=== PATIENT | female | born 1995 | race Caucasian/White ===

== ENCOUNTER 2023-04-01 15:03 | Emergency (ER) | payer OTHER, SELFPAY ==
[2023-04-01 15:08] VITALS: BP 122/78; PULSE 101; RESP 18; TEMP 36.7; O2SAT 100
--- NOTE | 2023-04-01 15:17 | XR_ITS ---
The [address] [address] Patient Name: DREW MACIEL MRN: [id number] date: 1995 Sex: F Assigned Patient Location: ER Current Patient Location: ER Accession/Order Number: [id number] Exam Date: 04/01/2023 15:25 Report Date: 04/01/2023 15:55 At the request of: PRIYA LEYVA Procedure: XR hand RT min 3V EXAM: XR hand RT min 3V HISTORY: Fall COMPARISON: None TECHNIQUE: 4 views of the right hand were obtained. FINDINGS: No definite acute fracture or dislocation. Small spur is suggested along the dorsal aspect of the tuft of the distal phalanx of the ring finger. No significant soft tissue swelling. XR/XR hand RT min 3V IMPRESSION: Right hand study fails to demonstrate definite acute fracture or dislocation. Follow-up as needed. Electronically authenticated by: KEITH ROBISON Date: 04/01/2023 15:55
--- NOTE | 2023-04-01 15:17 | XR_ITS ---
The [address] [address] Patient Name: DREW MACIEL MRN: [id number] date: 1995 Sex: F Assigned Patient Location: ER Current Patient Location: ER Accession/Order Number: [id number] Exam Date: 04/01/2023 15:25 Report Date: 04/01/2023 15:43 At the request of: PRIYA LEYVA Procedure: XR wrist RT min 3V EXAM: XR wrist RT min 3V HISTORY: Fall COMPARISON: None. TECHNIQUE: Three views of the right wrist. FINDINGS: No acute fracture or dislocation. No soft tissue abnormality. XR/XR wrist RT min 3V IMPRESSION: 1. No acute osseous abnormality. Electronically authenticated by: RAMONA CRUZ Date: 04/01/2023 15:43
--- NOTE | 2023-04-01 15:18 | ED.UPPEXIN1 ---
HPI - Extremity Injury (Upper) General Chief Complaint: Extremity Injury, Upper Stated Complaint: r hand/wrist dt fall Time Seen by Provider: 04/01/23 15:09 Source: patient Mode of arrival: walk-in History of Present Illness HPI narrative: Patient is a 27-year-old female who presents to the emergency department For the evaluation of an injury to the right hand and wrist that occurred just prior to arrival. Patient states she took ibuprofen prior to arrival in the ER. She is right-hand dominant. She denies head injury, loss of consciousness, neck or back pain. She states the right hand feels shaky to her, no other peripheral paresthesias. She reports most of the pain in the palm of the right hand and volar right wrist. Related Data Previous Rx's Medication Instructions Recorded hydrocodone 5 mg-acetaminophen 325 1 tab PO Q6H PRN pain 2 days #8 04/01/23 mg tablet tabs Allergies Allergy/AdvReac Type Severity Reaction Status Date / Time No Known Drug Allergies Allergy Verified 04/01/23 15:12 Review of Systems ROS Constitutional Denies: fever or chills Eyes Denies: change in vision Ears, nose, mouth, and throat Denies: throat pain or nasal congestion Cardiovascular Denies: chest pain Respiratory Denies: shortness of breath or cough Gastrointestinal Denies: nausea or vomiting Genitourinary Denies: painful urination Musculoskeletal Reports: extremity pain, extremity swelling and joint pain; Denies: back pain or neck pain Integumentary/Breast Denies: rash Neurological Denies: headache Endocrine Denies: excessive urination Hematologic/Lymphatic Denies: easy bruising or easy bleeding Exam Narrative Exam Narrative: Gen.: Awake, alert, in no distress Head: Normocephalic, atraumatic ENT: Moist mucous membranes Respiratory: No respiratory distress Extremities: Limited flexion and extension at the right wrist with diffuse tenderness and mild edema noted over the palmar aspect of the right hand just distal to the wrist joint as well as diffuse swelling and mild tenderness of the volar wrist. 2+ right radial pulse. Normal sensation to the fingertips. Psych: Normal mood and affect Neuro: No focal neuro deficit Skin: Warm, dry, intact Constitutional Vital Signs, click to edit/add: Last Vital Signs Temp 98.0 F 04/01/23 15:08 Pulse 101 H 04/01/23 15:08 Resp 18 04/01/23 15:08 BP 122/78 04/01/23 15:08 Pulse Ox 100 04/01/23 15:08 O2 Del Method Room Air 04/01/23 15:08 Course Vital Signs Vital signs: Vital Signs Temperature 98.0 F 04/01/23 15:08 Pulse Rate 101 H 04/01/23 15:08 Respiratory Rate 18 04/01/23 15:08 Blood Pressure 122/78 04/01/23 15:08 Pulse Oximetry 100 04/01/23 15:08 Oxygen Delivery Method Room Air 04/01/23 15:08 Temperature 98.0 F 04/01/23 15:08 Pulse Rate 101 H 04/01/23 15:08 Respiratory Rate 18 04/01/23 15:08 Blood Pressure 122/78 04/01/23 15:08 Pulse Oximetry 100 04/01/23 15:08 Oxygen Delivery Method Room Air 04/01/23 15:08 MDM - Extremity Injury (Upper) MDM Narrative Medical decision making narrative: X-rays of the right hand and right wrist with no evidence of fracture or dislocation per the radiologist read. Patient declined narcotic pain medication in the ER, she took ibuprofen prior to arrival. She states she does not need a work note at this time. She was placed in a metal forearm splint with Francisco wrap and remains neurovascularly intact. Rest, ice, elevate. Follow-up with PCP and return to the emergency department if symptoms change or worsen. Short course of analgesics was written for home as needed. Medical Records Attestation: I reviewed the patient's medical records. Imaging Data XR hand: Attestation: I have reviewed the pertinent imaging results. Radiologist's impression: ITS Impressions Hand X-Ray 04/01/23 15:17 IMPRESSION: Right hand study fails to demonstrate definite acute fracture or dislocation. Follow-up as needed. Electronically authenticated by: KEITH ROBISON Date: 04/01/2023 15:55 Wrist X-Ray 04/01/23 15:17 IMPRESSION: 1. No acute osseous abnormality. Electronically authenticated by: RAMONA CRUZ Date: 04/01/2023 15:43 Discharge Plan Discharge Chief Complaint: Extremity Injury, Upper Clinical Impression: Contusion of right wrist Patient Disposition: Home, Self-Care Time of Disposition Decision: 16:08 Condition: Good Prescriptions / Home Meds: New hydrocodone-acetaminophen 5-325 mg tablet 1 tab PO Q6H PRN (Reason: pain) 2 Days Qty: 8 0RF Rx Instructions: DX: S60.211 Instructions: Contusion in Adults (ED) Stand Alone Forms: Portal Instructions Referrals: Physician,Non-Staff, MD [Primary Care Provider] - 1 week Discharge Date/Time: 04/01/23 16:22
--- OUTSIDE RECORDS SUMMARY | 2023-04-01 15:30 | XMS_ITS | CCD ---
Author Name Unknown Address [address] [facility] [address] [place] [address] Organization [facility] Care Team Providers Care Records Custodian Name Role Phone PHYSICIAN, DEFAULT Unavailable Unavailable PHYSICIAN, DEFAULT Unavailable Unavailable AILEEN SABILLON Unavailable Unavailable AILEEN SABILLON Unavailable Unavailable DESEAN, MAGGIE Unavailable Unavailable DESEAN, MAGGIE Unavailable Unavailable KARASIK, DR DYER Attending Unavailable KARASIK, DR DYER Consulting Unavailable KARASIK, DR DYER Admitting Unavailable DESEAN, DR LAND Consulting Unavailable DESEAN, DR LAND Primary Care Unavailable KARASIK, DR DYER Attending Unavailable KARASIK, DR DYER Admitting Unavailable ZIEBER, DR AIMEE Riddle Consulting Unavailable HEMMER, DR REENA Daugherty Attending Unavailable HEMMER, DR REENA Daugherty Consulting Unavailable HEMLETICIA, DR REENA Daugherty Admitting Unavailable DESEAN, DR LAND Primary Care Unavailable BRITTANI, DR MYLES Riddle Attending Unavailable BRITTANI, DR MYLES Riddle Consulting Unavailable BRITTANI, DR MYLES Riddle Admitting Unavailable DESEAN, DR LAND Primary Care Unavailable MD Maggie Anton Primary Care Provider DO Holger Aquino Attending Provider MD Maggie Anton Primary Care Provider DO Mario Conley Attending Provider [phone] DO Shirlene Owen Attending Provider [phone] DO Mario Conley Admit Provider MD Maggie Anton Primary Care Provider DO Holger Aquino Attending Provider Berta Rosales Unavailable MARY BETH Rosales Attending Provider [phone] Mario Conley Attending Unavailable Maggie Anton Primary Care Unavailable Mario Conley Admitting Unavailable Mario Conley Attending Unavailable Maggie Anton Primary Care Unavailable Mario Conley Admitting Unavailable Maggie Anton Primary Care Unavailable Shirlene Owen Admitting Unavailable Shirlene Owen Attending Unavailable Berta Rosales Admitting Unavailable Berta Rosales Attending Unavailable Medications Current Medications Medication Drug Class(es) Dates Sig (Normalized) Sig (Original) benzocaine 200 mg/ml / menthol 5 mg/ml topical spray (3 sources) Standardized Chemical Allergen Start: 04-01-2022 Benzocaine-Mentho l (Dermoplast (With Menthol)) 20-0.5 % Aerosol Active 1 SPRAY TOPICAL PRN April 01, 2022 12:00am ferrous sulfate 325 mg oral tablet (5 sources) Start: 03-30-2022 take 325 mg by mouth once daily Ferrous Sulfate Active 325 MG PO Daily March 30, 2022 12:00am ibuprofen 600 mg oral tablet (3 sources) Nonsteroidal Anti-inflammatory Drug Start: 03-30-2022 Ibuprofen Active 600 MG PO Every 6 hours March 30, 2022 12:00am do not exceed 4 doses in a 24 hour period Modified Lanolin (Lanolin (Hpa)) 100 % Cream (3 sources) Start: 04-01-2022 Modified Lanolin (Lanolin (Hpa)) 100 % Cream Active 1 APPLIC TOPICAL PRN April 01, 2022 1:00am Start: 04-01-2022 Modified Lanol in (Lanolin (Hpa)) 100 % Cream Active 1 APPLIC TOPICAL PRN April 01, 2022 12:00am sulfamethoxazole 800 mg / trimethoprim 160 mg oral tablet (2 sources) Dihydrofolate Reductase Inhibitor Antibacterial, Sulfonamide Antimicrobial Start: 02-12-2023 take 1 tablet by mouth every twelve hours Bactrim DS 800-160 MG 1 tablet Orally Twice a day for 5 days Jan, Active witch [place] 500 mg/ml medicated pad (3 sources) Start: 04-01-2022 Glycerin-Witch Diego (A.E.R. Witch Diego) 12.5-50 % Pads, Medicated Active 1 PAD TOPICAL PRN April 01, 2022 12:00am Completed/Discontinued Medications Medication Drug Class(es) Dates Sig (Normalized) Sig (Original) 1 ml medroxyPROGESTERone acetate 150 mg/ml prefilled syringe (2 sources) Progestin medroxyPROGESTER one Acetate 150 MG/ML ADMINISTER 150mg INTRAMUSCULARLY every 10 TO 12 WEEKS DIRECTED Intramuscular for 70 Days Not-Taking/PRN Problems Active Problems Problem Classification Problem Date Documented Date Episodic/Chronic Genitourinary symptoms and ill-defined conditions (3 sources) Dysuria; Translations: [Dysuria] Onset: 02-12-2023 Episodic Other lower respiratory disease (1 source) Shortness of breath; Translations: [SHORTNESS OF BREATH] Onset: 11-26-2020 Episodic Residual codes; unclassified (3 sources) Gestation period, 39 weeks; Translations: [39 weeks gestation of ] 03-31-2022 Episodic Residual codes; unclassified (1 source) 39 weeks gestation of ; Translations: [ state, incidental] 04-01-2022 Episodic Unclassified (2 sources) Unknown / UNK(Unknown) Onset: 09-21-2016 Unclassified (3 sources) CONTACT W/AND (SUSP) EXPOS COVID-19; Translations: [CONTACT W/AND (SUSP) EXPOS COVID-19] Onset: 11-26-2020 Unclassified (1 source) COUGH, UNSPECIFIED; Translations: [COUGH, UNSPECIFIED] Onset: 11-26-2020 Unclassified (1 source) 39 weeks gestation of ; Translations: [39 weeks gestation of ] Onset: 03-29-2022 Unclassified (1 source) Encounter for screening for Streptococcus B; Translations: [Encounter for screening for Streptococcus B] Onset: 03-10-2022 Unclassified (1 source) labor without delivery, third trimester; Translations: [ labor without delivery, third trimester] Onset: 03-08-2022 Urinary tract infections (2 sources) Acute cystitis without hematuria Episodic Past or Other Problems Problem Classification Problem Date Documented Date Episodic/Chronic Abdominal pain (4 sources) Pelvic and perineal pain; Translations: [PELVIC AND PERINEAL PAIN] Onset: 01-01-2020 Episodic Immunizations and screening for infectious disease (1 source) Encounter for screening for human papillomavirus (HPV); Translations: [ENC SCREENING HUMAN PAPILLOMAVIRUS] Onset: 01-27-2020 Episodic Other screening for suspected conditions (not mental disorders or infectious disease) (4 sources) Encounter for screening for malignant neoplasm of cervix; Translations: [ENC SCREENING MALIG NEOPLASM CERV] Onset: 01-22-2020 Episodic Skin and subcutaneous tissue infections (1 source) Local infection of the skin and subcutaneous tissue, unspecified; Translations: [LOCAL INFECT SKIN SUBQ TISSUE UNS] Onset: 02-11-2020 Episodic Superficial injury; contusion (4 sources) Superficial foreign body of lower back and pelvis, initial encounter; Translations: [SUP FB LOWER BACK PELVIS INITIAL] Onset: 02-08-2020 Episodic Syncope (4 sources) Syncope and collapse; Translations: [SYNCOPE AND COLLAPSE] Onset: 09-21-2016 Episodic Unclassified (1 source) CONTACT W/AND (SUSP) EXPOS COVID-19; Translations: [CONTACT W/AND (SUSP) EXPOS COVID-19] Onset: 11-21-2020 Unclassified (2 sources) Bilateral low back pain without sciatica, unspecified chronicity M54.50 Results Test Name Value Interpretation Reference Range Facility Urinalysis - AUTOMATED Appearance (U) cloudy [employer] Other Bilirubin Ql (U) Negative [employer] Other Color (U) pale yellow [employer] Other Glucose Ql (U) Negative [employer] Other Hemoglobin Ql (U) Negative [employer] Other Ketones Ql (U) Negative [employer] Other Leukocyte esterase Test strip Ql (U) small [employer] Other Nitrite Ql (U) Negative [employer] Other pH (U) 5.5 [pH] [employer] Other Protein Ql (U) Negative [employer] Other Specific gravity (U) [Rel density] >=1.030 [employer] Other Urobilinogen (U) [Mass/Vol] 0.2 mg/dL [employer] Other Urinalysis - AUTOMATED No rth [employer] Other Urine Cultureon 02-12-2023 Bacteria identified Cx Nom (U) Reason for Exam Dysuria Urine 25,000 colonies/ml mixed bacterial skin contaminants 2 Days PERFORMED BY: [address] [place] [address] PATHOLOGIST CHAIR LIFT OPERATOR JOSEFINA GAMBLE M.D. Normal [place] Comment on above: Performed By: #### C MP, CBC #### [facility] [address] [place] [address] [place] Bacteria identified Cx Nom (U) [facility] [employer] Other ABO/Rh Retypeon 04-01-2022 ABO/RH Recheck Result Positive Normal [facility] Comment on above: Result Comment: PERF ORMED BY: [address] [place] [address] PATHOLOGIST CHAIR LIFT OPERATOR JOSEFINA GAMBLE M.D. Basophils Auto (Bld) [#/Vol] Ordered By: Mario Conley on 03-31-2022 Basophils (Bld) [#/Vol] 0.1 10*3/uL 0.0-0.2 [place] Basophils/100 WBC Auto (Bld) Ordered By: Mario Conley on 03-31-2022 Basophils/100 WBC (Bld) 0.4 % . [facility] Complete Blood Count Auto Di ffon 03-31-2022 Basophils (Bld) [#/Vol] 0.1 10*3/uL Normal 0.0-0.2 [place] Comment on above: Order Comment: Comme nt Draw at 630 am Result Comment: PERF ORMED BY: [address] [place] [address] PATHOLOGIST CHAIR LIFT OPERATOR JOSEFINA GAMBLE M.D. Performed By: #### C MP, CBC #### [facility] [address] [place] [address] [place] Basophils/100 WBC (Bld) 0.4 % Normal . [facility] Comment on above: Order Comment: Comme nt Draw at 630 am Performed By: #### C MP, CBC #### [facility] [address] [place] [address] [place] Eosinophils (Bld) [#/Vol] 0.1 10*3/uL Normal 0.0-0.45 [place] Comment on above: Order Comment: Comme nt Draw at 630 am Performed By: #### C MP, CBC #### [place] [address] [place] Eosinophils/100 WBC (Bld) 0.4 % Normal . [place] Comment on above: Order Comment: Comme nt Draw at 630 am Performed By: #### C MP, CBC #### [address] Erythrocyte distribution width (RBC) [Ratio] 14.6 % Normal 11.9-15.3 [place] Comment on above: Order Comment: Comme nt Draw at 630 am Performed By: #### C MP, CBC #### [address] Hematocrit (Bld) [Volume fraction] 27.5 % Low 34.0-46.4 [place] Comment on above: Order Comment: Comme nt Draw at 630 am Performed By: #### C MP, CBC #### [place] [address] [place] Hemoglobin (Bld) [Mass/Vol] 9.1 g/dL Low 11.8-15.4 [place] Comment on above: Order Comment: Comme nt Draw at 630 am Performed By: #### C MP, CBC #### [place] [address] [place] Lymphocytes (Bld) [#/Vol] 1.9 10*3/uL Normal 1.00-4.8 [place] Comment on above: Order Comment: Comme nt Draw at 630 am Performed By: #### C MP, CBC #### [place] [address] [place] Lymphocytes/100 WBC (Bld) 13.5 % Normal . [place] Comment on above: Order Comment: Comme nt Draw at 630 am Performed By: #### C MP, CBC #### [facility] [address] MCH (RBC) [Entitic mass] 29.6 pg Normal 24.7-34.3 [place] Comment on above: Order Comment: Comme nt Draw at 630 am Performed By: #### C MP, CBC #### [address] MCV (RBC) [Entitic vol] 90.0 fL Normal 80-100 [facility] Comment on above: Order Comment: Comme nt Draw at 630 am Performed By: #### C MP, CBC #### [address] Mean Corpuscular HGB Conc 32.9 g/dL Normal 32.0-35.0 [place] Comment on above: Order Comment: Comme nt Draw at 630 am Performed By: #### C MP, CBC #### [place] [address] [place] Monocytes (Bld) [#/Vol] 1.3 10*3/uL High 0.0-0.8 [place] Comment on above: Order Comment: Comme nt Draw at 630 am Performed By: #### C MP, CBC #### [place] [address] [place] Monocytes/100 WBC (Bld) 9.0 % Normal . [facility] Comment on above: Order Comment: Comme nt Draw at 630 am Performed By: #### C MP, CBC #### [place] [address] [place] Neutrophils (Bld) [#/Vol] 10.9 10*3/uL High 1.8-7.7 [place] Comment on above: Order Comment: Comme nt Draw at 630 am Performed By: #### C MP, CBC #### [place] [address] [place] Neutrophils/100 WBC (Bld) 76.7 % Normal . [place] Comment on above: Order Comment: Comme nt Draw at 630 am Performed By: #### C MP, CBC #### [facility] [address] [place] [address] NRBC% 0.0 /100{WBC} Normal 0-0.5 [place] Comment on above: Order Comment: Comme nt Draw at 630 am Performed By: #### C MP, CBC #### [address] Platelet mean volume (Bld) [Entitic vol] 9.1 fL Normal 6.3-10.7 [place] Comment on above: Order Comment: Comme nt Draw at 630 am Performed By: #### C MP, CBC #### [address] Platelets (Bld) [#/Vol] 274 10*3/uL Normal 150-450 [place] Comment on above: Order Comment: Comme nt Draw at 630 am Performed By: #### C MP, CBC #### [address] RBC (Bld) [#/Vol] 3.06 10*6/uL Low 3.60-5.00 [facility] Comment on above: Order Comment: Comme nt Draw at 630 am Performed By: #### C MP, CBC #### [address] WBC (Bld) [#/Vol] 14.2 10*3/uL High 3.8-11.6 [facility] Comment on above: Order Comment: Comme nt Draw at 630 am Performed By: #### C MP, CBC #### [place] [address] [place] Eosinophils Auto (Bld) [#/Vo l]Ordered By: Mario Conley on 03-31-2022 Eosinophils (Bld) [#/Vol] 0.1 10*3/uL 0.0-0.45 [place] Eosinophils/100 WBC Auto (Bl d)Ordered By: Mario Conley on 03-31-2022 Eosinophils/100 WBC (Bld) 0.4 % . [place] Erythrocyte distribution wid th Auto (RBC) [Ratio]Ordered By: Mario Conley on 03-31-2022 Erythrocyte distribution width (RBC) [Ratio] 14.6 % 11.9-15.3 [place] Hematocrit Auto (Bld) [Volum e fraction]Ordered By: Mario Conley on 03-31-2022 Hematocrit (Bld) [Volume fraction] 27.5 % 34.0-46.4 [place] Hemoglobin [Mass/volume] in BloodOrdered By: Mario Conley on 03-31-2022 Hemoglobin (Bld) [Mass/Vol] 9.1 g/dL 11.8-15.4 [place] Leukocytes [#/volume] correc edgard for nucleated erythrocytes in Blood by Automated counOrdered By: Mario Conley on 03-31-2022 WBC corrected for nucl RBC Auto (Bld) [#/Vol] 14.2 10*3/uL 3.8-11.6 [place] Lymphocytes Auto (Bld) [#/Vo l]Ordered By: Mario Conley on 03-31-2022 Lymphocytes (Bld) [#/Vol] 1.9 10*3/uL 1.00-4.8 [place] Lymphocytes/100 WBC Auto (Bl d)Ordered By: Mario Conley on 03-31-2022 Lymphocytes/100 WBC (Bld) 13.5 % . [place] MCH Auto (RBC) [Entitic mass ]Ordered By: Mario Conley on 03-31-2022 MCH (RBC) [Entitic mass] 29.6 pg 24.7-34.3 [place] MCHC Auto (RBC) [Mass/Vol]Or dered By: Mario Conley on 03-31-2022 MCHC (RBC) [Mass/Vol] 32.9 g/dL 32.0-35.0 [facility] MCV Auto (RBC) [Entitic vol] Ordered By: Mario Conley on 03-31-2022 MCV (RBC) [Entitic vol] 90.0 fL 80-100 [facility] Monocytes Auto (Bld) [#/Vol] Ordered By: Mario Conley on 03-31-2022 Monocytes (Bld) [#/Vol] 1.3 10*3/uL 0.0-0.8 [place] Monocytes/100 WBC Auto (Bld) Ordered By: Mario Conley on 03-31-2022 Monocytes/100 WBC (Bld) 9.0 % . [facility] Neutrophils Auto (Bld) [#/Vo l]Ordered By: Mario Conley on 03-31-2022 Neutrophils (Bld) [#/Vol] 10.9 10*3/uL 1.8-7.7 [place] Neutrophils/100 WBC Auto (Bl d)Ordered By: Mario Conley on 03-31-2022 Neutrophils/100 WBC (Bld) 76.7 % . [place] Nucleated erythrocytes [Pres ence] in Blood by Automated countOrdered By: Mario Conley on 03-31-2022 Nucleated RBC Auto Ql (Bld) 0.0 /100{WBC} 0-0.5 [place] Platelet mean volume Auto (B ld) [Entitic vol]Ordered By: Mario Conley on 03-31-2022 Platelet mean volume (Bld) [Entitic vol] 9.1 fL 6.3-10.7 [place] Platelets Auto (Bld) [#/Vol] Ordered By: Mario Conley on 03-31-2022 Platelets (Bld) [#/Vol] 274 10*3/uL 150-450 [place] RBC Auto (Bld) [#/Vol]Ordere d By: Mario Conley on 03-31-2022 RBC (Bld) [#/Vol] 3.06 10*6/uL 3.60-5.00 [facility] WBC Auto (Bld) [#/Vol]Ordere d By: Mario Conley on 03-31-2022 WBC (Bld) [#/Vol] 14.2 10*3/uL 3.8-11.6 [facility] ABO/RH Typeon 03-30-2022 ABO and Rh group Nom (Bld) Blood group A Rh(D) positive Normal [place] Comment on above: Result Comment: PERF ORMED BY: [facility] [address] [place] [address] PATHOLOGIST CHAIR LIFT OPERATOR JOSEFINA GAMBLE M.D. Complete Blood Count Auto Di ffon 03-29-2022 Basophils (Bld) [#/Vol] 0.1 10*3/uL Normal 0.0-0.2 [place] Comment on above: Result Comment: PERF ORMED BY: [place] [address] PATHOLOGIST CHAIR LIFT OPERATOR JOSEFINA GAMBLE M.D. Performed By: #### R AL W RFX #### [facility] , #### CBC #### [facility] [address] [place] [address] Basophils/100 WBC (Bld) 0.5 % Normal . [facility] Comment on above: Performed By: #### R AL W RFX #### [facility] , #### CBC #### [facility] [address] [place] [address] [place] Eosinophils (Bld) [#/Vol] 0.1 10*3/uL Normal 0.0-0.45 [place] Comment on above: Performed By: #### R AL W RFX #### [facility] , #### CBC #### [facility] [address] [place] [address] Eosinophils/100 WBC (Bld) 1.0 % Normal . [place] Comment on above: Performed By: #### R AL W RFX #### [facility] , #### CBC #### [facility] [address] [place] [address] Erythrocyte distribution width (RBC) [Ratio] 14.6 % Normal 11.9-15.3 [place] Comment on above: Performed By: #### R AL W RFX #### [facility] , #### CBC #### [facility] [address] [place] [address] Hematocrit (Bld) [Volume fraction] 30.2 % Low 34.0-46.4 [place] Comment on above: Performed By: #### R AL W RFX #### [facility] , #### CBC #### [facility] [address] [place] [address] Hemoglobin (Bld) [Mass/Vol] 10.0 g/dL Low 11.8-15.4 [place] Comment on above: Performed By: #### R AL W RFX #### [facility] , #### CBC #### [facility] [address] [place] [address] Lymphocytes (Bld) [#/Vol] 2.2 10*3/uL Normal 1.00-4.8 [place] Comment on above: Performed By: #### R AL W RFX #### [facility] , #### CBC #### [address] Lymphocytes/100 WBC (Bld) 19.5 % Normal . [place] Comment on above: Performed By: #### R AL W RFX #### [facility] , #### CBC #### [facility] [address] [place] [address] MCH (RBC) [Entitic mass] 29.7 pg Normal 24.7-34.3 [place] Comment on above: Performed By: #### R AL W RFX #### [facility] , #### CBC #### [facility] [address] [place] [address] MCV (RBC) [Entitic vol] 89.7 fL Normal 80-100 F [facility] Comment on above: Performed By: #### R AL W RFX #### [facility] , #### CBC #### [facility] [address] [place] [address] Mean Corpuscular HGB Conc 33.1 g/dL Normal 32.0-35.0 [place] Comment on above: Performed By: #### R AL W RFX #### [facility] , #### CBC #### [facility] [address] [place] [address] [place] Monocytes (Bld) [#/Vol] 0.9 10*3/uL High 0.0-0.8 [place] Comment on above: Performed By: #### R AL W RFX #### [facility] , #### CBC #### [facility] [address] [place] [address] Monocytes/100 WBC (Bld) 8.0 % Normal . [facility] Comment on above: Performed By: #### R AL W RFX #### [facility] , #### CBC #### [facility] [address] [place] [address] [place] Neutrophils (Bld) [#/Vol] 8.1 10*3/uL High 1.8-7.7 [place] Comment on above: Performed By: #### R AL W RFX #### [facility] , #### CBC #### [facility] [address] [place] [address] [place] Neutrophils/100 WBC (Bld) 71.0 % Normal . [place] Comment on above: Performed By: #### R AL W RFX #### [facility] , #### CBC #### [facility] [address] [place] [address] NRBC% 0.1 /100{WBC} Normal 0-0.5 [place] Comment on above: Performed By: #### R AL W RFX #### [facility] , #### CBC #### [facility] [address] [place] [address] Platelet mean volume (Bld) [Entitic vol] 9.1 fL Normal 6.3-10.7 [place] Comment on above: Performed By: #### R AL W RFX #### [facility] , #### CBC #### [address] Platelets (Bld) [#/Vol] 310 10*3/uL Normal 150-450 [place] Comment on above: Performed By: #### R AL W RFX #### [facility] , #### CBC #### [facility] [address] [place] [address] RBC (Bld) [#/Vol] 3.36 10*6/uL Low 3.60-5.00 [facility] Comment on above: Performed By: #### R AL W RFX #### [facility] , #### CBC #### [address] WBC (Bld) [#/Vol] 11.4 10*3/uL Normal 3.8-11.6 [facility] Comment on above: Performed By: #### R AL W RFX #### [facility] , #### CBC #### [address] RPR w/rfx to Quant TP Abson 03-29-2022 RPR, Rfx Quant RPR Non-Reactive Normal Non Reactive [facility] Comment on above: Result Comment: Perf ormed at: CB - [facility] [address] [id number] Electronic Gluing Machine Operator: Anselmo Caldwell PhD, Phone: [phone] PERFORMED BY: [place] [address] PATHOLOGIST CHAIR LIFT OPERATOR JOSEFINA GAMBLE M.D. Performed By: #### R AL W RFX #### [facility] , #### CBC #### [address] Reagin Ab [Presence] in Seru m by RPROrdered By: Mario Conley on 03-29-2022 Reagin Ab RPR Ql (S) Non-Reactive Non Reactive [place] Comment on above: Performed at: [address] [id number] Director: Anselmo Caldwell PhD, Phone: [phone] Group B Streptococcus cultur eOrdered By: Mario Conley on 03-10-2022 S. agalactiae Org specific cx Ql (Unsp spec) No Group B Beta Streptococcus Isolated 3 Days [place] Strep B Cultureon 03-10-2022 Strep B Culture No Group B Beta Streptococcus Isolated 3 Days PERFORMED BY: [facility] [address] [place] [address] PATHOLOGIST CHAIR LIFT OPERATOR JOSEFINA GAMBLE M.D. Normal [place] Comment on above: Performed By: #### C USTB #### [facility] [address] Albumin [Mass/volume] in Ser um or PlasmaOrdered By: Shirlene Owen on 03-08-2022 Albumin [Mass/Vol] 2.6 g/dL 3.2-5.5 [facility] Amphetamine Screen Ql (U)Ord ered By: Shirlene Owen on 03-08-2022 Amphetamines Ql (U) Negative Negative [facility] Automated epithelial cells c ount in urine sediment (number/area)Ordered By: Shirlene Owen on 03-08-2022 Epithelial cells Auto (Urine sed) [#/Area] 1-2 [HPF] 0-2 [place] Automated erythrocytes count in urine sediment (number/area)Ordered By: Shirlene Owen on 03-08-2022 RBC Auto (Urine sed) [#/Area] 0-1 [HPF] 0-4 [place] Automated leukocytes count i n urine sediment (number/area)Ordered By: Shirlene Owen on 03-08-2022 WBC Auto (Urine sed) [#/Area] 50-100 [HPF] 0-4 [place] Automated urine hyaline cast s count (number/volume)Ordered By: Shirlene Owen on 03-08-2022 Hyaline casts Auto (U) [#/Vol] None seen [LPF] 0-1 [place] Barbiturates [Presence] in U rineOrdered By: Shirlene Owen on 03-08-2022 Barbiturates Ql (U) Negative Negative [facility] Basophils Auto (Bld) [#/Vol] Ordered By: Shirlene Owen on 03-08-2022 Basophils (Bld) [#/Vol] 0.0 10*3/uL 0.0-0.2 [place] Basophils/100 WBC Auto (Bld) Ordered By: Shirlene Owen on 03-08-2022 Basophils/100 WBC (Bld) 0.2 % . [facility] Benzodiazepines [Presence] i n UrineOrdered By: Shirlene Owen on 03-08-2022 Benzodiazepines Ql (U) Negative Negative [facility] Bilirubin Test strip Ql (U)O rdered By: Shirlene Owen on 03-08-2022 Bilirubin Ql (U) Negative Negative [facility] Color Auto (U)Ordered By: Kingsley Owen on 03-08-2022 Color (U) Yellow Yellow [place] Complete Blood Count Auto Di ffon 03-08-2022 Basophils (Bld) [#/Vol] 0.0 10*3/uL Normal 0.0-0.2 [place] Comment on above: Result Comment: PERF ORMED BY: [place] [address] PATHOLOGIST CHAIR LIFT OPERATOR JOSEFINA GAMBLE M.D. Performed By: #### C MP, CBC #### [facility] [address] [place] [address] [place] Basophils/100 WBC (Bld) 0.2 % Normal . [facility] Comment on above: Performed By: #### C MP, CBC #### [facility] [address] [place] [address] [place] Eosinophils (Bld) [#/Vol] 0.0 10*3/uL Normal 0.0-0.45 [place] Comment on above: Performed By: #### C MP, CBC #### [address] Eosinophils/100 WBC (Bld) 0.3 % Normal . [place] Comment on above: Performed By: #### C MP, CBC #### [address] Erythrocyte distribution width (RBC) [Ratio] 13.9 % Normal 11.9-15.3 [place] Comment on above: Performed By: #### C MP, CBC #### [address] Hematocrit (Bld) [Volume fraction] 28.4 % Low 34.0-46.4 [place] Comment on above: Performed By: #### C MP, CBC #### [address] Hemoglobin (Bld) [Mass/Vol] 9.5 g/dL Low 11.8-15.4 [place] Comment on above: Performed By: #### C MP, CBC #### [address] Lymphocytes (Bld) [#/Vol] 1.3 10*3/uL Normal 1.00-4.8 [place] Comment on above: Performed By: #### C MP, CBC #### [address] Lymphocytes/100 WBC (Bld) 13.0 % Normal . [place] Comment on above: Performed By: #### C MP, CBC #### [place] [address] [place] MCH (RBC) [Entitic mass] 30.7 pg Normal 24.7-34.3 [place] Comment on above: Performed By: #### C MP, CBC #### [address] MCV (RBC) [Entitic vol] 91.6 fL Normal 80-100 F [facility] Comment on above: Performed By: #### C MP, CBC #### [place] [address] [place] Mean Corpuscular HGB Conc 33.6 g/dL Normal 32.0-35.0 [place] Comment on above: Performed By: #### C MP, CBC #### [facility] [address] Monocytes (Bld) [#/Vol] 0.6 10*3/uL Normal 0.0-0.8 [place] Comment on above: Performed By: #### C MP, CBC #### [facility] [address] Monocytes/100 WBC (Bld) 6.0 % Normal . [facility] Comment on above: Performed By: #### C MP, CBC #### [address] Neutrophils (Bld) [#/Vol] 7.8 10*3/uL High 1.8-7.7 [place] Comment on above: Performed By: #### C MP, CBC #### [address] Neutrophils/100 WBC (Bld) 80.5 % Normal . [place] Comment on above: Performed By: #### C MP, CBC #### [address] NRBC% 0.1 /100{WBC} Normal 0-0.5 [place] Comment on above: Performed By: #### C MP, CBC #### [facility] [address] Platelet mean volume (Bld) [Entitic vol] 8.3 fL Normal 6.3-10.7 [place] Comment on above: Performed By: #### C MP, CBC #### [facility] [address] [place] [address] [place] Platelets (Bld) [#/Vol] 290 10*3/uL Normal 150-450 [place] Comment on above: Performed By: #### C MP, CBC #### [facility] [address] [place] [address] [place] RBC (Bld) [#/Vol] 3.10 10*6/uL Low 3.60-5.00 [facility] Comment on above: Performed By: #### C MP, CBC #### [address] WBC (Bld) [#/Vol] 9.7 10*3/uL Normal 3.8-11.6 [facility] Comment on above: Performed By: #### C MP, CBC #### [address] Comprehensive Metabolic Pane susy 03-08-2022 Albumin [Mass/Vol] 2.6 g/dL Low 3.2-5.5 [facility] Comment on above: Performed By: #### C MP, CBC #### [address] Albumin/Globulin [Mass ratio] 0.9 {ratio} Normal [place] Comment on above: Performed By: #### C MP, CBC #### [address] ALP [Catalytic activity/Vol] 113 U/L High 32-92 [place] Comment on above: Performed By: #### C MP, CBC #### [address] ALT [Catalytic activity/Vol] 9 U/L Low 10-60 [place] Comment on above: Performed By: #### C MP, CBC #### [address] Anion gap [Moles/Vol] 12.1 mmol/L Normal 6.0-15.0 [facility] Comment on above: Performed By: #### C MP, CBC #### [address] AST [Catalytic activity/Vol] 14 U/L Normal 10-42 [place] Comment on above: Performed By: #### C MP, CBC #### [address] Bilirubin [Mass/Vol] 0.3 mg/dL Normal 0.3-1.[address] [facility] Comment on above: Performed By: #### C MP, CBC #### [facility] [address] Calcium [Mass/Vol] 8.5 mg/dL Normal 8.2-10.2 [facility] Comment on above: Performed By: #### C MP, CBC #### [facility] [address] Chloride [Moles/Vol] 108 mmol/L Normal 95-[address] [facility] Comment on above: Performed By: #### C MP, CBC #### [facility] [address] CO2 [Moles/Vol] 19.4 mmol/L Low 22.0-30.0 [facility] Comment on above: Performed By: #### C MP, CBC #### [facility] [address] [place] [address] Creatinine [Mass/Vol] 0.49 mg/dL Normal 0.44-1.03 [facility] Comment on above: Performed By: #### C MP, CBC #### [place] [address] [place] Creatinine Clr Calc Pharmacy 178.59 [facility] Comment on above: Result Comment: PERF ORMED BY: [place] [address] PATHOLOGIST CHAIR LIFT OPERATOR JOSEFINA GAMBLE M.D. Performed By: #### C MP, CBC #### [facility] [address] [place] [address] Estimated GFR ( [place] > 60 [facility] Comment on above: Result Comment: GFR estimated reference range: According to KDOQI guidelines, <60 ml/min/1.73m2 is sufficient to diagnose a patient with chronic kidney disease. Performed By: #### C MP, CBC #### [facility] [address] [place] [address] [place] Estimated GFR (Non- Am > 60 [facility] Comment on above: Performed By: #### C MP, CBC #### [facility] [address] Globulin (S) [Mass/Vol] 2.8 g/dL Normal F [facility] Comment on above: Performed By: #### C MP, CBC #### [address] Glucose [Mass/Vol] 83 mg/dL Normal 70-100 [facility] Comment on above: Result Comment: [facility] Glucose Reference Range is dependent on time and content of last meal. Glucose of more than 200 mg/dL in a nonstressed, ambulatory subject supports the diagnosis of Diabetes Mellitus. ADA recommended reference range Performed By: #### C MP, CBC #### [address] Potassium [Moles/Vol] 3.5 mmol/L Normal 3.5-5.1 [facility] Comment on above: Performed By: #### C MP, CBC #### [address] Protein [Mass/Vol] 5.4 g/dL Low 6.1-7.9 [facility] Comment on above: Performed By: #### C MP, CBC #### [address] Sodium [Moles/Vol] 136 mmol/L Normal 136-146 [facility] Comment on above: Performed By: #### C MP, CBC #### [place] [address] [place] Urea nitrogen [Mass/Vol] 4 mg/dL Low 9-23 [place] Comment on above: Performed By: #### C MP, CBC #### [place] [address] [place] Creatinine and Glomerular fi ltration rate.predicted panel (S/P/Bld)Ordered By: Shirlene Owne on 03-08-2022 Creatinine [Mass/Vol] 0.49 mg/dL 0.44-1.03 [facility] Dipstick and Microscopicon 0 03-08-2022 Appearance (U) Clear Normal Clear [place] Comment on above: Order Comment: Name Collection Type:: Voided Performed By: #### A DDONUAPLUS, CUU, OBUDS #### [facility] [address] [place] [address] [place] Bacteria,Urine 2+ High None Seen [place] Comment on above: Order Comment: Name Collection Type:: Voided Performed By: #### A DDONUAPLUS, CUU, OBUDS #### [place] [address] [place] Bilirubin,Urine Negative Normal Negative [place] Comment on above: Order Comment: Name Collection Type:: Voided Performed By: #### A DDONUAPLUS, CUU, OBUDS #### [place] [address] [place] Color (U) Yellow Normal Yellow [place] Comment on above: Order Comment: Name Collection Type:: Voided Performed By: #### A DDONUAPLUS, CUU, OBUDS #### [place] [address] [place] Glucose Ql (U) Normal Normal Normal [place] Comment on above: Order Comment: Name Collection Type:: Voided Performed By: #### A DDONUAPLUS, CUU, OBUDS #### [place] [address] [place] Hyaline Casts,Urine None Seen Normal 0-1 [facility] Comment on above: Order Comment: Name Collection Type:: Voided Result Comment: PERF ORMED BY: [place] [address] PATHOLOGIST CHAIR LIFT OPERATOR JOSEFINA GAMBLE M.D. Performed By: #### A DDONUAPLUS, CUU, OBUDS #### [facility] [address] [place] [address] [place] Ketones Ql (U) Negative Normal Negative [place] Comment on above: Order Comment: Name Collection Type:: Voided Performed By: #### A DDONUAPLUS, CUU, OBUDS #### [facility] [address] [place] [address] Leukocyte esterase Test strip Ql (U) 4+ High Negative [place] Comment on above: Order Comment: Name Collection Type:: Voided Performed By: #### A DDONUAPLUS, CUU, OBUDS #### [address] Nitrite,Urine Negative Normal Negative [place] Comment on above: Order Comment: Name Collection Type:: Voided Performed By: #### A DDONUAPLUS, CUU, OBUDS #### [address] Occult Blood,Urine Negative Normal Negative [facility] Comment on above: Order Comment: Name Collection Type:: Voided Result Comment: PERF ORMED BY: [place] [address] PATHOLOGIST CHAIR LIFT OPERATOR JOSEFINA GAMBLE M.D. Performed By: #### A DDONUAPLUS, CUU, OBUDS #### [address] pH (U) 7.0 [pH] Normal 5.0-9.0 [place] Comment on above: Order Comment: Name Collection Type:: Voided Performed By: #### A DDONUAPLUS, CUU, OBUDS #### [place] [address] [place] Protein,Urine Negative Normal Negative [place] Comment on above: Order Comment: Name Collection Type:: Voided Performed By: #### A DDONUAPLUS, CUU, OBUDS #### [place] [address] [place] RBC LM.HPF (Urine sed) [#/Area] 0 /[HPF] Normal 0-4 [place] Comment on above: Order Comment: Name Collection Type:: Voided Performed By: #### A DDONUAPLUS, CUU, OBUDS #### [place] [address] [place] Specificy [place],Urine 1.002 Normal 1.001-1.030 [place] Comment on above: Order Comment: Name Collection Type:: Voided Performed By: #### A DDONUAPLUS, CUU, OBUDS #### [facility] [address] Squamous Epithelial Cell,Urine 1-2 Normal 0-2 [place] Comment on above: Order Comment: Name Collection Type:: Voided Performed By: #### A DDONUAPLUS, CUU, OBUDS #### [facility] [address] [place] [address] Urobilinogen,Urine Normal Normal Normal [facility] Comment on above: Order Comment: Name Collection Type:: Voided Performed By: #### A DDONUAPLUS, CUU, OBUDS #### [facility] [address] [place] [address] WBC,Urine 50-100 High 0-4 [place] Comment on above: Order Comment: Name Collection Type:: Voided Performed By: #### A DDONUAPLUS, CUU, OBUDS #### [facility] [address] [place] [address] Eosinophils Auto (Bld) [#/Vo l]Ordered By: Shirlene Owen on 03-08-2022 Eosinophils (Bld) [#/Vol] 0.0 10*3/uL 0.0-0.45 [place] Eosinophils/100 WBC Auto (Bl d)Ordered By: Shirlene Owen on 03-08-2022 Eosinophils/100 WBC (Bld) 0.3 % . [place] Erythrocyte distribution wid th Auto (RBC) [Ratio]Ordered By: Shirlene Owen on 03-08-2022 Erythrocyte distribution width (RBC) [Ratio] 13.9 % 11.9-15.3 [place] Estimated glomerular filtrat ion rate (GFR) non- AmericanOrdered By: Shirlene Owen on 03-08-2022 GFR/1.73 sq M.predicted among non-blacks MDRD (S/P/Bld) [Vol rate/Area] > 60 mL/Min [place] Globulin Calc (S) [Mass/Vol] Ordered By: Shirlene Owen on 03-08-2022 Globulin (S) [Mass/Vol] 2.8 g/dL F [facility] Hematocrit Auto (Bld) [Volum e fraction]Ordered By: Shirlene Owen on 03-08-2022 Hematocrit (Bld) [Volume fraction] 28.4 % 34.0-46.4 [place] Hemoglobin [Mass/volume] in BloodOrdered By: Shirlene Owen on 03-08-2022 Hemoglobin (Bld) [Mass/Vol] 9.5 g/dL 11.8-15.4 [place] Ketones Auto test strip (U) [Mass/Vol]Ordered By: Shirlene Owen on 03-08-2022 Ketones (U) [Mass/Vol] Negative Negative [facility] - Drug toxicology Ordered By: Shirlene Owen on 03-08-2022 Opiates Ql (U) Negative Negative [place] Leukocytes [#/volume] correc edgard for nucleated erythrocytes in Blood by Automated counOrdered By: Shirlene Owen on 03-08-2022 WBC corrected for nucl RBC Auto (Bld) [#/Vol] 9.7 10*3/uL 3.8-11.6 [place] Lymphocytes Auto (Bld) [#/Vo l]Ordered By: Shirlene Owen on 03-08-2022 Lymphocytes (Bld) [#/Vol] 1.3 10*3/uL 1.00-4.8 [place] Lymphocytes/100 WBC Auto (Bl d)Ordered By: Shirlene Owen on 03-08-2022 Lymphocytes/100 WBC (Bld) 13.0 % . [place] MCH Auto (RBC) [Entitic mass ]Ordered By: Shirlene Owen on 03-08-2022 MCH (RBC) [Entitic mass] 30.7 pg 24.7-34.3 [place] MCHC Auto (RBC) [Mass/Vol]Or dered By: Shirlene Owen on 03-08-2022 MCHC (RBC) [Mass/Vol] 33.6 g/dL 32.0-35.0 [facility] MCV Auto (RBC) [Entitic vol] Ordered By: Shirlene Owen on 03-08-2022 MCV (RBC) [Entitic vol] 91.6 fL 80-100 F [facility] Monocytes Auto (Bld) [#/Vol] Ordered By: Shirlene Owen on 03-08-2022 Monocytes (Bld) [#/Vol] 0.6 10*3/uL 0.0-0.8 [place] Monocytes/100 WBC Auto (Bld) Ordered By: Shirlene Owen on 03-08-2022 Monocytes/100 WBC (Bld) 6.0 % . [facility] Neutrophils Auto (Bld) [#/Vo l]Ordered By: Shirlene Owen on 03-08-2022 Neutrophils (Bld) [#/Vol] 7.8 10*3/uL 1.8-7.7 [place] Neutrophils/100 WBC Auto (Bl d)Ordered By: Shirlene Owen on 03-08-2022 Neutrophils/100 WBC (Bld) 80.5 % . [place] Nitrite Test strip Ql (U)Ord ered By: Shirlene Owen on 03-08-2022 Nitrite Ql (U) Negative Negative [place] No Panel InformationOrdered By: Shirlene Owen on 03-08-2022 Estimated GFR () > 60 mL/Min [place] Comment on above: GFR estimated refere nce range: According to KDOQI guidelines, <60 ml/min/1.73m2 is sufficient to diagnose a patient with chronic kidney disease. Pharmacy Creatinine Clearance (Chem 178.59 [place] Nucleated erythrocytes [Pres ence] in Blood by Automated countOrdered By: Shirlene Owen on 03-08-2022 Nucleated RBC Auto Ql (Bld) 0.1 /100{WBC} 0-0.5 [place] [facility] Urine Drug Screen (NO THC )on 03-08-2022 Amphetamine Screen,Urine Negative Normal Negative [place] Comment on above: Performed By: #### A DDONUAPLUS, CUU, OBUDS #### [address] Barbiturate Screen,Urine Negative Normal Negative [place] Comment on above: Performed By: #### A DDONUAPLUS, CUU, OBUDS #### [facility] [address] [place] [address] Benzodiazepines Screen,Urine Negative Normal Negative [place] Comment on above: Performed By: #### A DDONUAPLUS, CUU, OBUDS #### [place] [address] [place] Cocaine Screen,Urine Negative Normal Negative [facility] Comment on above: Performed By: #### A DDONUAPLUS, CUU, OBUDS #### [address] Opiate Screen,Urine Negative Normal Negative [facility] Comment on above: Performed By: #### A DDONUAPLUS, CUU, OBUDS #### [address] Phencyclidine Screen, Urine Negative Normal Negative [place] Comment on above: Result Comment: Thes e are unconfirmed results and should not be used for legal purposes. Drug Cut-Off Concentration: AMPH 1000 ng/mL LUCAS 200 ng/mL JUSTIN 200 ng/mL COCM 300 ng/mL OP 300 ng/mL PCP 25 ng/mL PERFORMED BY: [place] [address] PATHOLOGIST CHAIR LIFT OPERATOR JOSEFINA GAMBLE M.D. Performed By: #### A DDONUAPLUS, CUU, OBUDS #### [address] Phencyclidine Screen Ql (U)O rdered By: Shirlene Owen on 03-08-2022 Phencyclidine Ql (U) Negative Negative [facility] Comment on above: These are unconfirme d results and should not be used for legal purposes. Drug Cut-Off Concentration: AMPH 1000 ng/mL LUCAS 200 ng/mL JUSTIN 200 ng/mL COCM 300 ng/mL OP 300 ng/mL PCP 25 ng/mL Platelet mean volume Auto (B ld) [Entitic vol]Ordered By: Shirlene Owen on 03-08-2022 Platelet mean volume (Bld) [Entitic vol] 8.3 fL 6.3-10.7 [place] Platelets Auto (Bld) [#/Vol] Ordered By: Shirlene Owen on 03-08-2022 Platelets (Bld) [#/Vol] 290 10*3/uL 150-450 [place] Protein Auto test strip (U) [Mass/Vol]Ordered By: Shirlene Owen on 03-08-2022 Protein (U) [Mass/Vol] Negative Negative [facility] Protein [Mass/volume] in Ser um or PlasmaOrdered By: Shirlene Owen on 03-08-2022 Protein [Mass/Vol] 5.4 g/dL 6.1-7.9 [facility] RBC Auto (Bld) [#/Vol]Ordere d By: Shirlene Owen on 03-08-2022 RBC (Bld) [#/Vol] 3.10 10*6/uL 3.60-5.00 [facility] Serum or plasma alanine donato otransferase measurement without P-5'-P (enzymatic activiOrdered By: Shirlene Owen on 03-08-2022 ALT No additional P-5'-P [Catalytic activity/Vol] 9 U/L 10-60 [place] Serum or plasma albumin/glob ulin mass ratioOrdered By: Shirlene Owen on 03-08-2022 Albumin/Globulin [Mass ratio] 0.9 {ratio} [place] Serum or plasma alkaline lamin sphatase measurement (enzymatic activity/volume)Ordered By: Shirlene Owen on 03-08-2022 ALP [Catalytic activity/Vol] 113 U/L 32-92 [place] Serum or plasma anion gap de terminationOrdered By: Shirlene Owen on 03-08-2022 Anion gap [Moles/Vol] 12.1 mmol/L 6.0-15.0 [facility] Serum or plasma aspartate am inotransferase measurement (enzymatic activity/volume)Ordered By: Shirlene Owen on 03-08-2022 AST [Catalytic activity/Vol] 14 U/L 10-42 [place] Serum or plasma calcium sara urement (mass/volume)Ordered By: Shirlene Owen on 03-08-2022 Calcium [Mass/Vol] 8.5 mg/dL 8.2-10.2 [facility] Serum or plasma chloride rey surement (moles/volume)Ordered By: Shirlene Owen on 03-08-2022 Chloride [Moles/Vol] 108 mmol/L 95-[address] [facility] Serum or plasma glucose sara urement (mass/volume)Ordered By: Shirlene Owen on 03-08-2022 Glucose [Mass/Vol] 83 mg/dL 70-100 [facility] Comment on above: ADA recommended refe rence rangeRandom Glucose Reference Range is dependent on time and content of last meal. Glucose of more than 200 mg/dL in a nonstressed, ambulatory subject supports the diagnosis of Diabetes Mellitus. Serum or plasma potassium me asurement (moles/volume)Ordered By: Shirlene Owen on 03-08-2022 Potassium [Moles/Vol] 3.5 mmol/L 3.5-5.1 [facility] Serum or plasma sodium measu rement (moles/volume)Ordered By: Shirlene Owen on 03-08-2022 Sodium [Moles/Vol] 136 mmol/L 136-146 [facility] Serum or plasma total biliru bin measurement (mass/volume)Ordered By: Shirlene Owen on 03-08-2022 Bilirubin [Mass/Vol] 0.3 mg/dL 0.3-1.[address] [facility] Serum or plasma total carbon dioxide measurement (moles/volume)Ordered By: Shirlene Owen on 03-08-2022 CO2 [Moles/Vol] 19.4 mmol/L 22.0-30.0 [facility] Serum or plasma urea nitroge n measurement (mass/volume)Ordered By: Shirlene Owen on 03-08-2022 Urea nitrogen [Mass/Vol] 4 mg/dL 9- [place] Specific gravity Auto test s trip (U) [Rel density]Ordered By: Shirlene Owen on 03-08-2022 Specific gravity (U) [Rel density] 1.002 1.001-1.030 [place] US renal BIon 03-08-2022 US renal BI [facility] [address] [address] Ultrasound Report Signed Patient: Sheeba Adhikari MR#: [id number] 68 : 1995 Acct:[id number] Age/Sex: 26 / F ADM Date: 03/08/22 Loc: Room: [address] [place] [address] Type: REG CLI Attending Dr: Shirlene Owen DO Ordering Provider: Shirlene Owen DO Date of Service: 03/08/22 US/US renal BI: Right sided pain Copies to: Shirlene Owen DO US renal BI 03/08/2022 12:50 PM SIGNS AND SYMPTOMS: Right sided pain COMPARISON: None. FINDINGS: Right kidney measures 10.35 cm x 6.8 cm x 5.98 cm . There is right-sided hydronephrosis. Left kidney measures 10.77 cm x 6.03 cm x 5.64 cm . No hydronephrosis. The urinary bladder is morphologically normal. No free fluid is seen in the pelvis. Before voiding, the bladder measures 6.65 cm x 1.64 cm x 9.62 cm , which corresponds to an estimated volume of 54.93 mL . Ureteral jets are visualized bilaterally. US/US renal BI IMPRESSION: There is right-sided hydronephrosis. This may be related to the patient's gravid state. Ureteral jets are visualized bilaterally. Impression dictated by: Myles Orona M.D.03/08/2022 1:50 PM Dictation Location: [place] [address] Tech: [facility] Transcribed By: VLADIMIR 03/08/22 1350 Dictated By: Myles Orona II, MD 03/08/22 1349 Signed By: 03/08/22 1350 [facility] Urine Cultureon 03-08-2022 Bacteria identified Cx Nom (U) 20,000 colonies/ml mixed bacterial skin contaminants 2 Days PERFORMED BY: [place] [address] PATHOLOGIST CHAIR LIFT OPERATOR JOSEFINA GAMBLE M.D. [facility] Comment on above: Performed By: #### C MP, CBC #### [facility] [address] Urine bacteria detection by automated methodOrdered By: Shirlene Owen on 03-08-2022 Bacteria Auto Ql (U) 2+ None Seen [facility] Urine clarity by refractomet ry automatedOrdered By: Shirlene Owen on 03-08-2022 Clarity Refractometry automated (U) Clear Clear [place] Urine cocaine detectionOrder ed By: Shirlene Owen on 03-08-2022 Cocaine Ql (U) Negative Negative [place] Urine culture routineOrdered By: Shirlene Owen on 03-08-2022 Bacteria identified Cx Nom (U) 2 Days [place] Urine glucose measurement by automated test strip (mass/volume)Ordered By: Shirlene Owen on 03-08-2022 Glucose Auto test strip (U) [Mass/Vol] Normal mg/dL Normal [place] Urine hemoglobin detection b y automated test stripOrdered By: Shirlene Owen on 03-08-2022 Hemoglobin Auto test strip Ql (U) Negative Negative [place] Urine leukocyte esterase det ection by automated test stripOrdered By: Shirlene Owen on 03-08-2022 Leukocyte esterase Auto test strip Ql (U) 4+ Negative [place] Urobilinogen Auto test strip (U) [Mass/Vol]Ordered By: Shirlene Owen on 03-08-2022 Urobilinogen (U) [Mass/Vol] Normal mg/dL Normal [place] WBC Auto (Bld) [#/Vol]Ordere d By: Shirlene Owen on 03-08-2022 WBC (Bld) [#/Vol] 9.7 10*3/uL 3.8-11.6 [facility] pH Auto test strip (U)Ordere d By: Shirlene Owen on 03-08-2022 pH (U) 7.0 [pH] 5.0-9.0 [place] Hematocrit Auto (Bld) [Volum e fraction]Ordered By: Mario Conley on 02-01-2022 Hematocrit (Bld) [Volume fraction] 33.2 % 34.0-46.4 [place] Hemoglobin [Mass/volume] in BloodOrdered By: Mario Conley on 02-01-2022 Hemoglobin (Bld) [Mass/Vol] 11.2 g/dL 11.8-15.4 [place] No Panel InformationOrdered By: Mario Conley on 02-01-2022 Glucose 1 Hour Postprandial (Timed) 82 mg/dL 60-140 [place] Albumin [Mass/volume] in Ser um or PlasmaOrdered By: Holger Aquino on 10-06-2021 Albumin [Mass/Vol] 3.8 g/dL 3.2-5.5 [facility] Basophils Auto (Bld) [#/Vol] Ordered By: Holger Aquino on 10-06-2021 Basophils (Bld) [#/Vol] 0.0 10*3/uL 0.0-0.2 [place] Basophils/100 WBC Auto (Bld) Ordered By: Holger Aquino on 10-06-2021 Basophils/100 WBC (Bld) 0.5 % . [facility] Blood hemoglobin measurement (mass/volume)Ordered By: Holger Aquino on 10-06-2021 Hemoglobin (Bld) [Mass/Vol] 12.3 g/dL 11.8-15.4 [place] Blood leukocytes automated c ount (number/volume)Ordered By: Holger Aquino on 10-06-2021 WBC (Bld) [#/Vol] 7.6 10*3/uL 4.5-11.0 [facility] Cholesterol [Mass/volume] in Serum or PlasmaOrdered By: Holger Aquino on 10-06-2021 Cholesterol [Mass/Vol] 147 mg/dL 140-200 [facility] Comment on above: Chol less than 200 m g/dl low risk Chol 201-239 mg/dl borderline risk Chol 240 mg/dl and greater high risk Cholesterol in LDL Calc [Mas s/Vol]Ordered By: Holger Aquino on 10-06-2021 Cholesterol in LDL [Mass/Vol] 89 mg/dL 0-100 [place] Comment on above: LDL ATP III CLASSIFI CATION LDL less than 100 mg/dL Optimal LDL 100-129 mg/dL Near or above optimal LDL 130-159 mg/dL Borderline high LDL 160-189 mg/dL High LDL greater than 189 mg/dL Very high Cholesterol in VLDL Calc [Ma ss/Vol]Ordered By: Holger Aquino on 10-06-2021 Cholesterol in VLDL [Mass/Vol] 12 mg/dL [place] Creatinine and Glomerular fi ltration rate.predicted panel (S/P/Bld)Ordered By: Holger Aquino on 10-06-2021 Creatinine [Mass/Vol] 0.54 mg/dL 0.44-1.03 [facility] Eosinophils Auto (Bld) [#/Vo l]Ordered By: Holger Aquino on 10-06-2021 Eosinophils (Bld) [#/Vol] 0.1 10*3/uL 0.0-0.45 [place] Eosinophils/100 WBC Auto (Bl d)Ordered By: Holger Aquino on 10-06-2021 Eosinophils/100 WBC (Bld) 1.5 % . [place] Erythrocyte distribution wid th Auto (RBC) [Ratio]Ordered By: Holger Aquino on 10-06-2021 Erythrocyte distribution width (RBC) [Ratio] 13.3 % 11.9-15.3 [place] Estimated glomerular filtrat ion rate (GFR) non- AmericanOrdered By: Holger Aquino on 10-06-2021 GFR/1.73 sq M.predicted among non-blacks MDRD (S/P/Bld) [Vol rate/Area] > 60 mL/Min [place] Globulin Calc (S) [Mass/Vol] Ordered By: Holger Aquino on 10-06-2021 Globulin (S) [Mass/Vol] 2.6 g/dL F [facility] Hematocrit Auto (Bld) [Volum e fraction]Ordered By: Holger Aquino on 10-06-2021 Hematocrit (Bld) [Volume fraction] 36.2 % 34.0-46.4 [place] [facility] - Chemistry and C hemistry - challengeOrdered By: Holger Aquino on 10-06-2021 Glucose [Mass/Vol] 77 mg/dL 70-100 [facility] - Hematology and Cell countsOrdered By: Holger Aquino on 10-06-2021 Nucleated RBC/100 WBC (Bld) [Ratio] 0.0 % 0-0.5 [place] Lymphocytes Auto (Bld) [#/Vo l]Ordered By: Holger Aquino on 10-06-2021 Lymphocytes (Bld) [#/Vol] 1.6 10*3/uL 1.00-4.8 [place] Lymphocytes/100 WBC Auto (Bl d)Ordered By: Holger Aquino on 10-06-2021 Lymphocytes/100 WBC (Bld) 21.1 % . [place] MCH Auto (RBC) [Entitic mass ]Ordered By: Holger Aquino on 10-06-2021 MCH (RBC) [Entitic mass] 32.1 pg 24.7-34.3 [place] MCHC Auto (RBC) [Mass/Vol]Or dered By: Holger Aquino on 10-06-2021 MCHC (RBC) [Mass/Vol] 33.9 g/dL 32.0-35.0 Fir [facility] MCV Auto (RBC) [Entitic vol] Ordered By: Holger Aquino on 10-06-2021 MCV (RBC) [Entitic vol] 94.8 fL 80-100 F [facility] Monocyte %Ordered By: Holger Aquino on 10-06-2021 Monocyte % 62 mg/dL 35-149 [place] Comment on above: TRIG ATP III CLASSIF ICATION TRIG less than 150 mg/dL Normal TRIG 150-199 mg/dL Borderline high TRIG 200-500 mg/dL High TRIG greater than 500 mg/dL Very high Standard traceable to the Center for Disease Conrtrol and Prevention (CDC) test method. Monocytes Auto (Bld) [#/Vol] Ordered By: Holger Aquino on 10-06-2021 Monocytes (Bld) [#/Vol] 0.6 10*3/uL 0.0-0.8 [place] Monocytes/100 WBC Auto (Bld) Ordered By: Holger Aquino on 10-06-2021 Monocytes/100 WBC (Bld) 7.6 % . F [facility] Neutrophils Auto (Bld) [#/Vo l]Ordered By: Holger Aquino on 10-06-2021 Neutrophils (Bld) [#/Vol] 5.3 10*3/uL 1.8-7.7 [place] Neutrophils/100 WBC Auto (Bl d)Ordered By: Holger Aquino on 10-06-2021 Neutrophils/100 WBC (Bld) 69.3 % . [place] No Panel InformationOrdered By: Holger Aquino on 10-06-2021 Estimated GFR () > 60 mL/Min [place] Comment on above: GFR estimated refere nce range: According to KDOQI guidelines, <60 ml/min/1.73m2 is sufficient to diagnose a patient with chronic kidney disease. Nicotine Metabolite Negative Cutoff=25 [facility] Comment on above: Performed at: [address] [id number] [employer] Gl[employer] Machine Operator: Viktoriya Smith MD, Phone: [phone] Pharmacy Creatinine Clearance (Chem N/A [place] Platelet mean volume Auto (B ld) [Entitic vol]Ordered By: Holger Aquino on 10-06-2021 Platelet mean volume (Bld) [Entitic vol] 8.4 fL 6.3-10.7 [place] Platelets Auto (Bld) [#/Vol] Ordered By: Holger Aquino on 10-06-2021 Platelets (Bld) [#/Vol] 348 10*3/uL 150-450 [place] Protein [Mass/volume] in Ser um or PlasmaOrdered By: Holger Aquino on 10-06-2021 Protein [Mass/Vol] 6.4 g/dL 6.1-7.9 [facility] RBC Auto (Bld) [#/Vol]Ordere d By: Holger Aquino on 10-06-2021 RBC (Bld) [#/Vol] 3.82 10*6/uL 3.60-5.00 [facility] Serum or plasma alanine donato otransferase measurement without P-5'-P (enzymatic activiOrdered By: Holger Aquino on 10-06-2021 ALT No additional P-5'-P [Catalytic activity/Vol] 11 U/L 10-60 [place] Serum or plasma albumin/glob ulin mass ratioOrdered By: Holger Aquino on 10-06-2021 Albumin/Globulin [Mass ratio] 1.5 {ratio} [place] Serum or plasma alkaline lamin sphatase measurement (enzymatic activity/volume)Ordered By: Holger Aquino on 10-06-2021 ALP [Catalytic activity/Vol] 35 U/L 32-92 [place] Serum or plasma aspartate am inotransferase measurement (enzymatic activity/volume)Ordered By: Holger Aquino on 10-06-2021 AST [Catalytic activity/Vol] 13 U/L 10-42 [place] Serum or plasma calcium sara urement (mass/volume)Ordered By: Holger Aquino on 10-06-2021 Calcium [Mass/Vol] 9.5 mg/dL 8.2-10.2 [facility] Serum or plasma chloride rey surement (moles/volume)Ordered By: Holger Aquino on 10-06-2021 Chloride [Moles/Vol] 103 mmol/L 95-[address] [facility] Serum or plasma high density lipoprotein (HDL) cholesterol measurementOrdered By: Holger Aquino on 10-06-2021 Cholesterol in HDL [Mass/Vol] 46 mg/dL 35-85 [place] Comment on above: HDL CHOL ATP-III CLA SSIFICATION Cardiovascular Risk HDL > or equal to 60 mg/dL LOW HDL < 40 mg/dL HIGH Serum or plasma potassium me asurement (moles/volume)Ordered By: Holger Aquino on 10-06-2021 Potassium [Moles/Vol] 4.5 mmol/L 3.5-5.1 [facility] Serum or plasma sodium measu rement (moles/volume)Ordered By: Holger Aquino on 10-06-2021 Sodium [Moles/Vol] 134 mmol/L 136-146 [facility] Serum or plasma total biliru bin measurement (mass/volume)Ordered By: Holger Aquino on 10-06-2021 Bilirubin [Mass/Vol] 0.6 mg/dL 0.3-1.[address] [facility] Serum or plasma total carbon dioxide measurement (moles/volume)Ordered By: Holger Aquino on 10-06-2021 CO2 [Moles/Vol] 24.2 mmol/L 22.0-30.0 [facility] Serum or plasma total choles terol/high density lipoprotein (HDL) cholesterol mass ratOrdered By: Holger Aquino on 10-06-2021 Cholesterol.total/Tessa sterol in HDL [Mass ratio] 3.2 {ratio} <5.0 [place] Serum or plasma urea nitroge n measurement (mass/volume)Ordered By: Holger Miles on 10-06-2021 Urea nitrogen [Mass/Vol] 7 mg/dL 9 [place] TSH DL <= 0.005 mIU/L QnOrde red By: Holger Miles on 10-06-2021 TSH Qn 1.55 m[IU]/L 0.45-5.33 [place] RESPIRATORY PANEL PLUSon Adenovirus Not detected Normal NOT DETECTED [facility] Comment on above: Performed By: #### R SPLUS #### [facility] [address] [place] [address] Dr. Roberto Carlos Carrington. Parapertusis Not detected Normal NOT DETECTED [facility] Comment on above: Performed By: #### R SPLUS #### [facility] [address] [place] [address] Dr. Roberto Carlos Ortiz Pertussis Not detected Normal NOT DETECTED [facility] Comment on above: Performed By: #### R SPLUS #### [facility] [address] [place] [address] Dr. Roberto Carlos Colmenares Chlamydia Pneumoniae Not detected Normal NOT DETECTED [facility] Comment on above: Performed By: #### R SPLUS #### [facility] [address] [place] [address] Dr. Roberto Carlos Colmenares Coronavirus 229E Not detected Normal NOT DETECTED [facility] Comment on above: Performed By: #### R SPLUS #### [facility] [address] [place] [address] Dr. Roberto Carlos Colmenares Coronavirus HKU1 Not detected Normal NOT DETECTED [facility] Comment on above: Performed By: #### R SPLUS #### [facility] [address] [place] [address] Dr. Roberto Carlos Colmenares Coronavirus NL63 Not detected Normal NOT DETECTED [facility] Comment on above: Performed By: #### R SPLUS #### [facility] [address] [place] [address] Dr. Roberto Carlos Colmenares Coronavirus OC43 Not detected Normal NOT DETECTED The [facility] Comment on above: Performed By: #### R SPLUS #### [facility] [address] [place] [address] Dr. Roberto Carlos Colmenares Influenza A H1 2009 Not detected Normal NOT DETECTED [facility] Comment on above: Performed By: #### R SPLUS #### [facility] [address] [place] [address] Dr. Roberto Carlos Colmenares Influenza B Not detected Normal NOT DETECTED [facility] Comment on above: Performed By: #### R SPLUS #### [facility] [address] [place] [address] Dr. Roberto Carlos Colmenares Metapneumovirus Not detected Normal NOT DETECTED [facility] Comment on above: Performed By: #### R SPLUS #### [facility] [address] [place] [address] Dr. Roberto Carlos Colmenares Mycoplas. Pneumoniae Not detected Normal NOT DETECTED The [facility] Comment on above: Performed By: #### R SPLUS #### [facility] [address] [place] [address] Dr. Roberto Carlos Colmenares Parainfluenza 1 Not detected Normal NOT DETECTED [facility] Comment on above: Performed By: #### R SPLUS #### [facility] [address] [place] [address] Dr. Roberto Carlos Colmenares Parainfluenza 2 Not detected Normal NOT DETECTED [facility] Comment on above: Performed By: #### R SPLUS #### [facility] [address] [place] [address] Dr. Roberto Carlos Colmenares Parainfluenza 3 Not detected Normal NOT DETECTED [facility] Comment on above: Performed By: #### R SPLUS #### [facility] [address] [place] [address] Dr. Roberto Carlos Colmenares Parainfluenza 4 Not detected Normal NOT DETECTED [facility] Comment on above: Performed By: #### R SPLUS #### [facility] [address] [place] [address] Dr. Roberto Carlos Colmenares Rhino/Enterovirus Not detected Normal NOT DETECTED The [facility] Comment on above: Performed By: #### R SPLUS #### [facility] [address] [place] [address] Dr. Roberto Carlos Colmenares RP2 Header 1 RESPIRATORY PANEL: VIRUSES Normal The [facility] Comment on above: Performed By: #### R SPLUS #### [facility] [address] [place] [address] Dr. Roberto Carlos Colmenares RP2 Header 2 RESPIRATORY PANEL: BACTERIA Normal The [facility] Comment on above: Performed By: #### R SPLUS #### [facility] [address] [place] [address] Dr. Roberto Carlos Colmenares RP2 Header 4 EUA SEE BELOW Normal [facility] Comment on above: Result Comment: This test is not yet approved or cleared by the [place] FDA. When there are no FDA-approved or cleared tests available, and other criteria are met, FDA can make tests available under an emergency access mechanism called an Emergency Use Authorization (EUA). The EUA for this test is supported by the Limb Driver of Health and Human Service?s (HHS?s) declaration that circumstances exist to justify the emergency use of in vitro diagnostics for the detection and/or diagnosis of the virus that causes COVID-19. This EUA will remain in effect (meaning this test can be used) for the duration of the COVID-19 declaration justifying emergency of IVDs, unless it is terminated or revoked by FDA (after which the test may no longer be used). Performed By: #### R SPLUS #### [facility] [address] [place] [address] Dr. Roberto Carlos Colmenares RSV Detected Critically abnormal NOT DETECTED [facility] Comment on above: Performed By: #### R SPLUS #### [facility] [address] [place] [address] Dr. Roberto Carlos Colmenares SARS-CoV-2 (COVID-19) RNA ADALGISA+probe Ql (Unsp spec) Not detected Normal NOT DETECTED [facility] Comment on above: Performed By: #### R SPLUS #### [facility] [address] [place] [address] Dr. Roberto Carlos Colmenares PAP ACOG PANEL 2: 21 to 29on 01-28-2020 . . Normal [facility] Comment on above: Performed By: #### [id number] #### [facility] [address] [place] [address] Dashawncaleb Valles Age Gdln ACOG Testing 21-29 Normal [facility] Comment on above: Performed By: #### [id number] #### [facility] [address] [place] [address] Dashawncaleb Valles COMMENT Comment [facility] Comment on above: Result Comment: Z01. [id number] Performed By: #### [id number] #### [facility] [address] [place] [address] Dashawncaleb Lopezen DIAGNOSIS: Comment [facility] Comment on above: Result Comment: NEGA TIVE FOR INTRAEPITHELIAL LESION OR MALIGNANCY. Performed By: #### [id number] #### [facility] [address] [place] [address] Dashawncaleb Lopezen Methodology: Comment [facility] Comment on above: Result Comment: This liquid based SurePath(R) pap test was screened with the assistance of an image guided system. Performed By: #### [id number] #### [facility] [address] [place] [address] Dashawn Reena Note: Comment [facility] Comment on above: Result Comment: The Pap smear is a screening test designed to aid in the detection of premalignant and malignant conditions of the uterine cervix. It is not a diagnostic procedure and should not be used as the sole means of detecting cervical cancer. Both false-positive and false-negative reports do occur. . Performed By: #### [id number] #### [facility] [address] [place] [address] Dashawn Valles Performed by: Comment Normal [facility] Comment on above: Result Comment: Muriel Madison, Trim Crew Supervisor (ASCP) Performed By: #### [id number] #### [facility] [address] [address] Dashawn Valles Reflex Criteria: Comment Normal [facility] Comment on above: Result Comment: The HPV DNA reflex criteria were not met with this specimen result therefore, no HPV testing was performed. . Performed By: #### [id number] #### [facility] [address] [address] Dashawn Valles Specimen adequacy: Comment Normal [facility] Comment on above: Result Comment: Sati sfactory for evaluation. Endocervical and/or squamous metaplastic cells (endocervical component) are present. Performed By: #### [id number] #### [facility] [address] [address] Dashawn Reena US PELVIS AND TRANSVAGon US PELVIS AND TRANSVAG EXAMINATION: US PELVIS AND TRANSVAG HISTORY: Pelvic and perineal pain COMPARISON: No relevant comparison available. TECHNIQUE: Transabdominal and transvaginal sonographic examination. FINDINGS: UTERUS: Normal size and appearance. Uterus size: 7.4 x 2.9 x 3.9 cm ENDOMETRIUM: Normal homogeneous appearance. Endometrial thickness: 5 mm RIGHT OVARY: Normal size and appearance. Blood flow present within ovary on color Doppler. Ovary size: 3.3 x 1.5 x 1.7 cm LEFT OVARY: Normal size and appearance. Blood flow present within ovary on color Doppler. Ovary size: 3.1 x 1.9 x 2.4 cm CUL-DE-SAC: Unremarkable. No significant free fluid. BLADDER: Unremarkable. OTHER: None. IMPRESSION: 1. Normal pelvic ultrasound. Electronically authenticated by: AIMEE DIEZ Date: 2020-01-01 14:17 Normal [facility] Vital Signs Date Time Vital Sign Value Performing Clinician Facility 02-12-2023 13:00-0500 Body height 172.72 cm Berta Rosales Other [facility] Other 02-12-2023 13:00-0500 Body mass index (BMI) [Ratio] 20.77 kg/m2 Berta Rosales Other [facility] Other 02-12-2023 13:00-0500 Body temperature 98.2 [degF] Berta Rosales Other [facility] Other 02-12-2023 13:00-0500 Body weight 61.96 kg Berta Rosales Other [facility] Other 02-12-2023 13:00-0500 Diastolic blood pressure 58 mm[Hg] Berta Rosales Other [facility] Other 02-12-2023 13:00-0500 Respiratory rate 18 /min Berta Rosales Other [facility] Other 02-12-2023 13:00-0500 SaO2% (BldA) [Mass fraction] 99 % Berta Rosales Other [facility] Other 02-12-2023 13:00-0500 Systolic blood pressure 102 mm[Hg] Berta Rosales Other [facility] Other 04-01-2022 08:47-0500 Body temperature 97.9 [degF] MD Maggie Anton Work Phone: [place] 04-01-2022 08:47-0500 Diastolic blood pressure 57 mm[Hg] MD Maggie Anton Work Phone: [place] 04-01-2022 08:47-0500 Heart rate 66 /min MD Maggie Anton Work Phone: [place] 04-01-2022 08:47-0500 Respiratory rate 16 /min MD Maggie Anton Work Phone: [place] 04-01-2022 08:47-0500 SaO2% (BldA) [Mass fraction] 98 % MD Maggie Anton Work Phone: [place] 04-01-2022 08:47-0500 Systolic blood pressure 100 mm[Hg] MD Maggie Anton Work Phone: [place] 03-29-2022 20:50-0500 Body height 172.72 cm MD Maggie Anton Work Phone: [place] 03-29-2022 20:50-0500 Body weight 71.66 kg MD Maggie Anton Work Phone: [place] 03-08-2022 15:40-0500 Respiratory rate 16 /min MD Maggie Anton Work Phone: [place] 03-08-2022 15:37-0500 SaO2% (BldA) [Mass fraction] 100 % MD Maggie Anton Work Phone: [place] 03-08-2022 15:31-0500 Diastolic blood pressure 56 mm[Hg] MD Maggie Anton Work Phone: [place] 03-08-2022 15:31-0500 Heart rate 86 /min MD Maggie Anton Work Phone: [place] 03-08-2022 15:31-0500 Systolic blood pressure 101 mm[Hg] MD Maggie Anton Work Phone: [place] 03-08-2022 12:55-0500 Body temperature 98.1 [degF] MD Maggie Anton Work Phone: [place] 03-08-2022 10:29-0500 Body height 172.72 cm MD Maggie Anton Work Phone: [place] 03-08-2022 10:29-0500 Body weight 70.3 kg MD Maggie Anton Work Phone: [place] Encounters Encounter Date Encounter Type Care Provider Facility Start: 02-12-2023 Office outpatient ne w 20 minutes Berta Rosales [facility] Start: 02-12-2023 End: 02-12-2023 ambulatory [facility] Rosales [facility] Start: 02-12-2023 End: 02-12-2023 Departed Referred ROLLER REPAIRER-Neda Rosales Work Phone: [facility] [place] Work Phone: Start: 11-28-2022 End: 11-28-2022 ambulatory MD Maggie Anton Work Phone: [facility] Work Phone: Start: 11-28-2022 End: 11-28-2022 Patient encounter procedure MD Maggie Anton Work Phone: [facility]-Flu Vaccine Start: 03-29-2022 End: 04-01-2022 Evaluation and management of inpatient Mario Alcantarai Facility:[place] Start: 03-29-2022 End: 04-01-2022 Evaluation and management of inpatient MD Maggie Anton Work Phone: [facility] [place] Work Phone: Start: 03-10-2022 End: 03-10-2022 ambulatory MD Maggie Anton Work Phone: [facility] Work Phone: Start: 03-10-2022 End: 03-10-2022 Departed Referred MD Maggie Anton Work Phone: [facility] [place] Work Phone: Start: 03-08-2022 End: 03-08-2022 ambulatory Maggie Anton Facility:[place] Start: 03-08-2022 End: 03-08-2022 ambulatory MD Maggie Anton Work Phone: [facility] Work Phone: Start: 03-08-2022 End: 03-08-2022 Patient encounter procedure MD Maggie Anton Work Phone: [facility] - O/P Start: 02-01-2022 End: 02-01-2022 ambulatory MD Maggie Anton Work Phone: [facility] Work Phone: Start: 02-01-2022 End: 02-01-2022 Patient encounter procedure MD Maggie Anton Work Phone: [facility] [place] Start: 10-06-2021 End: 10-06-2021 Departed Referred MD Maggie Anton Work Phone: [facility]-Employee Benefit Screening Start: 11-21-2020 End: 11-21-[address] REENA CERVANTES Facility:[facility] Start: 02-08-2020 End: 02-08-[address] MYLES PETER Facility:[facility] Start: 01-22-2020 End: 01-22-[address] MANISHA HANSEN Facility:[facility] Start: 01-01-2020 End: 01-02-[address] MAGGIE ANTON Facility: Start: 09-21-2016 End: 09-22-2016 Ambulatory AILEEN SABILLON Facility:[facility] Start: 08-20-2016 End: 08-21-2016 Ambulatory DEFAULT PHYSICIAN Facility:[facility] Procedures Date Procedure Procedure Detail Performing Clinician Start: 03-10-2022 Streptococcus agalac tiae culture MD Maggie Anton Work Phone: Start: 03-08-2022 Urine culture MD Maggie Anton Work Phone: Start: 03-08-2022 Ultrasonography of b ilateral kidneys MD Maggie Anton Work Phone: Plan of Treatment Date Care Activity Detail Author Start: 02-12-2023 Bacteria identified in Urine by Culture [place] Start: 04-01-2022 [place] Start: 03-30-2022 Hospital admission [place] Start: 03-10-2022 Group B Streptococcus Culture Group B Streptococcus Culture [place] Start: 03-08-2022 [place] Start: 03-08-2022 Bacteria identified in Urine by Culture Urine Culture [place] Start: 03-08-2022 Hospital admission [place] Start: 03-08-2022 [place] Patient Education [facility] Work Phone: Patient referral [facility] Work Phone: Streptococcus agalac tiae [Presence] in Unspecified specimen by Organism specific culture [place] Immunizations Immunization Date Immunization Notes Care Provider Fa cilishiva 03-31-2022 tetanus toxoid, redu elle diphtheria toxoid, and acellular pertussis vaccine, adsorbed MD Maggie Anton Work Phone: [place] Payers Date Payer Category Payer Self-pay [id number] 2022 Unknown [id number] 1995 Unknown [id number] 2.16.84 [id number] 1997 Unknown [id number] 2.16.84 [id number] 1997 Unknown [id number] 2.16.84 [id number] 1997 Unknown [id number] 2.16.84 [id number] 1959 Unknown [id number] Unknown Unknown [id number] 2.16.8 [id number] Unknown [id number] 2.16.8 [id number] Unknown [id number] 2.16.8 [id number] Unknown [id number] 2.16.8 [id number] Worker's Compensation [id number] Social History Date Type Detail Facility Tobacco smoking status NHIS Unknown if ever smoked [facility] Work Phone: Start: 1995 Sex Assigned At Female F [facility] Start: 03-30-2022 End: 03-30-2022 Tobacco smoking status NHIS Never smoked tobacco (finding) [place] Sex Assigned At Sex Assigned At Bir th [facility] [employer] Other Goals Date Patient Goal Desired Activity /State Functional Status Date Assessment Result Facility 04-01-2022 Functional status Patient at Baseline [facility] Work Phone: Mental Status Date Assessment Result Facility 04-01-2022 Cognitive function Cognitive Sta tus Patient at Baseline [facility] Work Phone: Evaluation note 02-12-2023 Note Date & Type Note Facility 02-12-2023 Evaluation note Encounter Date Diagnosis Assessment Notes Jan, Dysuria (ICD-10 - R30.0) Jan, Acute cystitis without hematuria (ICD-10 - N30.00) Plenty fluids, get plenty of rest. Take the Bactrim as prescribed until gone. Take Tylenol or Motrin as needed for back pain. Follow-up with your family physician if no improvement by Tuesday. Go to the ER for worsening symptoms or concerns Jan, Bilateral low back pain without sciatica, unspecified chronicity (ICD-10 - M54.50) [facility] [employer] 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 She is doing well and denies complaints. She is ambulating and urinating without difficulty. Pt has not had a BM since delivery. Pain/cramping is tolerable. Pt reports minimal vaginal bleeding. Pt denies LH, dizziness, CP, shortness of breath, swelling, calf tenderness, BATISTA, vision changes. Baby is doing well and isbreast feeding. OB - PN: Obj Exam Physical Exam Vital signs: Vital Signs - 8 hr 03/31/22 08:26 Temperature 97.4 F L Pulse Rate 63 Respiratory Rate 16 Blood Pressure 96/61 L 02 Sat by Pulse Oximetry 100 Narrative: General: Resting comfortably in bed in no acute distress HEENT: Conjunctiva clear. No scleral icterus. EOMI CV: Regular rate and rhythm, no murmurs, gallops or rubs Respiratory: CTAB. Breathing comfortably on room air. No wheezes, rales or rhonchi Abdominal: Soft, nontender, nondistended. Normoactive bowel sounds. Fundus is firm below the umbilicus. Extremities: No swelling, cyanosis or clubbing. Peripheral pulses intact. No calf tenderness Skin: No rashes or lesions Neuro: CN II-XII grossly intact. Sensation grossly intact. Motor function grossly intact Psych: Good eye contact. Appropriate affect and mood. Speech is clear OB - PN: Obj Data Labs 03/31/22 05:17 Labs: 03/31/22 05:17: Uncorrected WBC Count 14.2 H, MCV 90.0, MCH 29.6, MCHC 32.9, RDW14.6, Plt Count 274, MPV 9.1, Neut % (Auto) 76.7, Lymph % (Auto) 13.5, Rusk % (Auto) 9.0, Eos % (Auto) 0.4, Baso % (Auto) 0.4, Nucleat RBC Rel Count 0.0, Neut# (Auto) 10.9 H, Lymph # (Auto) 1.9, Rusk # (Auto) 1.3 H, Eos # (Auto) 0.1, Baso# (Auto) 0.1 03/29/22 21:10: RPR w/Rflx to Titer Non reactive Assessment/Plan Assessment (1) 39 weeks gestation of : Code(s): Z3A.39 - 39 weeks gestation of Status: Acute Plan Ms. Adhikari is a 26 y/o female 1 day status post vaginal delivery at 39 weeks 0 days, complicated by second third degree perineal laceration Routine care Blues: Pt reports appropriate mood Breast: No breast complaints. breast-feeding Belly: Abd pain is controlled. Fundus is appropriately sized Bottom: Pain is controlled. Continue ibuprofen and Tylenol Bladder: Urinating appropriately Baby: Baby is doing well. breast feeding Bowels: no BM. Encourage ambulation and hydration. Continue Colace Bleeding: Lochia appropriate. Predelivery Hgb 10.0. EBL 200mL. Postdelivery Hgb 9.1. Asymptomatic Documented By: CHAITANYA RAMIREZ MD 03/31/22 0907 Signed By: <Electronically signed by MD CHAITANYA RAMIREZ> 03/31/22 1900 [facility] Work Phone: Procedure note 03-30-2022 Note Date & Type Note Facility 03-30-2022 Procedure note [facility] Clinical Note 06-01-2021 Note Date & Type Note Facility 06-01-2021 Note HISTORY: Right lower quadrant pain, rule out appendicitis PROCEDURE: [employer]T 64. Without intravenous or oral contrast administration, axial helical images through the abdomen and pelvis were performed, 5 mm slice thickness. Comparison is made with the prior examination of June 07, 2018. FINDINGS: Fluid filled nondistended small and large bowel normally distributed throughout the abdomen and pelvis. Utilizing the normal appearing appendix and location on the prior examination, a nondistended appendix is seen within the right lower quadrant with no surrounding inflammation. Very mild thickening of the terminal ileum, normal diameter (approximating 1.0 cm). No neighboring extraluminal fluid collection, ascites, free air or pelvic fluid. Unremarkable lung bases, liver, spleen, pancreas, gallbladder, biliary tree, adrenal glands, kidneys, collecting systems and bladder. Intact abdominal wall. IMPRESSION: 1. Normal appendix within the right lower quadrant. 2. Fluid filled small and large bowel, no evidence of obstruction. If symptoms persist following appropriate medical management, follow up CT Imaging with oral and IV contrast may be of assistance. Report reported and signed by Shalom Mcneill on 06/01/2021 15[address] [facility] [employer] Evaluation note Note Date & Type Note Facility Evaluation note No assessment information availa ble [facility] Work Phone: Evaluation note Note Date & Type Note Facility Evaluation note Diagnosis Onset Date 39 weeks gestation of acute [facility] Work Phone: Progress note Note Date & Type Note Facility Progress note Note Date/Time April 01, 2022 10:58am [facility] [address] [place] [id number] [employer] Progress Note Signed Patient: Sheeba Adhikari MR#: [id number] : 1995 Acct:[id number] Age/Sex: 26 / F Adm Date: 3 Loc: 3S Room: [address] [place] [address] Type: ADM IN Attending Dr: Mario Conley DO Copies to: ~ Date of Service: 04/01/2022 OB - PN: Subj Subjective Post Delivery Day #: Day 2 Interval history: Patient sitting on the edge of the bed. She is doing well and denies complaints.She is ambulating and urinating without difficulty. Pt has not had a BM since delivery. Pain/cramping is tolerable. Pt reports minimal vaginal bleeding. Pt denies LH, dizziness, CP, shortness of breath, swelling, calf tenderness, BATISTA, vision changes. Baby is doing well and is breast feeding. OB - PN: Obj Exam Physical Exam Narrative: General: Resting comfortably in bed in no acute distress HEENT: Conjunctiva clear. No scleral icterus. EOMI CV: Regular rate and rhythm, no murmurs, gallops or rubs Respiratory: CTAB. Breathing comfortably on room air. No wheezes, rales or rhonchi Abdominal: Soft, nontender, nondistended. Normoactive bowel sounds. Fundus is firm below the umbilicus Extremities: No swelling, cyanosis or clubbing. Peripheral pulses intact. No calf tenderness Skin: No rashes or lesions Neuro: CN II-XII grossly intact. Sensation grossly intact. Motor function grossly intact Psych: Good eye contact. Appropriate affect and mood. Speech is clear OB - PN: Obj Data Labs 03/31/22 05:17 Assessment/Plan Assessment (1) 39 weeks gestation of : Code(s): Z3A.39 - 39 weeks gestation of Status: Acute Plan Ms. Adhikari is a 26 y/o female 2 day status post vaginal delivery at 39 weeks 0 days, complicated by second third degree perineal laceration Routine care Blues: Pt reports appropriate mood Breast: No breast complaints. breast-feeding Belly: Abd pain is controlled. Fundus is appropriately sized Bottom: Pain is controlled. Continue ibuprofen and Tylenol Bladder: Urinating appropriately Baby: Baby is doing well. breast feeding Bowels: no BM. Encourage ambulation and hydration. Continue Colace Bleeding: Lochia appropriate. Predelivery Hgb 10.0. EBL 200mL. Postdelivery Hgb 9.1. Asymptomatic Plan day: 2 Vaginal delivery plan (if applicable): routine care, discharge home and follow up 6 weeks Documented By: VONDA MILLS DO 04/01/22 0705 Signed By: <Electronically signed by VONDA MILLS DO> 04/01/22 1058 [facility] Work Phone: Summary Purpose Family History No Family History Records Found Relationship Condition Age at Onset Recorded Date/T carlos Not Specified No pertinent family history Unknown Advance Directives No Advanced Directives Records Found Advance Directive Response Recorded Date/ Time Advance Directives No October 8:29pm Advance Directive Response Recorded Date/ Time Advance Directives No October 7:29pm Chief Complaint and Reason for Visit Chief Complaint Pillars Chief Complaint Chief Complaint 36 weeks contrations Chief Complaint 36 weeks contrations Z3A.36 INDUCTION Reason for Visit 39 weeks gestation o f Chief Complaint Flu Vaccine Chief Complaint Dysuria Additional Source Comments INFORMATION SOURCE (unrecogn ized section and content) DATE CREATED AUTHOR 08/17/2017 [facility] DATE CREATED AUTHOR AUTHOR'S ORGANIZ ATION [facility] DATE CREATED AUTHOR AUTHOR'S ORGANIZ ATION 06/02/2021 [facility] dical Specialist DATE CREATED AUTHOR AUTHOR'S ORGANIZ ATION 03/07/2023 [facility] Care Teams (unrecognized sec tion and content) Team Status: Inactive Member Role Status Dates Maggie Anton MD Primary Care Provider Active Holger Aquino DO [facility] Attending Provider Active Team Status: Active Member Role Status Dates Maggie Anton MD Primary Care Provider Active Team Status: Inactive Member Role Status Dates Maggie Anton MD Primary Care Provider Active Mario Conley DO Attending Provider Active Team Status: Inactive Member Role Status Dates Maggie Anton MD Primary Care Provider Active Shirlene Owen DO Attending Provider Active Team Status: Inactive Member Role Status Dates Maggie Anton MD Primary Care Provider Active Mario Conley DO Admit Provider, Attending Provider Active Team Status: Inactive Member Role Status Dates Berta Rosales , [employer] REPA[employer] Attending Provider Active Goals (unrecognized section and content) Goals may be documented in a n alternate sectionGoals may be documented in an alternate sectionGoals may be documented in an alternate sectionGoals may be documented in an alternate sectionGoals may be documented in an alternate sectionNo InformationGoals may be documented in an alternate sectionNo Information REASON FOR VISIT (unrecogniz ed section and content) POSSIBLE UTIPOSSIBLE UTI FOR RECORDS PERTAINING TO PATIENTS WHO ARE OR HAVE BEEN ENROLLED IN A CHEMICAL DEPENDENCY/SUBSTANCEABUSE PROGRAM, SOME INFORMATION MAY BE OMITTED. This clinical summary was aggregated from multiple sources. Caution should be exercised in using it in the provision of clinical care. This summary normalizes information from multiple sources, and as a consequence, information in this document may materially change the coding, format and clinical context of patient data. In addition, data may be omitted in some cases. CLINICAL DECISIONS SHOULD BE BASED ON THE PRIMARY CLINICAL RECORDS. [employer] provides no warranty or guarantee of the accuracy or completeness of information in this document.
== END 2023-04-01 16:22 | disposition home or self-care (01) ==
PROVIDERS: Emergency Provider Emergency Medicine
DX: S60.211A Contusion of right wrist, initial encounter (principal)
CPT/HCPCS: 73110; 73130; 99284

== ENCOUNTER 2023-09-27 19:39 | Outpatient (REF) | payer BC, SELFPAY ==
--- OUTSIDE RECORDS SUMMARY | 2023-09-27 19:46 | XMS_ITS | CCD ---
Author Organization [facility] Care Team Providers Care Hazardous Material Specialist Name Role Phone PHYSICIAN, DEFAULT Unavailable Unavailable [...] Unavailable HEMMER, DR REENA Daugherty Consulting Unavailable HEMMER, DR REENA Daugherty Admitting Unavailable DESEAN, DR LAND Primary Care Unavailable BRITTANI, DR MYLES Riddle Attending Unavailable BRITTANI, DR MYLES Riddle Consulting Unavailable BRITTANI, DR MYLES Riddle Admitting Unavailable DESEAN, DR LAND Primary Care Unavailable MD Maggie Anton Primary Care Provider DO Holger Aquino Attending Provider MD Maggie Anton Primary Care Provider DO Mario Conley Attending Provider DO Shirlene Owen Attending Provider [phone] DO Mario Conley Admit Provider MD Maggie Anton Primary Care Provider DO Holger Aquino Attending Provider [phone] Berta Rosales Unavailable MARY BETH Rosales Attending Provider [phone] Berta Rosales Attending Unavailable Berta Rosales Admitting Unavailable NAVID ROMAN Attending Unavailable YARA WILLIAM Attending Unavailable REENA CERVANTES Attending Unavailable Medications Current Medications Medication Drug Class(es) Dates Sig (Normalized) Sig (Original) [place] (No Known Home Meds) (1 source) Start: 06-14-2023 [place] (No Known Home Meds) Active June 14, 2023 12:00am sulfamethoxazole 800 mg / trimethoprim 160 mg oral tablet (2 sources) Dihydrofolate Reductase Inhibitor Antibacterial, Sulfonamide Antimicrobial Start: 02-12-2023 take 1 tablet by mouth every twelve hours Bactrim DS 800-160 MG 1 tablet Orally Twice a day for 5 days Jan, Active Completed/Discontinued Medications Medication Drug Class(es) Dates Sig (Normalized) Sig (Original) benzocaine 200 mg/ml / menthol 5 mg/ml topical spray (4 sources) Standardized Chemical Allergen Start: 3 End: 4 Benzocaine-Menthol (Dermoplast (With Menthol)) 20-0.5 % Aerosol Discontinued 1 SPRAY TOPICAL PRN April 01, 2022 1:00am June 14, 2023 11:29am ferrous sulfate 325 mg oral tablet (6 sources) Start: 3 End: 4 take 325 mg by mouth once daily Ferrous Sulfate Discontinued 325 MG PO Daily March 30, 2022 1:00am June 14, 2023 11:29am ibuprofen 600 mg oral tablet (4 sources) Nonsteroidal Anti-inflammator y Drug Start: 3 End: 4 Ibuprofen Discontinued 600 MG PO Every 6 hours March 30, 2022 1:00am June 14, 2023 11:29am do not exceed 4 doses in a 24 hour period 1 ml medroxyPROGESTERone acetate 150 mg/ml prefilled syringe (2 sources) Progestin medroxyPROGESTER one Acetate 150 MG/ML ADMINISTER 150mg INTRAMUSCULARLY every 10 TO 12 WEEKS DIRECTED Intramuscular for 70 Days Not-Taking/PRN Modified Lanolin (Lanolin (Hpa)) 100 % Cream (4 sources) Start: 3 End: 4 Modified Lanolin (Lanolin (Hpa)) 100 % Cream Discontinued 1 APPLIC TOPICAL PRN April 01, 2022 1:00am June 14, 2023 11:29am Start: 04-01-2022 Modified Lanol in (Lanolin (Hpa)) 100 % Cream Active 1 APPLIC TOPICAL PRN April 01, 2022 1:00am Start: 04-01-2022 Modified Lanol in (Lanolin (Hpa)) 100 % Cream Active 1 APPLIC TOPICAL PRN April 01, 2022 12:00am [place] 500 mg/ml medicated pad (4 sources) Start: 04-01-2022 End: 06-14-2023 Glycerin-Witch Diego (A.E.R. Witch Diego) 12.5-50 % Pads, Medicated Discontinued 1 PAD TOPICAL PRN April 01, 2022 1:00am June 14, 2023 11:29am Problems Active Problems Problem Classification Problem Date Documented Da te Episodic/Chronic Genitourinary symptoms and ill-defined conditions (3 sources) Dysuria; Translations: [Dysuria] Onset: 02-12-2023 Episodic Other lower respiratory disease (1 source) Shortness of breath; Translations: [SHORTNESS OF BREATH] Onset: 11-26-2020 Episodic Residual codes; unclassified (4 sources) Gestation period, 39 weeks; Translations: [39 weeks gestation of ] 03-31-2022 Episodic Residual codes; unclassified (1 source) 39 weeks gestation of ; Translations: [ state, incidental] 04-01-2022 Episodic Unclassified (2 sources) Unknown / UNK(Unknown) Onset: 09-21-2016 Unclassified (3 sources) CONTACT W/AND (SUSP) EXPOS COVID-19; Translations: [CONTACT W/AND (SUSP) EXPOS COVID-19] Onset: 11-26-2020 Unclassified (1 source) COUGH, UNSPECIFIED; Translations: [COUGH, UNSPECIFIED] Onset: 11-26-2020 Urinary tract infections (2 sources) Acute cystitis [...] Test Name Value Interpretation Reference Range Facility No Panel InformationOrdered By: Allyson Cadet on 06-14-2023 Quick Strep (POC) [facility] Urinalysis - AUTOMATEDon Appearance (U) cloudy [employer] Other Bilirubin Ql (U) Negative [employer] Other Color (U) pale yellow [employer] Other Glucose Ql (U) Negative [employer] Other Hemoglobin Ql (U) Negative [employer] Other Ketones Ql (U) Negative [employer] Other Leukocyte esterase Test strip Ql (U) small [employer] Other Nitrite Ql (U) Negative [employer] Other pH (U) 5.5 [pH] [employer] Other Protein Ql (U) Negative [employer] Other Specific gravity (U) [Rel density] >=1.030 [employer] Other Urobilinogen (U) [Mass/Vol] 0.2 mg/dL [employer] Other Urinalysis - AUTOMATED No [employer] Other Urine Cultureon 02-12-2023 Bacteria identified Cx Nom (U) Reason for Exam Dysuria Urine 25,000 colonies/ml mixed bacterial skin contaminants 2 Days PERFORMED BY: [place] [address] PATHOLOGIST FOOD SERVER JOSEFINA GAMBLE M.D. Normal [facility] Comment on above: Performed By: #### C UU #### [address] Bacteria identified Cx Nom (U) [employer] Other Basophils Auto (Bld) [#/Vol] Ordered By: Mario Conley on 03-31-2022 Basophils (Bld) [#/Vol] 0.1 10*3/uL 0.0-0.2 [facility] Basophils/100 WBC Auto (Bld) Ordered By: Mario Conley on 03-31-2022 Basophils/100 WBC (Bld) 0.4 % . [facility] Eosinophils Auto (Bld) [#/Vo l]Ordered By: Mario Conley on 03-31-2022 Eosinophils (Bld) [#/Vol] 0.1 10*3/uL 0.0-0.45 [facility] Eosinophils/100 WBC Auto (Bl d)Ordered By: Mario Conley on 03-31-2022 Eosinophils/100 WBC (Bld) 0.4 % . [facility] Erythrocyte distribution wid th Auto (RBC) [Ratio]Ordered By: Mario Conley on 03-31-2022 Erythrocyte distribution width (RBC) [Ratio] 14.6 % 11.9-15.3 [facility] Hematocrit Auto (Bld) [Volum e fraction]Ordered By: Mario Conley on 03-31-2022 Hematocrit (Bld) [Volume fraction] 27.5 % 34.0-46.4 [facility] Hemoglobin [Mass/volume] in BloodOrdered By: Mario Conley on 03-31-2022 Hemoglobin (Bld) [Mass/Vol] 9.1 g/dL 11.8-15.4 [facility] Leukocytes [#/volume] correc edgard for nucleated erythrocytes in Blood by Automated counOrdered By: Mario Conley on 03-31-2022 WBC corrected for nucl RBC Auto (Bld) [#/Vol] 14.2 10*3/uL 3.8-11.6 [facility] Lymphocytes Auto (Bld) [#/Vo l]Ordered By: Mario Conley on 03-31-2022 Lymphocytes (Bld) [#/Vol] 1.9 10*3/uL 1.00-4.8 [facility] Lymphocytes/100 WBC Auto (Bl d)Ordered By: Mario Conley on 03-31-2022 Lymphocytes/100 WBC (Bld) 13.5 % . [facility] MCH Auto (RBC) [Entitic mass ]Ordered By: Mario Conley on 03-31-2022 MCH (RBC) [Entitic mass] 29.6 pg 24.7-34.3 [facility] MCHC Auto (RBC) [Mass/Vol]Or dered By: Mario Conley on 03-31-2022 MCHC (RBC) [Mass/Vol] 32.9 g/dL 32.0-35.0 [facility] MCV Auto (RBC) [Entitic vol] Ordered By: Mario Conley on 03-31-2022 MCV (RBC) [Entitic vol] 90.0 fL 80-100 [facility] Monocytes Auto (Bld) [#/Vol] Ordered By: Mario Conley on 03-31-2022 Monocytes (Bld) [#/Vol] 1.3 10*3/uL 0.0-0.8 [facility] Monocytes/100 WBC Auto (Bld) Ordered By: Mario Conley on 03-31-2022 Monocytes/100 WBC (Bld) 9.0 % . [facility] Neutrophils Auto (Bld) [#/Vo l]Ordered By: Mario Conley on 03-31-2022 Neutrophils (Bld) [#/Vol] 10.9 10*3/uL 1.8-7.7 [facility] Neutrophils/100 WBC Auto (Bl d)Ordered By: Mario Conley on 03-31-2022 Neutrophils/100 WBC (Bld) 76.7 % . [facility] Nucleated erythrocytes [Pres ence] in Blood by Automated countOrdered By: Mario Conley on 03-31-2022 Nucleated RBC Auto Ql (Bld) 0.0 /100{WBC} 0-0.5 [facility] Platelet mean volume Auto (B ld) [Entitic vol]Ordered By: Mario Conley on 03-31-2022 Platelet mean volume (Bld) [Entitic vol] 9.1 fL 6.3-10.7 [facility] Platelets Auto (Bld) [#/Vol] Ordered By: Mario Conley on 03-31-2022 Platelets (Bld) [#/Vol] 274 10*3/uL 150-450 [facility] RBC Auto (Bld) [#/Vol]Ordere d By: Mario Conley on 03-31-2022 RBC (Bld) [#/Vol] 3.06 10*6/uL 3.60-5.00 [facility] WBC Auto (Bld) [#/Vol]Ordere d By: Mario Conley on 03-31-2022 WBC (Bld) [#/Vol] 14.2 10*3/uL 3.8-11.6 [facility] Reagin Ab [Presence] in Seru m by RPROrdered By: Mario Conley on 03-29-2022 Reagin Ab RPR Ql (S) Non-Reactive Non Reactive [facility] Comment on above: Performed at: - [facility] [employer] [address] [id number] Director: Anselmo Caldwell PhD, Phone: [phone] Group B Streptococcus cultur eOrdered By: Mario Conley on 03-10-2022 S. agalactiae Org specific cx Ql (Unsp spec) No Group B Beta Streptococcus Isolated 3 Days [facility] Albumin [Mass/volume] in Ser um or PlasmaOrdered By: Shirlene Owen on 03-08-2022 Albumin [Mass/Vol] 2.6 g/dL 3.2-5.5 [facility] Amphetamine Screen Ql (U)Ord ered By: Shirlene Owen on 03-08-2022 Amphetamines Ql (U) Negative Negative [facility] Automated epithelial cells c ount in urine sediment (number/area)Ordered By: Shirlene Owen on 03-08-2022 Epithelial cells Auto (Urine sed) [#/Area] 1-2 [HPF] 0-2 [facility] Automated erythrocytes count in urine sediment (number/area)Ordered By: Shirlene Owen on 03-08-2022 RBC Auto (Urine sed) [#/Area] 0-1 [HPF] 0-4 [facility] Automated leukocytes count i n urine sediment (number/area)Ordered By: Shirlene Owen on 03-08-2022 WBC Auto (Urine sed) [#/Area] 50-100 [HPF] 0-4 [facility] Automated urine hyaline cast s count (number/volume)Ordered By: Shirlene Owen on 03-08-2022 Hyaline casts Auto (U) [#/Vol] None seen [LPF] 0-1 [facility] Barbiturates [Presence] in U rineOrdered By: Shirlene Owen on 03-08-2022 Barbiturates Ql (U) Negative Negative [facility] Basophils Auto (Bld) [#/Vol] Ordered By: Shirlene Owen on 03-08-2022 Basophils (Bld) [#/Vol] 0.0 10*3/uL 0.0-0.2 [facility] Basophils/100 WBC Auto (Bld) Ordered By: Shirlene Owen on 03-08-2022 Basophils/100 WBC (Bld) 0.2 % . [facility] Benzodiazepines [Presence] i n UrineOrdered By: Shirlene Owen on 03-08-2022 Benzodiazepines Ql (U) Negative Negative [facility] Bilirubin Test strip Ql (U)O rdered By: Shirlene Owen on 03-08-2022 Bilirubin Ql (U) Negative Negative [facility] Color Auto (U)Ordered By: Kingsley Owen on 03-08-2022 Color (U) Yellow Yellow [facility] Creatinine and Glomerular fi ltration rate.predicted panel (S/P/Bld)Ordered By: Shirlene Owen on 03-08-2022 Creatinine [Mass/Vol] 0.49 mg/dL 0.44-1.03 [facility] Eosinophils Auto (Bld) [#/Vo l]Ordered By: Shirlene Owen on 03-08-2022 Eosinophils (Bld) [#/Vol] 0.0 10*3/uL 0.0-0.45 [facility] Eosinophils/100 WBC Auto (Bl d)Ordered By: Shirlene Owen on 03-08-2022 Eosinophils/100 WBC (Bld) 0.3 % . [facility] Erythrocyte distribution wid th Auto (RBC) [Ratio]Ordered By: Shirlene Owen on 03-08-2022 Erythrocyte distribution width (RBC) [Ratio] 13.9 % 11.9-15.3 [facility] Estimated glomerular filtrat ion rate (GFR) non- AmericanOrdered By: Shirlene Owen on 03-08-2022 GFR/1.73 sq M.predicted among non-blacks MDRD (S/P/Bld) [Vol rate/Area] > 60 mL/Min [facility] Globulin Calc (S) [Mass/Vol] Ordered By: Shirlene Owen on 03-08-2022 Globulin (S) [Mass/Vol] 2.8 g/dL [facility] Hematocrit Auto (Bld) [Volum e fraction]Ordered By: Shirlene Owen on 03-08-2022 Hematocrit (Bld) [Volume fraction] 28.4 % 34.0-46.4 [facility] Hemoglobin [Mass/volume] in BloodOrdered By: Shirlene Owen 03-08-2022 Hemoglobin (Bld) [Mass/Vol] 9.5 g/dL 11.8-15.4 [facility] Ketones Auto test strip (U) [Mass/Vol]Ordered By: Shirlene Owen on 03-08-2022 Ketones (U) [Mass/Vol] Negative Negative [facility] - Drug toxicology Ordered By: Shirlene Owen on 03-08-2022 Opiates Ql (U) Negative Negative [facility] Leukocytes [#/volume] correc edgard for nucleated erythrocytes in Blood by Automated counOrdered By: Shirlene Owen on 03-08-2022 WBC corrected for nucl RBC Auto (Bld) [#/Vol] 9.7 10*3/uL 3.8-11.6 [facility] Lymphocytes Auto (Bld) [#/Vo l]Ordered By: Shirlene Owen on 03-08-2022 Lymphocytes (Bld) [#/Vol] 1.3 10*3/uL 1.00-4.8 [facility] Lymphocytes/100 WBC Auto (Bl d)Ordered By: Shirlene Owen on 03-08-2022 Lymphocytes/100 WBC (Bld) 13.0 % . [facility] MCH Auto (RBC) [Entitic mass ]Ordered By: Shirlene Owen on 03-08-2022 MCH (RBC) [Entitic mass] 30.7 pg 24.7-34.3 [facility] MCHC Auto (RBC) [Mass/Vol]Or dered By: Shirlene Owen on 03-08-2022 MCHC (RBC) [Mass/Vol] 33.6 g/dL 32.0-35.0 [facility] MCV Auto (RBC) [Entitic vol] Ordered By: Shirlene Owen on 03-08-2022 MCV (RBC) [Entitic vol] 91.6 fL 80-100 [facility] Monocytes Auto (Bld) [#/Vol] Ordered By: Shirlene Owen on 03-08-2022 Monocytes (Bld) [#/Vol] 0.6 10*3/uL 0.0-0.8 [facility] Monocytes/100 WBC Auto (Bld) Ordered By: Shirlene Owen on 03-08-2022 Monocytes/100 WBC (Bld) 6.0 % . [facility] Neutrophils Auto (Bld) [#/Vo l]Ordered By: Shirlene Owen on 03-08-2022 Neutrophils (Bld) [#/Vol] 7.8 10*3/uL 1.8-7.7 [facility] Neutrophils/100 WBC Auto (Bl d)Ordered By: Shirlene Owen on 03-08-2022 Neutrophils/100 WBC (Bld) 80.5 % . [facility] Nitrite Test strip Ql (U)Ord ered By: Shirlene Owen on 03-08-2022 Nitrite Ql (U) Negative Negative [facility] No Panel InformationOrdered By: Shirlene Owen on 03-08-2022 Estimated GFR () > 60 mL/Min [facility] Comment on above: GFR estimated refere nce range: According to KDOQI guidelines, <60 ml/min/1.73m2 is sufficient to diagnose a patient with chronic kidney disease. Pharmacy Creatinine Clearance (Chem 178.59 [facility] Nucleated erythrocytes [Pres ence] in Blood by Automated countOrdered By: Shirlene Owen on 03-08-2022 Nucleated RBC Auto Ql (Bld) 0.1 /100{WBC} 0-0.5 [facility] Phencyclidine Screen Ql (U)O rdered By: Shirlene Owen on 03-08-2022 Phencyclidine Ql (U) Negative Negative [facility] Comment on above: These are unconfirme d results and should not be used for legal purposes. Drug Cut-Off Concentration: AMPH 1000 ng/mL LUCAS 200 ng/mL JUSTIN 200 ng/mL COCM 300 ng/mL OP 300 ng/mL PCP 25 ng/mL Platelet mean volume Auto (B ld) [Entitic vol]Ordered By: Shirlene Owen on 03-08-2022 Platelet mean volume (Bld) [Entitic vol] 8.3 fL 6.3-10.7 [facility] Platelets Auto (Bld) [#/Vol] Ordered By: Shirlene Owen on 03-08-2022 Platelets (Bld) [#/Vol] 290 10*3/uL 150-450 [facility] Protein Auto test strip (U) [Mass/Vol]Ordered By: Shirlene Owen on 03-08-2022 Protein (U) [Mass/Vol] Negative Negative [facility] Protein [Mass/volume] in Ser um or PlasmaOrdered By: Shirlene Owen on 03-08-2022 Protein [Mass/Vol] 5.4 g/dL 6.1-7.9 [facility] RBC Auto (Bld) [#/Vol]Ordere d By: Shirlene Owen on 03-08-2022 RBC (Bld) [#/Vol] 3.10 10*6/uL 3.60-5.00 [facility] Serum or plasma alanine donato otransferase measurement without P-5'-P (enzymatic activiOrdered By: Shirlene Owen on 03-08-2022 ALT No additional P-5'-P [Catalytic activity/Vol] 9 U/L 10-60 [facility] Serum or plasma albumin/glob ulin mass ratioOrdered By: Shirlene Owen on 03-08-2022 Albumin/Globulin [Mass ratio] 0.9 {ratio} [facility] Serum or plasma alkaline lamin sphatase measurement (enzymatic activity/volume)Ordered By: Shirlene Owen on 03-08-2022 ALP [Catalytic activity/Vol] 113 U/L 32-92 [facility] Serum or plasma anion gap de terminationOrdered By: Shirlene Owen on 03-08-2022 Anion gap [Moles/Vol] 12.1 mmol/L 6.0-15.0 [facility] Serum or plasma aspartate am inotransferase measurement (enzymatic activity/volume)Ordered By: Shirlene Owen on 03-08-2022 AST [Catalytic activity/Vol] 14 U/L 10-42 [facility] Serum or plasma calcium sara urement (mass/volume)Ordered By: Shirlene Owen on 03-08-2022 Calcium [Mass/Vol] 8.5 mg/dL 8.2-10.2 [facility] Serum or plasma chloride rey surement (moles/volume)Ordered By: Shirlene Owen on 03-08-2022 Chloride [Moles/Vol] 108 mmol/L 95-114 [facility] Serum or plasma glucose sara urement (mass/volume)Ordered By: Shirlene Owen on 03-08-2022 Glucose [Mass/Vol] 83 mg/dL 70-100 [facility] Comment on above: ADA recommended refe rence rangeRandom Glucose Reference Range is dependent on time and content of last meal. Glucose of more than 200 mg/dL in a nonstressed, ambulatory subject supports the diagnosis of Diabetes Mellitus. Serum or plasma potassium me asurement (moles/volume)Ordered By: Shirlene Owen on 03-08-2022 Potassium [Moles/Vol] 3.5 mmol/L 3.5-5.1 [facility] Serum or plasma sodium measu rement (moles/volume)Ordered By: Shirlene Owen on 03-08-2022 Sodium [Moles/Vol] 136 mmol/L 136-146 [facility] Serum or plasma total biliru bin measurement (mass/volume)Ordered By: Shirlene Owen on 03-08-2022 Bilirubin [Mass/Vol] 0.3 mg/dL 0.3-1.2 [facility] Serum or plasma total carbon dioxide measurement (moles/volume)Ordered By: Shirlene Owen on 03-08-2022 CO2 [Moles/Vol] 19.4 mmol/L 22.0-30.0 [facility] Serum or plasma urea nitroge n measurement (mass/volume)Ordered By: Shirlene Owen on 03-08-2022 Urea nitrogen [Mass/Vol] 4 mg/dL 9-23 [facility] Specific gravity Auto test s trip (U) [Rel density]Ordered By: Shirlene Owen on 03-08-2022 Specific gravity (U) [Rel density] 1.002 1.001-1.030 [facility] Urine bacteria detection by automated methodOrdered By: Shirlene Owen on 03-08-2022 Bacteria Auto Ql (U) 2+ None Seen [facility] Urine clarity by refractomet ry automatedOrdered By: Shirlene Owen on 03-08-2022 Clarity Refractometry automated (U) Clear Clear [facility] Urine cocaine detectionOrder ed By: Shirlene Owen on 03-08-2022 Cocaine Ql (U) Negative Negative [facility] Urine culture routineOrdered By: Shirlene Owen on 03-08-2022 Bacteria identified Cx Nom (U) 2 Days [facility] Urine glucose measurement by automated test strip (mass/volume)Ordered By: Shirlene Owen on 03-08-2022 Glucose Auto test strip (U) [Mass/Vol] Normal mg/dL Normal [facility] Urine hemoglobin detection b y automated test stripOrdered By: Shirlenerashaun Owen on 03-08-2022 Hemoglobin Auto test strip Ql (U) Negative Negative [facility] Urine leukocyte esterase det ection by automated test stripOrdered By: Shirlene Owen on 03-08-2022 Leukocyte esterase Auto test strip Ql (U) 4+ Negative [facility] Urobilinogen Auto test strip (U) [Mass/Vol]Ordered By: Shirlene Owen on 03-08-2022 Urobilinogen (U) [Mass/Vol] Normal mg/dL Normal [facility] WBC Auto (Bld) [#/Vol]Ordere d By: Shirlenerashaun Owen on 03-08-2022 WBC (Bld) [#/Vol] 9.7 10*3/uL 3.8-11.6 [facility] pH Auto test strip (U)Ordere d By: Shirlene Owen on 03-08-2022 pH (U) 7.0 [pH] 5.0-9.0 [facility] Hematocrit Auto (Bld) [Volum e fraction]Ordered By: Mario Conley on 02-01-2022 Hematocrit (Bld) [Volume fraction] 33.2 % 34.0-46.4 [facility] Hemoglobin [Mass/volume] in BloodOrdered By: Mario Conley on 02-01-2022 Hemoglobin (Bld) [Mass/Vol] 11.2 g/dL 11.8-15.4 [facility] No Panel InformationOrdered By: Mario Conley on 02-01-2022 Glucose 1 Hour Postprandial (Timed) 82 mg/dL 60-140 [facility] Albumin [Mass/volume] in Ser um or PlasmaOrdered By: Holger Aquino on 10-06-2021 Albumin [Mass/Vol] 3.8 g/dL 3.2-5.5 [facility] Basophils Auto (Bld) [#/Vol] Ordered By: Holger Aquino on 10-06-2021 Basophils (Bld) [#/Vol] 0.0 10*3/uL 0.0-0.2 [facility] Basophils/100 WBC Auto (Bld) Ordered By: Holger Aquino on 10-06-2021 Basophils/100 WBC (Bld) 0.5 % . [facility] Blood hemoglobin measurement (mass/volume)Ordered By: Holger Aquino on 10-06-2021 Hemoglobin (Bld) [Mass/Vol] 12.3 g/dL 11.8-15.4 [facility] Blood leukocytes automated c ount (number/volume)Ordered By: Holger Aquino on 10-06-2021 WBC (Bld) [#/Vol] 7.6 10*3/uL 4.5-11.0 [facility] Cholesterol [Mass/volume] in Serum or PlasmaOrdered By: Holger Aquino on 10-06-2021 Cholesterol [Mass/Vol] 147 mg/dL 140-200 [facility] Comment on above: Chol less than 200 m g/dl low risk Chol 201-239 mg/dl borderline risk Chol 240 mg/dl and greater high risk Cholesterol in LDL Calc [Mas s/Vol]Ordered By: Holger Aquino on 10-06-2021 Cholesterol in LDL [Mass/Vol] 89 mg/dL 0-100 [facility] Comment on above: LDL ATP III CLASSIFI CATION LDL less than 100 mg/dL Optimal LDL 100-129 mg/dL Near or above optimal LDL 130-159 mg/dL Borderline high LDL 160-189 mg/dL High LDL greater than 189 mg/dL Very high Cholesterol in VLDL Calc [Ma ss/Vol]Ordered By: Holger Aquino on 10-06-2021 Cholesterol in VLDL [Mass/Vol] 12 mg/dL [facility] Creatinine and Glomerular fi ltration rate.predicted panel (S/P/Bld)Ordered By: Holger Aquino on 10-06-2021 Creatinine [Mass/Vol] 0.54 mg/dL 0.44-1.03 [facility] Eosinophils Auto (Bld) [#/Vo l]Ordered By: Holger Aquino on 10-06-2021 Eosinophils (Bld) [#/Vol] 0.1 10*3/uL 0.0-0.45 [facility] Eosinophils/100 WBC Auto (Bl d)Ordered By: Holger Aquino on 10-06-2021 Eosinophils/100 WBC (Bld) 1.5 % . [facility] Erythrocyte distribution wid th Auto (RBC) [Ratio]Ordered By: Holger Aquino on 10-06-2021 Erythrocyte distribution width (RBC) [Ratio] 13.3 % 11.9-15.3 [facility] Estimated glomerular filtrat ion rate (GFR) non- AmericanOrdered By: Holger Aquino on 10-06-2021 GFR/1.73 sq M.predicted among non-blacks MDRD (S/P/Bld) [Vol rate/Area] > 60 mL/Min [facility] Globulin Calc (S) [Mass/Vol] Ordered By: Holger Aquino on 10-06-2021 Globulin (S) [Mass/Vol] 2.6 g/dL [facility] Hematocrit Auto (Bld) [Volum e fraction]Ordered By: Holger Aquino on 10-06-2021 Hematocrit (Bld) [Volume fraction] 36.2 % 34.0-46.4 [facility] - Chemistry and C hemistry - challengeOrdered By: Holger Aquino on 10-06-2021 Glucose [Mass/Vol] 77 mg/dL 70-100 [facility] - Hematology and Cell countsOrdered By: Holger Aquino on 10-06-2021 Nucleated RBC/100 WBC (Bld) [Ratio] 0.0 % 0-0.5 [facility] Lymphocytes Auto (Bld) [#/Vo l]Ordered By: Holger Aquino on 10-06-2021 Lymphocytes (Bld) [#/Vol] 1.6 10*3/uL 1.00-4.8 [facility] Lymphocytes/100 WBC Auto (Bl d)Ordered By: Holger Aquino on 10-06-2021 Lymphocytes/100 WBC (Bld) 21.1 % . [facility] MCH Auto (RBC) [Entitic mass ]Ordered By: Holger Aquino on 10-06-2021 MCH (RBC) [Entitic mass] 32.1 pg 24.7-34.3 [facility] MCHC Auto (RBC) [Mass/Vol]Or dered By: Holger Aquino on 10-06-2021 MCHC (RBC) [Mass/Vol] 33.9 g/dL 32.0-35.0 [facility] MCV Auto (RBC) [Entitic vol] Ordered By: Holger Aquino on 10-06-2021 MCV (RBC) [Entitic vol] 94.8 fL 80-100 [facility] Monocyte %Ordered By: Holger Aquino on 10-06-2021 Monocyte % 62 mg/dL 35-149 [facility] Comment on above: TRIG ATP III CLASSIF ICATION TRIG less than 150 mg/dL Normal TRIG 150-199 mg/dL Borderline high TRIG 200-500 mg/dL High TRIG greater than 500 mg/dL Very high Standard traceable to the Center for Disease Conrtrol and Prevention (CDC) test method. Monocytes Auto (Bld) [#/Vol] Ordered By: Holger Aquino on 10-06-2021 Monocytes (Bld) [#/Vol] 0.6 10*3/uL 0.0-0.8 [facility] Monocytes/100 WBC Auto (Bld) Ordered By: Holger Aquino on 10-06-2021 Monocytes/100 WBC (Bld) 7.6 % . [facility] Neutrophils Auto (Bld) [#/Vo l]Ordered By: Holger Aquino on 10-06-2021 Neutrophils (Bld) [#/Vol] 5.3 10*3/uL 1.8-7.7 [facility] Neutrophils/100 WBC Auto (Bl d)Ordered By: Holger Aquino on 10-06-2021 Neutrophils/100 WBC (Bld) 69.3 % . [facility] No Panel InformationOrdered By: Holger Aquino on 10-06-2021 Estimated GFR () > 60 mL/Min [facility] Comment on above: GFR estimated refere nce range: According to KDOQI guidelines, <60 ml/min/1.73m2 is sufficient to diagnose a patient with chronic kidney disease. Nicotine Metabolite Negative Cutoff=25 [facility] Comment on above: Performed at: [address] [id number] [place]: Viktoriya Smith MD, Phone: [phone] Pharmacy Creatinine Clearance (Chem N/A [facility] Platelet mean volume Auto (B ld) [Entitic vol]Ordered By: Holger Aquino on 10-06-2021 Platelet mean volume (Bld) [Entitic vol] 8.4 fL 6.3-10.7 [facility] Platelets Auto (Bld) [#/Vol] Ordered By: Holger Aquino on 10-06-2021 Platelets (Bld) [#/Vol] 348 10*3/uL 150-450 [facility] Protein [Mass/volume] in Ser um or PlasmaOrdered By: Holger Aquino on 10-06-2021 Protein [Mass/Vol] 6.4 g/dL 6.1-7.9 [facility] RBC Auto (Bld) [#/Vol]Ordere d By: Holger Aquino on 10-06-2021 RBC (Bld) [#/Vol] 3.82 10*6/uL 3.60-5.00 [facility] Serum or plasma alanine donato otransferase measurement without P-5'-P (enzymatic activiOrdered By: Holger Aquino on 10-06-2021 ALT No additional P-5'-P [Catalytic activity/Vol] 11 U/L 10-60 [facility] Serum or plasma albumin/glob ulin mass ratioOrdered By: Holger Aquino on 10-06-2021 Albumin/Globulin [Mass ratio] 1.5 {ratio} [facility] Serum or plasma alkaline lamin sphatase measurement (enzymatic activity/volume)Ordered By: Holger Aquino on 10-06-2021 ALP [Catalytic activity/Vol] 35 U/L 32-92 [facility] Serum or plasma aspartate am inotransferase measurement (enzymatic activity/volume)Ordered By: Holger Aquino on 10-06-2021 AST [Catalytic activity/Vol] 13 U/L 10-42 [facility] Serum or plasma calcium sara urement (mass/volume)Ordered By: Holger Aquino on 10-06-2021 Calcium [Mass/Vol] 9.5 mg/dL 8.2-10.2 [facility] Serum or plasma chloride rey surement (moles/volume)Ordered By: Holger Aquino on 10-06-2021 Chloride [Moles/Vol] 103 mmol/L 95-114 [facility] Serum or plasma high density lipoprotein (HDL) cholesterol measurementOrdered By: Holger Aquino on 10-06-2021 Cholesterol in HDL [Mass/Vol] 46 mg/dL 35-85 [facility] Comment on above: HDL CHOL ATP-III CLA SSIFICATION Cardiovascular Risk HDL > or equal to 60 mg/dL LOW HDL < 40 mg/dL HIGH Serum or plasma potassium me asurement (moles/volume)Ordered By: Holger Aquino on 10-06-2021 Potassium [Moles/Vol] 4.5 mmol/L 3.5-5.1 [facility] Serum or plasma sodium measu rement (moles/volume)Ordered By: Holger Aquino on 10-06-2021 Sodium [Moles/Vol] 134 mmol/L 136-146 [facility] Serum or plasma total biliru bin measurement (mass/volume)Ordered By: Holger Aquino on 10-06-2021 Bilirubin [Mass/Vol] 0.6 mg/dL 0.3-1.2 [facility] Serum or plasma total carbon dioxide measurement (moles/volume)Ordered By: Holger Aquino on 10-06-2021 CO2 [Moles/Vol] 24.2 mmol/L 22.0-30.0 [facility] Serum or plasma total choles terol/high density lipoprotein (HDL) cholesterol mass ratOrdered By: Holger Aquino on 10-06-2021 Cholesterol.total/Tessa sterol in HDL [Mass ratio] 3.2 {ratio} <5.0 [facility] Serum or plasma urea nitroge n measurement (mass/volume)Ordered By: Holger Aquino on 10-06-2021 Urea nitrogen [Mass/Vol] 7 mg/dL 9-23 [facility] TSH DL <= 0.005 mIU/L QnOrde red By: Holger Aquino on 10-06-2021 TSH Qn 1.55 m[IU]/L 0.45-5.33 [facility] RESPIRATORY PANEL PLUSon Adenovirus Not detected Normal NOT DETECTED [facility] Comment on above: Performed By: #### R SPLUS #### [facility] [address] [place] [address] Dr. Roberto Carlos Carrington. Parapertusis Not detected Normal NOT DETECTED [facility] Comment on above: Performed By: #### R SPLUS #### [facility] [address] [place] [address] Dr. Roberto Carlos Carrington. Pertussis Not detected Normal NOT DETECTED [facility] Comment on above: Performed By: #### R SPLUS #### [facility] [address] [place] [address] Dr. Roberto Carlos Colmenares Chlamydia Pneumoniae Not detected Normal NOT DETECTED [facility] Comment on above: Performed By: #### R SPLUS #### [facility] [address] [place] [address] Dr. Roberto Carlos Colmenares Coronavirus 229E Not detected Normal NOT DETECTED [facility] Comment on above: Performed By: #### R SPLUS #### [facility] [address] [place] [address] Dr. Roberto Carlos Colmenares Coronavirus HKU1 Not detected Normal NOT DETECTED [facility] Comment on above: Performed By: #### R SPLUS #### [facility] [address] [place] [address] Dr. Roberto Carlos Colmenares Coronavirus NL63 Not detected Normal NOT DETECTED [facility] Comment on above: Performed By: #### R SPLUS #### [facility] [address] [place] [address] Dr. Roberto Carlos Colmenares Coronavirus OC43 Not detected Normal NOT DETECTED [facility] Comment on above: Performed By: #### R SPLUS #### [facility] [address] [place] [address] Dr. Roberto Carlos Colmenares Influenza A H1 2008 Not detected Normal NOT DETECTED [facility] Comment on above: Performed By: #### R SPLUS #### [facility] [address] [place] [address] Dr. Roberto Carlos Colmenares Influenza B Not detected Normal NOT DETECTED [facility] Comment on above: Performed By: #### R SPLUS #### [facility] [address] [place], [place] [id number] Dr. Roberto Carlos Colmenares Metapneumovirus Not detected Normal NOT DETECTED [facility] Comment on above: Performed By: #### R SPLUS #### [facility] [address] [place] [address] Dr. Roberto Carlos Colmenares Mycoplas. Pneumoniae Not detected Normal NOT DETECTED [facility] Comment on above: Performed By: #### R SPLUS #### [facility] [address] [place] [address] Dr. Roberto Carlos Colmenares Parainfluenza 1 Not detected Normal NOT DETECTED [facility] Comment on above: Performed By: #### R SPLUS #### [facility] [address] [place] [address] Dr. Roberto Carlos Colmenares Parainfluenza 2 Not detected Normal NOT DETECTED [facility] Comment on above: Performed By: #### R SPLUS #### [facility] [address] [place] [address] Dr. Roberto Carlos Colmenares Parainfluenza 3 Not detected Normal NOT DETECTED [facility] Comment on above: Performed By: #### R SPLUS #### [facility] [address] [place] [address] Dr. Roberto Carlos Colmenares Parainfluenza 4 Not detected Normal NOT DETECTED [facility] Comment on above: Performed By: #### R SPLUS #### [facility] [address] [place] [address] Dr. Roberto Carlos Colmenares Rhino/Enterovirus Not detected Normal NOT DETECTED [facility] Comment on above: Performed By: #### R SPLUS #### [facility] [address] [place] [address] Dr. Roberto Carlos Colmenares RP2 Header 1 RESPIRATORY PANEL: VIRUSES Normal [facility] Comment on above: Performed By: #### R SPLUS #### [facility] [address] [place] [address] Dr. Roberto Carlos Colmenares RP2 Header 2 RESPIRATORY PANEL: BACTERIA Normal [facility] Comment on above: Performed By: #### R SPLUS #### [facility] [address] [place] [address] Dr. Roberto Carlos Colmenares RP2 Header 4 EUA SEE BELOW Normal [facility] Comment on above: Result Comment: This test is not yet approved or cleared by the [place] FDA. When there are no FDA-approved or cleared tests available, and other criteria are met, FDA can make tests available under an emergency access mechanism called an Emergency Use Authorization (EUA). The EUA for this test is supported by the [place] of Health and Human Service?s (HHS?s) declaration [...] used). Performed By: #### R SPLUS #### [facility] [address] [place] [address] Dr. Roberto Carlos Colmenares RSV Detected Critically abnormal NOT DETECTED [facility] Comment on above: Performed By: #### R SPLUS #### [facility] [address] [place] [address] Dr. Roberto Carlos Colmenares SARS-CoV-2 (COVID-19) RNA ADALGISA+probe Ql (Unsp spec) Not detected Normal NOT DETECTED [facility] Comment on above: Performed By: #### R SPLUS #### [facility] [address] [place] [address] Dr. Roberto Carlos Colmenares PAP ACOG PANEL 2: 21 to 29on 01-28-2020 . . Normal [facility] Comment on above: Performed By: #### [id number] #### [facility] [address] [place] [address] Dashawn Valles Age Gdln ACOG Testing 23- Normal [facility] Comment on above: Performed By: #### [id number] #### [facility] [address] [place] [address] Dashawn Valles COMMENT Comment Normal [facility] Comment on above: Result Comment: Z01. [id number] Performed By: #### 4 [id number] #### [facility] [address] [place] [address] Dashawn Lopezen DIAGNOSIS: Comment Normal [facility] Comment on above: Result Comment: NEGA TIVE FOR INTRAEPITHELIAL LESION OR MALIGNANCY. Performed By: #### 4 [id number] #### [facility] [address] [place] [address] Dashawncaleb Valles Methodology: Comment Normal [facility] Comment on above: Result Comment: This liquid based SurePath(R) pap test was screened with the assistance of an image guided system. Performed By: #### [id number] #### [facility] [address] [place] [address] Dashawn Reena Note: Comment Normal [facility] Comment on above: Result Comment: The Pap smear is a screening test designed to aid in the detection of premalignant and malignant conditions of the uterine cervix. It is not a diagnostic procedure and should not be used as the sole means of detecting cervical cancer. Both false-positive and false-negative reports do occur. . Performed By: #### 4 [id number] #### [facility] [address] [place] [address] Dashawn Valles Performed by: Comment Normal [facility] Comment on above: Result Comment: Muriel Madison, Normalizer (ASCP) Performed By: #### 4 [id number] #### [facility] [address] [place] [address] Dashawncaleb Valles Reflex Criteria: Comment Normal [facility] Comment on above: Result Comment: The HPV DNA reflex criteria were not met with this specimen result therefore, no HPV testing was performed. . Performed By: #### 4 [id number] #### [facility] [address] [place] [address] Dashawn Reena Specimen adequacy: Comment Normal [facility] Comment on above: Result Comment: Sati sfactory for evaluation. Endocervical and/or squamous metaplastic cells (endocervical component) are present. Performed By: #### 4 [id number] #### [facility] [address] [place], [place] [id number] Dashawn Reena US PELVIS AND TRANSVAGon US [...] by: AIMEE DIEZ Date: 2020-01-01 14:17 Normal [facility] Vital Signs Date Time Vital Sign Value Performing Clinician Facility 06-14-2023 11:28-0400 Body height 175.26 cm [facility] 06-14-2023 11:28-0400 Body mass index (BMI) [Ratio] 20.7 kg/m2 [facility] 06-14-2023 11:28-0400 Body temperature 99.8 [degF] [facility] 06-14-2023 11:28-0400 Body weight 63.5 kg [facility] 06-14-2023 11:28-0400 Heart rate 102 /min [facility] 06-14-2023 11:28-0400 Respiratory rate 18 /min [facility] 06-14-2023 11:28-0400 SaO2% (BldA) [Mass fraction] 98 % [facility] 02-12-2023 13:00-0500 Body height 172.72 cm Berta Rosales Other [employer] Other 02-12-2023 13:00-0500 Body mass index (BMI) [Ratio] 20.77 kg/m2 Berta Rosales Other [employer] Other 02-12-2023 13:00-0500 Body temperature 98.2 [degF] Berta Rosales Other [employer] Other 02-12-2023 13:00-0500 Body weight 61.96 kg Berta Rosales Other [employer] Other 02-12-2023 13:00-0500 Diastolic blood pressure 58 mm[Hg] Berta Rosales Other [employer] Other 02-12-2023 13:00-0500 Respiratory rate 18 /min Berta Rosales Other [employer] Other 02-12-2023 13:00-0500 SaO2% (BldA) [Mass fraction] 99 % Berta Rosales Other [employer] Other 02-12-2023 13:00-0500 Systolic blood pressure 102 mm[Hg] Berta Rosales Other [employer] Other 04-01-2022 08:47-0500 Body temperature 97.9 [degF] MD Maggie Anton Work Phone: [facility] 04-01-2022 08:47-0500 Diastolic blood pressure 57 mm[Hg] MD Maggie Anton Work Phone: [facility] 04-01-2022 08:47-0500 Heart rate 66 /min MD Maggie Anton Work Phone: [facility] 04-01-2022 08:47-0500 Respiratory rate 16 /min MD Maggie Anton Work Phone: [facility] 04-01-2022 08:47-0500 SaO2% (BldA) [Mass fraction] 98 % MD Maggie Anton Work Phone: [facility] 04-01-2022 08:47-0500 Systolic blood pressure 100 mm[Hg] MD Maggie Anton Work Phone: [facility] 03-29-2022 20:50-0500 Body height 172.72 cm MD Maggie Anton Work Phone: [facility] 03-29-2022 20:50-0500 Body weight 71.66 kg MD Maggie Anton Work Phone: [facility] 03-08-2022 15:40-0500 Respiratory rate 16 /min MD Magige Anton Work Phone: [facility] 03-08-2022 15:37-0500 SaO2% (BldA) [Mass fraction] 100 % MD Maggie Anton Work Phone: [facility] 03-08-2022 15:31-0500 Diastolic blood pressure 56 mm[Hg] MD Maggie Anton Work Phone: [facility] 03-08-2022 15:31-0500 Heart rate 86 /min MD Maggie Anton Work Phone: [facility] 03-08-2022 15:31-0500 Systolic blood pressure 101 mm[Hg] MD Maggie Anton Work Phone: [facility] 03-08-2022 12:55-0500 Body temperature 98.1 [degF] MD Maggie Anton Work Phone: [facility] 03-08-2022 10:29-0500 Body height 172.72 cm MD Maggie Anton Work Phone: [facility] 03-08-2022 10:29-0500 Body weight 70.3 kg MD Maggie Anton Work Phone: [facility] Encounters Encounter Date Encounter Type Care Provider Facility Start: 08-23-2023 End: 08-23-2023 ambulatory REENA CERVANTES Not Available Start: 06-27-2023 End: 06-27-2023 ambulatory YARA WILLIAM Not Available Start: 06-16-2023 End: 06-16-2023 ambulatory NAVID ROMAN Not Available Start: 06-14-2023 End: 06-14-2023 ambulatory [facility] Work Phone: Start: 06-14-2023 End: 06-14-2023 Patient encounter procedure [facility] Work Phone: Start: 02-12-2023 Office outpatient ne w 20 minutes Berta Rosales [facility] Start: 02-12-2023 End: 02-12-2023 ambulatory Berta Rosales [facility] [employer] Other Start: 02-12-2023 End: 02-12-2023 Departed [employer]PER[employer] Berta Rosales Work Phone: [facility] [place] Work Phone: Start: 11-28-2022 End: 11-28-2022 ambulatory MD Maggie Anton Work Phone: [facility] Work Phone: Start: 11-28-2022 End: 11-28-2022 Patient encounter procedure MD Maggie Anton Work Phone: [facility]-Flu Vaccine Start: 03-29-2022 End: 04-01-2022 Evaluation and management of inpatient MD Maggie Anton Work Phone: [facility] [place] Work Phone: Start: 03-10-2022 End: 03-10-2022 ambulatory MD Maggie Anton Work Phone: [facility] Work Phone: Start: 03-10-2022 End: 03-10-2022 Departed Referred MD Maggie Anton Work Phone: [facility] [place] Work Phone: Start: 03-08-2022 End: 03-08-2022 ambulatory MD Maggie Anton Work Phone: [facility] Work Phone: Start: 03-08-2022 End: 03-08-2022 Patient encounter procedure MD Maggie Anton Work Phone: [facility] - O/P Start: 02-01-2022 End: 02-01-2022 ambulatory MD Maggie Anton Work Phone: [facility] Work Phone: Start: 02-01-2022 End: 02-01-2022 Patient encounter procedure MD Maggie Anton Work Phone: [facility] [place] Start: 10-06-2021 End: 10-06-2021 Departed Referred MD Maggie Anton Work Phone: [facility]-Employee Benefit Screening Start: 11-21-2020 End: 11-21-[address] REENA CERVANTES Facility:[facility] Start: 02-08-2020 End: 02-08-[address] MYLES PETER Facility:[facility] Start: 01-22-2020 End: 01-22-[address] MANISHA HANSEN Facility:[facility] Start: 01-01-2020 End: 01-02-[address] MAGGIE ANTON Facility:[facility] Start: 09-21-2016 End: 09-22-2016 Ambulatory AILEEN SABILLON Facility:[facility] Start: 08-20-2016 End: 08-21-2016 Ambulatory DEFAULT PHYSICIAN Facility:[facility] Procedures Date Procedure Procedure Detail Performing Clinician Start: 06-14-2023 Quick Strep (POC) Start: 03-10-2022 Streptococcus agalac tiae culture MD Maggie Anton Work Phone: Start: 03-08-2022 Urine culture MD Maggie Anton Work Phone: Start: 03-08-2022 Ultrasonography of b ilateral kidneys MD Maggie Anton Work Phone: Plan of Treatment Date Care Activity Detail Author Start: 02-12-2023 Bacteria identified in Urine by Culture [facility] Start: 04-01-2022 [facility] Start: 03-30-2022 Hospital admission [facility] Start: 03-10-2022 Group B Streptococcus Culture Group B Streptococcus Culture [facility] Start: 03-08-2022 [facility] Start: 03-08-2022 Bacteria identified in Urine by Culture Urine Culture [facility] Start: 03-08-2022 Hospital admission [facility] Start: 03-08-2022 [facility] Patient Education [facility] Work Phone: Patient referral [facility] Work Phone: Streptococcus agalac tiae [Presence] in Unspecified specimen by Organism specific culture [facility] Immunizations Immunization Date Immunization Notes Care Provider Fa cility 03-31-2022 tetanus toxoid, redu elle diphtheria toxoid, and acellular pertussis vaccine, adsorbed MD Maggie Anton Work Phone: [facility] Payers Date Payer Category Payer Unknown [id number] 2023 Self-pay [id number] 2023 Unknown [id number] 1997 Unknown [id number] 1997 Unknown [id number] .16.84 [id number] 1997 Unknown [id number] .16.84 [id number] 1997 Unknown [id number] .16.84 [id number] 1997 Unknown [id number] 2.16.84 [id number] 1997 Unknown [id number] .16.84 [id number] 1997 Unknown [id number] 2.16.84 [id number] 1959 Unknown [id number] Unknown Unknown [id number] 2.16.8 [id number] Worker's Compensation [id number] Social History Date Type Detail Facility Tobacco smoking status NHIS Unknown if ever smoked [facility] Work Phone: Start: 1995 Sex Assigned At Female [facility] Start: 03-30-2022 End: 03-30-2022 Tobacco smoking status NHIS Never smoked tobacco (finding) [facility] Sex Assigned At Sex Assigned At Bir th [employer] Other Goals Date Patient Goal Desired Activity /State Functional Status Date Assessment Result Facility 04-01-2022 Functional status Patient at Baseline [facility] Work Phone: Mental Status Date Assessment Result Facility 04-01-2022 Cognitive function Cognitive Sta tus Patient at Baseline [facility] Work Phone: Evaluation note 02-12-2023 [...] without sciatica, unspecified chronicity (ICD-10 - M54.50) [facility] Other Progress note 03-31-2022 Note Date & Type Note Facility 03-31-2022 Progress note Note Date/Time March 31, 2022 7:09[facility] ENTER [address] [place], [place]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 Maciel is a 26 y/o female 1 day [...] <Electronically signed by MD CHAITANYA RAMIREZ> 03/31/22 1909 [facility] Work Phone: Procedure note 03-30-2022 Note Date & Type Note Facility 03-30-2022 Procedure note [facility] Clinical Note 06-01-2021 Note Date & Type Note Facility 06-01-2021 Note HISTORY: Right lower quadrant pain, rule out appendicitis PROCEDURE: RedaptpeStroho VCT 64. 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 Note Date & Type Note Facility Evaluation note No assessment information availa ble [facility] Work Phone: Evaluation note Note Date & Type Note Facility Evaluation note Diagnosis Onset Date 39 weeks gestation of acute [facility] Work Phone: Progress note Note Date & Type Note Facility Progress note Note Date/Time April 01, 2022 10:58am [facility] [address] [place] [address]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 Maciel is a 26 y/o female 2 day [...] signed by VONDA MILLS DO> 04/01/22 1058 [facility] Work Phone: Summary Purpose Family History No [...] Chief Complaint Flu Vaccine Chief Complaint Dysuria Chief Complaint Sore throat Additional Source Comments INFORMATION SOURCE (unrecogn ized section and content) DATE CREATED AUTHOR 08/17/2017 [facility] DATE CREATED AUTHOR AUTHOR'S ORGANIZ ATION 11/27/2020 [facility] DATE CREATED AUTHOR AUTHOR'S ORGANIZ ATION 06/02/2021 [facility] DATE CREATED AUTHOR AUTHOR'S ORGANIZ ATION 04/21/2023 [facility] DATE CREATED AUTHOR AUTHOR'S ORGANIZ ATION 08/24/2023 [facility] EPIC Care Teams (unrecognized sec tion and content) Team Status: Inactive Member Role Status Dates Maggie Anton MD Primary Care Provider Active Holger Aquino DO [facility] Attending Provider Active Team Status: Active Member [...] Team Status: Inactive Member Role Status Dates NATHANIEL PalaciosC Attending Provider Active Team Status: Inactive Member Role Status Dates Maggie Anton MD Primary Care Provider Active S tart: June 14, 2023 End: June 14, 2023 Allyson Cadet APRN Attending Provider Active Start: June 14, 2023 End: June 14, 2023 Goals (unrecognized section and content) Goals may be documented in a n alternate sectionGoals may be documented in an alternate sectionGoals may be documented in an alternate sectionGoals may be documented in an alternate sectionGoals may be documented in an alternate sectionNo InformationGoals may be documented in an alternate sectionNo InformationGoals may be documented in an alternate section REASON FOR VISIT (unrecogniz ed section and [...] BE BASED ON THE PRIMARY CLINICAL RECORDS. [facility] [employer] [facility] provides no warranty or guarantee of the accuracy or completeness of information in this document.
== END 2023-09-27 19:40 | disposition home or self-care (01) ==
LOC: LAB 19:39
PROVIDERS: Visit Provider Obstetrics & Gynecology
DX: Z01.419 Encounter for gynecological examination (general) (routine) without abnormal findings (principal)
CPT/HCPCS: 88175

== ENCOUNTER 2024-01-10 12:32 | Outpatient (OUT) | payer BC, SELFPAY ==
--- OUTSIDE RECORDS SUMMARY | 2024-01-10 12:39 | XMS_ITS | CCD ---
Author Organization [facility] Care Team Providers Care Senior Tableau Developer Name Role Phone PHYSICIAN, DEFAULT Unavailable Unavailable [...] Provider MD Maggie Anton Primary Care Provider [phone] DO Mario Conley Attending Provider [phone] DO Shirlene Owen Attending Provider DO Mario Conley Admit Provider MD Maggie Anton Primary Care Provider [phone] DO Holger Aquino Attending Provider Berta Rosales Unavailable MARY BETH Rosales Attending Provider Berta Rosales Attending Unavailable Berta Rosales Admitting Unavailable NAVID ROMAN Attending Unavailable YARA WILLIAM Attending Unavailable REENA CERVANTES Attending Unavailable YARA WILLIAM Attending Unavailable MAGGIE ANTON Attending Unavailable Medications Current Medications Medication Drug Class(es) Dates Sig (Normalized) Sig (Original) Burnham (No Known Home Meds) (1 source) Start: 06-14-2023 [place]ham (No Known Home Meds) Active June 14, [...] Allyson Cadet on 06-14-2023 Quick Strep (POC) [facility] Urinalysis - AUTOMATEDon Appearance (U) cloudy [employer] Other Bilirubin Ql (U) Negative [employer] Other Color (U) pale yellow [employer] Other Glucose Ql (U) Negative [employer] Other Hemoglobin Ql (U) Negative [employer] Other Ketones Ql (U) Negative [employer] Other Leukocyte esterase Test strip Ql (U) small [employer] Other Nitrite Ql (U) Negative [employer] Other pH (U) 5.5 [pH] [employer] Other Protein Ql (U) Negative [employer] Other Specific gravity (U) [Rel density] >=1.030 [employer] Other Urobilinogen (U) [Mass/Vol] 0.2 mg/dL [employer] Other Urinalysis - AUTOMATED No rt [employer] Other Urine Cultureon 02-12-2023 Bacteria identified Cx Nom (U) Reason for Exam Dysuria Urine 25,000 colonies/ml mixed bacterial skin contaminants 2 Days PERFORMED BY: [place] [address] PATHOLOGIST RESEARCH ENVIRONMENTAL ENGINEER JOSEFINA GAMBLE M.D. Normal [facility] Comment on above: Performed By: #### C UU #### [address] Bacteria identified Cx Nom (U) [employer] Other Basophils Auto (Bld) [#/Vol] Ordered By: Mario Conley on 03-31-2022 Basophils (Bld) [#/Vol] 0.1 10*3/uL 0.0-0.2 [facility] Basophils/100 WBC Auto (Bld) Ordered By: Mario Conley on 03-31-2022 Basophils/100 WBC (Bld) 0.4 % . [facility] Eosinophils Auto (Bld) [#/Vo l]Ordered By: Mario Conley on 03-31-2022 Eosinophils (Bld) [#/Vol] 0.1 10*3/uL 0.0-0.45 [facility] Eosinophils/100 WBC Auto (Bl d)Ordered By: Mario Conley on 03-31-2022 Eosinophils/100 WBC (Bld) 0.4 % . [facility] Erythrocyte distribution wid th Auto (RBC) [Ratio]Ordered By: Mario Conley on 03-31-2022 Erythrocyte distribution width (RBC) [Ratio] 14.6 % 11.9-15.3 [facility] Hematocrit Auto (Bld) [Volum e fraction]Ordered By: Mario Conley on 03-31-2022 Hematocrit (Bld) [Volume fraction] 27.5 % 34.0-46.4 [facility] Hemoglobin [Mass/volume] in BloodOrdered By: Mario Conley on 03-31-2022 Hemoglobin (Bld) [Mass/Vol] 9.1 g/dL 11.8-15.4 [facility] Leukocytes [#/volume] correc edgard for nucleated erythrocytes in Blood by Automated counOrdered By: Mario Conley on 03-31-2022 WBC corrected for nucl RBC Auto (Bld) [#/Vol] 14.2 10*3/uL 3.8-11.6 [facility] Lymphocytes Auto (Bld) [#/Vo l]Ordered By: Mario Conley on 03-31-2022 Lymphocytes (Bld) [#/Vol] 1.9 10*3/uL 1.00-4.8 [facility] Lymphocytes/100 WBC Auto (Bl d)Ordered By: Mario Conley on 03-31-2022 Lymphocytes/100 WBC (Bld) 13.5 % . [facility] MCH Auto (RBC) [Entitic mass ]Ordered By: Mario Conley on 03-31-2022 MCH (RBC) [Entitic mass] 29.6 pg 24.7-34.3 [facility] MCHC Auto (RBC) [Mass/Vol]Or dered By: Mario Conley on 03-31-2022 MCHC (RBC) [Mass/Vol] 32.9 g/dL 32.0-35.0 [facility] MCV Auto (RBC) [Entitic vol] Ordered By: Mario Conley on 03-31-2022 MCV (RBC) [Entitic vol] 90.0 fL 80-[address] [facility] Monocytes Auto (Bld) [#/Vol] Ordered By: Mario Conley on 03-31-2022 Monocytes (Bld) [#/Vol] 1.3 10*3/uL 0.0-0.8 [facility] Monocytes/100 WBC Auto (Bld) Ordered By: Mario Conley on 03-31-2022 Monocytes/100 WBC (Bld) 9.0 % . [facility] Neutrophils Auto (Bld) [#/Vo l]Ordered By: Mario Conley on 03-31-2022 Neutrophils (Bld) [#/Vol] 10.9 10*3/uL 1.8-7.7 [facility] Neutrophils/100 WBC Auto (Bl d)Ordered By: Mario Conley on 03-31-2022 Neutrophils/100 WBC (Bld) 76.7 % . [facility] Nucleated erythrocytes [Pres ence] in Blood by Automated countOrdered By: Mario Conley on 03-31-2022 Nucleated RBC Auto Ql (Bld) 0.0 /100{WBC} 0-0.5 [facility] Platelet mean volume Auto (B ld) [Entitic vol]Ordered By: Mario Conley on 03-31-2022 Platelet mean volume (Bld) [Entitic vol] 9.1 fL 6.3-10.7 [facility] Platelets Auto (Bld) [#/Vol] Ordered By: Mario Conley on 03-31-2022 Platelets (Bld) [#/Vol] 274 10*3/uL 150-450 [facility] RBC Auto (Bld) [#/Vol]Ordere d By: Mario Conley on 03-31-2022 RBC (Bld) [#/Vol] 3.06 10*6/uL 3.60-5.00 [facility] WBC Auto (Bld) [#/Vol]Ordere d By: Mario Conley on 03-31-2022 WBC (Bld) [#/Vol] 14.2 10*3/uL 3.8-11.6 [facility] Reagin Ab [Presence] in Seru m by RPROrdered By: Mario Conley on 03-29-2022 Reagin Ab RPR Ql (S) Non-Reactive Non Reactive [facility] Comment on above: Performed at: [address] [id number] Director: Anselmo Caldwell PhD, Phone: [phone] Group B Streptococcus cultur eOrdered By: Mario Conley on 03-10-2022 S. agalactiae Org specific cx Ql (Unsp spec) No Group B Beta Streptococcus Isolated 3 Days [facility] Albumin [Mass/volume] in Ser um or PlasmaOrdered By: Shirlene Owen on 03-08-2022 Albumin [Mass/Vol] 2.6 g/dL 3.2-5.5 [facility] Amphetamine Screen Ql (U)Ord ered By: Shirlene Oewn on 03-08-2022 Amphetamines Ql (U) Negative Negative [facility] Automated epithelial cells c ount in urine sediment (number/area)Ordered By: Shirlene Owen on 03-08-2022 Epithelial cells Auto (Urine sed) [#/Area] 1-2 [HPF] 0-2 [facility] Automated erythrocytes count in urine sediment (number/area)Ordered By: Shirlene Owen on 03-08-2022 RBC Auto (Urine sed) [#/Area] 0-1 [HPF] 0-4 [facility] Automated leukocytes count i n urine sediment (number/area)Ordered By: Shirlene Owen on 03-08-2022 WBC Auto (Urine sed) [#/Area] 50-100 [HPF] 0-4 [facility] Automated urine hyaline cast s count (number/volume)Ordered By: Shirlene Owen on 03-08-2022 Hyaline casts Auto (U) [#/Vol] None seen [LPF] 0-1 [facility] Barbiturates [Presence] in U rineOrdered By: Shirlene Owen on 03-08-2022 Barbiturates Ql (U) Negative Negative [facility] Basophils Auto (Bld) [#/Vol] Ordered By: Shirlene Owen on 03-08-2022 Basophils (Bld) [#/Vol] 0.0 10*3/uL 0.0-0.2 [facility] Basophils/100 WBC Auto (Bld) Ordered By: Shirlene Owen on 03-08-2022 Basophils/100 WBC (Bld) 0.2 % . [facility] Benzodiazepines [Presence] i n UrineOrdered By: Shirlene Owen on 03-08-2022 Benzodiazepines Ql (U) Negative Negative [facility] Bilirubin Test strip Ql (U)O rdered By: Shirlene Owen on 03-08-2022 Bilirubin Ql (U) Negative Negative [facility] Color Auto (U)Ordered By: Kingsley rodas Brayden on 03-08-2022 Color (U) Yellow Yellow [facility] Creatinine and Glomerular fi ltration rate.predicted panel (S/P/Bld)Ordered By: Shirlene Owen on 03-08-2022 Creatinine [Mass/Vol] 0.49 mg/dL 0.44-1.03 [facility] Eosinophils Auto (Bld) [#/Vo l]Ordered By: Shirlene Owen on 03-08-2022 Eosinophils (Bld) [#/Vol] 0.0 10*3/uL 0.0-0.45 [facility] Eosinophils/100 WBC Auto (Bl d)Ordered By: Shirlene Owen on 03-08-2022 Eosinophils/100 WBC (Bld) 0.3 % . [facility] Erythrocyte distribution wid th Auto (RBC) [Ratio]Ordered By: Shirlene Owen on 03-08-2022 Erythrocyte distribution width (RBC) [Ratio] 13.9 % 11.9-15.3 [facility] Estimated glomerular filtrat ion rate (GFR) non- AmericanOrdered By: Shirlene Owen on 03-08-2022 GFR/1.73 sq M.predicted among non-blacks MDRD (S/P/Bld) [Vol rate/Area] > 60 mL/Min [facility] Globulin Calc (S) [Mass/Vol] Ordered By: Shirlene Owen on 03-08-2022 Globulin (S) [Mass/Vol] 2.8 g/dL [facility] Hematocrit Auto (Bld) [Volum e fraction]Ordered By: Shirlene Owen on 03-08-2022 Hematocrit (Bld) [Volume fraction] 28.4 % 34.0-46.4 [facility] Hemoglobin [Mass/volume] in BloodOrdered By: Shirlene Owen on 03-08-2022 Hemoglobin (Bld) [Mass/Vol] 9.5 g/dL 11.8-15.4 [facility] Ketones Auto test strip (U) [Mass/Vol]Ordered By: Shirlene Owen on 03-08-2022 Ketones (U) [Mass/Vol] Negative [facility] Ordered By: Shirlene Owen on 03-08-2022 Opiates Ql (U) Negative Negative [facility] Leukocytes [#/volume] correc edgard for nucleated erythrocytes in Blood by Automated counOrdered By: Shirlene Owen on 03-08-2022 WBC corrected for nucl RBC Auto (Bld) [#/Vol] 9.7 10*3/uL 3.8-11.6 [facility] Lymphocytes Auto (Bld) [#/Vo l]Ordered By: Shirlene Owen on 03-08-2022 Lymphocytes (Bld) [#/Vol] 1.3 10*3/uL 1.00-4.8 [facility] Lymphocytes/100 WBC Auto (Bl d)Ordered By: Shirlene Owen on 03-08-2022 Lymphocytes/100 WBC (Bld) 13.0 % . [facility] MCH Auto (RBC) [Entitic mass ]Ordered By: Shirlene Owen on 03-08-2022 MCH (RBC) [Entitic mass] 30.7 pg 24.7-34.3 [facility] MCHC Auto (RBC) [Mass/Vol]Or dered By: Shirlene Owen on 03-08-2022 MCHC (RBC) [Mass/Vol] 33.6 g/dL 32.0-35.0 [facility] MCV Auto (RBC) [Entitic vol] Ordered By: Shirlene Owen on 03-08-2022 MCV (RBC) [Entitic vol] 91.6 fL 80-[address] [facility] Monocytes Auto (Bld) [#/Vol] Ordered By: Shirlene Owen on 03-08-2022 Monocytes (Bld) [#/Vol] 0.6 10*3/uL 0.0-0.8 [facility] Monocytes/100 WBC Auto (Bld) Ordered By: Shirlene Owen on 03-08-2022 Monocytes/100 WBC (Bld) 6.0 % . [facility] Neutrophils Auto (Bld) [#/Vo l]Ordered By: Shirlene Owen on 03-08-2022 Neutrophils (Bld) [#/Vol] 7.8 10*3/uL 1.8-7.7 [facility] Neutrophils/100 WBC Auto (Bl d)Ordered By: Shirlene Owen on 03-08-2022 Neutrophils/100 WBC (Bld) 80.5 % . [facility] Nitrite Test strip Ql (U)Ord ered By: Shirlene Owen on 03-08-2022 Nitrite Ql (U) Negative Negative [facility] No Panel InformationOrdered By: Shirlene Owen on 03-08-2022 Estimated GFR () > 60 mL/Min [facility] Comment on above: GFR estimated refere nce range: According to KDOQI guidelines, <60 ml/min/1.73m2 is sufficient to diagnose a patient with chronic kidney disease. Pharmacy Creatinine Clearance (Chem 178.59 [facility] Nucleated erythrocytes [Pres ence] in Blood by Automated countOrdered By: Shirlene Owen on 03-08-2022 Nucleated RBC Auto Ql (Bld) 0.1 /100{WBC} 0-0.5 [facility] Phencyclidine Screen Ql (U)O rdered By: Shirlene Owen on 03-08-2022 Phencyclidine Ql (U) Negative Negative [facility] Comment on above: These are unconfirme d results and should not be used for legal purposes. Drug Cut-Off Concentration: AMPH 1000 ng/mL LUCAS 200 ng/mL JUSTIN 200 ng/mL COCM 300 ng/mL OP 300 ng/mL PCP 25 ng/mL Platelet mean volume Auto (B ld) [Entitic vol]Ordered By: Shirlene Owen on 03-08-2022 Platelet mean volume (Bld) [Entitic vol] 8.3 fL 6.3-10.7 [facility] Platelets Auto (Bld) [#/Vol] Ordered By: Shirlene Owen on 03-08-2022 Platelets (Bld) [#/Vol] 290 10*3/uL 150-450 [facility] Protein Auto test strip (U) [Mass/Vol]Ordered By: Shirlene Owen on 03-08-2022 Protein (U) [Mass/Vol] Negative Negative [facility] Protein [Mass/volume] in Ser um or PlasmaOrdered By: Shirlene Owen on 03-08-2022 Protein [Mass/Vol] 5.4 g/dL 6.1-7.9 [facility] RBC Auto (Bld) [#/Vol]Ordere d By: Shirlene Owen on 03-08-2022 RBC (Bld) [#/Vol] 3.10 10*6/uL 3.60-5.00 [facility] Serum or plasma alanine donato otransferase measurement without P-5'-P (enzymatic activiOrdered By: Shirlene Owen on 03-08-2022 ALT No additional P-5'-P [Catalytic activity/Vol] 9 U/L 10-60 [facility] Serum or plasma albumin/glob ulin mass ratioOrdered By: Shirlene Owen on 03-08-2022 Albumin/Globulin [Mass ratio] 0.9 {ratio} [facility] Serum or plasma alkaline lamin sphatase measurement (enzymatic activity/volume)Ordered By: Shirlene Owen on 03-08-2022 ALP [Catalytic activity/Vol] 113 U/L 32-92 [facility] Serum or plasma anion gap de terminationOrdered By: Shirlene Owen on 03-08-2022 Anion gap [Moles/Vol] 12.1 mmol/L 6.0-15.0 [facility] Serum or plasma aspartate am inotransferase measurement (enzymatic activity/volume)Ordered By: Shirlene Owen on 03-08-2022 AST [Catalytic activity/Vol] 14 U/L 10-42 [facility] Serum or plasma calcium sara urement (mass/volume)Ordered By: Shirlene Owen on 03-08-2022 Calcium [Mass/Vol] 8.5 mg/dL 8.2-10.2 [facility] Serum or plasma chloride rey surement (moles/volume)Ordered By: Shirlene Owen on 03-08-2022 Chloride [Moles/Vol] 108 mmol/L 95-114 [facility] Serum or plasma glucose sara urement (mass/volume)Ordered By: Shirlene Owen on 03-08-2022 Glucose [Mass/Vol] 83 mg/dL 70-100 [facility] Comment on above: ADA recommended refe rence rangeRandom Glucose Reference Range is dependent on time and content of last meal. Glucose of more than 200 mg/dL in a nonstressed, ambulatory subject supports the diagnosis of Diabetes Mellitus. Serum or plasma potassium me asurement (moles/volume)Ordered By: Shirlene Owen on 03-08-2022 Potassium [Moles/Vol] 3.5 mmol/L 3.5-5.1 [facility] Serum or plasma sodium measu rement (moles/volume)Ordered By: Shirlene Owen on 03-08-2022 Sodium [Moles/Vol] 136 mmol/L 136-146 [facility] Serum or plasma total biliru bin measurement (mass/volume)Ordered By: Shirlene Owen on 03-08-2022 Bilirubin [Mass/Vol] 0.3 mg/dL 0.3-1.2 [facility] Serum or plasma total carbon dioxide measurement (moles/volume)Ordered By: Shrilene Owen on 03-08-2022 CO2 [Moles/Vol] 19.4 mmol/L 22.0-30.0 [facility] Serum or plasma urea nitroge n measurement (mass/volume)Ordered By: Shirlene Owen on 03-08-2022 Urea nitrogen [Mass/Vol] 4 mg/dL 9-23 [facility] Specific gravity Auto test s trip (U) [Rel density]Ordered By: Shirlene Owen on 03-08-2022 Specific gravity (U) [Rel density] 1.002 1.001-1.030 [facility] Urine bacteria detection by automated methodOrdered By: Shirlene Owen on 03-08-2022 Bacteria Auto Ql (U) 2+ None Seen [facility] Urine clarity by refractomet ry automatedOrdered By: Shirlene Owen on 03-08-2022 Clarity Refractometry automated (U) Clear Clear [facility] Urine cocaine detectionOrder ed By: Shirlene Owen on 03-08-2022 Cocaine Ql (U) Negative Negative [facility] Urine culture routineOrdered By: Shirlene Owen on 03-08-2022 Bacteria identified Cx Nom (U) 2 Days [facility] Urine glucose measurement by automated test strip (mass/volume)Ordered By: Shirlene Owen on 03-08-2022 Glucose Auto test strip (U) [Mass/Vol] Normal mg/dL Normal [facility] Urine hemoglobin detection b y automated test stripOrdered By: Shirlene Owen on 03-08-2022 Hemoglobin Auto test strip Ql (U) Negative Negative [facility] Urine leukocyte esterase det ection by automated test stripOrdered By: Shirlene Owen on 03-08-2022 Leukocyte esterase Auto test strip Ql (U) 4+ Negative [facility] Urobilinogen Auto test strip (U) [Mass/Vol]Ordered By: Shirlene Owen on 03-08-2022 Urobilinogen (U) [Mass/Vol] Normal mg/dL Normal [facility] WBC Auto (Bld) [#/Vol]Ordere d By: Shirlene Owen on 03-08-2022 WBC (Bld) [#/Vol] 9.7 10*3/uL 3.8-11.6 [facility] pH Auto test strip (U)Ordere d By: Shirlene Owen on 03-08-2022 pH (U) 7.0 [pH] 5.0-9.0 [facility] Hematocrit Auto (Bld) [Volum e fraction]Ordered By: Mario Conley on 02-01-2022 Hematocrit (Bld) [Volume fraction] 33.2 % 34.0-46.4 [facility] Hemoglobin [Mass/volume] in BloodOrdered By: Mario Conley on 02-01-2022 Hemoglobin (Bld) [Mass/Vol] 11.2 g/dL 11.8-15.4 [facility] No Panel InformationOrdered By: Mario Conley on 02-01-2022 Glucose 1 Hour Postprandial (Timed) 82 mg/dL 60-140 [facility] Albumin [Mass/volume] in Ser um or PlasmaOrdered By: Holger Aquino on 10-06-2021 Albumin [Mass/Vol] 3.8 g/dL 3.2-5.5 [facility] Basophils Auto (Bld) [#/Vol] Ordered By: Holger Aquino on 10-06-2021 Basophils (Bld) [#/Vol] 0.0 10*3/uL 0.0-0.2 [facility] Basophils/100 WBC Auto (Bld) Ordered By: Holger Aquino on 10-06-2021 Basophils/100 WBC (Bld) 0.5 % . [facility] Blood hemoglobin measurement (mass/volume)Ordered By: Holger Aquino on 10-06-2021 Hemoglobin (Bld) [Mass/Vol] 12.3 g/dL 11.8-15.4 [facility] Blood leukocytes automated c ount (number/volume)Ordered By: Holger Aquino on 10-06-2021 WBC (Bld) [#/Vol] 7.6 10*3/uL 4.5-11.0 [facility] Cholesterol [Mass/volume] in Serum or PlasmaOrdered By: Holger Aquino on 10-06-2021 Cholesterol [Mass/Vol] 147 mg/dL 140-200 [facility] Comment on above: Chol less than 200 m g/dl low risk Chol 201-239 mg/dl borderline risk Chol 240 mg/dl and greater high risk Cholesterol in LDL Calc [Mas s/Vol]Ordered By: Holger Aquino on 10-06-2021 Cholesterol in LDL [Mass/Vol] 89 mg/dL 0-100 [facility] Comment on above: LDL ATP III CLASSIFI CATION LDL less than 100 mg/dL Optimal LDL 100-129 mg/dL Near or above optimal LDL 130-159 mg/dL Borderline high LDL 160-189 mg/dL High LDL greater than 189 mg/dL Very high Cholesterol in VLDL Calc [Ma ss/Vol]Ordered By: Holger Aquino on 10-06-2021 Cholesterol in VLDL [Mass/Vol] 12 mg/dL [facility] Creatinine and Glomerular fi ltration rate.predicted panel (S/P/Bld)Ordered By: Holger Aquino on 10-06-2021 Creatinine [Mass/Vol] 0.54 mg/dL 0.44-1.03 [facility] Eosinophils Auto (Bld) [#/Vo l]Ordered By: Holger Aquino on 10-06-2021 Eosinophils (Bld) [#/Vol] 0.1 10*3/uL 0.0-0.45 [facility] Eosinophils/100 WBC Auto (Bl d)Ordered By: Holger Aquino on 10-06-2021 Eosinophils/100 WBC (Bld) 1.5 % . [facility] Erythrocyte distribution wid th Auto (RBC) [Ratio]Ordered By: Holger Aquino on 10-06-2021 Erythrocyte distribution width (RBC) [Ratio] 13.3 % 11.9-15.3 [facility] Estimated glomerular filtrat ion rate (GFR) non- AmericanOrdered By: Holger Aquino on 10-06-2021 GFR/1.73 sq M.predicted among non-blacks MDRD (S/P/Bld) [Vol rate/Area] > 60 mL/Min [facility] Globulin Calc (S) [Mass/Vol] Ordered By: Holger Aquino on 10-06-2021 Globulin (S) [Mass/Vol] 2.6 g/dL [facility] Hematocrit Auto (Bld) [Volum e fraction]Ordered By: Holger Aquino on 10-06-2021 Hematocrit (Bld) [Volume fraction] 36.2 % 34.0-46.4 [facility] Laboratory - Chemistry and C hemistry - challengeOrdered By: Holger Aquino on 10-06-2021 Glucose [Mass/Vol] 77 mg/dL 70-100 [facility] Laboratory - Hematology and Cell countsOrdered By: Holger Aquino on 10-06-2021 Nucleated RBC/100 WBC (Bld) [Ratio] 0.0 % 0-0.5 [facility] Lymphocytes Auto (Bld) [#/Vo l]Ordered By: Holger Aquino on 10-06-2021 Lymphocytes (Bld) [#/Vol] 1.6 10*3/uL 1.00-4.8 [facility] Lymphocytes/100 WBC Auto (Bl d)Ordered By: Holger Aquino on 10-06-2021 Lymphocytes/100 WBC (Bld) 21.1 % . [facility] MCH Auto (RBC) [Entitic mass ]Ordered By: Holger Aquino on 10-06-2021 MCH (RBC) [Entitic mass] 32.1 pg 24.7-34.3 [facility] MCHC Auto (RBC) [Mass/Vol]Or dered By: Holger Aquino on 10-06-2021 MCHC (RBC) [Mass/Vol] 33.9 g/dL 32.0-35.0 [facility] MCV Auto (RBC) [Entitic vol] Ordered By: Holger Aquino on 10-06-2021 MCV (RBC) [Entitic vol] 94.8 fL 80-[address] [facility] Monocyte %Ordered By: Holger Aquino on 10-06-2021 Monocyte % 62 mg/dL 35-149 [facility] Comment on above: TRIG ATP III CLASSIF ICATION TRIG less than 150 mg/dL Normal TRIG 150-199 mg/dL Borderline high TRIG 200-500 mg/dL High TRIG greater than 500 mg/dL Very high Standard traceable to the Center for Disease Conrtrol and Prevention (CDC) test method. Monocytes Auto (Bld) [#/Vol] Ordered By: Holger Aquino on 10-06-2021 Monocytes (Bld) [#/Vol] 0.6 10*3/uL 0.0-0.8 [facility] Monocytes/100 WBC Auto (Bld) Ordered By: Holger Aquino on 10-06-2021 Monocytes/100 WBC (Bld) 7.6 % . [facility] Neutrophils Auto (Bld) [#/Vo l]Ordered By: Holger Aquino on 10-06-2021 Neutrophils (Bld) [#/Vol] 5.3 10*3/uL 1.8-7.7 [facility] Neutrophils/100 WBC Auto (Bl d)Ordered By: Holger Aquino on 10-06-2021 Neutrophils/100 WBC (Bld) 69.3 % . [facility] No Panel InformationOrdered By: Holger Aquino on 10-06-2021 Estimated GFR () > 60 mL/Min [facility] Comment on above: GFR estimated refere nce range: According to KDOQI guidelines, <60 ml/min/1.73m2 is sufficient to diagnose a patient with chronic kidney disease. Nicotine Metabolite Negative Cutoff=25 [facility] Comment on above: Performed at: [address] [id number] [employer]iler [employer] Greaser: Viktoriya Smith MD, Phone: [phone] Pharmacy Creatinine Clearance (Chem N/A [facility] Platelet mean volume Auto (B ld) [Entitic vol]Ordered By: Holger Aquino on 10-06-2021 Platelet mean volume (Bld) [Entitic vol] 8.4 fL 6.3-10.7 [facility] Platelets Auto (Bld) [#/Vol] Ordered By: Holger Aquino on 10-06-2021 Platelets (Bld) [#/Vol] 348 10*3/uL 150-450 [facility] Protein [Mass/volume] in Ser um or PlasmaOrdered By: Holger Aquino on 10-06-2021 Protein [Mass/Vol] 6.4 g/dL 6.1-7.9 [facility] RBC Auto (Bld) [#/Vol]Ordere d By: Holger Aquino on 10-06-2021 RBC (Bld) [#/Vol] 3.82 10*6/uL 3.60-5.00 [facility] Serum or plasma alanine donato otransferase measurement without P-5'-P (enzymatic activiOrdered By: Holger Aquino on 10-06-2021 ALT No additional P-5'-P [Catalytic activity/Vol] 11 U/L 10-60 [facility] Serum or plasma albumin/glob ulin mass ratioOrdered By: Holger Aquino on 10-06-2021 Albumin/Globulin [Mass ratio] 1.5 {ratio} [facility] Serum or plasma alkaline lamin sphatase measurement (enzymatic activity/volume)Ordered By: Holger Aquino on 10-06-2021 ALP [Catalytic activity/Vol] 35 U/L 32-92 [facility] Serum or plasma aspartate am inotransferase measurement (enzymatic activity/volume)Ordered By: Holger Aquino on 10-06-2021 AST [Catalytic activity/Vol] 13 U/L 10-42 [facility] Serum or plasma calcium sara urement (mass/volume)Ordered By: Holger Aquino on 10-06-2021 Calcium [Mass/Vol] 9.5 mg/dL 8.2-10.2 [facility] Serum or plasma chloride rey surement (moles/volume)Ordered By: Holger Aquino on 10-06-2021 Chloride [Moles/Vol] 103 mmol/L 95-114 [facility] Serum or plasma high density lipoprotein (HDL) cholesterol measurementOrdered By: Holger Aquino on 10-06-2021 Cholesterol in HDL [Mass/Vol] 46 mg/dL 35-85 [facility] Comment on above: HDL CHOL ATP-III CLA SSIFICATION Cardiovascular Risk HDL > or equal to 60 mg/dL LOW HDL < 40 mg/dL HIGH Serum or plasma potassium me asurement (moles/volume)Ordered By: Holger qAuino on 10-06-2021 Potassium [Moles/Vol] 4.5 mmol/L 3.5-5.1 [facility] Serum or plasma sodium measu rement (moles/volume)Ordered By: Holger Aquino on 10-06-2021 Sodium [Moles/Vol] 134 mmol/L 136-146 [facility] Serum or plasma total biliru bin measurement (mass/volume)Ordered By: Holger Aquino on 10-06-2021 Bilirubin [Mass/Vol] 0.6 mg/dL 0.3-1.2 [facility] Serum or plasma total carbon dioxide measurement (moles/volume)Ordered By: Holger Aquino on 10-06-2021 CO2 [Moles/Vol] 24.2 mmol/L 22.0-30.0 [facility] Serum or plasma total choles terol/high density lipoprotein (HDL) cholesterol mass ratOrdered By: Holger Aquino on 10-06-2021 Cholesterol.total/Tessa sterol in HDL [Mass ratio] 3.2 {ratio} <5.0 [facility] Serum or plasma urea nitroge n measurement (mass/volume)Ordered By: Holger Aquino on 10-06-2021 Urea nitrogen [Mass/Vol] 7 mg/dL 9- [facility] TSH DL <= 0.005 mIU/L QnOrde red By: Holger Aquino on 10-06-2021 TSH Qn 1.55 m[IU]/L 0.45-5.33 [facility] RESPIRATORY PANEL PLUSon Adenovirus Not detected Normal NOT DETECTED The [facility] Comment on above: Performed By: #### R SPLUS #### [facility] [address] [place] [address] Dr. Roberto Carlos Ortiz Parapertusis Not detected Normal NOT DETECTED The [facility] Comment on above: Performed By: #### R SPLUS #### [facility] [address] [place] [address] Dr. Roberto Carlos Ortiz Pertussis Not detected Normal NOT DETECTED The [facility] Comment on above: Performed By: #### R SPLUS #### [facility] [address] [place] [address] Dr. Roberto Carlos Colmenares Chlamydia Pneumoniae Not detected Normal NOT DETECTED [facility] Comment on above: Performed By: #### R SPLUS #### [facility] [address] [place] [address] Dr. Roberto Carlos Colmenares Coronavirus 229E Not detected Normal NOT DETECTED [facility] Comment on above: Performed By: #### R SPLUS #### [facility] [address] [place] [address] Dr. Roberto Carlos Colmenares Coronavirus HKU1 Not detected Normal NOT DETECTED The [facility] Comment on above: Performed By: #### R SPLUS #### [facility] [address] [place] [address] Dr. Roberto Carlos Colmenares Coronavirus NL63 Not detected Normal NOT DETECTED The [facility] Comment on above: Performed By: #### R SPLUS #### [facility] [address] [place] [address] Dr. Roberto Carlos Colmenares Coronavirus OC43 Not detected Normal NOT DETECTED [facility] Comment on above: Performed By: #### R SPLUS #### [facility] [address] [place] [address] Dr. Roberto Carlos Colmenares Influenza A H1 2009 Not detected Normal NOT DETECTED [facility] Comment on above: Performed By: #### R SPLUS #### [facility] [address] [place] [address] Dr. Roberto Carlos Colmenares Influenza B Not detected Normal NOT DETECTED The [facility] Comment on above: Performed By: #### R SPLUS #### [facility] [address] [address] [address] Roberto Carlos Colmenares Metapneumovirus Not detected Normal NOT DETECTED The [facility] Comment on above: Performed By: #### R SPLUS #### [facility] [address] [place] [address] Dr. Roberto Carlos Colmenares Mycoplas. Pneumoniae Not detected Normal NOT DETECTED The [facility] Comment on above: Performed By: #### R SPLUS #### [facility] [address] [place] [address] Dr. Roberto Carlos Colmenares Parainfluenza 1 Not detected Normal NOT DETECTED [facility] Comment on above: Performed By: #### R SPLUS #### [facility] [address] [place] [address] Dr. Roberto Carlos Colmenares Parainfluenza 2 Not detected Normal NOT DETECTED [facility] Comment on above: Performed By: #### R SPLUS #### [facility] [address] [place] [address] Dr. Roberto Carlos Colmenares Parainfluenza 3 Not detected Normal NOT DETECTED [facility] Comment on above: Performed By: #### R SPLUS #### [facility] [address] [place] [address] Dr. Roberto Carlos Colmenares Parainfluenza 4 Not detected Normal NOT DETECTED [facility] Comment on above: Performed By: #### R SPLUS #### [facility] [address] [place] [address] Dr. Roberto Carlos Colmenares Rhino/Enterovirus Not detected Normal NOT DETECTED [facility] Comment on above: Performed By: #### R SPLUS #### [facility] [address] [place] [address] Dr. Roberto Carlos VIVAS Header 1 RESPIRATORY PANEL: VIRUSES Normal [facility] Comment on above: Performed By: #### R SPLUS #### [facility] [address] [place] [address] Dr. Roberto Carlos VIVAS Header 2 RESPIRATORY PANEL: BACTERIA Normal [facility] Comment on above: Performed By: #### R SPLUS #### [facility] [address] [place] [address] Dr. Roberto Carlos Colmenares RP2 Header 4 EUA SEE BELOW Normal [facility] Comment on above: Result Comment: This test is not yet approved or cleared by the [place] FDA. When there are no FDA-approved or cleared tests available, and other criteria are met, FDA can make tests available under an emergency access mechanism called an Emergency Use Authorization (EUA). The EUA for this test is supported by the Cloth Shrinking Tester of Health and Human Service?s (HHS?s) declaration [...] used). Performed By: #### R SPLUS #### [facility] [address] [place] [address] Dr. Roberto Carlos Colmenares RSV Detected Critically abnormal NOT DETECTED The [facility] Comment on above: Performed By: #### R SPLUS #### [facility] [address] [place] [address] Dr. Roberto Carlos Colmenares SARS-CoV-2 (COVID-19) RNA ADALGISA+probe Ql (Unsp spec) Not detected Normal NOT DETECTED The [facility] Comment on above: Performed By: #### R SPLUS #### [facility] [address] [place] [address] Dr. Roberto Carlos Colmenares PAP ACOG PANEL 2: 21 to 29on 01-28-2020 . . Normal [facility] Comment on above: Performed By: #### [id number] #### [facility] [address] [place] [address] Dashawn Valles Age Gdln ACOG Testing 23- Normal [facility] Comment on above: Performed By: #### [id number] #### [facility] [address] [place] [address] Dashawn Valles COMMENT Comment Normal [facility] Comment on above: Result Comment: Z01. [id number] Performed By: #### [id number] #### [facility] [address] [place] [address] Dashawncaleb Valles DIAGNOSIS: Comment Normal [facility] Comment on above: Result Comment: NEGA TIVE FOR INTRAEPITHELIAL LESION OR MALIGNANCY. Performed By: #### [id number] #### [facility] [address] [place] [address] Dashawn Reean Methodology: Comment Normal [facility] Comment on above: Result Comment: This liquid based SurePath(R) pap test was screened with the assistance of an image guided system. Performed By: #### [id number] #### [facility] [address] [place] [address] Dashawncaleb Valles Note: Comment Normal [facility] Comment on above: Result Comment: The Pap smear is a screening test designed to aid in the detection of premalignant and malignant conditions of the uterine cervix. It is not a diagnostic procedure and should not be used as the sole means of detecting cervical cancer. Both false-positive and false-negative reports do occur. . Performed By: #### [id number] #### [facility] [address] [place] [address] Dashawn Valles Performed by: Comment Normal [facility] Comment on above: Result Comment: Muriel Madison, Marksmanship Instructor (ASCP) Performed By: #### [id number] #### [facility] [address] [place] [address] Dashawncaleb Valles Reflex Criteria: Comment Normal [facility] Comment on above: Result Comment: The HPV DNA reflex criteria were not met with this specimen result therefore, no HPV testing was performed. . Performed By: #### [id number] #### [facility] [address] [place] [address] Dashawn Reena Specimen adequacy: Comment Normal [facility] Comment on above: Result Comment: Sati sfactory for evaluation. Endocervical and/or squamous metaplastic cells (endocervical component) are present. Performed By: #### 4 [id number] #### [facility] [address] [place] [address] Dashawn Reena US PELVIS AND TRANSVAGon US [...] AIMEE DIEZ Date: 2020-01-01 14:17 Normal [facility] Vital Signs Date Time Vital Sign Value Performing Clinician Facility 06-14-2023 11:28-0400 Body height 175.26 cm [facility] 06-14-2023 11:28-0400 Body mass index (BMI) [Ratio] 20.7 kg/m2 [facility] 06-14-2023 11:28-0400 Body temperature 99.8 [degF] [facility] 06-14-2023 11:28-0400 Body weight 63.5 kg [facility] 06-14-2023 11:28-0400 Heart rate 102 /min [facility] 06-14-2023 11:28-0400 Respiratory rate 18 /min [facility] 06-14-2023 11:28-0400 SaO2% (BldA) [Mass fraction] 98 % [facility] 02-12-2023 13:00-0500 Body height 172.72 cm Berta Rosales Other [facility] Other 02-12-2023 13:00-0500 Body mass index (BMI) [Ratio] 20.77 kg/m2 Berta Rosales Other [facility] Other 02-12-2023 13:00-0500 Body temperature 98.2 [degF] Berta Rosales Other [facility] Other 02-12-2023 13:00-0500 Body weight 61.96 kg Berta Rosales Other [facility] Other 02-12-2023 13:00-0500 Diastolic blood pressure 58 mm[Hg] Berta Rosales Other [facility] Other 02-12-2023 13:00-0500 Respiratory rate 18 /min Berta Rosales Other [facility] Other 02-12-2023 13:00-0500 SaO2% (BldA) [Mass fraction] 99 % Berta Rosales Other [facility] Other 02-12-2023 13:00-0500 Systolic blood pressure 102 mm[Hg] Berta Rosales Other [facility] Other 04-01-2022 08:47-0500 Body temperature 97.9 [degF] MD Maggie Anton Work Phone: [facility] 04-01-2022 08:47-0500 Diastolic blood pressure 57 mm[Hg] MD Maggie Anton Work Phone: [facility] 04-01-2022 08:47-0500 Heart rate 66 /min MD Maggie Anton Work Phone: [facility] 04-01-2022 08:47-0500 Respiratory rate 16 /min MD Maggie Anton Work Phone: [facility] 04-01-2022 08:47-0500 SaO2% (BldA) [Mass fraction] 98 % MD Maggie Anton Work Phone: [facility] 04-01-2022 08:47-0500 Systolic blood pressure 100 mm[Hg] MD Maggie Anton Work Phone: [facility] 03-29-2022 20:50-0500 Body height 172.72 cm MD Maggie Anton Work Phone: [facility] 03-29-2022 20:50-0500 Body weight 71.66 kg MD Maggie Anton Work Phone: [facility] 03-08-2022 15:40-0500 Respiratory rate 16 /min MD Maggie Anton Work Phone: [facility] 03-08-2022 15:37-0500 SaO2% (BldA) [Mass fraction] 100 % MD Maggie Anton Work Phone: [facility] 03-08-2022 15:31-0500 Diastolic blood pressure 56 mm[Hg] MD Maggie Anton Work Phone: [facility] 03-08-2022 15:31-0500 Heart rate 86 /min MD Maggie Anton Work Phone: [facility] 03-08-2022 15:31-0500 Systolic blood pressure 101 mm[Hg] MD Maggie Anton Work Phone: [facility] 03-08-2022 12:55-0500 Body temperature 98.1 [degF] MD Maggie Anton Work Phone: [facility] 03-08-2022 10:29-0500 Body height 172.72 cm MD Maggie Anton Work Phone: [facility] 03-08-2022 10:29-0500 Body weight 70.3 kg MD Maggie Anton Work Phone: [facility] Encounters Encounter Date Encounter Type Care Provider Facility Start: 10-18-2023 End: 10-18-2023 ambulatory MAGGIE ANTON Not Available Start: 09-27-2023 End: 09-27-2023 ambulatory YARA STEWART Not Available Start: 08-23-2023 End: 08-23-2023 ambulatory REENA CERVANTES Not Available Start: 06-27-2023 End: 06-27-2023 ambulatory YARA STEWART Not Available Start: 06-16-2023 End: 06-16-2023 ambulatory NAVID ROMAN Not Available Start: 06-14-2023 End: 06-14-[address] [facility] Work Phone: Start: 06-14-2023 End: 06-14-2023 Patient encounter procedure [facility] Work Phone: Start: 02-12-2023 Office outpatient ne w 20 minutes Berta Rosales [facility] Start: 02-12-2023 End: 02-12-2023 ambulatory Berta Rosales [facility] Other Start: 02-12-2023 End: 02-12-2023 Departed Referred [employer] ADMINISTRATOR-C Berta Rosales Work Phone: [facility] Work Phone: Start: 11-28-2022 End: 11-28-2022 ambulatory MD Maggie Anton Work Phone: [facility] Work Phone: Start: 11-28-2022 End: 11-28-2022 Patient encounter procedure MD Maggie Anton Work Phone: [facility]-Flu Vaccine Start: 03-29-2022 End: 04-01-2022 Evaluation and management of inpatient MD Maggie Anton Work Phone: [facility] [place] Work Phone: Start: 03-10-2022 End: 03-10-2022 ambulatory MD Maggie Anton Work Phone: [facility] Work Phone: Start: 03-10-2022 End: 03-10-2022 Departed Referred MD Maggie Anton Work Phone: [facility] Work Phone: Start: 03-08-2022 End: 03-08-2022 ambulatory MD Maggie Anton Work Phone: [facility] Work Phone: Start: 03-08-2022 End: 03-08-2022 Patient encounter procedure MD Maggie Anton Work Phone: [facility] Start: 02-01-2022 End: 02-01-2022 ambulatory MD Maggie Anton Work Phone: [facility] Work Phone: Start: 02-01-2022 End: 02-01-2022 Patient encounter procedure MD Maggie Anton Work Phone: [facility] Start: 10-06-2021 End: 10-06-2021 Departed Referred MD Maggie Anton Work Phone: [facility]-Employee Benefit Screening Start: 11-21-2020 End: 11-21-[address] REENA CERVANTES Facility:[facility] Start: 02-08-2020 End: 02-08-[address] MYLES PETER Facility:[facility] Start: 01-22-2020 End: 01-22-[address] MANISHA HANSEN Facility:[facility] Start: 01-01-2020 End: 01-02-[address] MAGGIE ANTON Facility:[facility] Start: 09-21-2016 End: 09-22-2016 Ambulatory AILEEN SABILLON Facility:[facility] Start: 08-20-2016 End: 08-21-2016 Ambulatory DEFAULT PHYSICIAN Facility:[facility] Procedures Date Procedure Procedure Detail Performing Clinician Start: 06-14-2023 Quick Strep (POC) Start: 03-10-2022 Streptococcus agalac tiae culture MD Maggie Anton Work Phone: Start: 03-08-2022 Urine culture MD Maggie Anton Work Phone: Start: 03-08-2022 Ultrasonography of b ilateral kidneys MD Maggie Anton Work Phone: Plan of Treatment Date Care Activity Detail Author Start: 02-12-2023 Bacteria identified in Urine by Culture [facility] Start: 04-01-2022 [facility] Start: 03-30-2022 Hospital admission [facility] Start: 03-10-2022 Group B Streptococcus Culture Group B Streptococcus Culture [facility] Start: 03-08-2022 [facility] Start: 03-08-2022 Bacteria identified in Urine by Culture Urine Culture [facility] Start: 03-08-2022 Hospital admission [facility] Start: 03-08-2022 [facility] Patient Education [facility] Work Phone: Patient referral [facility] Work Phone: Streptococcus agalac tiae [Presence] in Unspecified specimen by Organism specific culture [facility] Immunizations Immunization Date Immunization Notes Care Provider Fa cility 03-31-2022 tetanus toxoid, redu elle diphtheria toxoid, and acellular pertussis vaccine, adsorbed MD Maggie Anton Work Phone: [facility] Payers Date Payer Category Payer Unknown [id number] 2023 Self-pay [id number] 2023 Unknown [id number] 1995 Unknown [id number] 2.16.84 [id number] 1995 Unknown [id number] 2.16.84 [id number] 1997 Unknown [id number] .16.84 [id number] 1997 Unknown [id number] 2.16.84 [id number] 1997 Unknown [id number] 2.16.84 [id number] 1997 Unknown [id number] 2.16.84 [id number] 1997 Unknown [id number] 2.16.84 [id number] 1997 Unknown [id number] 2.16.84 [id number] 1997 Unknown [id number] 2.16.84 [id number] 1959 Unknown [id number] Unknown Unknown [id number] 2.16.8 [id number] Worker's Compensation [id number] Social History Date Type Detail Facility Tobacco smoking status NHIS Unknown if ever smoked [facility] Work Phone: Start: 1995 Sex Assigned At Female F [facility] Start: 03-30-2022 End: 03-30-2022 Tobacco smoking status NHIS Never smoked tobacco (finding) [facility] Sex Assigned At Sex Assigned At [facility] [employer] Other Goals Date Patient Goal Desired Activity /State Functional Status Date Assessment Result Facility 04-01-2022 Functional status Patient at Baseline [facility] Work Phone: Mental Status Date Assessment Result Facility 04-01-2022 Cognitive function Cognitive Sta tus Patient at Baseline [facility] Work Phone: Evaluation note 02-12-2023 [...] without sciatica, unspecified chronicity (ICD-10 - M54.50) [facility] Other Progress note 03-31-2022 Note Date & Type Note Facility 03-31-2022 Progress note Note Date/Time March 31, 2022 7:09pm [facility] [address] [place] [address] SUPERINTENDENT GENERAL Progress Note Signed Patient: Drew Maciel MR#: [id number] : 1995 Acct:[id number] Age/Sex: 26 / F Adm Date: 3 Loc: Room: [address] [place] [address] Type: ADM IN Attending Dr: Mario Conley [...] % (Auto) 76.7, Lymph % (Auto) 13.5, Yell % (Auto) 9.0, Eos % (Auto) 0.4, Baso % (Auto) 0.4, Nucleat RBC Rel Count 0.0, Neut# (Auto) 10.9 H, Lymph # (Auto) 1.9, Yell # (Auto) 1.3 H, Eos # (Auto) [...] signed by MD CHAITANYA RAMIREZ> 03/31/22 1909 [facility] Work Phone: Procedure note 03-30-2022 Note Date & Type Note Facility 03-30-2022 Procedure note [facility] Clinical Note 06-01-2021 Note Date & Type Note Facility 06-01-2021 Note HISTORY: Right lower quadrant pain, rule out appendicitis PROCEDURE: ITC [employer] VCT 64. Without intravenous or oral contrast [...] signed by Shalom Mcneill on 06/01/2021 1540 [facility] Chemical Sales Representative Evaluation note Note Date & Type Note Facility Evaluation note No assessment information availa [facility] Work Phone: Evaluation note Note Date & Type Note Facility Evaluation note Diagnosis Onset Date 39 weeks gestation of acute [facility] Work Phone: Progress note Note Date & Type Note Facility Progress note Note Date/Time April 01, 2022 10:58am [facility] [address] [place] [address] [employer]PERINTENDENT GENERAL Progress Note Signed Patient: Drew Maciel MR#: [id number] : 1995 Acct:[id number] Age/Sex: 26 / F Adm Date: 3 Loc: Room: [address] [place] [address] Type: ADM IN Attending Dr: Mario Conley [...] signed by VONDA MILLS DO> 04/01/22 1058 [facility] Work Phone: Summary Purpose Family History [...] section and content) DATE CREATED AUTHOR 08/17/2017 [facility] DATE CREATED AUTHOR AUTHOR'S ORGANIZ ATION 11/27/2020 [facility] pital DATE CREATED AUTHOR AUTHOR'S ORGANIZ ATION 06/02/2021 [facility] dical Specialist DATE CREATED AUTHOR AUTHOR'S ORGANIZ ATION 04/21/2023 [facility] DATE CREATED AUTHOR AUTHOR'S ORGANIZ ATION 10/20/2023 [facility] dical Specialists EPIC Care Teams (unrecognized sec tion and content) Team Status: Inactive Member Role Status Dates Maggie Anton MD Primary Care Provider Active Holger Aquino DO [facility] Attending Provider Active Team Status: Active [...] Team Status: Inactive Member Role Status Dates MARY BETH Palacios Attending Provider Active Team Status: Inactive Member [...] BE BASED ON THE PRIMARY CLINICAL RECORDS. [employer] [facility]. provides no warranty or guarantee of the accuracy or completeness of information in this document.
[2024-01-10 14:17] LABS: HCG Quantitative 75446 mIU/mL
== END 2024-01-10 12:33 | disposition home or self-care (01) ==
LOC: NOMS 12:32
PROVIDERS: PCP Family Medicine; Visit Provider Obstetrics & Gynecology
DX: O20.9 Hemorrhage in early pregnancy, unspecified (principal)
CPT/HCPCS: 36415; 84702

== ENCOUNTER 2024-01-10 12:51 | Outpatient (OUT) | payer BC, SELFPAY ==
--- NOTE | 2024-01-10 13:50 | US_ITS ---
[address] [address] Patient Name: DREW MACIEL MRN: [id number] date: 1995 Sex: F Assigned Patient Location: LAB Current Patient Location: Accession/Order Number: [id number] Exam Date: 01/10/2024 14:00 Report Date: 01/11/2024 03:46 At the request of: YARA WILLIAM Procedure: US OB transvaginal EXAMINATION: US OB transvaginal HISTORY: Bleeding In Early COMPARISON: No relevant comparison available. FINDINGS: GESTATIONAL SAC: Present and normal appearing. YOLK SAC: Present and normal appearing. POLE: Present and normal appearing. CARDIAC: Present. UTERUS: Normal size and appearance. OVARIES: Right: Normal. Left: Normal. CERVIX: 4.7 cm in length and closed. CUL-DE-SAC: Normal. OTHER: None. AGE BY LMP: 7 weeks 6 days DASH BY LMP: 08/22/2024 AGE BY US CRL: 8 weeks 0 days DASH BY US CRL: 08/21/2024 US/US OB transvaginal IMPRESSION: 1. Single live intrauterine . No suspicious findings. Electronically authenticated by: AIMEE DIEZ Date: 01/11/2024 03:46
== END 2024-01-10 12:52 | disposition home or self-care (01) ==
LOC: LAB 12:54
PROVIDERS: PCP Family Medicine; Visit Provider Obstetrics & Gynecology
DX: O20.8 Other hemorrhage in early pregnancy (principal); Z3A.08 8 weeks gestation of pregnancy; O20.9 Hemorrhage in early pregnancy, unspecified
CPT/HCPCS: 36415; 76817; 84702

== ENCOUNTER 2024-02-06 13:57 | Outpatient (OUT) | payer BC, SELFPAY ==
--- OUTSIDE RECORDS SUMMARY | 2024-02-06 14:21 | XMS_ITS | CCD ---
Author Organization [facility] Care Team Providers Care Broker Associate Name Role Phone PHYSICIAN, DEFAULT Unavailable Unavailable PHYSICIAN, DEFAULT Unavailable Unavailable AILEEN SABILLON Unavailable Unavailable KOSINSKIAILEEN Unavailable Unavailable DESEAN, MAGGIE Unavailable Unavailable DESEAN, [...] Unavailable MD Maggie Anton Primary Care Provider [phone] DO Holger Aquino Attending Provider [phone] MD Maggie Anton Primary Care Provider [phone] DO Mario Conley Attending Provider DO Shirlene Owen Attending Provider DO Mario Conley Admit Provider MD Maggie Anton Primary Care Provider [phone] DO Holger Aquino Attending Provider [phone] Berta Rosales Unavailable MARY BETH Rosales Attending Provider [phone] Berta Rosales Attending Unavailable Berta Rosales Admitting Unavailable Desean MD, Rugen M Primary Care Provider Morena Roman NP Unavailable MORENA ROMAN Attending Unavailable YARA FOY Attending Unavailable REENA CERVANTES Attending Unavailable YARA FOY Attending Unavailable MAGGIE ANTON Attending Unavailable Medications Current Medications Medication Drug Class(es) Dates Sig (Normalized) Sig (Original) [place] (No Known Home Meds) (1 source) Start: 06-14-2023 [place] (No Known Home Meds) Active June 14, 2023 12:00am ondansetron 4 mg disintegrating oral tablet (4 sources) Serotonin-3 Receptor Antagonist Start: 01-05-2024 End: 02-05-2024 take 1 tablet by mouth every six hours for nausea ondansetron ODT (Zofran-ODT) 4 MG disintegrating tablet Indications: Nausea and vomiting in Take 1 tablet (4 mg) by mouth every 6 (six) hours if needed for nausea or vomiting 30 tablet 2 01/06/2024 02/05/2024 Active sulfamethoxazole 800 mg / trimethoprim 160 mg [...] (Hpa)) 100 % Cream (4 sources) Start: End: Modified Lanolin (Lanolin (Hpa)) 100 % Cream [...] Problem Classification Problem Date Documented Date Episodic/Chronic Adjustment disorders (2 sources) Adjustment disorder with anxious mood; Translations: [Adjustment disorder with anxiety] Onset: 12-27-2022 12-27-2022 Chronic Anxiety disorders (2 sources) Social phobia; Translations: [Social phobia, unspecified] Onset: 12-27-2022 12-27-2022 Chronic Esophageal disorders (2 sources) Gastroesophageal reflux disease; Translations: [Gastro-esophageal reflux disease without esophagitis] Onset: 12-27-2022 12-27-2022 Chronic Genitourinary symptoms and ill-defined conditions (3 sources) Dysuria; Translations: [Dysuria] Onset: 02-12-2023 Episodic Menstrual disorders (1 source) Missed period; Translations: [Irregular menstruation, unspecified] 01-13-2024 Chronic Other ear and sense organ disorders (2 sources) Impacted cerumen in right ear; Translations: [Impacted cerumen, right ear] Onset: 10-18-2023 10-18-2023 Episodic Other lower respiratory disease (1 source) Shortness of breath; Translations: [SHORTNESS OF BREATH] Onset: 11-26-2020 Episodic Other and delivery including normal (2 sources) ; Translations: [Encounter for supervision of normal , unspecified, unspecified trimester] 01-13-2024 Episodic Residual codes; unclassified (1 source) 39 [...] Other Problems Problem Classification Problem Date Documented Da te Episodic/Chronic Abdominal pain (4 sources) Pelvic and perineal pain; Translations: [PELVIC AND PERINEAL PAIN] Onset: 01-01-2020 Episodic Blindness and vision defects (2 sources) Bilateral myopia of eyes; Translations: [Myopia, bilateral] Onset: 12-27-2022 12-27-2022 Episodic Cardiac dysrhythmias (2 sources) Palpitations; Translations: [Palpitations] Onset: 12-27-2022 12-27-2022 Episodic Immunizations and screening for infectious disease (1 source) Encounter for screening for human papillomavirus (HPV); Translations: [ENC SCREENING HUMAN PAPILLOMAVIRUS] Onset: 01-27-2020 Episodic Other gastrointestinal disorders (2 sources) Constipation alternates with diarrhea; Translations: [Other specified symptoms and signs involving the digestive system and abdomen] Onset: 12-27-2022 12-27-2022 Episodic Other gastrointestinal disorders (2 sources) Dysphagia; Translations: [Dysphagia, unspecified] Onset: 12-27-2022 12-27-2022 Episodic Other lower respiratory disease (2 sources) Respiratory tract congestion; Translations: [Other specified respiratory disorders] Onset: 12-27-2022 12-27-2022 Episodic Other screening for suspected conditions (not mental disorders or infectious disease) (4 sources) Encounter for screening for malignant neoplasm of cervix; Translations: [ENC SCREENING MALIG NEOPLASM CERV] Onset: 01-22-2020 Episodic Residual codes; unclassified (6 sources) Gestation period, 39 weeks; Translations: [39 weeks gestation of ] Onset: 08-23-2023 03-31-2022 Episodic Residual codes; unclassified (2 sources) Insomnia; Translations: [Insomnia, unspecified] Onset: 12-27-2022 12-27-2022 Episodic Skin and subcutaneous tissue infections (1 [...] Test Name Value Interpretation Reference Range Facility HCG ( test) Ql (U)o n 01-13-2024 Interpretation and review of laboratory results Abnormal [facility] Preg Test, Ur Positive Negative [facility] Urinalysis macro (dipstick) panel (U)on 01-13-2024 Bilirubin, UA Negative Negative - 4(70) +++ mg/dL [facility] Blood, UA Negative Negative - 50 Earl/mcL [facility] Clarity, UA Clear [facility] Color, UA Yellow [facility] Glucose, UA Negative Negative - 2000(110) ++++ mg/dL [facility] Interpretation and review of laboratory results Normal [facility] Ketones, UA Negative Negative - 160(16) ++++ mg/dL [facility] Leukocytes, UA Negative Negative - 500+++ Federica/mcL [facility] Nitrite, UA Negative Negative - Positive [facility] pH, UA 6 5 - 9 [facility] Protein, UA Negative Negative - 1999(20) ++++ mg/dL [facility] Spec Grav, UA 1.02 1 - 1.03 [facility] Urobilinogen, UA 1.0 0.2 - 12 mg/dL [facility]H PREG QUANT HCGon 024 HCG QUANTITATIVE 85357 mIU/mL [facility] Comment on above: 5-50 0.2-1 WEEK 50-500 1-2 WEEKS 100-5,000 2-3 WEEKS 500-10,000 3-4 WEEKS 1,000-50,000 4-5 WEEKS 10,000-100,000 5-6 WEEKS 15,000-200,000 6-8 WEEKS 10,000-100,000 2-3 MONTHS [facility] No Panel InformationOrdered By: Allyson Cadet on 06-14-2023 Quick Strep (POC) [facility] Urinalysis - AUTOMATEDon Appearance (U) cloudy [employer] Other Bilirubin Ql (U) Negative [employer]p Other Color (U) pale yellow [employer] Other Glucose Ql (U) Negative [employer]. Other Hemoglobin Ql (U) Negative Tasted Menu Other Ketones Ql (U) Negative [employer]. Other Leukocyte esterase Test strip Ql (U) small [employer] Other Nitrite Ql (U) Negative [employer]. Other pH (U) 5.5 [pH] [employer] Other Protein Ql (U) Negative [employer]. Other Specific gravity (U) [Rel density] >=1.030 [employer] Other Urobilinogen (U) [Mass/Vol] 0.2 mg/dL [employer] Other Urinalysis - AUTOMATED No rth [facility] [employer] Other Urine Cultureon 02-12-2023 Bacteria identified Cx Nom (U) Reason for Exam Dysuria Urine 25,000 colonies/ml mixed bacterial skin contaminants 2 Days PERFORMED BY: [place] [id number] PATHOLOGIST FINISHED CARPET INSPECTOR JOSEFINA GAMBLE M.D. Normal [facility] Comment on above: Performed By: #### C UU #### [facility] [address] [place] [address] Bacteria identified Cx Nom (U) [facility] [employer] Other Basophils Auto (Bld) [#/Vol] Ordered By: Mario Conley on 03-31-2022 Basophils (Bld) [#/Vol] 0.1 10*3/uL 0.0-0.2 [facility] Basophils/100 WBC Auto (Bld) Ordered By: Mario Conley on 03-31-2022 Basophils/100 WBC (Bld) 0.4 % . [facility] Eosinophils Auto (Bld) [#/Vo l]Ordered By: Mario Conley on 03-31-2022 Eosinophils (Bld) [#/Vol] 0.1 10*3/uL 0.0-0.45 [facility] Eosinophils/100 WBC Auto (Bl d)Ordered By: Mario Conley on 03-31-2022 Eosinophils/100 WBC (Bld) 0.4 % . [facility] Erythrocyte distribution wid th Auto (RBC) [Ratio]Ordered By: Mario Conley on 03-31-2022 Erythrocyte distribution width (RBC) [Ratio] 14.6 % 11.9-15.3 [facility] Hematocrit Auto (Bld) [Volum e fraction]Ordered By: Mario Conley on 03-31-2022 Hematocrit (Bld) [Volume fraction] 27.5 % 34.0-46.4 [facility] Hemoglobin [Mass/volume] in BloodOrdered By: Mario Conley on 03-31-2022 Hemoglobin (Bld) [Mass/Vol] 9.1 g/dL 11.8-15.4 [facility] Leukocytes [#/volume] correc edgard for nucleated erythrocytes in Blood by Automated counOrdered By: Mario Conley on 03-31-2022 WBC corrected for nucl RBC Auto (Bld) [#/Vol] 14.2 10*3/uL 3.8-11.6 [facility] Lymphocytes Auto (Bld) [#/Vo l]Ordered By: Mario Conley on 03-31-2022 Lymphocytes (Bld) [#/Vol] 1.9 10*3/uL 1.00-4.8 [facility] Lymphocytes/100 WBC Auto (Bl d)Ordered By: Mario Conley on 03-31-2022 Lymphocytes/100 WBC (Bld) 13.5 % . [facility] MCH Auto (RBC) [Entitic mass ]Ordered By: Mario Conley on 03-31-2022 MCH (RBC) [Entitic mass] 29.6 pg 24.7-34.3 [facility] MCHC Auto (RBC) [Mass/Vol]Or dered By: Mario Conley on 03-31-2022 MCHC (RBC) [Mass/Vol] 32.9 g/dL 32.0-35.[address] [facility] MCV Auto (RBC) [Entitic vol] Ordered By: Mario Cnoley on 03-31-2022 MCV (RBC) [Entitic vol] 90.0 fL 80-100 [facility] Monocytes Auto (Bld) [#/Vol] Ordered By: Mario Conley on 03-31-2022 Monocytes (Bld) [#/Vol] 1.3 10*3/uL 0.0-0.8 [facility] Monocytes/100 WBC Auto (Bld) Ordered By: Mario Conley on 03-31-2022 Monocytes/100 WBC (Bld) 9.0 % . [facility] Neutrophils Auto (Bld) [#/Vo l]Ordered By: Mario Conley on 03-31-2022 Neutrophils (Bld) [#/Vol] 10.9 10*3/uL 1.8-7.7 [facility] Neutrophils/100 WBC Auto (Bl d)Ordered By: Mario Conley on 03-31-2022 Neutrophils/100 WBC (Bld) 76.7 % . [facility] Nucleated erythrocytes [Pres ence] in Blood by Automated countOrdered By: Mario Conley on 03-31-2022 Nucleated RBC Auto Ql (Bld) 0.0 /100{WBC} 0-0.5 [facility] Platelet mean volume Auto (B ld) [Entitic vol]Ordered By: Mario Conley on 03-31-2022 Platelet mean volume (Bld) [Entitic vol] 9.1 fL 6.3-10.7 [facility] Platelets Auto (Bld) [#/Vol] Ordered By: Mario Conley on 03-31-2022 Platelets (Bld) [#/Vol] 274 10*3/uL 150-450 [facility] RBC Auto (Bld) [#/Vol]Ordere d By: Mario Conley on 03-31-2022 RBC (Bld) [#/Vol] 3.06 10*6/uL 3.60-5.00 [facility] WBC Auto (Bld) [#/Vol]Ordere d By: Mario Conley on 03-31-2022 WBC (Bld) [#/Vol] 14.2 10*3/uL 3.8-11.6 [facility] Reagin Ab [Presence] in Seru m by RPROrdered By: Mario Conley on 03-29-2022 Reagin Ab RPR Ql (S) Non-Reactive Non Reactive [facility] Comment on above: Performed at: [place] [id number] Director: Anselmo Caldwell PhD, Phone: [phone] Group B Streptococcus cultur eOrdered By: Mario Conley on 03-10-2022 S. agalactiae Org specific cx Ql (Unsp spec) No Group B Beta Streptococcus Isolated 3 Days [facility] Albumin [Mass/volume] in Ser um or PlasmaOrdered By: Shirlene Owen on 03-08-2022 Albumin [Mass/Vol] 2.6 g/dL 3.2-5.5 [facility] Amphetamine Screen Ql (U)Ord ered By: Shirlene Owen on 03-08-2022 Amphetamines Ql (U) Negative Negative [facility] Automated epithelial cells c ount in urine sediment (number/area)Ordered By: Shirlene Owen on 03-08-2022 Epithelial cells Auto (Urine sed) [#/Area] 1-2 [HPF] 0-2 [facility] Automated erythrocytes count in urine sediment (number/area)Ordered By: Shirlene Owen on 03-08-2022 RBC Auto (Urine sed) [#/Area] 0-1 [HPF] 0-4 [facility] Automated leukocytes count i n urine sediment (number/area)Ordered By: Shirlene Owen on 03-08-2022 WBC Auto (Urine sed) [#/Area] 50-100 [HPF] 0-4 [facility] Automated urine hyaline cast s count (number/volume)Ordered By: Shirlene Owen on 03-08-2022 Hyaline casts Auto (U) [#/Vol] None seen [LPF] 0-1 [facility] Barbiturates [Presence] in U rineOrdered By: Shirlene Owen on 03-08-2022 Barbiturates Ql (U) Negative Negative [facility] Basophils Auto (Bld) [#/Vol] Ordered By: Shirlene Owen on 03-08-2022 Basophils (Bld) [#/Vol] 0.0 10*3/uL 0.0-0.2 [facility] Basophils/100 WBC Auto (Bld) Ordered By: Shirlene Owen on 03-08-2022 Basophils/100 WBC (Bld) 0.2 % . [facility] Benzodiazepines [Presence] i n UrineOrdered By: Shirlene Owen on 03-08-2022 Benzodiazepines Ql (U) Negative [facility] Bilirubin Test strip Ql (U)O rdered By: Shirlene Owen on 03-08-2022 Bilirubin Ql (U) Negative Negative [facility] Color Auto (U)Ordered By: Kingsley Owen on 03-08-2022 Color (U) Yellow Yellow [facility] Creatinine and Glomerular fi ltration rate.predicted panel (S/P/Bld)Ordered By: Shirlene Owen on 03-08-2022 Creatinine [Mass/Vol] 0.49 mg/dL 0.44-1.03 [facility] Eosinophils Auto (Bld) [#/Vo l]Ordered By: Shirlene Owen on 03-08-2022 Eosinophils (Bld) [#/Vol] 0.0 10*3/uL 0.0-0.45 [facility] Eosinophils/100 WBC Auto (Bl d)Ordered By: Shirlene Owen on 03-08-2022 Eosinophils/100 WBC (Bld) 0.3 % . [facility] Erythrocyte distribution wid th Auto (RBC) [Ratio]Ordered By: Shirlene Owen on 03-08-2022 Erythrocyte distribution width (RBC) [Ratio] 13.9 % 11.9-15.3 [facility] Estimated glomerular filtrat ion rate (GFR) non- AmericanOrdered By: Shirlene Owen on 03-08-2022 GFR/1.73 sq M.predicted among non-blacks MDRD (S/P/Bld) [Vol rate/Area] > 60 mL/Min [facility] Globulin Calc (S) [Mass/Vol] Ordered By: Shirlene Owen on 03-08-2022 Globulin (S) [Mass/Vol] 2.8 g/dL [facility] Hematocrit Auto (Bld) [Volum e fraction]Ordered By: Shirlene Owen on 03-08-2022 Hematocrit (Bld) [Volume fraction] 28.4 % 34.0-46.4 [facility] Hemoglobin [Mass/volume] in BloodOrdered By: Shirlene Owen on 03-08-2022 Hemoglobin (Bld) [Mass/Vol] 9.5 g/dL 11.8-15.4 [facility] Ketones Auto test strip (U) [Mass/Vol]Ordered By: Shirlene Owen on 03-08-2022 Ketones (U) [Mass/Vol] Negative Negative [facility] - Drug toxicology Ordered By: Shirlene Owen on 03-08-2022 Opiates Ql (U) Negative Negative [facility] Leukocytes [#/volume] correc edgard for nucleated erythrocytes in Blood by Automated counOrdered By: Shirlene Owen on 03-08-2022 WBC corrected for nucl RBC Auto (Bld) [#/Vol] 9.7 10*3/uL 3.8-11.6 [facility] Lymphocytes Auto (Bld) [#/Vo l]Ordered By: Shirlene Owen on 03-08-2022 Lymphocytes (Bld) [#/Vol] 1.3 10*3/uL 1.00-4.8 [facility] Lymphocytes/100 WBC Auto (Bl d)Ordered By: Shirlene Owen on 03-08-2022 Lymphocytes/100 WBC (Bld) 13.0 % . [facility] MCH Auto (RBC) [Entitic mass ]Ordered By: Shirlene Owen on 03-08-2022 MCH (RBC) [Entitic mass] 30.7 pg 24.7-34.3 [facility] MCHC Auto (RBC) [Mass/Vol]Or dered By: Shirlene Owen on 03-08-2022 MCHC (RBC) [Mass/Vol] 33.6 g/dL 32.0-35.[address] [facility] MCV Auto (RBC) [Entitic vol] Ordered By: Shirlene Owen on 03-08-2022 MCV (RBC) [Entitic vol] 91.6 fL 80-100 [facility] Monocytes Auto (Bld) [#/Vol] Ordered By: Shirlene Owen on 03-08-2022 Monocytes (Bld) [#/Vol] 0.6 10*3/uL 0.0-0.8 [facility] Monocytes/100 WBC Auto (Bld) Ordered By: Shirlene Owen on 03-08-2022 Monocytes/100 WBC (Bld) 6.0 % . [facility] Neutrophils Auto (Bld) [#/Vo l]Ordered By: Shirlene Owen on 03-08-2022 Neutrophils (Bld) [#/Vol] 7.8 10*3/uL 1.8-7.7 [facility] Neutrophils/100 WBC Auto (Bl d)Ordered By: Shirlene Owen on 03-08-2022 Neutrophils/100 WBC (Bld) 80.5 % . [facility] Nitrite Test strip Ql (U)Ord ered By: Shirlene Owen on 03-08-2022 Nitrite Ql (U) Negative Negative [facility] No Panel InformationOrdered By: Shirlene Owen on 03-08-2022 Estimated GFR () > 60 mL/Min [facility] Comment on above: GFR estimated refere nce range: According to KDOQI guidelines, <60 ml/min/1.73m2 is sufficient to diagnose a patient with chronic kidney disease. Pharmacy Creatinine Clearance (Chem 178.59 [facility] Nucleated erythrocytes [Pres ence] in Blood by Automated countOrdered By: Shirlene Owen on 03-08-2022 Nucleated RBC Auto Ql (Bld) 0.1 /100{WBC} 0-0.5 [facility] Phencyclidine Screen Ql (U)O rdered By: Shirlene Owen on 03-08-2022 Phencyclidine Ql (U) Negative Negative [facility] Comment on above: These are unconfirme d results and should not be used for legal purposes. Drug Cut-Off Concentration: AMPH 1000 ng/mL LUCAS 200 ng/mL JUSTIN 200 ng/mL COCM 300 ng/mL OP 300 ng/mL PCP 25 ng/mL Platelet mean volume Auto (B ld) [Entitic vol]Ordered By: Shirlene Owen on 03-08-2022 Platelet mean volume (Bld) [Entitic vol] 8.3 fL 6.3-10.7 [facility] Platelets Auto (Bld) [#/Vol] Ordered By: Shirlene Owen on 03-08-2022 Platelets (Bld) [#/Vol] 290 10*3/uL 150-450 [facility] Protein Auto test strip (U) [Mass/Vol]Ordered By: hSirlene Owen on 03-08-2022 Protein (U) [Mass/Vol] Negative Negative [facility] Protein [Mass/volume] in Ser um or PlasmaOrdered By: Shirlene Owen on 03-08-2022 Protein [Mass/Vol] 5.4 g/dL 6.1-7.9 [facility] RBC Auto (Bld) [#/Vol]Ordere d By: Shirlene Owen on 03-08-2022 RBC (Bld) [#/Vol] 3.10 10*6/uL 3.60-5.00 [facility] Serum or plasma alanine donato otransferase measurement without P-5'-P (enzymatic activiOrdered By: Shirlene Owen on 03-08-2022 ALT No additional P-5'-P [Catalytic activity/Vol] 9 U/L 10-60 [facility] Serum or plasma albumin/glob ulin mass ratioOrdered By: Shirlene Owen on 03-08-2022 Albumin/Globulin [Mass ratio] 0.9 {ratio} [facility] Serum or plasma alkaline lamin sphatase measurement (enzymatic activity/volume)Ordered By: Shirlene Owen on 03-08-2022 ALP [Catalytic activity/Vol] 113 U/L 32-92 [facility] Serum or plasma anion gap de terminationOrdered By: Shirlene Owen on 03-08-2022 Anion gap [Moles/Vol] 12.1 mmol/L 6.0-15.0 [facility] Serum or plasma aspartate am inotransferase measurement (enzymatic activity/volume)Ordered By: Shirlene Owen on 03-08-2022 AST [Catalytic activity/Vol] 14 U/L 10-42 [facility] Serum or plasma calcium sara urement (mass/volume)Ordered By: Shirlene Owen on 03-08-2022 Calcium [Mass/Vol] 8.5 mg/dL 8.2-10.2 [facility] Serum or plasma chloride rey surement (moles/volume)Ordered By: Shirlene Owen on 03-08-2022 Chloride [Moles/Vol] 108 mmol/L 95-114 [facility] Serum or plasma glucose sara urement (mass/volume)Ordered By: Shirlene Owen on 03-08-2022 Glucose [Mass/Vol] 83 mg/dL 70-100 [facility] Comment on above: ADA recommended refe rence rangeRandom Glucose Reference Range is dependent on time and content of last meal. Glucose of more than 200 mg/dL in a nonstressed, ambulatory subject supports the diagnosis of Diabetes Mellitus. Serum or plasma potassium me asurement (moles/volume)Ordered By: Shirlene Owen on 03-08-2022 Potassium [Moles/Vol] 3.5 mmol/L 3.5-5.1 [facility] Serum or plasma sodium measu rement (moles/volume)Ordered By: Shirlene Owen on 03-08-2022 Sodium [Moles/Vol] 136 mmol/L 136-146 [facility] Serum or plasma total biliru bin measurement (mass/volume)Ordered By: Shirlene Owen on 03-08-2022 Bilirubin [Mass/Vol] 0.3 mg/dL 0.3-1.2 [facility] Serum or plasma total carbon dioxide measurement (moles/volume)Ordered By: Shirlene Owen on 03-08-2022 CO2 [Moles/Vol] 19.4 mmol/L 22.0-30.0 [facility] Serum or plasma urea nitroge n measurement (mass/volume)Ordered By: Shirlene Owen on 03-08-2022 Urea nitrogen [Mass/Vol] 4 mg/dL 9-23 [facility] Specific gravity Auto test s trip (U) [Rel density]Ordered By: Shirlene Owen on 03-08-2022 Specific gravity (U) [Rel density] 1.002 1.001-1.030 [facility] Urine bacteria detection by automated methodOrdered By: Shirlene Owen on 03-08-2022 Bacteria Auto Ql (U) 2+ None Seen [facility] Urine clarity by refractomet ry automatedOrdered By: Shirlene Owen on 03-08-2022 Clarity Refractometry automated (U) Clear Clear [facility] Urine cocaine detectionOrder ed By: Shirlene Owen on 03-08-2022 Cocaine Ql (U) Negative Negative [facility] Urine culture routineOrdered By: Shirlene Owen on 03-08-2022 Bacteria identified Cx Nom (U) 2 Days [facility] Urine glucose measurement by automated test strip (mass/volume)Ordered By: Shirlene Owen on 03-08-2022 Glucose Auto test strip (U) [Mass/Vol] Normal mg/dL Normal [facility] Urine hemoglobin detection b y automated test stripOrdered By: Shirlene Owen on 03-08-2022 Hemoglobin Auto test strip Ql (U) Negative Negative [facility] Urine leukocyte esterase det ection by automated test stripOrdered By: Shirlenerashaun Owen on 03-08-2022 Leukocyte esterase Auto test strip Ql (U) 4+ Negative [facility] Urobilinogen Auto test strip (U) [Mass/Vol]Ordered By: Shirlene Owen on 03-08-2022 Urobilinogen (U) [Mass/Vol] Normal mg/dL Normal [facility] WBC Auto (Bld) [#/Vol]Ordere d By: Shirlene Owen on 03-08-2022 WBC (Bld) [#/Vol] 9.7 10*3/uL 3.8-11.6 [facility] pH Auto test strip (U)Ordere d By: Shirlene Owen on 03-08-2022 pH (U) 7.0 [pH] 5.0-9.0 [facility] Hematocrit Auto (Bld) [Volum e fraction]Ordered By: Mario Conley on 02-01-2022 Hematocrit (Bld) [Volume fraction] 33.2 % 34.0-46.4 [facility] Hemoglobin [Mass/volume] in BloodOrdered By: Mario Conley on 02-01-2022 Hemoglobin (Bld) [Mass/Vol] 11.2 g/dL 11.8-15.4 [facility] No Panel InformationOrdered By: Mario Conley on 02-01-2022 Glucose 1 Hour Postprandial (Timed) 82 mg/dL 60-140 [facility] Albumin [Mass/volume] in Ser um or PlasmaOrdered By: Holger Aquino on 10-06-2021 Albumin [Mass/Vol] 3.8 g/dL 3.2-5.5 [facility] Basophils Auto (Bld) [#/Vol] Ordered By: Holger Aquino on 10-06-2021 Basophils (Bld) [#/Vol] 0.0 10*3/uL 0.0-0.2 [facility] Basophils/100 WBC Auto (Bld) Ordered By: Holger Aquino on 10-06-2021 Basophils/100 WBC (Bld) 0.5 % . [facility] Blood hemoglobin measurement (mass/volume)Ordered By: Holger Aquino on 10-06-2021 Hemoglobin (Bld) [Mass/Vol] 12.3 g/dL 11.8-15.4 [facility] Blood leukocytes automated c ount (number/volume)Ordered By: Holger Aquino on 10-06-2021 WBC (Bld) [#/Vol] 7.6 10*3/uL 4.5-11.0 [facility] Cholesterol [Mass/volume] in Serum or PlasmaOrdered By: Holger Aquino on 10-06-2021 Cholesterol [Mass/Vol] 147 mg/dL 140-200 [facility] Comment on above: Chol less than 200 m g/dl low risk Chol 201-239 mg/dl borderline risk Chol 240 mg/dl and greater high risk Cholesterol in LDL Calc [Mas s/Vol]Ordered By: Holger Aquino on 10-06-2021 Cholesterol in LDL [Mass/Vol] 89 mg/dL 0-100 [facility] Comment on above: LDL ATP III CLASSIFI CATION LDL less than 100 mg/dL Optimal LDL 100-129 mg/dL Near or above optimal LDL 130-159 mg/dL Borderline high LDL 160-189 mg/dL High LDL greater than 189 mg/dL Very high Cholesterol in VLDL Calc [Ma ss/Vol]Ordered By: Holger Aquino on 10-06-2021 Cholesterol in VLDL [Mass/Vol] 12 mg/dL [facility] Creatinine and Glomerular fi ltration rate.predicted panel (S/P/Bld)Ordered By: Holger Aquino on 10-06-2021 Creatinine [Mass/Vol] 0.54 mg/dL 0.44-1.03 [facility] Eosinophils Auto (Bld) [#/Vo l]Ordered By: Holger Aquino on 10-06-2021 Eosinophils (Bld) [#/Vol] 0.1 10*3/uL 0.0-0.45 [facility] Eosinophils/100 WBC Auto (Bl d)Ordered By: Holger Aquino on 10-06-2021 Eosinophils/100 WBC (Bld) 1.5 % . [facility] Erythrocyte distribution wid th Auto (RBC) [Ratio]Ordered By: Holger Aquino on 10-06-2021 Erythrocyte distribution width (RBC) [Ratio] 13.3 % 11.9-15.3 [facility] Estimated glomerular filtrat ion rate (GFR) non- AmericanOrdered By: Holger Aquino on 10-06-2021 GFR/1.73 sq M.predicted among non-blacks MDRD (S/P/Bld) [Vol rate/Area] > 60 mL/Min [facility] Globulin Calc (S) [Mass/Vol] Ordered By: Holger Aquino on 10-06-2021 Globulin (S) [Mass/Vol] 2.6 g/dL [facility] Hematocrit Auto (Bld) [Volum e fraction]Ordered By: Holger Aquino on 10-06-2021 Hematocrit (Bld) [Volume fraction] 36.2 % 34.0-46.4 [facility] Laboratory - Chemistry and C hemistry - challengeOrdered By: Holger Aquino on 10-06-2021 Glucose [Mass/Vol] 77 mg/dL 70-100 [facility] Laboratory - Hematology and Cell countsOrdered By: Holger Aquino on 10-06-2021 Nucleated RBC/100 WBC (Bld) [Ratio] 0.0 % 0-0.5 [facility] Lymphocytes Auto (Bld) [#/Vo l]Ordered By: Holger Aquino on 10-06-2021 Lymphocytes (Bld) [#/Vol] 1.6 10*3/uL 1.00-4.8 [facility] Lymphocytes/100 WBC Auto (Bl d)Ordered By: Holger Aquino on 10-06-2021 Lymphocytes/100 WBC (Bld) 21.1 % . [facility] MCH Auto (RBC) [Entitic mass ]Ordered By: Holger Aquino on 10-06-2021 MCH (RBC) [Entitic mass] 32.1 pg 24.7-34.3 [facility] MCHC Auto (RBC) [Mass/Vol]Or dered By: Holger Aquino on 10-06-2021 MCHC (RBC) [Mass/Vol] 33.9 g/dL 32.0-35.0 [facility] MCV Auto (RBC) [Entitic vol] Ordered By: Holger Aquino on 10-06-2021 MCV (RBC) [Entitic vol] 94.8 fL 80-100 [facility] Monocyte %Ordered By: Holger Aquino on 10-06-2021 Monocyte % 62 mg/dL 35-149 [facility] Comment on above: TRIG ATP III CLASSIF ICATION TRIG less than 150 mg/dL Normal TRIG 150-199 mg/dL Borderline high TRIG 200-500 mg/dL High TRIG greater than 500 mg/dL Very high Standard traceable to the Center for Disease Conrtrol and Prevention (CDC) test method. Monocytes Auto (Bld) [#/Vol] Ordered By: Holger Aquino on 10-06-2021 Monocytes (Bld) [#/Vol] 0.6 10*3/uL 0.0-0.8 [facility] Monocytes/100 WBC Auto (Bld) Ordered By: Holger Aquino on 10-06-2021 Monocytes/100 WBC (Bld) 7.6 % . [facility] Neutrophils Auto (Bld) [#/Vo l]Ordered By: Holger Aquino on 10-06-2021 Neutrophils (Bld) [#/Vol] 5.3 10*3/uL 1.8-7.7 [facility] Neutrophils/100 WBC Auto (Bl d)Ordered By: Holger Aquino on 10-06-2021 Neutrophils/100 WBC (Bld) 69.3 % . [facility] No Panel InformationOrdered By: Holger Aquino on 10-06-2021 Estimated GFR () > 60 mL/Min [facility] Comment on above: GFR estimated refere nce range: According to KDOQI guidelines, <60 ml/min/1.73m2 is sufficient to diagnose a patient with chronic kidney disease. Nicotine Metabolite Negative Cutoff=25 [facility] Comment on above: Performed at: [address] [id number] Contestant Coordinator: Viktoriya Smith MD, Phone: [phone] Pharmacy Creatinine Clearance (Chem N/A [facility] Platelet mean volume Auto (B ld) [Entitic vol]Ordered By: Holger Aquino on 10-06-2021 Platelet mean volume (Bld) [Entitic vol] 8.4 fL 6.3-10.7 [facility] Platelets Auto (Bld) [#/Vol] Ordered By: Holger Aquino on 10-06-2021 Platelets (Bld) [#/Vol] 348 10*3/uL 150-450 [facility] Protein [Mass/volume] in Ser um or PlasmaOrdered By: Holger Aquino on 10-06-2021 Protein [Mass/Vol] 6.4 g/dL 6.1-7.9 [facility] RBC Auto (Bld) [#/Vol]Ordere d By: Holger Aquino on 10-06-2021 RBC (Bld) [#/Vol] 3.82 10*6/uL 3.60-5.00 [facility] Serum or plasma alanine donato otransferase measurement without P-5'-P (enzymatic activiOrdered By: Holger Aquino on 10-06-2021 ALT No additional P-5'-P [Catalytic activity/Vol] 11 U/L 10-60 [facility] Serum or plasma albumin/glob ulin mass ratioOrdered By: Holger Aquino on 10-06-2021 Albumin/Globulin [Mass ratio] 1.5 {ratio} [facility] Serum or plasma alkaline lamin sphatase measurement (enzymatic activity/volume)Ordered By: Holger Aquino on 10-06-2021 ALP [Catalytic activity/Vol] 35 U/L 32-92 [facility] Serum or plasma aspartate am inotransferase measurement (enzymatic activity/volume)Ordered By: Holger Aquino on 10-06-2021 AST [Catalytic activity/Vol] 13 U/L 10-42 [facility] Serum or plasma calcium sara urement (mass/volume)Ordered By: Holger Aquino on 10-06-2021 Calcium [Mass/Vol] 9.5 mg/dL 8.2-10.2 [facility] Serum or plasma chloride rey surement (moles/volume)Ordered By: Holger Aquino on 10-06-2021 Chloride [Moles/Vol] 103 mmol/L 95-114 [facility] Serum or plasma high density lipoprotein (HDL) cholesterol measurementOrdered By: Holger Aquino on 10-06-2021 Cholesterol in HDL [Mass/Vol] 46 mg/dL 35-85 [facility] Comment on above: HDL CHOL ATP-III CLA SSIFICATION Cardiovascular Risk HDL > or equal to 60 mg/dL LOW HDL < 40 mg/dL HIGH Serum or plasma potassium me asurement (moles/volume)Ordered By: Holger Aquino on 10-06-2021 Potassium [Moles/Vol] 4.5 mmol/L 3.5-5.1 [facility] Serum or plasma sodium measu rement (moles/volume)Ordered By: Holger Aquino on 10-06-2021 Sodium [Moles/Vol] 134 mmol/L 136-146 [facility] Serum or plasma total biliru bin measurement (mass/volume)Ordered By: Holger Aquino on 10-06-2021 Bilirubin [Mass/Vol] 0.6 mg/dL 0.3-1.2 [facility] Serum or plasma total carbon dioxide measurement (moles/volume)Ordered By: Holger Aquino on 10-06-2021 CO2 [Moles/Vol] 24.2 mmol/L 22.0-30.0 [facility] Serum or plasma total choles terol/high density lipoprotein (HDL) cholesterol mass ratOrdered By: Holger Aquino on 10-06-2021 Cholesterol.total/Tessa sterol in HDL [Mass ratio] 3.2 {ratio} <5.0 [facility] Serum or plasma urea nitroge n measurement (mass/volume)Ordered By: Holger Aquino on 10-06-2021 Urea nitrogen [Mass/Vol] 7 mg/dL 9-23 [facility] TSH DL <= 0.005 mIU/L QnOrde red By: Holger Aquino on 10-06-2021 TSH Qn 1.55 m[IU]/L 0.45-5.33 [facility] RESPIRATORY PANEL PLUSon Adenovirus Not detected Normal NOT DETECTED [facility] Comment on above: Performed By: #### R SPLUS #### [facility] [address] [address] [address] Roberto Carlos Colmenares B. Parapertusis Not detected Normal NOT DETECTED [facility] Comment on above: Performed By: #### R SPLUS #### [facility] [address] [place] [address] Dr. Roberto Carlos Carrington. Pertussis Not detected Normal NOT DETECTED [facility] Comment on above: Performed By: #### R SPLUS #### [facility] [address] [place] [address] Dr. Roberto Carlos Colmenares Chlamydia Pneumoniae Not detected Normal NOT DETECTED [facility] Comment on above: Performed By: #### R SPLUS #### [facility] [address] [place] [address] Dr. Roberto Carlos Colmenares Coronavirus 229E Not detected Normal NOT DETECTED [facility] Comment on above: Performed By: #### R SPLUS #### [facility] [address] [place] [address] Dr. Roberto Carlos Colmenares Coronavirus HKU1 Not detected Normal NOT DETECTED [facility] Comment on above: Performed By: #### R SPLUS #### [facility] [address] [place] [address] Dr. Roberto Carlos Colmenares Coronavirus NL63 Not detected Normal NOT DETECTED [facility] Comment on above: Performed By: #### R SPLUS #### [facility] [address] [place] [address] Dr. Roberto Carlos Colmenares Coronavirus OC43 Not detected Normal NOT DETECTED [facility] Comment on above: Performed By: #### R SPLUS #### [facility] [address] [place] [address] Dr. Roberto Carlos Colmenares Influenza A H1 2009 Not detected Normal NOT DETECTED [facility] Comment on above: Performed By: #### R SPLUS #### [facility] [address] [place] [address] Dr. Roberto Carlos Colmenares Influenza B Not detected Normal NOT DETECTED [facility] Comment on above: Performed By: #### R SPLUS #### [facility] [address] [place] [address] Dr. Roberto Carlos Colmenares Metapneumovirus Not detected Normal NOT DETECTED [facility] Comment on above: Performed By: #### R SPLUS #### [facility] [address] [place] [address] Dr. Roberto Carlos Colmenares Mycoplas. Pneumoniae Not detected Normal NOT DETECTED [facility] Comment on above: Performed By: #### R SPLUS #### [facility] [address] [place] [address] Dr. Roberto Carlos Colmenares Parainfluenza 1 Not detected Normal NOT DETECTED [facility] Comment on above: Performed By: #### R SPLUS #### [facility] [address] [place] [address] Dr. Roberto Carlos Colmenares Parainfluenza 2 Not detected Normal NOT DETECTED [facility] Comment on above: Performed By: #### R SPLUS #### [facility] [address] [place] [address] Dr. Roberto Carlos Colmenares Parainfluenza 3 Not detected Normal NOT DETECTED [facility] Comment on above: Performed By: #### R SPLUS #### [facility] [address] [place] [address] Dr. Roberto Carlos Honginfluenstacy 4 Not detected Normal NOT DETECTED [facility] Comment on above: Performed By: #### R SPLUS #### [facility] [address] [place] [address] Dr. Roberto Carlos Colmenares Rhino/Enterovirus Not detected Normal NOT DETECTED [facility] Comment on above: Performed By: #### R SPLUS #### [facility] [address] [place] [address] Dr. Roberto Carlos Colmenares RP2 Header 1 RESPIRATORY PANEL: VIRUSES Normal [facility] Comment on above: Performed By: #### R SPLUS #### [facility] [address] [place] [address] Dr. Roberto Carlos Colmenares RP2 Header 2 RESPIRATORY PANEL: BACTERIA Normal [facility] Comment on above: Performed By: #### R SPLUS #### [facility] [address] [place] [address] Dr. Roberto Carlos Colmenares RP2 Header 4 EUA SEE BELOW Normal [facility] Comment on above: Result Comment: This test is not yet approved or cleared by the [place] FDA. When there are no FDA-approved or cleared tests available, and other criteria are met, FDA can make tests available under an emergency access mechanism called an Emergency Use Authorization (EUA). The EUA for this test is supported by the [employer] of Health and Human Service?s (HHS?s) declaration [...] used). Performed By: #### R SPLUS #### [facility] [address] [place] [address] Dr. Roberto Carlos Colmenares RSV Detected Critically abnormal NOT DETECTED [facility] Comment on above: Performed By: #### R SPLUS #### [facility] [address] [place] [address] Dr. Roberto Carlos Colmenares SARS-CoV-2 (COVID-19) RNA ADALGISA+probe Ql (Unsp spec) Not detected Normal NOT DETECTED [facility] Comment on above: Performed By: #### R SPLUS #### [facility] [address] [place] [address] Dr. Roberto Carlos Colmenares PAP ACOG PANEL 2: 21 to 29on 01-28-2020 . . Normal [facility] Comment on above: Performed By: #### [id number] #### [facility] [address] [place] [address] Dashawn Reena Age Gdln ACOG Testing 23- Normal [facility] Comment on above: Performed By: #### [id number] #### [facility] [address] [place] [address] Dashawncaleb Valles COMMENT Comment Normal [facility] Comment on above: Result Comment: [id number]. [id number] Performed By: #### [id number] #### [facility] [address] [place] [address] Dashawn Valles DIAGNOSIS: Comment Normal [facility] Comment on above: Result Comment: NEGA TIVE FOR INTRAEPITHELIAL LESION OR MALIGNANCY. Performed By: #### [id number] #### [facility] [address] [place] [address] Dashawn Valles Methodology: Comment Normal [facility] Comment on above: Result Comment: This liquid based SurePath(R) pap test was screened with the assistance of an image guided system. Performed By: #### [id number] #### [facility] [address] [place] [address] Dashawn Reena Note: Comment Normal [facility] Comment on above: Result Comment: The Pap smear is a screening test designed to aid in the detection of premalignant and malignant conditions of the uterine cervix. It is not a diagnostic procedure and should not be used as the sole means of detecting cervical cancer. Both false-positive and false-negative reports do occur. . Performed By: #### [id number] #### [facility] [address] [place] [address] Dashawn Valles Performed by: Comment Normal [facility] Comment on above: Result Comment: Muriel Madison, Survey Cad Technician (ASCP) Performed By: #### [id number] #### [facility] [address] [place] [address] Dashawncaleb Lopezen Reflex Criteria: Comment Normal [facility] Comment on above: Result Comment: The HPV DNA reflex criteria were not met with this specimen result therefore, no HPV testing was performed. . Performed By: #### [id number] #### [facility] [address] [place] [address] Dashawn Reena Specimen adequacy: Comment Normal [facility] Comment on above: Result Comment: Sati sfactory for evaluation. Endocervical and/or squamous metaplastic cells (endocervical component) are present. Performed By: #### [id number] #### [facility] [address] [place] [address] Dashawn Valles US PELVIS AND TRANSVAGon US PELVIS AND [...] by: AIMEE DIEZ Date: 2020-01-01 14:17 Normal [facility] Vital Signs Date Time Vital Sign Value Performing Clinician Facility 06-14-2023 11:28-0400 Body height 175.26 cm [facility] 06-14-2023 11:28-0400 Body mass index (BMI) [Ratio] 20.7 kg/m2 [facility] 06-14-2023 11:28-0400 Body temperature 99.8 [degF] [facility] 06-14-2023 11:28-0400 Body weight 63.5 kg [facility] 06-14-2023 11:28-0400 Heart rate 102 /min [facility] 06-14-2023 11:28-0400 Respiratory rate 18 /min [facility] 06-14-2023 11:28-0400 SaO2% (BldA) [Mass fraction] 98 % [facility] 02-12-2023 13:00-0500 Body height 172.72 cm Berta Rosales Other [employer] [facility] [employer] Other 02-12-2023 13:00-0500 Body mass index (BMI) [Ratio] 20.77 kg/m2 Berta Connie Other [employer] Other 02-12-2023 13:00-0500 Body temperature 98.2 [degF] Berta Rosales Other [employer] Other 02-12-2023 13:00-0500 Body weight 61.96 kg Berta Rosales Other [employer] Other 02-12-2023 13:00-0500 Diastolic blood pressure 58 mm[Hg] Berta Rosales Other [employer] Other 02-12-2023 13:00-0500 Respiratory rate 18 /min Berta Rosales Other [employer] Other 02-12-2023 13:00-0500 SaO2% (BldA) [Mass fraction] 99 % Berta Rosales Other [employer] Other 02-12-2023 13:00-0500 Systolic blood pressure 102 mm[Hg] Berta Rosales Other [employer] Other 04-01-2022 08:47-0500 Body temperature 97.9 [degF] MD Maggie Anton Work Phone: [facility] 04-01-2022 08:47-0500 Diastolic blood pressure 57 mm[Hg] MD Maggie Anton Work Phone: [facility] 04-01-2022 08:47-0500 Heart rate 66 /min MD Maggie Anton Work Phone: [facility] 04-01-2022 08:47-0500 Respiratory rate 16 /min MD Maggie Anton Work Phone: [facility] 04-01-2022 08:47-0500 SaO2% (BldA) [Mass fraction] 98 % MD Maggie Anton Work Phone: [facility] 04-01-2022 08:47-0500 Systolic blood pressure 100 mm[Hg] MD Maggie Anton Work Phone: [facility] 03-29-2022 20:50-0500 Body height 172.72 cm MD Maggie Anton Work Phone: [facility] 03-29-2022 20:50-0500 Body weight 71.66 kg MD Maggie Anton Work Phone: [facility] 03-08-2022 15:40-0500 Respiratory rate 16 /min MD Maggie Anton Work Phone: [facility] 03-08-2022 15:37-0500 SaO2% (BldA) [Mass fraction] 100 % MD Maggie Anton Work Phone: [facility] 03-08-2022 15:31-0500 Diastolic blood pressure 56 mm[Hg] MD Maggie Anton Work Phone: [facility] 03-08-2022 15:31-0500 Heart rate 86 /min MD Maggie Anton Work Phone: [facility] 03-08-2022 15:31-0500 Systolic blood pressure 101 mm[Hg] MD Maggie Anton Work Phone: [facility] 03-08-2022 12:55-0500 Body temperature 98.1 [degF] MD Maggie Anton Work Phone: [facility] 03-08-2022 10:29-0500 Body height 172.72 cm MD Maggie Anton Work Phone: [facility] 03-08-2022 10:29-0500 Body weight 70.3 kg MD Maggie Anton Work Phone: [facility] Encounters Encounter Date Encounter Type Care Provider Facility Start: 01-13-2024 End: 01-13-2024 Office outpatient visit 5 minutes [facility] Law Nurse [facility] Comment on above: GA: 8w2d Start: 01-13-2024 End: 01-13-2024 ambulatory MORENA ROMAN Not Available Start: 01-10-2024 End: 01-10-2024 Clinisync Result Encounter Yara Foy DO Work Phone: [facility] External Department Unsolicited Start: 01-10-2024 End: 01-10-2024 Clinisync Result Encounter Yara Law DO Work Phone: [facility] External Department Unsolicited Start: 10-18-2023 End: 10-18-2023 ambulatory MAGGIE ANTON Not Available Start: 09-27-2023 End: 09-27-2023 ambulatory YARA LAW Not Available Start: 08-23-2023 End: 08-23-2023 ambulatory REENA Willow HELEN Not Available Start: 06-27-2023 End: 06-27-2023 ambulatory YARA LAW Not Available Start: 06-16-2023 End: 06-16-2023 ambulatory MORENA Neda ABEL Not Available Start: 06-14-2023 End: 06-14-2023 ambulatory [facility] Work Phone: Start: 06-14-2023 End: 06-14-2023 Patient encounter procedure [facility] Work Phone: Start: 02-12-2023 Office outpatient ne w 20 minutes Berta Rosales [facility] Start: 02-12-2023 End: 02-12-2023 ambulatory Berta Rosales [facility] Other Start: 02-12-2023 End: 02-12-2023 Departed Referred 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-C Berta Rosales Work Phone: [facility] [place] Work Phone: Start: 11-28-2022 End: 11-28-2022 ambulatory MD Maggie Anton Work Phone: [facility] Work Phone: Start: 11-28-2022 End: 11-28-2022 Patient encounter procedure MD Maggie Anton Work Phone: [facility] Vaccine Start: 03-29-2022 End: 04-01-2022 Evaluation and management of inpatient MD Maggie Anton Work Phone: [facility] [place] Work Phone: Start: 03-10-2022 End: 03-10-2022 ambulatory MD Maggie Anton Work Phone: [facility] Work Phone: Start: 03-10-2022 End: 03-10-2022 Departed Referred MD Maggie Anton Work Phone: [facility] [place] Work Phone: Start: 03-08-2022 End: 03-08-2022 ambulatory MD Maggie Anton Work Phone: [facility] Work Phone: Start: 03-08-2022 End: 03-08-2022 Patient encounter procedure MD Maggie Anton Work Phone: [facility] - O/P Start: 02-01-2022 End: 02-01-2022 ambulatory MD Maggie Anton Work Phone: [facility] Work Phone: Start: 02-01-2022 End: 02-01-2022 Patient encounter procedure MD Maggie Anton Work Phone: [facility] Start: 10-06-2021 End: 10-06-2021 Departed Referred MD Maggie Anton Work Phone: [facility]-Employee Benefit Screening Start: 11-21-2020 End: 11-21-[address] REENA CERVANTES Facility:[facility] Start: 02-08-2020 End: 02-08-[address] MYLES PETER Facility:[facility] Start: 01-22-2020 End: 01-22-[address] MANISHA HANSEN Facility:[facility] Start: 01-01-2020 End: 01-02-[address] MAGGIE ANTON Facility:[facility] Start: 09-21-2016 End: 09-22-2016 Ambulatory AILEEN SABILLON Facility:[facility] Start: 08-20-2016 End: 08-21-2016 Ambulatory DEFAULT PHYSICIAN Facility:[facility] Procedures Date Procedure Procedure Detail Performing Clinician Start: 01-13-2024 Urnls dip stick/tabl et rgnt non-auto w/o micrscp Yara Foy DO Work Phone: Start: 01-10-2024 [facility] PREG QUANT HCG Gene arash External Data Provider Start: 06-14-2023 Quick Strep (POC) Start: 03-10-2022 Streptococcus agalac tiae culture MD Maggie Anton Work Phone: Start: 03-08-2022 Urine culture MD Maggie Anton Work Phone: Start: 03-08-2022 Ultrasonography of b ilateral kidneys MD Maggie Anton Work Phone: Plan of Treatment Date Care Activity Detail Author Start: 01-13-2024 End: 01-12-2025 ABO/Rh ABO/Rh Lab Routine Missed menses , unspecified gestational age Expected: 01/13/2024 (Approximate), Expires: 01/12/2025 [facility] Comment on above: Expected: 01/13/2024 (Approximate), Expires: 01/12/2025 Start: 01-13-2024 End: 01-12-2025 Blood type and Indirect antibody screen panel - Blood Type and screen Lab Routine Missed menses , unspecified gestational age Expected: 01/13/2024 (Approximate), Expires: 01/12/2025 [facility] [employer] Work Phone: Comment on above: Expected: 01/13/2024 (Approximate), Expires: 01/12/2025 Start: 01-13-2024 End: 01-12-2025 Drugs of abuse panel - Urine by Screen method Rapid drug screen, urine Lab Routine , unspecified gestational age Encounter for supervision of normal first in first trimester Expected: 01/13/2024 (Approximate), Expires: 01/12/2025 [facility] Comment on above: Expected: 01/13/2024 (Approximate), Expires: 01/12/2025 Start: 01-13-2024 End: 01-12-2025 US Pelvis transvaginal US OB transvaginal Imaging Routine Missed menses Expected: 01/13/2024 (Approximate), Expires: 01/12/2025 [facility] Comment on above: Expected: 01/13/2024 (Approximate), Expires: 01/12/2025 Start: 01-13-2024 End: 01-13-2024 ambulatory 01/13/2024 10:30 AM EST Initial [facility] [address] [place] [address] [facility] Start: 01-13-2024 End: 01-13-2024 Professional / ancillary services management 01/13/2024 10:00 AM EST Ancillary Procedure [facility] [address] [place] [address] [facility] Start: 10-23-2023 Influenza vaccination Influenza Vacc ine (#1) [facility] Start: 02-12-2023 Bacteria identified in Urine by Culture [facility] Start: 04-01-2022 [facility] Start: 03-30-2022 Hospital admission [facility] Start: 03-10-2022 Group B Streptococcu s Culture Group B Streptococcus Culture [facility] Start: 03-08-2022 [facility] Start: 03-08-2022 Bacteria identified in Urine by Culture Urine Culture [facility] Start: 03-08-2022 Hospital admission [facility] Start: 03-08-2022 [facility] Bacteria identified in Urine by Culture Urine culture Microbiology Routine Missed menses Ordered: 01/13/2024 [facility] Comment on above: Ordered: 01/13/2024 CBC W Auto Different ial panel - Blood CBC and differential Lab Routine Missed menses , unspecified gestational age Ordered: 01/13/2024 [facility] Comment on above: Ordered: 01/13/2024 Hemoglobin A1c/Hemoglobin.total in Blood Hemoglobin A1c Lab Routine Missed menses , unspecified gestational age Ordered: 01/13/2024 [facility] Comment on above: Ordered: 01/13/2024 Hepatitis B virus surface Ag [Presence] in Serum or Plasma by Immunoassay Hepatitis B surface antigen Lab Routine Missed menses , unspecified gestational age Ordered: 01/13/2024 [facility] Comment on above: Ordered: 01/13/2024 Hepatitis C virus Ab [Presence] in Serum or Plasma by Immunoassay Hepatitis C antibody Lab Routine Missed menses , unspecified gestational age Ordered: 01/13/2024 [facility] Comment on above: Ordered: 01/13/2024 HIV-1/HIV-2 antigen/antibody combination immunoassay HIV-1 and HIV-2 antibodies Lab Routine Missed menses , unspecified gestational age Ordered: 01/13/2024 [facility] Comment on above: Ordered: 01/13/2024 Patient Education [facility] Work Phone: Patient referral [facility] Work Phone: Reagin Ab [Presence] in Serum by RPR RPR Lab Routine Missed menses , unspecified gestational age Ordered: 01/13/2024 [facility] Comment on above: Ordered: 01/13/2024 Rubella antibody, IgG Rubella an tibody, IgG Lab Routine Missed menses , unspecified gestational age Ordered: 01/13/2024 [facility] Comment on above: Ordered: 01/13/2024 Streptococcus agalac tiae [Presence] in Unspecified specimen by Organism specific culture [facility] Immunizations Immunization Date Immunization Notes Care Provider [facility] 11-28-2022 influenza, injectabl e, quadrivalent, preservative free Yara Law DO Work Phone: [facility] 11-28-2022 influenza virus vacc ine, unspecified formulation Yara Law DO Work Phone: [facility] 03-31-2022 tetanus toxoid, redu elle diphtheria toxoid, and acellular pertussis vaccine, adsorbed MD Maggie Anton Work Phone: [facility] 12-11-2020 influenza, injectabl e, quadrivalent, preservative free Yara Law DO Work Phone: [facility] 11-27-2019 influenza, injectabl e, quadrivalent, preservative free Yara Law DO Work Phone: [facility] 02-23-2019 varicella virus vaccine Core y Law DO Work Phone: [facility] 12-14-2018 influenza, injectabl e, [place] canine kidney, preservative free Yara Law DO Work Phone: [facility] 12-14-2018 tetanus toxoid, redu elle diphtheria toxoid, and acellular pertussis vaccine, adsorbed Yara Law DO Work Phone: [facility] 12-19-2015 meningococcal oligosaccharide (groups A, C, Y and W-135) diphtheria toxoid conjugate vaccine (MCV4O) Yara Law DO Work Phone: [facility] 11-16-2010 tetanus toxoid, redu elle diphtheria toxoid, and acellular pertussis vaccine, adsorbed Yara Law DO Work Phone: [facility] 09-26-2002 diphtheria, tetanus toxoids and acellular pertussis vaccine, unspecified formulation Yara Law DO Work Phone: [facility] 09-26-2002 measles, mumps and rubella virus vaccine Yara Law DO Work Phone: [facility] 09-26-2002 poliovirus vaccine, inactivated Yara Law DO Work Phone: [facility] 04-29-2000 diphtheria, tetanus toxoids and acellular pertussis vaccine, unspecified formulation Yara Law DO Work Phone: [facility] 04-29-2000 haemophilus influenz ae type b vaccine, HbOC conjugate Yara Law DO Work Phone: [facility] 09-15-1998 measles, mumps and rubella virus vaccine Yara Law DO Work Phone: [facility] 09-15-1998 varicella virus vaccine Core y Law DO Work Phone: [facility] 05-09-1998 diphtheria, tetanus toxoids and acellular pertussis vaccine, unspecified formulation Yara Law DO Work Phone: [facility] 05-09-1998 haemophilus influenz ae type b conjugate and Hepatitis B vaccine Yara Law DO Work Phone: [facility] 05-09-1998 trivalent poliovirus vaccine, live, oral Yara Law DO Work Phone: [facility] 01-15-1998 diphtheria, tetanus toxoids and acellular pertussis vaccine, unspecified formulation Yara Law DO Work Phone: [facility] 01-15-1998 haemophilus influenz ae type b vaccine, PRP-OMP conjugate Yara Law DO Work Phone: [facility] 01-15-1998 trivalent poliovirus vaccine, live, oral Yara Law DO Work Phone: [facility] 1997 diphtheria, tetanus toxoids and acellular pertussis vaccine, unspecified formulation Yara Law DO Work Phone: [facility] 1997 haemophilus influenz ae type b conjugate and Hepatitis B vaccine Yara Law DO Work Phone: [facility] 1997 trivalent poliovirus vaccine, live, oral Yara Law DO Work Phone: [facility] 1997 hepatitis B vaccine, pediatric or pediatric/adolescent dosage Yara Law DO Work Phone: [facility] Payers Date Payer Category Payer [facility] [id number] 2023 Unknown [id number] 2023 Self-pay [id number] 2023 Unknown [id number] 1997 Unknown [id number]. 593 1997 Unknown [id number]. 593 1997 Unknown [id number] [id number]. 593 1997 Unknown [id number] 2.16.840.1.039214.3.579.2. 593 1997 Unknown [id number] 2.16.840.1.973333.3.579.2. 1259 1997 Unknown [id number] 2.16.840.1.783932.3.579.2. 9 1997 Unknown [id number] 2.16.840.1.670293.3.579.2. 9 1997 Unknown [id number] 2.16.840.1.356663.3.579.2. 9 1997 Unknown [id number] 2.16.840.1.271190.3.579.2. 9 1997 Unknown [id number] [id number]. 1259 1959 Unknown [id number] Unknown Unknown [id number]. 531 Worker's Compensation [id number] Social History Date Type Detail Facility Tobacco smoking status VAIS Unknown if ever smoked [facility] Work Phone: Start: 1995 Sex Assigned At Female [facility] Start: 03-30-2022 End: 03-30-2022 Tobacco smoking status NHIS Never smoked tobacco (finding) [facility] Start: 10-18-2023 Sex Assigned At [facility] [employer] Other Start: 08-23-2023 Tobacco smoking status VAIS Ex-smoker [facility] End: 02-22-2012 History of tobacco use Current smoker [facility] End: 02-22-2012 History of tobacco use Cigarette Smoker [facility] Start: 08-23-2023 Tobacco use and exposure Smokeless tobacco non-user [facility] Start: 10-18-2023 History of Social function [facility] Start: 1995 Sex assigned at Not on file [facility] Start: 11-30-2023 [facility] Goals Date Patient Goal Desired Activity /State Functional Status Date Assessment Result Facility 04-01-2022 Functional status Patient at Baseline [facility] Work Phone: Mental Status Date Assessment Result Facility 04-01-2022 Cognitive function Cognitive Sta tus Patient at Baseline [facility] Work Phone: History of Present illness Narrative 01-13-2024 Alexsandra Luo, BAUTISTA - 01/13/2024 10:30 AM EST Note Date & Type Note Facility 01-13-2024 History of Presen t illness Narrative Reason for Appointment: Patient ID: Sheeba Adhikari is a 28 y.o. female who presents for Amenorrhea Patient presents today for a Nurse OB Intake appointment. Patient is 8w2d with a Estimated Date of Delivery: 08/22/24 OB History Para Term AB Living 2 1 SAB IAB Ectopic Multiple Live Births # Outcome Date GA Lbr Fernando/2nd Weight Sex Type Anes PTL Lv 2 Current 1 Current Medications: has a current medication list which includes the following prescription(s): ondansetron odt and ondansetron odt. Medical History: Active Ambulatory Problems Diagnosis Date Noted Adjustment disorder with anxiety (CMS/HCC) 12/27/2022 Alternating constipation and diarrhea 12/27/2022 Congestion of respiratory tract 12/27/2022 Dysphagia 12/27/2022 Gastroesophageal reflux disease 12/27/2022 Insomnia 12/27/2022 Myopia, bilateral 12/27/2022 Palpitations 12/27/2022 Social anxiety disorder ([facility]/HCC) 12/27/2022 39 weeks gestation of 08/23/2023 Impacted cerumen, right ear 10/18/2023 Resolved Ambulatory Problems Diagnosis Date Noted No Resolved Ambulatory Problems Past Medical History: Diagnosis Date Allergic Anxiety No family history on file. Social History Tobacco Use Smoking status: Former Current packs/day: 0.00 Types: Cigarettes Quit date: 02/22/2012 Years since quittin.8 Smokeless tobacco: Never Vaping Use Vaping status: Never Used Substance Use Topics Alcohol use: Not on file Drug use: Not on file Past Surgical History: Procedure Laterality Date WISDOM TOOTH EXTRACTION No Known Allergies Vitals: Estimated body mass index is 22.2 kg/m as calculated from the following: Height as of 10/18/23: 5' 8 . Weight as of 10/18/23: 146 lb. BP: Patient's last menstrual period was 11/16/2023. Assessment/Plan Diagnoses and all orders for this visit: Missed menses - Type and screen; Future - ABO/Rh; Future - CBC and differential - Hemoglobin A1c - RPR - Rubella antibody, IgG - Hepatitis B surface antigen - Hepatitis C antibody - HIV-1 and HIV-2 antibodies - Urine culture - US OB transvaginal; Future - POCT , urine manually resulted - POCT urinalysis dipstick manually resulted , unspecified gestational age - Type and screen; Future - ABO/Rh; Future - CBC and differential - Hemoglobin A1c - RPR - Rubella antibody, IgG - Hepatitis B surface antigen - Hepatitis C antibody - HIV-1 and HIV-2 antibodies - Rapid drug screen, urine; Future Encounter for supervision of normal first in first trimester - Rapid drug screen, urine; Future Nurse Note: OB Intake: Patient presents today for first OB visit. Patients history has been reviewed in great detail including any potential risks. Patient signed consent forms and patient desires testing in both trimesters. Patient currently has no complaints and has been advised to drink 6-8 glasses of water a day, eat no raw or undercooked meat, and stay away from [facility]. Patient has also been advised to not change litter boxes and eat 6 small meals a day. Patient has been consulted regarding the do's and don'ts of . Patient was given labs and all questions and concerns were answered. Follow Up: Patient is to return in 4 weeks for routine OB appointment. Follow Up: Patient is to have labs drawn at directed and return to office for initial OB appointment with provider. Patient may call office as needed with any concerns or questions. 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 Progress Note Signed Patient: Sheeba Adhikari MR#: [id number] : 1995 Acct:[id number] Age/Sex: 26 / F Adm Date: 3 Loc: Room: 2B7178-0 Type: ADM IN Attending Dr: Mario Conley [...] % (Auto) 76.7, Lymph % (Auto) 13.5, [place] % (Auto) 9.0, Eos % (Auto) 0.4, Baso % (Auto) 0.4, Nucleat RBC Rel Count 0.0, Neut# (Auto) 10.9 H, Lymph # (Auto) 1.9, [place] # (Auto) 1.3 H, Eos # (Auto) [...] signed by MD CHAITANYA RAMIREZ> 03/31/22 1909 [facility] Work Phone: Procedure note 03-30-2022 Note Date & Type Note Facility 03-30-2022 Procedure note [facility] Clinical Note 06-01-2021 Note Date & Type Note Facility 06-01-2021 Note HISTORY: Right lower quadrant pain, rule out appendicitis PROCEDURE: [facility] VCT 64. Without intravenous or oral contrast [...] signed by Shalom Mcneill on 06/01/2021 1540 [facility] Intensive Care Medicine Specialist Evaluation note Note Date & Type Note Facility Evaluation note No assessment information availa ble [facility] Work Phone: Evaluation note Note Date & Type Note Facility Evaluation note Diagnosis Onset Date 39 weeks gestation of acute [facility] Work Phone: Evaluation note Note Date & Type Note Facility Evaluation note Diagnosis Impacted cerumen, right ear- Primary Missed menses , unspecified gestational age Encounter for supervision of normal first in first trimester documented in this encounter [facility] Progress note Note Date & Type Note Facility Progress note Note Date/Time April 01, 2022 10:58am [facility] [address] [place] [id number] 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 Progress Note Signed Patient: Sheeba Adhikari MR#: [id number] : 1995 Acct:[id number] Age/Sex: 26 / F Adm Date: 3 Loc: Room: 2C4921-3 Type: ADM IN Attending Dr: Mario Conley [...] signed by VONDA MILLS DO> 04/01/22 1058 [facility] Work Phone: Summary Purpose Family History No [...] section and content) DATE CREATED AUTHOR 08/17/2017 [facility] DATE CREATED AUTHOR AUTHOR'S ORGANIZ ATION 11/27/2020 [facility] DATE CREATED AUTHOR AUTHOR'S ORGANIZ ATION 06/02/2021 [facility] dical Specialist DATE CREATED AUTHOR AUTHOR'S ORGANIZ ATION 04/21/2023 [facility] DATE CREATED AUTHOR AUTHOR'S ORGANIZ ATION 01/16/2024 [facility] dical Specialists EPIC Care Teams (unrecognized sec tion and content) Team Status: Inactive Member Role Status Dates Maggie Anton MD Primary Care Provider Active Holger Aquino DO [facility] Attending Provider Active Team Status: Active [...] Member Role Status Dates Berta Rosales , VAUGHN-C Attending Provider Active Team Status: Inactive Member Role Status Dates Maggie Anton MD Primary Care Provider Active S tart: June 14, 2023 End: June 14, 2023 Allyson Cadet APRN Attending Provider Active Start: June 14, 2023 End: June 14, 2023 Broker Associate Relationship Specialty Start Date End Date Maggie Anton MD [address] [facility] [address] [place] [address] PCP - General Family Medicine 06/29/22 Morena Roman, 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 [address] [facility] [address] [place] [address] PCP - [place] [employer] 07/23/23 Broker Associate Relationship Specialty Start Date End Date Maggie Anton MD [address] [facility] [address] [place] [address] PCP - General Family Medicine 06/29/22 Morena Roman, 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 [address] [facility] [address] [place] [address] PCP - [place] [employer] 07/23/23 Goals (unrecognized section and content) Goals may [...] FOR VISIT (unrecogniz ed section and content) Reason Comments Amenorrhea FOR RECORDS PERTAINING TO PATIENTS WHO ARE [...] BE BASED ON THE PRIMARY CLINICAL RECORDS. [facility] [employer] [facility]. provides no warranty or guarantee of the accuracy or completeness of information in this document.
[2024-02-06 14:32] LABS: Basophils Percent Auto 0.3 % (0.2-2.0); Eosinophils Absolute Auto 0.2 10^3/uL (0.0-0.7); Eosinophils Percent Auto 2.2 % (0.9-7.0); Hematocrit 36.6 % (36.0-48.0); Hemoglobin 12.4 g/dL (12.0-16.0); Immature Granulocytes Abs Auto 0.03 10^3/uL (0.00-0.03); Immature Granulocytes Pct Auto 0.3 % (0.0-0.5); Lymphocytes Absolute Auto 2.3 10^3/uL (1.2-3.8); Lymphocytes Percent Auto 23.9 % (20.5-60.0); Mean Corpuscular HGB Conc 33.9 g/dL (29.9-35.2); Mean Corpuscular Volume 94.3 fL (81.0-99.0); Mean Platelet Volume 9.9 fL (9.5-13.5); Monocytes Absolute Auto 0.8 10^3/uL (0.3-0.8); Monocytes Percent Auto 7.7 % (1.7-12.0); Neutrophils Absolute Auto 6.4 10^3/uL (1.4-6.5); Neutrophils Percent Auto 65.6 % (43.0-75.0); Platelet Count 354 10^3/uL (150-450); Red Blood Count 3.88 10^6/uL (4.20-5.40); Red Cell Distribution Width 13.2 % (11.0-15.0); White Blood Count 9.8 10^3/uL (4.0-11.0)
[2024-02-06 14:44] LABS: Amphetamine Screen Urine NEGATIVE (NEGATIVE); Barbiturates Screen Urine NEGATIVE (NEGATIVE); Benzodiazepines Screen Urine NEGATIVE (NEGATIVE); Buprenorphine Screen Urine NEGATIVE (NEGATIVE); Cannabinoid Screen Urine NEGATIVE (NEGATIVE); Cocaine Screen Urine NEGATIVE (NEGATIVE); Methadone Screen Urine NEGATIVE (NEGATIVE); Methamphetamines Screen Urine NEGATIVE (NEGATIVE); Opiate Screen Urine NEGATIVE (NEGATIVE); Oxycodone Screen Urine NEGATIVE (NEGATIVE); Phencyclidine Screen Urine NEGATIVE (NEGATIVE); Tricyclic Antidepressant Urine NEGATIVE (NEGATIVE)
[2024-02-06 14:58] LABS: Estimated Average Glucose 103 mg/dL; Glycohemoglobin A1C 5.2 % (4.5-6.2)
[2024-02-07 06:08] LABS: HBsAg Screen Negative (Negative)
[2024-02-07 07:08] LABS: HCV Ab Non Reactive (Non Reactive); HIV Ab/p24 Ag Screen Non Reactive (Non Reactive); Rubella Antibodies, IgG 1.46 index (Immune >0.99)
[2024-02-07 13:07] LABS: Rapid Plasma Reagin, Quant Non Reactive titer (NonRea<1:1)
== END 2024-02-06 13:58 | disposition home or self-care (01) ==
PROVIDERS: PCP Family Medicine; Visit Provider Obstetrics & Gynecology
DX: Z34.01 Encounter for supervision of normal first pregnancy, first trimester (principal); N92.6 Irregular menstruation, unspecified
CPT/HCPCS: 36415; 80307; 83036; 85025; 86592; 86762; 86803; 86850; 86900; 86901; 87086; 87340; 87389

== ENCOUNTER 2024-03-08 19:51 | Emergency (ER) | payer BC, SELFPAY ==
[2024-03-08 20:00] VITALS: BP 109/79; PULSE 122; TEMP 36.6; O2SAT 100; BMI 21.1
--- NOTE | 2024-03-08 20:11 | PC.NURSE ---
this patient complains of abdomen pain and nausea and diarrhea onset early today, this patient is 14 weeks , this will her 2nd
--- OUTSIDE RECORDS SUMMARY | 2024-03-08 20:13 | XMS_ITS | CCD ---
Author Organization [facility] Care Team Providers Care Whiskey Proof Reader Name Role Phone PHYSICIAN, DEFAULT Unavailable Unavailable [...] Attending Provider DO Shirlene Owen Attending Provider [phone] DO Mario Conley Admit Provider MD Maggie Anton Primary Care Provider [phone] DO Holger Aquino Attending Provider [phone] Berta Rosales Unavailable MARY BETH Rosales Attending Provider [phone] Berta Rosales Attending Unavailable Berta Rosales Admitting Unavailable Maggie Anton MD Primary Care Provider Morena Roman NP Unavailable Maggie Anton MD Unavailable MORENA ROMAN Attending Unavailable YARA FOY Attending Unavailable REENA CERVANTES Attending Unavailable YARA FOY Attending Unavailable MAGGIE ANTON Attending Unavailable YARA FOY Attending Unavailable Medications Current Medications Medication Drug Class(es) Dates Sig (Normalized) Sig (Original) magnesium oxide 400 mg oral tablet (2 sources) Start: 02-13-2024 End: 03-14-2024 take 1 tablet by mouth once daily magnesium oxide (Mag-Ox) 400 MG tablet Indications: Intractable episodic headache, unspecified headache type Take 1 tablet (400 mg) by mouth Daily 30 tablet 7 02/13/2024 03/14/2024 Active [place] (No Known Home Meds) (1 source) Start: 06-14-2023 [place] (No Known Home Meds) Active June 14, [...] vomiting 30 tablet 2 01/06/2024 02/05/2024 Active promethazine hydrochloride 12.5 mg oral tablet (2 sources) Phenothiazine Start: 02-13-2024 take 1 tablet by mouth every six hours as needed for nausea and vomiting and nausea and nausea promethazine (Phenergan) 12.5 MG tablet Indications: Nausea Take 1 tablet (12.5 mg) by mouth every 6 (six) hours if needed for nausea or vomiting for up to 30 doses Take 1 tablet by mouth every 6 hours as needed for nausea. 30 tablet 3 02/13/2024 Active Start: 02-13-2024 take 1 tablet by aylin th every six hours as needed for nausea and vomiting and nausea and nausea promethazine (Phenergan) 12.5 MG tablet Indications: Nausea Take 1 tablet (12.5 mg) by mouth every 6 (six) hours if needed for nausea or vomiting for up to 30 doses Take 1 tablet by mouth every 6 hours as needed for nausea. 30 tablet 3 02/13/2024 Active sulfamethoxazole 800 mg / trimethoprim 160 mg oral tablet (2 sources) Dihydrofolate Reductase Inhibitor Antibacterial, Sulfonamide Antimicrobial Start: 02-12-2023 take 1 tablet by mouth every twelve hours Bactrim DS 800-160 MG 1 tablet Orally Twice a day for 5 days Jan, Active Completed/Discontinued Medications Medication Drug Class(es) Dates Sig (Normalized) Sig (Original) baclofen 10 mg oral tablet (2 sources) gamma-Aminobutyr ic Acid-ergic Agonist Start: 4 End: 4 take 1 tablet by mouth in the morning baclofen (Lioresal) 10 MG tablet Indications: Strain of lumbar region, initial encounter Take 1 tablet (10 mg) by mouth in the morning and 1 tablet (10 mg) before bedtime. Do all this for 7 days. 14 tablet 08/23/2023 10/18/2023 Discontinued (Other) benzocaine 200 mg/ml / menthol 5 mg/ml [...] Problem Date Documented Date Episodic/Chronic Adjustment disorders (8 sources) Adjustment disorder with anxious mood; Translations: [Adjustment disorder with anxiety] Onset: 12-27-2022 12-27-2022 Chronic Anxiety disorders (8 sources) Social phobia; Translations: [Social phobia, unspecified] Onset: 12-27-2022 12-27-2022 Chronic Esophageal disorders (8 sources) Gastroesophageal reflux disease; Translations: [Gastro-esophageal reflux disease without esophagitis] Onset: 12-27-2022 12-27-2022 Chronic Genitourinary symptoms and ill-defined conditions (3 sources) Dysuria; Translations: [Dysuria] Onset: 02-12-2023 Episodic Headache; including migraine (2 sources) Headache; Translations: [Intractable episodic headache, unspecified headache type] 02-13-2024 Episodic Menstrual disorders (1 source) Missed period; Translations: [Irregular menstruation, unspecified] 01-13-2024 Chronic Nausea and vomiting (2 sources) Nausea; Translations: [Nausea] 02-13-2024 Episodic Other lower respiratory disease (1 source) Shortness of breath; Translations: [SHORTNESS OF BREATH] Onset: 11-26-2020 Episodic Other and delivery including normal (6 sources) ; Translations: [Encounter for supervision of normal , unspecified, unspecified trimester] Onset: 02-13-2024 01-13-2024 Episodic Residual codes; unclassified (1 source) 39 weeks gestation of ; Translations: [ state, incidental] 04-01-2022 Episodic Residual codes; unclassified (4 sources) Gestation period, 12 weeks; Translations: [12 weeks gestation of ] Onset: 02-13-2024 02-13-2024 Episodic Unclassified (2 sources) Unknown / UNK(Unknown) [...] Onset: 01-01-2020 Episodic Blindness and vision defects (8 sources) Bilateral myopia of eyes; Translations: [Myopia, bilateral] Onset: 12-27-2022 12-27-2022 Episodic Cardiac dysrhythmias (8 sources) Palpitations; Translations: [Palpitations] Onset: 12-27-2022 12-27-2022 Episodic Immunizations and screening for infectious disease (1 source) Encounter for screening for human papillomavirus (HPV); Translations: [ENC SCREENING HUMAN PAPILLOMAVIRUS] Onset: 01-27-2020 Episodic Other ear and sense organ disorders (10 sources) Impacted cerumen in right ear; Translations: [Impacted cerumen, right ear] Onset: 10-18-2023 10-18-2023 Episodic Other gastrointestinal disorders (8 sources) Constipation alternates with diarrhea; Translations: [Other specified symptoms and signs involving the digestive system and abdomen] Onset: 12-27-2022 12-27-2022 Episodic Other gastrointestinal disorders (8 sources) Dysphagia; Translations: [Dysphagia, unspecified] Onset: 12-27-2022 12-27-2022 Episodic Other lower respiratory disease (8 sources) Respiratory tract congestion; Translations: [Other specified respiratory disorders] Onset: 12-27-2022 12-27-2022 Episodic Other screening for suspected conditions (not mental disorders or infectious disease) (4 sources) Encounter for screening for malignant neoplasm of cervix; Translations: [ENC SCREENING MALIG NEOPLASM CERV] Onset: 01-22-2020 Episodic Residual codes; unclassified (12 sources) Gestation period, 39 weeks; Translations: [39 weeks gestation of ] Onset: 08-23-2023 03-31-2022 Episodic Residual codes; unclassified (8 sources) Insomnia; Translations: [Insomnia, unspecified] Onset: 12-27-2022 [...] Name Value Interpretation Reference Range Facility Urinalysis macro (dipstick) panel (U)on 02-13-2024 Bilirubin, UA Negative Negative - 4(70) +++ mg/dL [facility] Blood, UA Negative Negative - 50 Earl/mcL [facility] Clarity, UA Clear [facility] Color, UA Yellow [facility] Glucose, UA Negative Negative - 1999(110) ++++ mg/dL [facility] Interpretation and review of laboratory results Abnormal [facility] Ketones, UA Negative Negative - 160(16) ++++ mg/dL [facility] Leukocytes, UA Positive Negative - 500+++ Federica/mcL [facility] Comment on above: small Nitrite, UA Negative Negative - Positive [facility] pH, UA 5.5 5 - 9 [facility] Protein, UA Negative Negative - 1999(20) ++++ mg/dL [facility] Spec Grav, UA 1.005 1 - 1.03 [facility] Urobilinogen, UA 0.2 0.2 - 12 mg/dL [facility] ALL CBC WITH AUTO DIFFon BASOPHILS ABSOLUTE AUTO 0 N [facility] Basophils/100 WBC (Bld) 0.3 % 0.2 - 2.0 % [facility] Eosinophils/100 WBC (Bld) 2.2 % 0.9 - 7.0 % [facility] Erythrocyte distribution width (RBC) [Ratio] 13.2 % 11.0 - 15.0 % [facility] Hematocrit (Bld) [Volume fraction] 36.6 % 36.0 - 48.0 % [facility] Hemoglobin (Bld) [Mass/Vol] 12.4 g/dL 12.0 - 16.0 g/dL [facility] IMMATURE GRANULOCYTES ABS AUTO 0.03 [facility] Immature granulocytes/100 WBC (Bld) 0.3 % 0.0 - 0.5 % [facility] Interpretation and review of laboratory results Abnormal [facility] LYMPHOCYTES ABSOLUTE AUTO 2.3 [facility] Lymphocytes/100 WBC (Bld) 23.9 % 20.5 - 60.0 % [facility] MCH (RBC) [Entitic mass] 32 pg 26.7 - 34.0 pg [facility] MCHC (RBC) [Mass/Vol] 33.9 g/dL 29.9 - 35.2 g/dL [facility] MCV (RBC) [Entitic vol] 94.3 fL 81.0 - 99.0 fL [facility] MONOCYTES ABSOLUTE AUTO 0.8 N [facility] Monocytes/100 WBC (Bld) 7.7 % 1.7 - 12.0 % [facility] NEUTROPHILS ABSOLUTE AUTO 6.4 [facility] Neutrophils/100 WBC (Bld) 65.6 % 43.0 - 75.0 % [facility] Platelet mean volume (Bld) [Entitic vol] 9.9 fL 9.5 - 13.5 fL [facility] TBH EO # 0.2 [facility] TB PLT 354 [facility] RBC 3.88 Low [facility] WBC 9.8 [facility] HCG ( test) Ql (U)o n 01-13-2024 Interpretation and review of laboratory results Abnormal [facility] Preg Test, Ur Positive Negative [facility] Urinalysis macro (dipstick) panel (U)on 01-13-2024 Bilirubin, UA Negative Negative - 4(70) +++ mg/dL [facility] Blood, UA Negative Negative - 50 Earl/mcL [facility] Clarity, UA Clear [facility] Color, UA Yellow [facility] Glucose, UA Negative Negative - 1999(110) ++++ mg/dL [facility] Interpretation and review of laboratory results Normal [facility] Ketones, UA Negative Negative - 160(16) ++++ mg/dL [facility] Leukocytes, UA Negative Negative - 500+++ Federica/mcL [facility] Nitrite, UA Negative Negative - Positive [facility] pH, UA 6 5 - 9 [facility] Protein, UA Negative Negative - 1999(20) ++++ mg/dL [facility] Spec Grav, UA 1.02 1 - 1.03 [facility] Urobilinogen, UA 1.0 0.2 - 12 mg/dL [facility] TBH PREG QUANT HCGon 024 HCG QUANTITATIVE 95542 mIU/mL [facility] Comment on above: 5-50 0.2-1 WEEK 50-500 1-2 WEEKS 100-5,000 2-3 WEEKS 500-10,000 3-4 WEEKS 1,000-50,000 4-5 WEEKS 10,000-100,000 5-6 WEEKS 15,000-200,000 6-8 WEEKS 10,000-100,000 2-3 MONTHS [facility] No Panel InformationOrdered By: Allyson Cadet on 06-14-2023 Quick Strep (POC) [facility] Urinalysis - AUTOMATEDon Appearance (U) cloudy [employer] Other Bilirubin Ql (U) Negative [employer] Other Color (U) pale yellow [employer] Other Glucose Ql (U) Negative [employer] Other Hemoglobin Ql (U) Negative [employer] Other Ketones Ql (U) Negative [employer] Other Leukocyte esterase Test strip Ql (U) small [employer] Other Nitrite Ql (U) Negative [employer] Other pH (U) 5.5 [pH] [employer] Other Protein Ql (U) Negative [employer] Other Specific gravity (U) [Rel density] >=1.030 [employer] Other Urobilinogen (U) [Mass/Vol] 0.2 mg/dL [employer] Other Urinalysis - AUTOMATED No rt [employer] Other Urine Cultureon 02-12-2023 Bacteria identified Cx Nom (U) Reason for Exam Dysuria Urine 25,000 colonies/ml mixed bacterial skin contaminants 2 Days PERFORMED BY: [place] [address] PATHOLOGIST MANAGER ARCHITECTURE JOSEFINA GAMBLE M.D. Normal [facility] Comment on above: Performed By: #### C UU #### [address] Bacteria identified Cx Nom (U) [employer] Other Basophils Auto (Bld) [#/Vol] Ordered By: Mario Conley on 03-31-2022 Basophils (Bld) [#/Vol] 0.1 10*3/uL 0.0-0.2 [facility] Basophils/100 WBC Auto (Bld) Ordered By: Mario Conley on 03-31-2022 Basophils/100 WBC (Bld) 0.4 % . [facility] Eosinophils Auto (Bld) [#/Vo l]Ordered By: Mario Conley on 03-31-2022 Eosinophils (Bld) [#/Vol] 0.1 10*3/uL 0.0-0.45 [facility] Eosinophils/100 WBC Auto (Bl d)Ordered By: Mario Conley on 03-31-2022 Eosinophils/100 WBC (Bld) 0.4 % . [facility] Erythrocyte distribution wid th Auto (RBC) [Ratio]Ordered By: Mario Conley on 03-31-2022 Erythrocyte distribution width (RBC) [Ratio] 14.6 % 11.9-15.3 [facility] Hematocrit Auto (Bld) [Volum e fraction]Ordered By: Mario Conley on 03-31-2022 Hematocrit (Bld) [Volume fraction] 27.5 % 34.0-46.4 [facility] Hemoglobin [Mass/volume] in BloodOrdered By: Mario Conley on 03-31-2022 Hemoglobin (Bld) [Mass/Vol] 9.1 g/dL 11.8-15.4 [facility] Leukocytes [#/volume] correc edgard for nucleated erythrocytes in Blood by Automated counOrdered By: Mario Conley on 03-31-2022 WBC corrected for nucl RBC Auto (Bld) [#/Vol] 14.2 10*3/uL 3.8-11.6 [facility] Lymphocytes Auto (Bld) [#/Vo l]Ordered By: Mario Conley on 03-31-2022 Lymphocytes (Bld) [#/Vol] 1.9 10*3/uL 1.00-4.8 [facility] Lymphocytes/100 WBC Auto (Bl d)Ordered By: Mario Conley on 03-31-2022 Lymphocytes/100 WBC (Bld) 13.5 % . [facility] MCH Auto (RBC) [Entitic mass ]Ordered By: Mario Conley on 03-31-2022 MCH (RBC) [Entitic mass] 29.6 pg 24.7-34.3 [facility] MCHC Auto (RBC) [Mass/Vol]Or dered By: Mario Conley on 03-31-2022 MCHC (RBC) [Mass/Vol] 32.9 g/dL 32.0-35.0 [facility] MCV Auto (RBC) [Entitic vol] Ordered By: Mario Conley on 03-31-2022 MCV (RBC) [Entitic vol] 90.0 fL 80-100 [facility] Monocytes Auto (Bld) [#/Vol] Ordered By: Mario Conley on 03-31-2022 Monocytes (Bld) [#/Vol] 1.3 10*3/uL 0.0-0.8 [facility] Monocytes/100 WBC Auto (Bld) Ordered By: Mario Conley on 03-31-2022 Monocytes/100 WBC (Bld) 9.0 % . [facility] Neutrophils Auto (Bld) [#/Vo l]Ordered By: Mario Conley on 03-31-2022 Neutrophils (Bld) [#/Vol] 10.9 10*3/uL 1.8-7.7 [facility] Neutrophils/100 WBC Auto (Bl d)Ordered By: Mario Conley on 03-31-2022 Neutrophils/100 WBC (Bld) 76.7 % . [facility] Nucleated erythrocytes [Pres ence] in Blood by Automated countOrdered By: Mario Conley on 03-31-2022 Nucleated RBC Auto Ql (Bld) 0.0 /100{WBC} 0-0.5 [facility] Platelet mean volume Auto (B ld) [Entitic vol]Ordered By: Mario Conley on 03-31-2022 Platelet mean volume (Bld) [Entitic vol] 9.1 fL 6.3-10.7 [facility] Platelets Auto (Bld) [#/Vol] Ordered By: Mario Conley on 03-31-2022 Platelets (Bld) [#/Vol] 274 10*3/uL 150-450 [facility] RBC Auto (Bld) [#/Vol]Ordere d By: Mario Conley on 03-31-2022 RBC (Bld) [#/Vol] 3.06 10*6/uL 3.60-5.00 [facility] WBC Auto (Bld) [#/Vol]Ordere d By: Mario Conley on 03-31-2022 WBC (Bld) [#/Vol] 14.2 10*3/uL 3.8-11.6 [facility] Reagin Ab [Presence] in Seru m by RPROrdered By: Mario Conley on 03-29-2022 Reagin Ab RPR Ql (S) Non-Reactive Non Reactive [facility] Comment on above: Performed at: [facility] [address] [facility] [id number] [place], [place] [id number] Director: Anselmo Caldwell PhD, Phone: [phone] Group B Streptococcus cultur eOrdered By: Mario Conley on 03-10-2022 S. agalactiae Org specific cx Ql (Unsp spec) No Group B Beta Streptococcus Isolated 3 Days [facility] Albumin [Mass/volume] in Ser um or PlasmaOrdered By: Shirlene Owen on 03-08-2022 Albumin [Mass/Vol] 2.6 g/dL 3.2-5.5 [facility] Amphetamine Screen Ql (U)Ord ered By: Shirlene Owen on 03-08-2022 Amphetamines Ql (U) Negative Negative [facility] Automated epithelial cells c ount in urine sediment (number/area)Ordered By: Shirlene Owen on 03-08-2022 Epithelial cells Auto (Urine sed) [#/Area] 1-2 [HPF] 0-2 [facility] Automated erythrocytes count in urine sediment (number/area)Ordered By: Shirlene Owen on 03-08-2022 RBC Auto (Urine sed) [#/Area] 0-1 [HPF] 0-4 [facility] Automated leukocytes count i n urine sediment (number/area)Ordered By: Shirlene Owen on 03-08-2022 WBC Auto (Urine sed) [#/Area] 50-100 [HPF] 0-4 [facility] Automated urine hyaline cast s count (number/volume)Ordered By: Shirlene Owen on 03-08-2022 Hyaline casts Auto (U) [#/Vol] None seen [LPF] 0-1 [facility] Barbiturates [Presence] in U rineOrdered By: Shirlene Owen on 03-08-2022 Barbiturates Ql (U) Negative Negative [facility] Basophils Auto (Bld) [#/Vol] Ordered By: Shirlene Owen on 03-08-2022 Basophils (Bld) [#/Vol] 0.0 10*3/uL 0.0-0.2 [facility] Basophils/100 WBC Auto (Bld) Ordered By: Shirlene wOen on 03-08-2022 Basophils/100 WBC (Bld) 0.2 % . [facility] Benzodiazepines [Presence] i n UrineOrdered By: Shirlene Owen on 03-08-2022 Benzodiazepines Ql (U) Negative [facility] Bilirubin Test strip Ql (U)O rdered By: Shirlene Owen on 03-08-2022 Bilirubin Ql (U) Negative Negative [facility] Color Auto (U)Ordered By: Kingsley Owen on 03-08-2022 Color (U) Yellow Yellow [facility] Creatinine and Glomerular fi ltration rate.predicted panel (S/P/Bld)Ordered By: Shirlene Owen on 03-08-2022 Creatinine [Mass/Vol] 0.49 mg/dL 0.44-1.03 [facility] Eosinophils Auto (Bld) [#/Vo l]Ordered By: Shirlene Owen on 03-08-2022 Eosinophils (Bld) [#/Vol] 0.0 10*3/uL 0.0-0.45 [facility] Eosinophils/100 WBC Auto (Bl d)Ordered By: Shirlene Owen on 03-08-2022 Eosinophils/100 WBC (Bld) 0.3 % . [facility] Erythrocyte distribution wid th Auto (RBC) [Ratio]Ordered By: Shirlene Owen on 03-08-2022 Erythrocyte distribution width (RBC) [Ratio] 13.9 % 11.9-15.3 [facility] Estimated glomerular filtrat ion rate (GFR) non- AmericanOrdered By: Shirlene Owen on 03-08-2022 GFR/1.73 sq M.predicted among non-blacks MDRD (S/P/Bld) [Vol rate/Area] > 60 mL/Min [facility] Globulin Calc (S) [Mass/Vol] Ordered By: Shirlene Owen on 03-08-2022 Globulin (S) [Mass/Vol] 2.8 g/dL [facility] Hematocrit Auto (Bld) [Volum e fraction]Ordered By: Shirlene Owen on 03-08-2022 Hematocrit (Bld) [Volume fraction] 28.4 % 34.0-46.4 [facility] Hemoglobin [Mass/volume] in BloodOrdered By: Shirlene Owen on 03-08-2022 Hemoglobin (Bld) [Mass/Vol] 9.5 g/dL 11.8-15.4 [facility] Ketones Auto test strip (U) [Mass/Vol]Ordered By: Shirlene Owen on 03-08-2022 Ketones (U) [Mass/Vol] Negative Negative [facility] - Drug toxicology Ordered By: Shirlene Owen on 03-08-2022 Opiates Ql (U) Negative Negative [facility] Leukocytes [#/volume] correc edgard for nucleated erythrocytes in Blood by Automated counOrdered By: Shirlene Owen on 03-08-2022 WBC corrected for nucl RBC Auto (Bld) [#/Vol] 9.7 10*3/uL 3.8-11.6 [facility] Lymphocytes Auto (Bld) [#/Vo l]Ordered By: Shirlene Owen on 03-08-2022 Lymphocytes (Bld) [#/Vol] 1.3 10*3/uL 1.00-4.8 [facility] Lymphocytes/100 WBC Auto (Bl d)Ordered By: Shirlene Owen on 03-08-2022 Lymphocytes/100 WBC (Bld) 13.0 % . [facility] MCH Auto (RBC) [Entitic mass ]Ordered By: Shirlene Owen on 03-08-2022 MCH (RBC) [Entitic mass] 30.7 pg 24.7-34.3 [facility] MCHC Auto (RBC) [Mass/Vol]Or dered By: Shirlene Owen on 03-08-2022 MCHC (RBC) [Mass/Vol] 33.6 g/dL 32.0-35.0 [facility] MCV Auto (RBC) [Entitic vol] Ordered By: Shirlene Owen on 03-08-2022 MCV (RBC) [Entitic vol] 91.6 fL 80-100 [facility] Monocytes Auto (Bld) [#/Vol] Ordered By: Shirlene Owen on 03-08-2022 Monocytes (Bld) [#/Vol] 0.6 10*3/uL 0.0-0.8 [facility] Monocytes/100 WBC Auto (Bld) Ordered By: hSirlene Owen on 03-08-2022 Monocytes/100 WBC (Bld) 6.0 % . [facility] Neutrophils Auto (Bld) [#/Vo l]Ordered By: Shirlene Owen on 03-08-2022 Neutrophils (Bld) [#/Vol] 7.8 10*3/uL 1.8-7.7 [facility] Neutrophils/100 WBC Auto (Bl d)Ordered By: Shirlene Owen on 03-08-2022 Neutrophils/100 WBC (Bld) 80.5 % . [facility] Nitrite Test strip Ql (U)Ord ered By: Shirlene Owen on 03-08-2022 Nitrite Ql (U) Negative Negative [facility] No Panel InformationOrdered By: Shirlene Owen on 03-08-2022 Estimated GFR () > 60 mL/Min [facility] Comment on above: GFR estimated refere nce range: According to KDOQI guidelines, <60 ml/min/1.73m2 is sufficient to diagnose a patient with chronic kidney disease. Pharmacy Creatinine Clearance (Chem 178.59 [facility] Nucleated erythrocytes [Pres ence] in Blood by Automated countOrdered By: Shirlene Owen on 03-08-2022 Nucleated RBC Auto Ql (Bld) 0.1 /100{WBC} 0-0.5 [facility] Phencyclidine Screen Ql (U)O rdered By: Shirlene Owen on 03-08-2022 Phencyclidine Ql (U) Negative Negative [facility] Comment on above: These are unconfirme d results and should not be used for legal purposes. Drug Cut-Off Concentration: AMPH 1000 ng/mL LUCAS 200 ng/mL JUSTIN 200 ng/mL COCM 300 ng/mL OP 300 ng/mL PCP 25 ng/mL Platelet mean volume Auto (B ld) [Entitic vol]Ordered By: Shirlene Owen on 03-08-2022 Platelet mean volume (Bld) [Entitic vol] 8.3 fL 6.3-10.7 [facility] Platelets Auto (Bld) [#/Vol] Ordered By: Shirlene Owen on 03-08-2022 Platelets (Bld) [#/Vol] 290 10*3/uL 150-450 [facility] Protein Auto test strip (U) [Mass/Vol]Ordered By: Shirlene Owen on 03-08-2022 Protein (U) [Mass/Vol] Negative Negative Fi [facility] Protein [Mass/volume] in Ser um or PlasmaOrdered By: Shirlene Owen on 03-08-2022 Protein [Mass/Vol] 5.4 g/dL 6.1-7.9 [facility] RBC Auto (Bld) [#/Vol]Ordere d By: Shirlene Owen on 03-08-2022 RBC (Bld) [#/Vol] 3.10 10*6/uL 3.60-5.00 [facility] Serum or plasma alanine donato otransferase measurement without P-5'-P (enzymatic activiOrdered By: Shirlene Owen on 03-08-2022 ALT No additional P-5'-P [Catalytic activity/Vol] 9 U/L 10-60 [facility] Serum or plasma albumin/glob ulin mass ratioOrdered By: Shirlene Owen on 03-08-2022 Albumin/Globulin [Mass ratio] 0.9 {ratio} [facility] Serum or plasma alkaline lamin sphatase measurement (enzymatic activity/volume)Ordered By: Shirlene Owen on 03-08-2022 ALP [Catalytic activity/Vol] 113 U/L 32-92 [facility] Serum or plasma anion gap de terminationOrdered By: Shirlene Owen on 03-08-2022 Anion gap [Moles/Vol] 12.1 mmol/L 6.0-15.0 [facility] Serum or plasma aspartate am inotransferase measurement (enzymatic activity/volume)Ordered By: Shirlene Owen on 03-08-2022 AST [Catalytic activity/Vol] 14 U/L 10-42 [facility] Serum or plasma calcium sara urement (mass/volume)Ordered By: Shirlene Owen on 03-08-2022 Calcium [Mass/Vol] 8.5 mg/dL 8.2-10.2 [facility] Serum or plasma chloride rey surement (moles/volume)Ordered By: Shirlene Owen on 03-08-2022 Chloride [Moles/Vol] 108 mmol/L 95-114 [facility] Serum or plasma glucose sara urement (mass/volume)Ordered By: Shirlene Owen on 03-08-2022 Glucose [Mass/Vol] 83 mg/dL 70-100 [facility] Comment on above: ADA recommended refe rence rangeRandom Glucose Reference Range is dependent on time and content of last meal. Glucose of more than 200 mg/dL in a nonstressed, ambulatory subject supports the diagnosis of Diabetes Mellitus. Serum or plasma potassium me asurement (moles/volume)Ordered By: Shirlene Owen on 03-08-2022 Potassium [Moles/Vol] 3.5 mmol/L 3.5-5.1 [facility] Serum or plasma sodium measu rement (moles/volume)Ordered By: Shirlene Owen on 03-08-2022 Sodium [Moles/Vol] 136 mmol/L 136-146 [facility] Serum or plasma total biliru bin measurement (mass/volume)Ordered By: Shirlene Owen on 03-08-2022 Bilirubin [Mass/Vol] 0.3 mg/dL 0.3-1.2 [facility] Serum or plasma total carbon dioxide measurement (moles/volume)Ordered By: Shirlene Owen on 03-08-2022 CO2 [Moles/Vol] 19.4 mmol/L 22.0-30.0 [facility] Serum or plasma urea nitroge n measurement (mass/volume)Ordered By: Shirlene Owen on 03-08-2022 Urea nitrogen [Mass/Vol] 4 mg/dL 9-23 [facility] Specific gravity Auto test s trip (U) [Rel density]Ordered By: Shirlene Owen on 03-08-2022 Specific gravity (U) [Rel density] 1.002 1.001-1.030 [facility] Urine bacteria detection by automated methodOrdered By: Shirlene Owen on 03-08-2022 Bacteria Auto Ql (U) 2+ None Seen [facility] Urine clarity by refractomet ry automatedOrdered By: Shirlene Owen on 03-08-2022 Clarity Refractometry automated (U) Clear Clear [facility] Urine cocaine detectionOrder ed By: Shirlene Owen on 03-08-2022 Cocaine Ql (U) Negative Negative [facility] Urine culture routineOrdered By: Shirlene Owen on 03-08-2022 Bacteria identified Cx Nom (U) 2 Days [facility] Urine glucose measurement by automated test strip (mass/volume)Ordered By: Shirlene Owen on 03-08-2022 Glucose Auto test strip (U) [Mass/Vol] Normal mg/dL Normal [facility] Urine hemoglobin detection b y automated test stripOrdered By: Shirlene Owen on 03-08-2022 Hemoglobin Auto test strip Ql (U) Negative Negative [facility] Urine leukocyte esterase det ection by automated test stripOrdered By: Shirlene Owen on 03-08-2022 Leukocyte esterase Auto test strip Ql (U) 4+ Negative [facility] Urobilinogen Auto test strip (U) [Mass/Vol]Ordered By: Shirlene Owen on 03-08-2022 Urobilinogen (U) [Mass/Vol] Normal mg/dL Normal [facility] WBC Auto (Bld) [#/Vol]Ordere d By: Shirlene Owen on 03-08-2022 WBC (Bld) [#/Vol] 9.7 10*3/uL 3.8-11.6 [facility] pH Auto test strip (U)Ordere d By: Shirlene Owen on 03-08-2022 pH (U) 7.0 [pH] 5.0-9.0 [facility] Hematocrit Auto (Bld) [Volum e fraction]Ordered By: Mario Conley on 02-01-2022 Hematocrit (Bld) [Volume fraction] 33.2 % 34.0-46.4 [facility] Hemoglobin [Mass/volume] in BloodOrdered By: Mario Conley on 02-01-2022 Hemoglobin (Bld) [Mass/Vol] 11.2 g/dL 11.8-15.4 [facility] No Panel InformationOrdered By: Mario Conley on 02-01-2022 Glucose 1 Hour Postprandial (Timed) 82 mg/dL 60-140 [facility] Albumin [Mass/volume] in Ser um or PlasmaOrdered By: Holger Aquino on 10-06-2021 Albumin [Mass/Vol] 3.8 g/dL 3.2-5.5 [facility] Basophils Auto (Bld) [#/Vol] Ordered By: Holger Aquino on 10-06-2021 Basophils (Bld) [#/Vol] 0.0 10*3/uL 0.0-0.2 [facility] Basophils/100 WBC Auto (Bld) Ordered By: Holger Aquino on 10-06-2021 Basophils/100 WBC (Bld) 0.5 % . [facility] Blood hemoglobin measurement (mass/volume)Ordered By: Holger Aquino on 10-06-2021 Hemoglobin (Bld) [Mass/Vol] 12.3 g/dL 11.8-15.4 [facility] Blood leukocytes automated c ount (number/volume)Ordered By: Holger Aquino on 10-06-2021 WBC (Bld) [#/Vol] 7.6 10*3/uL 4.5-11.0 [facility] Cholesterol [Mass/volume] in Serum or PlasmaOrdered By: Holger Aquino on 10-06-2021 Cholesterol [Mass/Vol] 147 mg/dL 140-200 [facility] Comment on above: Chol less than 200 m g/dl low risk Chol 201-239 mg/dl borderline risk Chol 240 mg/dl and greater high risk Cholesterol in LDL Calc [Mas s/Vol]Ordered By: Holger Aquino on 10-06-2021 Cholesterol in LDL [Mass/Vol] 89 mg/dL 0-100 [facility] Comment on above: LDL ATP III CLASSIFI CATION LDL less than 100 mg/dL Optimal LDL 100-129 mg/dL Near or above optimal LDL 130-159 mg/dL Borderline high LDL 160-189 mg/dL High LDL greater than 189 mg/dL Very high Cholesterol in VLDL Calc [Ma ss/Vol]Ordered By: Holger Aquino on 10-06-2021 Cholesterol in VLDL [Mass/Vol] 12 mg/dL [facility] Creatinine and Glomerular fi ltration rate.predicted panel (S/P/Bld)Ordered By: Holger Aquino on 10-06-2021 Creatinine [Mass/Vol] 0.54 mg/dL 0.44-1.03 [facility] Eosinophils Auto (Bld) [#/Vo l]Ordered By: Holger Aquino on 10-06-2021 Eosinophils (Bld) [#/Vol] 0.1 10*3/uL 0.0-0.45 [facility] Eosinophils/100 WBC Auto (Bl d)Ordered By: Holger Aquino on 10-06-2021 Eosinophils/100 WBC (Bld) 1.5 % . [facility] Erythrocyte distribution wid th Auto (RBC) [Ratio]Ordered By: Holger Aquino on 10-06-2021 Erythrocyte distribution width (RBC) [Ratio] 13.3 % 11.9-15.3 [facility] Estimated glomerular filtrat ion rate (GFR) non- AmericanOrdered By: Holger Aquino on 10-06-2021 GFR/1.73 sq M.predicted among non-blacks MDRD (S/P/Bld) [Vol rate/Area] > 60 mL/Min [facility] Globulin Calc (S) [Mass/Vol] Ordered By: Holger Aquino on 10-06-2021 Globulin (S) [Mass/Vol] 2.6 g/dL [facility] Hematocrit Auto (Bld) [Volum e fraction]Ordered By: Holger Aquino on 10-06-2021 Hematocrit (Bld) [Volume fraction] 36.2 % 34.0-46.4 [facility] Laboratory - Chemistry and C hemistry - challengeOrdered By: Holger Aquino on 10-06-2021 Glucose [Mass/Vol] 77 mg/dL 70-100 [facility] - Hematology and Cell countsOrdered By: Holger Aquino on 10-06-2021 Nucleated RBC/100 WBC (Bld) [Ratio] 0.0 % 0-0.5 [facility] Lymphocytes Auto (Bld) [#/Vo l]Ordered By: Holger Aquino on 10-06-2021 Lymphocytes (Bld) [#/Vol] 1.6 10*3/uL 1.00-4.8 [facility] Lymphocytes/100 WBC Auto (Bl d)Ordered By: Holger Aquino on 10-06-2021 Lymphocytes/100 WBC (Bld) 21.1 % . [facility] MCH Auto (RBC) [Entitic mass ]Ordered By: Holger Aquino on 10-06-2021 MCH (RBC) [Entitic mass] 32.1 pg 24.7-34.3 [facility] MCHC Auto (RBC) [Mass/Vol]Or dered By: Holger Aquino on 10-06-2021 MCHC (RBC) [Mass/Vol] 33.9 g/dL 32.0-35.0 [facility] MCV Auto (RBC) [Entitic vol] Ordered By: Holger Aquino on 10-06-2021 MCV (RBC) [Entitic vol] 94.8 fL 80-100 [facility] Monocyte %Ordered By: Holger Aquino on 10-06-2021 Monocyte % 62 mg/dL 35-149 [facility] Comment on above: TRIG ATP III CLASSIF ICATION TRIG less than 150 mg/dL Normal TRIG 150-199 mg/dL Borderline high TRIG 200-500 mg/dL High TRIG greater than 500 mg/dL Very high Standard traceable to the Center for Disease Conrtrol and Prevention (CDC) test method. Monocytes Auto (Bld) [#/Vol] Ordered By: Holger Aquino on 10-06-2021 Monocytes (Bld) [#/Vol] 0.6 10*3/uL 0.0-0.8 [facility] Monocytes/100 WBC Auto (Bld) Ordered By: Holger Aquino on 10-06-2021 Monocytes/100 WBC (Bld) 7.6 % . [facility] Neutrophils Auto (Bld) [#/Vo l]Ordered By: Holger Aquino on 10-06-2021 Neutrophils (Bld) [#/Vol] 5.3 10*3/uL 1.8-7.7 [facility] Neutrophils/100 WBC Auto (Bl d)Ordered By: Holger Aquino on 10-06-2021 Neutrophils/100 WBC (Bld) 69.3 % . [facility] No Panel InformationOrdered By: Holger Aquino on 10-06-2021 Estimated GFR () > 60 mL/Min [facility] Comment on above: GFR estimated refere nce range: According to KDOQI guidelines, <60 ml/min/1.73m2 is sufficient to diagnose a patient with chronic kidney disease. Nicotine Metabolite Negative Cutoff=25 [facility] Comment on above: Performed at: - [address] [id number] Paralegals: Viktoriya Smith MD, Phone: [phone] Pharmacy Creatinine Clearance (Chem N/A [facility] Platelet mean volume Auto (B ld) [Entitic vol]Ordered By: Holger Aquino on 10-06-2021 Platelet mean volume (Bld) [Entitic vol] 8.4 fL 6.3-10.7 [facility] Platelets Auto (Bld) [#/Vol] Ordered By: Holger Aquino on 10-06-2021 Platelets (Bld) [#/Vol] 348 10*3/uL 150-450 [facility] Protein [Mass/volume] in Ser um or PlasmaOrdered By: Holger Aquino on 10-06-2021 Protein [Mass/Vol] 6.4 g/dL 6.1-7.9 [facility] RBC Auto (Bld) [#/Vol]Ordere d By: Holger Aquino on 10-06-2021 RBC (Bld) [#/Vol] 3.82 10*6/uL 3.60-5.00 [facility] Serum or plasma alanine donato otransferase measurement without P-5'-P (enzymatic activiOrdered By: Holger Aquino on 10-06-2021 ALT No additional P-5'-P [Catalytic activity/Vol] 11 U/L 10-60 [facility] Serum or plasma albumin/glob ulin mass ratioOrdered By: Holger Aquino on 10-06-2021 Albumin/Globulin [Mass ratio] 1.5 {ratio} [facility] Serum or plasma alkaline lamin sphatase measurement (enzymatic activity/volume)Ordered By: Holger Aquino on 10-06-2021 ALP [Catalytic activity/Vol] 35 U/L 32-92 [facility] Serum or plasma aspartate am inotransferase measurement (enzymatic activity/volume)Ordered By: Holger Aquino on 10-06-2021 AST [Catalytic activity/Vol] 13 U/L 10-42 [facility] Serum or plasma calcium sara urement (mass/volume)Ordered By: Holger Aquino on 10-06-2021 Calcium [Mass/Vol] 9.5 mg/dL 8.2-10.2 [facility] Serum or plasma chloride rey surement (moles/volume)Ordered By: Holger Aquino on 10-06-2021 Chloride [Moles/Vol] 103 mmol/L 95-114 [facility] Serum or plasma high density lipoprotein (HDL) cholesterol measurementOrdered By: Holger Aquino on 10-06-2021 Cholesterol in HDL [Mass/Vol] 46 mg/dL 35-85 [facility] Comment on above: HDL CHOL ATP-III CLA SSIFICATION Cardiovascular Risk HDL > or equal to 60 mg/dL LOW HDL < 40 mg/dL HIGH Serum or plasma potassium me asurement (moles/volume)Ordered By: Holger Aquino on 10-06-2021 Potassium [Moles/Vol] 4.5 mmol/L 3.5-5.1 [facility] Serum or plasma sodium measu rement (moles/volume)Ordered By: Holger Aquino on 10-06-2021 Sodium [Moles/Vol] 134 mmol/L 136-146 [facility] Serum or plasma total biliru bin measurement (mass/volume)Ordered By: Holger Aquino on 10-06-2021 Bilirubin [Mass/Vol] 0.6 mg/dL 0.3-1.2 [facility] Serum or plasma total carbon dioxide measurement (moles/volume)Ordered By: Holger Aquino on 10-06-2021 CO2 [Moles/Vol] 24.2 mmol/L 22.0-30.0 [facility] Serum or plasma total choles terol/high density lipoprotein (HDL) cholesterol mass ratOrdered By: Holger Aquino on 10-06-2021 Cholesterol.total/Tessa sterol in HDL [Mass ratio] 3.2 {ratio} <5.0 [facility] Serum or plasma urea nitroge n measurement (mass/volume)Ordered By: Holger Prattdanica on 10-06-2021 Urea nitrogen [Mass/Vol] 7 mg/dL 9 [facility] TSH DL <= 0.005 mIU/L QnOrde red By: Holger Aquino on 10-06-2021 TSH Qn 1.55 m[IU]/L 0.45-5.33 [facility] RESPIRATORY PANEL PLUSon Adenovirus Not detected Normal NOT DETECTED [facility] Comment on above: Performed By: #### R SPLUS #### [facility] [address] [place] [address] Dr. Roberto Carlos Carrington. Parapertusis Not detected Normal NOT DETECTED [facility] Comment on above: Performed By: #### R SPLUS #### [facility] [address] [place] [address] Dr. Roberto Carlos Carrington. Pertussis Not detected Normal NOT DETECTED [facility] Comment on above: Performed By: #### R SPLUS #### [facility] [address] [place] [address] Dr. Roberto Carlos Colmenares Chlamydia Pneumoniae Not detected Normal NOT DETECTED [facility] Comment on above: Performed By: #### R SPLUS #### [facility] [address] [place] [address] Dr. Roberto Carlos Colmenares Coronavirus 229E Not detected Normal NOT DETECTED [facility] Comment on above: Performed By: #### R SPLUS #### [facility] [address] [place] [address] Dr. Roberto Carlos Colmenares Coronavirus HKU1 Not detected Normal NOT DETECTED [facility] Comment on above: Performed By: #### R SPLUS #### [facility] [address] [place] [address] Dr. Roberto Carlos Colmenares Coronavirus NL63 Not detected Normal NOT DETECTED [facility] Comment on above: Performed By: #### R SPLUS #### [facility] [address] [place] [address] Dr. Roberto Carlos Colmenares Coronavirus OC43 Not detected Normal NOT DETECTED [facility] Comment on above: Performed By: #### R SPLUS #### [facility] [address] [address] [address] Roberto Carlos Colmenares Influenza A H1 2009 Not detected Normal NOT DETECTED [facility] Comment on above: Performed By: #### R SPLUS #### [facility] [address] [place] [address] Dr. Roberto Carlos Colmenares Influenza B Not detected Normal NOT DETECTED [facility] Comment on above: Performed By: #### R SPLUS #### [facility] [address] [address] [address] Roberto Carlos Colmenares Metapneumovirus Not detected Normal NOT DETECTED [facility] Comment on above: Performed By: #### R SPLUS #### [facility] [address] [place] [address] Dr. Roberto Carlos Colmenares Mycoplas. Pneumoniae Not detected Normal NOT DETECTED [facility] Comment on above: Performed By: #### R SPLUS #### [facility] [address] [place] [address] Dr. Roberto Carlos Colmenares Parainfluenza 1 Not detected Normal NOT DETECTED [facility] Comment on above: Performed By: #### R SPLUS #### [facility] [address] [place] [address] Dr. Roberto Carlos Colmenares Parainfluenza 2 Not detected Normal NOT DETECTED [facility] Comment on above: Performed By: #### R SPLUS #### [facility] [address] [place] [address] Dr. Roberto Carlos Colmenares Parainfluenza 3 Not detected Normal NOT DETECTED [facility] Comment on above: Performed By: #### R SPLUS #### [facility] [address] [place] [address] Dr. Roberto Carlos Colmenares Parainfluenza 4 Not detected Normal NOT DETECTED [facility] Comment on above: Performed By: #### R SPLUS #### [facility] [address] [place] [address] Dr. Roberto Carlos Colmenares Rhino/Enterovirus Not detected Normal NOT DETECTED [facility] Comment on above: Performed By: #### R SPLUS #### [facility] [address] [place] [address] Dr. Roberto Carlos Colmenares RP2 Header 1 RESPIRATORY PANEL: VIRUSES Normal [facility] Comment on above: Performed By: #### R SPLUS #### [facility] [address] [place] [address] Dr. Roberto Carlos Colmenares RP2 Header 2 RESPIRATORY PANEL: BACTERIA Normal [facility] Comment on above: Performed By: #### R SPLUS #### [facility] [address] [place] [address] Dr. Roberto Carlos Colmeanres RP2 Header 4 EUA SEE BELOW Normal [facility] Comment on above: Result Comment: This test is not yet approved or cleared by the [place] FDA. When there are no FDA-approved or cleared tests available, and other criteria are met, FDA can make tests available under an emergency access mechanism called an Emergency Use Authorization (EUA). The EUA for this test is supported by the [place] of Health and Human Service?s (HHS?s) declaration [...] used). Performed By: #### R SPLUS #### [facility] [address] [place] [address] Dr. Roberto Carlos Colmenares RSV Detected Critically abnormal NOT DETECTED [facility] Comment on above: Performed By: #### R SPLUS #### [facility] [address] [place] [address] Dr. Roberto Carlos Colmenares SARS-CoV-2 (COVID-19) RNA ADALGISA+probe Ql (Unsp spec) Not detected Normal NOT DETECTED [facility] Comment on above: Performed By: #### R SPLUS #### [facility] [address] [place] [address] Dr. Roberto Carlos Colmenares PAP ACOG PANEL 2: 21 to 29on 01-28-2020 . . Normal [facility] Comment on above: Performed By: #### [id number] #### [facility] [address] [place] [address] Dashawn Valles Age Gdln ACOG Testing 21-29 Normal [facility] Comment on above: Performed By: #### [id number] #### [facility] [address] [place] [address] Dashawn Lopezen COMMENT Comment Normal [facility] Comment on above: Result Comment: [id number]. [id number] Performed By: #### [id number] #### [facility] [address] [place] [address] Dashawn Lopezen DIAGNOSIS: Comment Normal [facility] Comment on above: Result Comment: NEGA TIVE FOR INTRAEPITHELIAL LESION OR MALIGNANCY. Performed By: #### [id number] #### [facility] [address] [place] [address] Dashawn Lopezen Methodology: Comment Normal [facility] Comment on above: Result Comment: This liquid based SurePath(R) pap test was screened with the assistance of an image guided system. Performed By: #### [id number] #### [facility] [address] [place] [address] Dashawn oLpezen Note: Comment [facility] Comment on above: Result Comment: The Pap smear is a screening test designed to aid in the detection of premalignant and malignant conditions of the uterine cervix. It is not a diagnostic procedure and should not be used as the sole means of detecting cervical cancer. Both false-positive and false-negative reports do occur. . Performed By: #### [id number] #### [facility] [address] [place] [address] Dashawn Valles Performed by: Comment Normal [facility] Comment on above: Result Comment: Muriel Madison, [employer] Mainternance Laborer (ASCP) Performed By: #### [id number] #### [facility] [address] [place] [address] Dashawn Valles Reflex Criteria: Comment Normal [facility] Comment on above: Result Comment: The HPV DNA reflex criteria were not met with this specimen result therefore, no HPV testing was performed. . Performed By: #### [id number] #### [facility] [address] [place], [place] [id number] Dashawn Valles Specimen adequacy: Comment Normal [facility] Comment on above: Result Comment: Sati sfactory for evaluation. Endocervical and/or squamous metaplastic cells (endocervical component) are present. Performed By: #### [id number] #### [facility] [address] [address] Dashawn Valles US PELVIS AND TRANSVAGon US [...] by: AIMEE DIEZ Date: 2020-01-01 14:17 Normal [facility] Vital Signs Date Time Vital Sign Value Performing Clinician Facility 02-13-2024 13:21-0500 Body mass index (BMI) [Ratio] 21.26 kg/m2 [employer] Work Phone: [facility] 02-13-2024 13:21-0500 Body weight 63.41 kg Yara Law DO Work Phone: [facility] 02-13-2024 13:21-0500 Diastolic blood pressure 58 mm[Hg] Yara Law [employer] Work Phone: [facility] 02-13-2024 13:21-0500 Systolic blood pressure 98 mm[Hg] Yara Law DO Work Phone: [facility] 10-18-2023 16:26-0400 Body height 172.7 cm Maggie Anton MD Work Phone: [facility] 10-18-2023 16:26-0400 Body mass index (BMI) [Ratio] 22.2 kg/m2 Maggie Anton MD Work Phone: [facility] 10-18-2023 16:26-0400 Body weight 66.22 kg Maggie Anton MD Work Phone: [facility] 10-18-2023 16:26-0400 Diastolic blood pressure 68 mm[Hg] Maggie Anton MD Work Phone: [facility] 10-18-2023 16:26-0400 Heart rate 74 /min Maggie Anton MD Work Phone: [facility] 10-18-2023 16:26-0400 SaO2% (BldA) [Mass fraction] 99 % Maggie Anton MD Work Phone: [facility] 10-18-2023 16:26-0400 Systolic blood pressure 104 mm[Hg] Maggie Anton MD Work Phone: [facility] 06-14-2023 11:28-0400 Body height 175.26 cm [facility] 06-14-2023 11:28-0400 Body mass index (BMI) [Ratio] 20.7 kg/m2 [facility] 06-14-2023 11:28-0400 Body temperature 99.8 [degF] [facility] 06-14-2023 11:28-0400 Body weight 63.5 kg [facility] 06-14-2023 11:28-0400 Heart rate 102 /min [facility] 06-14-2023 11:28-0400 Respiratory rate 18 /min [facility] 06-14-2023 11:28-0400 SaO2% (BldA) [Mass fraction] 98 % [facility] 02-12-2023 13:00-0500 Body height 172.72 cm Berta Rosales Other [employer] Other 02-12-2023 13:00-0500 Body mass index (BMI) [Ratio] 20.77 kg/m2 Berta Rosales Other [employer] Other 02-12-2023 13:00-0500 Body temperature 98.2 [degF] Berta Rosales Other [employer] Other 02-12-2023 13:00-0500 Body weight 61.96 kg Berta Rosales Other [employer] Other 02-12-2023 13:00-0500 Diastolic blood pressure 58 mm[Hg] Berta Rosales Other [employer] Other 02-12-2023 13:00-0500 Respiratory rate 18 /min Berta Rosales Other [employer] Other 02-12-2023 13:00-0500 SaO2% (BldA) [Mass fraction] 99 % Berta Rosales Other [employer] Other 02-12-2023 13:00-0500 Systolic blood pressure 102 mm[Hg] Berta Rosales Other [employer] Other 04-01-2022 08:47-0500 Body temperature 97.9 [degF] MD Maggie Anton Work Phone: [facility] 04-01-2022 08:47-0500 Diastolic blood pressure 57 mm[Hg] MD Maggie Anton Work Phone: [facility] 04-01-2022 08:47-0500 Heart rate 66 /min MD Maggie Anton Work Phone: [facility] 04-01-2022 08:47-0500 Respiratory rate 16 /min MD Maggie Anton Work Phone: [facility] 04-01-2022 08:47-0500 SaO2% (BldA) [Mass fraction] 98 % MD Maggie Anton Work Phone: [facility] 04-01-2022 08:47-0500 Systolic blood pressure 100 mm[Hg] MD Maggie Anton Work Phone: [facility] 03-29-2022 20:50-0500 Body height 172.72 cm MD Maggie Anton Work Phone: [facility] 03-29-2022 20:50-0500 Body weight 71.66 kg MD Maggie Anton Work Phone: [facility] 03-08-2022 15:40-0500 Respiratory rate 16 /min MD Maggie Anton Work Phone: [facility] 03-08-2022 15:37-0500 SaO2% (BldA) [Mass fraction] 100 % MD Maggie Anton Work Phone: [facility] 03-08-2022 15:31-0500 Diastolic blood pressure 56 mm[Hg] MD Maggie Anton Work Phone: [facility] 03-08-2022 15:31-0500 Heart rate 86 /min MD Maggie Anton Work Phone: [facility] 03-08-2022 15:31-0500 Systolic blood pressure 101 mm[Hg] MD Maggie Anton Work Phone: [facility] 03-08-2022 12:55-0500 Body temperature 98.1 [degF] MD Maggie Anton Work Phone: [facility] 03-08-2022 10:29-0500 Body height 172.72 cm MD Maggie Anton Work Phone: [facility] 03-08-2022 10:29-0500 Body weight 70.3 kg MD Maggie Anton Work Phone: [facility] Encounters Encounter Date Encounter Type Care Provider Facility Start: 02-13-2024 End: 02-13-2024 Bamboo flowsheet Yara Law DO Work Phone: [facility] Start: 02-13-2024 End: 02-13-2024 Bamboo flowsheet Yara Law DO Work Phone: [facility] Start: 02-13-2024 End: 02-13-2024 flow sheet Yara Law DO Work Phone: [facility] Comment on above: 12 weeks gestation o f ; Second trimester ; Nausea; Intractable episodic headache, unspecified headache type Start: 02-13-2024 End: 02-13-2024 ambulatory YARA LAW Not Available Start: 02-06-2024 End: 02-06-2024 Clinisync Result Encounter Generic External Data Provider [facility] External Department Unsolicited Start: 02-06-2024 End: 02-06-2024 Clinisync Result Encounter Generic External Data Provider [facility] External Department Unsolicited Start: 01-13-2024 End: 01-13-2024 Office outpatient visit [...] External Department Unsolicited Start: 10-18-2023 End: 10-18-2023 Office outpatient visit 15 minutes Maggie Anton MD Work Phone: [facility] Comment on above: Impacted cerumen, ri ght ear (Primary Dx) Start: 10-18-2023 End: 10-18-2023 ambulatory MAGGIE ANTON Not Available Start: 09-27-2023 End: 09-27-2023 ambulatory YARA LAW Not Available Start: 08-23-2023 End: 08-23-2023 ambulatory REENA ARREDONDOLETICIA Not Available Start: 06-27-2023 End: 06-27-2023 ambulatory YARA TORRESO Not Available Start: 06-16-2023 End: 06-16-2023 ambulatory MORENA ROMAN Not Available Start: 06-14-2023 End: 06-14-2023 ambulatory [facility] Work Phone: Start: 06-14-2023 End: 06-14-2023 Patient encounter procedure [facility] [place] Work Phone: Start: 02-12-2023 Office outpatient ne w 20 minutes Berta Rosales [facility] [place] Start: 02-12-2023 End: 02-12-2023 ambulatory Berta Rosales [facility] [employer] Other Start: 02-12-2023 End: 02-12-2023 Departed Referred MARKETING BUSINESS ANALYST-C Berta Rosales Work Phone: [facility] [place] Work Phone: Start: 11-28-2022 End: 11-28-2022 ambulatory MD Maggie Anton Work Phone: [facility] Work Phone: Start: 11-28-2022 End: 11-28-2022 Patient encounter procedure MD Maggie Anton Work Phone: [facility]-Flu Vaccine Start: 03-29-2022 End: 04-01-2022 Evaluation and management of inpatient MD Maggie Anton Work Phone: [facility] [place] Work Phone: Start: 03-10-2022 End: 03-10-2022 ambulatory MD Maggie Anton Work Phone: [facility] Work Phone: Start: 03-10-2022 End: 03-10-2022 Departed Referred MD Maggie Anton Work Phone: [facility] [place] Work Phone: Start: 03-08-2022 End: 03-08-2022 ambulatory MD Maggie Anton Work Phone: [facility] Work Phone: Start: 03-08-2022 End: 03-08-2022 Patient encounter procedure MD Maggie Anton Work Phone: [facility] [place] - O/P Start: 02-01-2022 End: 02-01-2022 ambulatory MD Maggie nAton Work Phone: [facility] Work Phone: Start: 02-01-2022 End: 02-01-2022 Patient encounter procedure MD Maggie Anton Work Phone: [facility] [place] Start: 10-06-2021 End: 10-06-2021 Departed Referred MD Maggie Anton Work Phone: [facility]-Employee Benefit Screening Start: 11-21-2020 End: 11-21-[address] REENA CERVANTES Facility:[facility] Start: 02-08-2020 End: 02-08-[address] MYLES PETER Facility:[facility] Start: 01-22-2020 End: 01-22-[address] MANISHA HANSEN Facility:[facility] Start: 01-01-2020 End: 01-02-[address] MAGGIE ANTON Facility:[facility] Start: 09-21-2016 End: 09-22-2016 Ambulatory AILEEN SABILLON Facility:[facility] Start: 08-20-2016 End: 08-21-2016 Ambulatory DEFAULT PHYSICIAN Facility:[facility] Procedures Date Procedure Procedure Detail Performing Clinician Start: 02-13-2024 Urnls dip stick/tabl et rgnt non-auto w/o micrscp Yara Law DO Work Phone: Start: 02-06-2024 ALL CBC WITH AUTO DIFF Generic External Data Provider Start: 01-13-2024 Urnls dip stick/tabl et rgnt non-auto w/o micrscp Yara Law DO Work Phone: Start: 01-10-2024 [facility] PREG QUANT HCG Gene arash External Data Provider Start: 06-14-2023 Quick Strep (POC) Start: 03-10-2022 Streptococcus agalac tiae culture MD Maggie Anton Work Phone: Start: 03-08-2022 Urine culture MD Maggie Anton Work Phone: Start: 03-08-2022 Ultrasonography of b ilateral kidneys MD Maggie Anton Work Phone: Plan of Treatment Date Care Activity Detail Author Start: 03-13-2024 End: 03-13-2024 Patient encounter procedure 03/13/2024 11:40 AM EST Routine [facility] [address] [place] [place] [id number] Yara oFy, DO [address] [place] [address] [facility] Start: 02-13-2024 End: 02-13-2024 Patient encounter procedure [facility] Comment on above: Arrived Start: 01-13-2024 End: 01-12-2025 ABO/Rh ABO/Rh Lab Routine Missed menses , unspecified gestational age Expected: 01/13/2024 (Approximate), Expires: 01/12/2025 [facility] Comment on above: Expected: 01/13/2024 (Approximate), Expires: 01/12/2025 Start: 01-13-2024 End: 01-12-2025 Blood type and Indirect antibody screen panel - Blood Type and screen Lab Routine Missed menses , unspecified gestational age Expected: 01/13/2024 (Approximate), Expires: 01/12/2025 [facility] Work Phone: Comment on above: Expected: 01/13/2024 (Approximate), Expires: 01/12/2025 Start: 01-13-2024 End: 01-12-2025 Drugs of abuse panel - Urine by Screen method Rapid drug screen, urine Lab Routine , unspecified gestational age Encounter for supervision of normal first in first trimester Expected: 01/13/2024 (Approximate), Expires: 01/12/2025 [facility] Comment on above: Expected: 01/13/2024 (Approximate), Expires: 01/12/2025 Start: 01-13-2024 End: 01-12-2025 US Pelvis transvaginal US OB transvaginal Imaging Routine Missed menses Expected: 01/13/2024 (Approximate), Expires: 01/12/2025 [facility] Comment on above: Expected: 01/13/2024 (Approximate), Expires: 01/12/2025 Start: 01-13-2024 End: 01-13-2024 ambulatory 01/13/2024 10:30 AM EST Initial [facility] [address] [place] [address] [facility] Start: 01-13-2024 End: 01-13-2024 Professional / ancillary services management 01/13/2024 10:00 AM EST Ancillary Procedure [facility] [address] [place], [place] [address] [address] [facility] Start: 10-23-2023 Influenza vaccination Influenza Vacc ine (#1) [facility] Start: 02-12-2023 Bacteria identified in Urine by Culture [facility] Start: 04-01-2022 [facility] Start: 03-30-2022 [facility] Start: 03-10-2022 Group B Streptococcu s Culture Group B Streptococcus Culture [facility] Start: 03-08-2022 [facility] Start: 03-08-2022 Bacteria identified in Urine by Culture Urine Culture [facility] Start: 03-08-2022 Hospital admission [facility] Start: 03-08-2022 [facility] Bacteria identified in Urine by Culture Urine culture Microbiology Routine Missed menses Ordered: 01/13/2024 [facility] Comment on above: Ordered: 01/13/2024 CBC W Auto Different ial panel - Blood CBC and differential Lab Routine Missed menses , unspecified gestational age Ordered: 01/13/2024 [facility] Comment on above: Ordered: 01/13/2024 Hemoglobin A1c/Hemoglobin.total in Blood Hemoglobin A1c Lab Routine Missed menses , unspecified gestational age Ordered: 01/13/2024 [facility] Comment on above: Ordered: 01/13/2024 Hepatitis B virus surface Ag [Presence] in Serum or Plasma by Immunoassay Hepatitis B surface antigen Lab Routine Missed menses , unspecified gestational age Ordered: 01/13/2024 [facility] Comment on above: Ordered: 01/13/2024 Hepatitis C virus Ab [Presence] in Serum or Plasma by Immunoassay Hepatitis C antibody Lab Routine Missed menses , unspecified gestational age Ordered: 01/13/2024 [facility] Comment on above: Ordered: 01/13/2024 HIV-1/HIV-2 antigen/antibody combination immunoassay HIV-1 and HIV-2 antibodies Lab Routine Missed menses , unspecified gestational age Ordered: 01/13/2024 [facility] Comment on above: Ordered: 01/13/2024 Patient Education [facility] Work Phone: Patient referral [facility] Work Phone: Reagin Ab [Presence] in Serum by RPR RPR Lab Routine Missed menses , unspecified gestational age Ordered: 01/13/2024 [facility] Comment on above: Ordered: 01/13/2024 Rubella antibody, IgG Rubella an tibody, IgG Lab Routine Missed menses , unspecified gestational age Ordered: 01/13/2024 [facility] Comment on above: Ordered: 01/13/2024 Streptococcus agalac tiae [Presence] in Unspecified specimen by Organism specific culture [facility] Immunizations Immunization Date Immunization Notes Care Provider Fa cili 01-21-2024 influenza virus vacc ine, unspecified formulation Yara Foy DO Work Phone: [facility] 11-28-2022 influenza, injectabl e, quadrivalent, preservative free Maggie Anton MD Work Phone: [facility] 11-28-2022 influenza virus vacc ine, unspecified formulation Maggie Anton MD Work Phone: [facility] 03-31-2022 tetanus toxoid, redu elle diphtheria toxoid, and acellular pertussis vaccine, adsorbed MD Maggie Anton Work Phone: [facility] 12-11-2020 influenza, injectabl e, quadrivalent, preservative free Maggie Anton MD Work Phone: [facility] 11-27-2019 influenza, injectabl e, quadrivalent, preservative free Maggie Anton MD Work Phone: [facility] 02-23-2019 varicella virus vaccine Dipika n Desean RHODES Work Phone: [facility] 12-14-2018 influenza, injectabl e, madin [place] canine kidney, preservative free Maggie Anton MD Work Phone: [facility] 12-14-2018 tetanus toxoid, redu elle diphtheria toxoid, and acellular pertussis vaccine, adsorbed Maggie Anton MD Work Phone: [facility] 12-19-2015 meningococcal oligosaccharide (groups A, C, Y and W-135) diphtheria toxoid conjugate vaccine (MCV4O) Maggie Anton MD Work Phone: [facility] 11-16-2010 tetanus toxoid, redu elle diphtheria toxoid, and acellular pertussis vaccine, adsorbed Maggie Anton MD Work Phone: [facility] 09-26-2002 diphtheria, tetanus toxoids and acellular pertussis vaccine, unspecified formulation Maggie Anton MD Work Phone: [facility] 09-26-2002 measles, mumps and rubella virus vaccine Maggie Anton MD Work Phone: [facility] 09-26-2002 poliovirus vaccine, inactivated Maggie Anton MD Work Phone: [facility] 04-29-2000 diphtheria, tetanus toxoids and acellular pertussis vaccine, unspecified formulation Maggie Anton MD Work Phone: [facility] 04-29-2000 haemophilus influenz ae type b vaccine, HbOC conjugate Maggie Anton MD Work Phone: [facility] 09-15-1998 measles, mumps and rubella virus vaccine Maggie Anton MD Work Phone: [facility] 09-15-1998 varicella virus vaccine Dipika Anton MD Work Phone: [facility] 05-09-1998 diphtheria, tetanus toxoids and acellular pertussis vaccine, unspecified formulation Maggie Anotn MD Work Phone: [facility] 05-09-1998 haemophilus influenz ae type b conjugate and Hepatitis B vaccine Maggie Anton MD Work Phone: [facility] 05-09-1998 trivalent poliovirus vaccine, live, oral Maggie Anton MD Work Phone: [facility] 01-15-1998 diphtheria, tetanus toxoids and acellular pertussis vaccine, unspecified formulation Maggie Anton MD Work Phone: [facility] 01-15-1998 haemophilus influenz ae type b vaccine, PRP-OMP conjugate Maggie Anton MD Work Phone: [facility] 01-15-1998 trivalent poliovirus vaccine, live, oral Maggie Anton MD Work Phone: [facility] 1997 diphtheria, tetanus toxoids and acellular pertussis vaccine, unspecified formulation Maggie Anton MD Work Phone: [facility] 1997 haemophilus influenz ae type b conjugate and Hepatitis B vaccine Maggie Anton MD Work Phone: [facility] 1997 trivalent poliovirus vaccine, live, oral Maggie Anton MD Work Phone: [facility] 1997 hepatitis B vaccine, pediatric or pediatric/adolescent dosage Maggie Anton MD Work Phone: [facility] Payers Date Payer Category Payer [facility] er [id number] 2023 Unknown 2023 Unknown [id number] 2023 Self-pay [id number] 2023 Unknown [id number] 1997 Unknown [id number]. 593 1997 Unknown [id number] [id number]. 593 1997 Unknown [id number] [id number]. 593 1997 Unknown [id number] [id number]. 59 1997 Unknown [id number] [id number]. 9 1997 Unknown [id number] 2.16.840.1.325583.3.579.2. 1259 1997 Unknown [id number] 2.16.840.1.297030.3.579.2. 9 1997 Unknown [id number] [id number]. 125 1997 Unknown [id number] 2.16.840.1.168160.3.579.2. 9 1997 Unknown [id number] 2.16.840.1.208497.3.579.2. 1259 1997 Unknown [id number] [id number]. 125 1959 Unknown [id number] Unknown [id number] [id number]. 531 Worker's Compensation [id number] Social History Date Type Detail Facility Tobacco smoking status NHIS Unknown if ever smoked [facility] Work Phone: Start: 1995 Sex Assigned At Female F [facility] Start: 03-30-2022 End: 03-30-2022 Tobacco smoking status NHIS Never smoked tobacco (finding) [facility] Start: 10-18-2023 Sex Assigned At N [facility] [employer] Other Start: 08-23-2023 Tobacco smoking status NHIS Ex-smoker [facility] End: 02-22-2012 History of tobacco use Current smoker [facility] End: 02-22-2012 History of tobacco use Cigarette Smoker [facility] Start: 08-23-2023 Tobacco use and exposure Smokeless tobacco non-user [facility] Start: 10-18-2023 History of Social function [facility] Start: 1995 Sex assigned at Not on file [facility] Start: 11-30-2023 [facility] Goals Date Patient Goal Desired Activity /State Functional Status Date Assessment Result Facility 04-01-2022 Functional status Patient at Baseline [facility] Work Phone: Mental Status Date Assessment Result Facility 04-01-2022 Cognitive function Cognitive Sta tus Patient at Baseline [facility] Work Phone: Clinical Notes 06-01-2021 to 02-13-2024 Frida Ng LPN - 02/13/2024 1:10 PM Christopher Luo LPN - 01/13/2024 10:30 AM Jeri Anton MD - 10/18/2023 4:33 PM Nasima Anton MD - 10/18/2023 4:30 PM EDT Note Date & Type Note Facility 02-13-2024 History of Presen t illness Narrative Reason for Appointment: Patient ID: Sheeba Adhikari is a 28 y.o. female who presents for No chief complaint on file. Patient presents today for Return OB appointment. MEDICATIONS No current outpatient medications ALLERGIES No Known Allergies PROBLEMS Active Ambulatory Problems Diagnosis Date Noted Adjustment disorder with anxiety ([facility]) 12/27/2022 Alternating constipation and diarrhea 12/27/2022 Congestion of respiratory tract 12/27/2022 Dysphagia 12/27/2022 Gastroesophageal reflux disease 12/27/2022 Insomnia 12/27/2022 Myopia, bilateral 12/27/2022 Palpitations 12/27/2022 Social anxiety disorder ([facility]) 12/27/2022 39 weeks gestation of 08/23/2023 Impacted cerumen, right ear 10/18/2023 12 weeks gestation of 02/13/2024 Second trimester 02/13/2024 Resolved Ambulatory Problems Diagnosis Date Noted No Resolved Ambulatory Problems Past Medical History: Diagnosis Date Allergic Anxiety HISTORY PAST MEDICAL HISTORY SOCIAL HISTORY Past Medical History: Diagnosis Date Allergic Anxiety Social History Tobacco Use Smoking status: Former Current packs/day: 0.00 Types: Cigarettes Quit date: 02/22/2012 Years since quittin.9 Smokeless tobacco: Never Vaping Use Vaping status: Never Used Substance Use Topics Alcohol use: Not on file Drug use: Not on file FAMILY HISTORY No family history on file. SURGICAL HISTORY Past Surgical History: Procedure Laterality Date WISDOM TOOTH EXTRACTION REVIEW OF SYSTEMS Review of Systems: Review of Systems OBJECTIVE Objective: OBGyn Exam Vitals: Estimated body mass index is 22.2 kg/m as calculated from the following: Height as of 10/18/23: 5' 8 . Weight as of 10/18/23: 146 lb. BP: Patient's last menstrual period was 11/16/2023. ASSESSMENT & PLAN ICD-10-CM 1. 12 weeks gestation of Z3A.12 2. Second trimester Z34.92 New OB: Patient presents today for 1st time obstetrics appointment with provider. Patient is currently 12w5d . Patients history has been reviewed in great detail including any potential risks. Patient stated she currently has no complaints. Expectations throughout regarding labs, ultrasounds, and appointments have been discussed with the patient in detail. It was reiterated that the patient is to drink 6-8 glasses of water a day, eat 6 small meals a day, do not consume raw or undercooked meat, and stay away from [facility]. Patient has been consulted regarding any further do's and don'ts of . Patient voiced understanding and all questions and concerns were answered. Sent patient magnesium and phenergan. Orders Placed This Encounter Procedures POCT urinalysis dipstick manually resulted Follow Up: Patient is to return in 4 weeks for routine OB appointment. Documented by Frida Ng LPN on behalf of: Yara Foy DO documented in this encounter [facility] 01-13-2024 History of Presen t illness Narrative [...] Diagnosis Date Noted Adjustment disorder with anxiety ([facility]) 12/27/2022 Alternating constipation and diarrhea 12/27/2022 Congestion of respiratory tract 12/27/2022 Dysphagia 12/27/2022 Gastroesophageal reflux disease 12/27/2022 Insomnia 12/27/2022 Myopia, bilateral 12/27/2022 Palpitations 12/27/2022 Social anxiety disorder ([facility]) 12/27/2022 39 weeks gestation of 08/23/2023 Impacted [...] or undercooked meat, and stay away from [facility]. Patient has also been advised to [...] Alexsandra Luo LPN documented in this encounter [facility] 10-18-2023 History of Presen t illness Narrative Associated Problem(s): Impacted cerumen, right ear After patient's verbal consent Right ear was flushed with warm water and hydrogen Peroxide Cerumen was removed after irrigation and patient felt relieved. Images from the original note were not included. Subjective Patient ID: Sheeba Adhikari is a 28 y.o. female who presents for Earache. Pt states her right ear is clogged with wax Started a week ago , muffled and does hurt , feels as if something is in there No current outpatient medications on file prior to visit. No current facility-administered medications on file prior to visit. No Known Allergies Social History Tobacco Use Smoking status: Former Current packs/day: 0.00 Types: Cigarettes Quit date: 02/22/2012 Years since quittin.6 Smokeless tobacco: Never Vaping Use Vaping status: Never Used No family history on file. Past Medical History: Diagnosis Date Allergic Anxiety Past Surgical History: Procedure Laterality Date WISDOM TOOTH EXTRACTION Visit Vitals BP 104/68 Pulse 74 Ht 5' 8 Wt 146 lb LMP 09/26/2023 (Exact Date) SpO2 99% BMI 22.20 kg/m OB Status Having periods Smoking Status Former BSA 1.78 m Review of Systems HENT: Positive for hearing loss. Negative for ear discharge and ear pain. Objective Physical Exam Constitutional: Appearance: Normal appearance. HENT: Right Ear: There is impacted cerumen. Left Ear: Tympanic membrane, ear canal and external ear normal. There is no impacted cerumen. Neurological: Mental Status: She is alert. Assessment/Plan Problem List Items Addressed This Visit Impacted cerumen, right ear - Primary After patient's verbal consent Right ear was flushed with warm water and hydrogen Peroxide Cerumen was removed after irrigation and patient felt relieved. No follow-ups on file. 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 Asymptomatic Documented By: CHAITANYA RAMIREZ MD 03/31/22906 Signed By: <Electronically signed by MD CHAITANYA RAMIREZ> 03/31/22 1909 [facility] Work Phone: 1(729) 597-310702-07-2023 [facility] NoteHISTORY: Right lower quadrant pain, rule out appendicitis PROCEDURE: GE Lightspeed VCT 64. Without intravenous or oral contrast [...] and signed by Shalom Mcneill on 06/01/2021 1540[facility] SpecialistEvaluation noteNo assessment information available[facility] Work Phone: Evaluation note* Diagnosis Onset Date Resolution Status 39 weeks gestation of [facility] Work Phone: Evaluation note* Diagnosis Impacted cerumen, right ear- Primary Missed menses , unspecified gestational age Encounter for supervision of normal first in first trimester [facility] Diagnosis Impacted cerumen, right ear- Primary documented in this encounter [facility]* Diagnosis Impacted cerumen, right ear- Primary 12 weeks gestation of Second trimester state, incidental Nausea Nausea alone Intractable episodic headache, unspecified headache type documented in this encounter [facility] note Author VONDA MILLS [facility] April 01, 2022 10:58am Note Date/Time April 01, 2022 1 0:58am [facility] [address] [place] [address] 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 Signed Patient: Sheeba Adhikari MR#: [id number] : 1995 Acct:[id number] Age/Sex: 26 / F Adm Date: 3 Loc: 3S Room: 1L1329-4 Type: ADM IN Attending Dr: Mario Conley [...] by VONDA MILLS DO> 04/01/22 1058 [facility] Work Phone: Summary Purpose Family History No [...] section and content) DATE CREATED AUTHOR 08/17/2017 [facility] DATE CREATED AUTHOR AUTHOR'S ORGANIZ ATION 11/27/2020 [facility] DATE CREATED AUTHOR AUTHOR'S ORGANIZ ATION 06/02/2021 [facility] dical Specialist DATE CREATED AUTHOR AUTHOR'S ORGANIZ ATION 04/21/2023 [facility] DATE CREATED AUTHOR AUTHOR'S ORGANIZ ATION 02/15/2024 [facility] dical Specialists EPIC Care Teams (unrecognized sec tion and content) Team Status: Inactive Member Role Status Francia Anton MD Primary Care Provider Active Holger Aquino DO [facility] Attending Provider Active Team Status: Active Member Role Status Francia Anton MD Primary Care Provider Active Team Status: Inactive Member Role Status Francia Anton MD Primary Care Provider Active Mario Conley DO Attending Provider Active Team Status: Inactive Member Role Status Francia Anton MD Primary Care Provider Active Shirlene Owen DO Attending Provider Active Team Status: Inactive Member Role Status Francia Anton MD Primary Care Provider Active Mario Conley DO Admit Provider, Attending Provider Active Team Status: Inactive Member Role Status NATHANIEL CarranzaC Attending Provider Active Team Status: Inactive Member Role Status Francia Anton MD Primary Care Provider Active S tart: June 14, 2023 End: June 14, 2023 Allyson Cadet APRN Attending Provider Active Start: June 14, 2023 End: June 14, 2023 [employer] Relationship Specialty Start Date End Date Maggie Anton MD [address] [place] [address] PCP - General Family Medicine 06/29/22 Morena Roman, MARKETING BUSINESS ANALYST [address] [place], [place] [address] PCP - [place] [employer] 07/23/23 Whiskey Proof Reader Relationship Specialty Start Date End Date Maggie Anton MD [address] [place] [address] PCP - General Family Medicine 06/29/22 Morena Roman, MARKETING BUSINESS ANALYST [address] [place] [address] PCP - [place] [employer] 07/23/23 Whiskey Proof Reader Relationship Specialty Start Date End Date Maggie Anton MD [address] [place] [address] PCP - General Family Medicine 06/29/22 Maggie Anton MD [address] [place] [address] PCP - [place] [employer] 12/23/23 Whiskey Proof Reader Relationship Specialty Start Date End Date Maggie Anton MD [address] [place] [address] PCP - General Family Medicine 06/29/22 Morena Roman, MARKETING BUSINESS ANALYST [address] [place] [address] PCP - [place] [employer] 07/23/23 Whiskey Proof Reader Relationship Specialty Start Date End Date Maggie Anton MD [address] [address] [place] [address] PCP - General Family Medicine 06/29/22 Maggie Anton MD [address] [facility] [address] [place] [address] PCP - [place] [employer] 12/23/23 Goals (unrecognized section and content) Goals may [...] ed section and content) Reason Comments Amenorrhea Reason Comments Earache FOR RECORDS PERTAINING TO PATIENTS WHO ARE [...] BE BASED ON THE PRIMARY CLINICAL RECORDS. [employer] [facility]. provides no warranty or guarantee of the accuracy or completeness of information in this document.
--- NOTE | 2024-03-08 20:15 | US_ITS ---
The [address] [address] Patient Name: DREW MACIEL MRN: [id number] date: 1995 Sex: F Assigned Patient Location: ER Current Patient Location: ER Accession/Order Number: [id number] Exam Date: 03/08/2024 20:50 Report Date: 03/08/2024 22:30 At the request of: PRIYA LEYVA Procedure: US right upper quadrant EXAMINATION: US right upper quadrant HISTORY: epigastric pain ; 16 weeks COMPARISON: No relevant comparison available. TECHNIQUE: Transabdominal evaluation of the right upper quadrant. FINDINGS: LIVER: Normal size and echotexture. Color Doppler demonstrates patent hepatic veins. PORTAL VEIN: Duplex Doppler demonstrates normal hepatopetal flow pattern with flow velocity averaging 51 cm/s. GALLBLADDER: No visible gallstones, wall thickening, or pericholecystic free fluid. Negative sonographic Fish's sign. BILIARY: No abnormal dilation or stones. Common bile duct diameter is within normal limits. PANCREAS: Limited evaluation. No visible mass, abnormal atrophy, or duct dilation. KIDNEY: No hydronephrosis. No visible mass or stones. Size: 9.8 x 4.9 x 3.5 cm US/US right upper quadrant IMPRESSION: 1. Normal right upper quadrant ultrasound. Electronically authenticated by: AIMEE DIEZ Date: 03/08/2024 22:30
--- NOTE | 2024-03-08 20:15 | US_ITS ---
[address] [address] Patient Name: DREW MACIEL MRN: [id number] date: 1995 Sex: F Assigned Patient Location: ER Current Patient Location: ED.MAIN Accession/Order Number: [id number] Exam Date: 03/08/2024 20:50 Report Date: 03/08/2024 22:27 At the request of: PRIYA LEYVA Procedure: US OB limited EXAMINATION: US OB limited HISTORY: 16 weeks preg, abdominal cramping ; evaluate for heart rate COMPARISON: No relevant comparison available. FINDINGS: POLE: Present . CARDIAC: 151 bpm AGE BY LMP: 16 weeks 1 day DASH BY LMP: 08/22/2024 US/US OB limited IMPRESSION: 1. Single live intrauterine with heart rate of 151 bpm. Electronically authenticated by: AIMEE DIEZ Date: 03/08/2024 22:27
--- NOTE | 2024-03-08 20:18 | ED.ABDPAIN1 ---
Documented by User: EDWIN Graham 03/08/24 21:58 HPI - Abdominal Pain General Chief Complaint: Abdominal Pain Stated Complaint: ABDOMINAL PAIN Time Seen by Provider: 03/08/24 20:15 Source: patient Mode of arrival: walk-in Limitations: no limitations History of Present Illness HPI narrative: Patient is a 28-year-old female who presents to this emergency department for the evaluation of abdominal pain that she describes as cramping coming in waves in the epigastrium and umbilical abdomen. She is 16 weeks . She has had no vaginal bleeding. She has not urinated in several hours but has not had any dysuria. She states she had vomiting earlier today and has developed diarrhea associated with it. No blood in her stool. Her and son at home are also sick with vomiting and diarrhea. She states she took a Zofran prior to arrival with improvement of her nausea, however she continues to have significant pain. Related Data Previous Rx's ?Medication ?Instructions ?Recorded hydrocodone 5 mg-acetaminophen 325 1 tab PO Q6H PRN pain 2 days #8 04/01/23 mg tablet tabs cephalexin 500 mg capsule 500 mg PO BID 5 days #10 caps 03/08/24 dicyclomine 20 mg tablet 20 mg PO QID PRN abdominal pain #8 03/08/24 tabs Allergies Allergy/AdvReac Type Severity Reaction Status Date / Time No Known Drug Allergies Allergy Verified 03/08/24 20:03 Review of Systems ROS Constitutional Denies: fever or chills Ears, nose, mouth, and throat Denies: throat pain or nasal congestion Cardiovascular Denies: chest pain Respiratory Denies: shortness of breath or cough Gastrointestinal Reports: abdominal pain, nausea, vomiting and diarrhea Musculoskeletal Denies: back pain Integumentary/Breast Denies: rash Neurological Denies: numbness in extremities or weakness in extremities Hematologic/Lymphatic Denies: easy bruising or easy bleeding PFSH PFSH Social History Little interest or pleasure in doing things: not at all Feeling down, depressed, or hopeless: not at all Exam Narrative Exam Narrative: Gen.: Awake, alert, in no distress Head: Normocephalic, atraumatic ENT: Moist mucous membranes Respiratory: No respiratory distress Gastrointestinal: Abdomen is soft, nondistended and tender to palpation in the epigastrium. No guarding or rebound Extremities: Moves extremities equally Psych: Normal mood and affect Neuro: No focal neuro deficit Skin: Warm, dry, intact Constitutional Vital Signs, click to edit/add: Last Vital Signs Temp 98 F 03/08/24 20:00 Pulse 122 H 03/08/24 20:00 Resp 18 03/08/24 20:00 BP 109/79 03/08/24 20:00 Pulse Ox 100 03/08/24 20:00 O2 Del Method Room Air 03/08/24 20:00 Course Vital Signs Vital signs: Vital Signs Temperature 98 F 03/08/24 20:00 Pulse Rate 122 H 03/08/24 20:00 Respiratory Rate 18 03/08/24 20:00 Blood Pressure 109/79 03/08/24 20:00 Pulse Oximetry 100 03/08/24 20:00 Oxygen Delivery Method Room Air 03/08/24 20:00 Temperature 98 F 03/08/24 20:00 Pulse Rate 122 H 03/08/24 20:00 Respiratory Rate 18 03/08/24 20:00 Blood Pressure 109/79 03/08/24 20:00 Pulse Oximetry 100 03/08/24 20:00 Oxygen Delivery Method Room Air 03/08/24 20:00 MDM - Abdominal Pain MDM Narrative Medical decision making narrative: Patient was medicated with Zofran, Bentyl. She reports feeling much better on reevaluation. She was given IV fluids and labs are grossly unremarkable, mild leukocytosis noted. Ultrasounds obtained of the right upper quadrant and limited OB views. Urine specimen is still pending. Case is turned over to attending physician for reevaluation and disposition. SHARED APC VISIT, PHYSICIAN ATTESTATION: [id number] I performed a substantive part of the MDM during the patient?s E/M visit. I personally evaluated and examined the patient. I personally made or approved the documented management plan and acknowledge its risk of complications. Medical Records Attestation: I reviewed the patient's medical records. Lab Data Attestation: I reviewed the patient's lab results. Labs: Lab Results 03/08/24 03/08/24 Range/Units 20:25 22:30 WBC 14.7 H (4.0-11.0) 10^3/uL RBC 4.19 L (4.20-5.40) 10^6/uL Hgb 13.3 (12.0-16.0) g/dL Hct 38.4 (36.0-48.0) % MCV 91.6 (81.0-99.0) fL MCH 31.7 (26.7-34.0) pg MCHC 34.6 (29.9-35.2) g/dL RDW 13.4 (11.0-15.0) % Plt Count 338 (150-450) 10^3/uL MPV 9.7 (9.5-13.5) fL Neut % (Auto) 89.1 H (43.0-75.0) % Lymph % (Auto) 4.4 L (20.5-60.0) % Marshall % (Auto) 5.4 (1.7-12.0) % Eos % (Auto) 0.5 L (0.9-7.0) % Baso % (Auto) 0.3 (0.2-2.0) % Neut # (Auto) 13.1 H (1.4-6.5) 10^3/uL Lymph # (Auto) 0.6 L (1.2-3.8) 10^3/uL Marshall # (Auto) 0.8 (0.3-0.8) 10^3/uL Eos # (Auto) 0.1 (0.0-0.7) 10^3/uL Baso # (Auto) 0.0 (0.0-0.1) 10^3/uL Abs Immat Gran (auto) 0.04 H (0.00-0.03) 10^3/uL Imm/Tot Granulo (auto) 0.3 (0.0-0.5) % Sodium 138 (136-145) mmol/L Potassium 3.5 (3.5-5.1) mmol/L Chloride 102 (98-107) mmol/L Carbon Dioxide 21.5 (21.0-32.0) mmol/L Anion Gap 18.0 BUN 9.0 (7.0-18.0) mg/dL Creatinine 0.73 (0.55-1.02) mg/dL Est GFR ( Amer) >60 (>=60 mL/min/1.73m^2) Est GFR (Non-Af Amer) >60 (>=60 mL/min/1.73m^2) BUN/Creatinine Ratio 12.3 Glucose 97 (74-106) mg/dL Lactate 1.3 (0.4-2.0) mmol/L Calcium 9.0 (8.5-10.1) mg/dL Total Bilirubin 0.6 (0.2-1.0) mg/dL AST 10 L (15-37) U/L ALT 13 L (14-59) U/L Alkaline Phosphatase 43 L (46-116) U/L Total Protein 7.6 (6.4-8.2) g/dL Albumin 3.6 (3.4-5.0) g/dL Globulin 4.0 g/dL Albumin/Globulin Ratio 0.9 Lipase 39.0 (16.0-77.0) U/L Urine Color Lt. yellow (YELLOW) Urine Clarity Clear (CLEAR) Urine pH 5.5 (5.0-9.0) Ur Specific [place] 1.025 (1.005-1.025) Urine Protein Negative (NEG/TRACE) mg/dL Urine Glucose (UA) Negative (NEGATIVE) mg/dL Urine Ketones >=80 A (NEGATIVE) mg/dL Urine Occult Blood Negative (NEGATIVE) Urine Nitrite Negative (NEGATIVE) Urine Bilirubin Negative (NEGATIVE) Urine Urobilinogen 0.2 (0.2-1.0) EU/dL Ur Leukocyte Esterase Trace A (NEGATIVE) Urine RBC 0-2 (0-2) #/HPF Urine WBC 2-5 A (NONE SEEN) #/HPF Ur Squamous Epith Cells Many A (NONE/RARE) #/LPF Urine Crystals None seen (None Seen) #/HPF Urine Bacteria Large A (NONE SEEN) #/HPF Urine Casts None seen (NONE SEEN) #/LPF Urine Mucus Moderate A (NONE SEEN) Ur Culture Indicated? Yes Discharge Plan Discharge Chief Complaint: Abdominal Pain Clinical Impression: Abdominal pain, Nausea vomiting and diarrhea Patient Disposition: Home, Self-Care Time of Disposition Decision: 22:54 Condition: Good Mode of Transportation: Private Vehicle Prescriptions / Home Meds: New dicyclomine 20 mg tablet 20 mg PO QID PRN (Reason: abdominal pain) Qty: 8 0RF cephalexin 500 mg capsule 500 mg PO BID 5 Days Qty: 10 0RF No Action hydrocodone-acetaminophen 5-325 mg tablet 1 tab PO Q6H PRN (Reason: pain) 2 Days Qty: 8 0RF Rx Instructions: DX: S60.211 Print Language: Spanish Instructions: Abdominal Pain in (ED), Urinary Tract Infection in (ED) Additional Instructions: Call the office of your primary care doctor to arrange for follow-up within the above-stated timeframe. Your ED visit was focused on your acute issue and does not replace primary care. You should review your labs, imaging, and diagnoses from this ED visit with your primary care physician. There may be non-emergent/ incidental findings that need further evaluation. You should review your vital signs including blood pressure with your PCP. If you were prescribed medications you should discuss possible side-effects and drug interactions with your pharmacist. Call 911 or go to the nearest Emergency Department if you develop any new or worsening symptoms. Seek immediate medical attention if you develop: worsening abdominal pain, new or worsening nausea, new or worsening vomiting, new or worsening diarrhea, chest pain, shortness of breath, pain with urination, problems urinating, fever, chills, weakness, or any new or worsening symptoms. Referrals: SHANDA ANTON [Primary Care Provider] - 1 week Documented by User: Tye Dunham MD 03/08/24 22:58 HPI - Abdominal Pain General Chief Complaint: Abdominal Pain Stated Complaint: ABDOMINAL PAIN Time Seen by Provider: 03/08/24 20:15 Related Data Previous Rx's ?Medication ?Instructions ?Recorded hydrocodone 5 mg-acetaminophen 325 1 tab PO Q6H PRN pain 2 days #8 04/01/23 mg tablet tabs cephalexin 500 mg capsule 500 mg PO BID 5 days #10 caps 03/08/24 dicyclomine 20 mg tablet 20 mg PO QID PRN abdominal pain #8 03/08/24 tabs Allergies Allergy/AdvReac Type Severity Reaction Status Date / Time No Known Drug Allergies Allergy Verified 03/08/24 20:03 PFSH PFS Social History Little interest or pleasure in doing things: not at all Feeling down, depressed, or hopeless: not at all Exam Constitutional Vital Signs, click to edit/add: Last Vital Signs Temp 98 F 03/08/24 20:00 Pulse 122 H 03/08/24 20:00 Resp 18 03/08/24 20:00 BP 109/79 03/08/24 20:00 Pulse Ox 100 03/08/24 20:00 O2 Del Method Room Air 03/08/24 20:00 Course Vital Signs Vital signs: Vital Signs Temperature 98 F 03/08/24 20:00 Pulse Rate 122 H 03/08/24 20:00 Respiratory Rate 18 03/08/24 20:00 Blood Pressure 109/79 03/08/24 20:00 Pulse Oximetry 100 03/08/24 20:00 Oxygen Delivery Method Room Air 03/08/24 20:00 Temperature 98 F 03/08/24 20:00 Pulse Rate 122 H 03/08/24 20:00 Respiratory Rate 18 03/08/24 20:00 Blood Pressure 109/79 03/08/24 20:00 Pulse Oximetry 100 03/08/24 20:00 Oxygen Delivery Method Room Air 03/08/24 20:00 MDM - Abdominal Pain MDM Narrative Medical decision making narrative: Patient was medicated with Zofran, Bentyl. She reports feeling much better on reevaluation. She was given IV fluids and labs are grossly unremarkable, mild leukocytosis noted. Ultrasounds obtained of the right upper quadrant and limited OB views. Urine specimen is still pending. Case is turned over to attending physician for reevaluation and disposition. Signout note: Ultrasound right upper quadrant as well as obstetric without acute findings. Lab work unremarkable. Urinalysis with large amount of bacteria on microscopy. Discussed findings with patient. Short course of Bentyl for home. She already has Zofran. Keflex as prescribed. Return precautions were discussed. All questions were answered. The patient was discharged home. Tye Dunham DO, FAAEM SHARED APC VISIT, PHYSICIAN ATTESTATION: [id number] I performed a substantive part of the MDM during the patient?s E/M visit. I personally evaluated and examined the patient. I personally made or approved the documented management plan and acknowledge its risk of complications. Lab Data Labs: Lab Results 03/08/24 03/08/24 Range/Units 20:25 22:30 WBC 14.7 H (4.0-11.0) 10^3/uL RBC 4.19 L (4.20-5.40) 10^6/uL Hgb 13.3 (12.0-16.0) g/dL Hct 38.4 (36.0-48.0) % MCV 91.6 (81.0-99.0) fL MCH 31.7 (26.7-34.0) pg MCHC 34.6 (29.9-35.2) g/dL RDW 13.4 (11.0-15.0) % Plt Count 338 (150-450) 10^3/uL MPV 9.7 (9.5-13.5) fL Neut % (Auto) 89.1 H (43.0-75.0) % Lymph % (Auto) 4.4 L (20.5-60.0) % Marshall % (Auto) 5.4 (1.7-12.0) % Eos % (Auto) 0.5 L (0.9-7.0) % Baso % (Auto) 0.3 (0.2-2.0) % Neut # (Auto) 13.1 H (1.4-6.5) 10^3/uL Lymph # (Auto) 0.6 L (1.2-3.8) 10^3/uL Marshall # (Auto) 0.8 (0.3-0.8) 10^3/uL Eos # (Auto) 0.1 (0.0-0.7) 10^3/uL Baso # (Auto) 0.0 (0.0-0.1) 10^3/uL Abs Immat Gran (auto) 0.04 H (0.00-0.03) 10^3/uL Imm/Tot Granulo (auto) 0.3 (0.0-0.5) % Sodium 138 (136-145) mmol/L Potassium 3.5 (3.5-5.1) mmol/L Chloride 102 (98-107) mmol/L Carbon Dioxide 21.5 (21.0-32.0) mmol/L Anion Gap 18.0 BUN 9.0 (7.0-18.0) mg/dL Creatinine 0.73 (0.55-1.02) mg/dL Est GFR ( Amer) >60 (>=60 mL/min/1.73m^2) Est GFR (Non-Af Amer) >60 (>=60 mL/min/1.73m^2) BUN/Creatinine Ratio 12.3 Glucose 97 (74-106) mg/dL Lactate 1.3 (0.4-2.0) mmol/L Calcium 9.0 (8.5-10.1) mg/dL Total Bilirubin 0.6 (0.2-1.0) mg/dL AST 10 L (15-37) U/L ALT 13 L (14-59) U/L Alkaline Phosphatase 43 L (46-116) U/L Total Protein 7.6 (6.4-8.2) g/dL Albumin 3.6 (3.4-5.0) g/dL Globulin 4.0 g/dL Albumin/Globulin Ratio 0.9 Lipase 39.0 (16.0-77.0) U/L Urine Color Lt. yellow (YELLOW) Urine Clarity Clear (CLEAR) Urine pH 5.5 (5.0-9.0) Ur Specific [place] 1.025 (1.005-1.025) Urine Protein Negative (NEG/TRACE) mg/dL Urine Glucose (UA) Negative (NEGATIVE) mg/dL Urine Ketones >=80 A (NEGATIVE) mg/dL Urine Occult Blood Negative (NEGATIVE) Urine Nitrite Negative (NEGATIVE) Urine Bilirubin Negative (NEGATIVE) Urine Urobilinogen 0.2 (0.2-1.0) EU/dL Ur Leukocyte Esterase Trace A (NEGATIVE) Urine RBC 0-2 (0-2) #/HPF Urine WBC 2-5 A (NONE SEEN) #/HPF Ur Squamous Epith Cells Many A (NONE/RARE) #/LPF Urine Crystals None seen (None Seen) #/HPF Urine Bacteria Large A (NONE SEEN) #/HPF Urine Casts None seen (NONE SEEN) #/LPF Urine Mucus Moderate A (NONE SEEN) Ur Culture Indicated? Yes Discharge Plan Discharge Chief Complaint: Abdominal Pain Clinical Impression: Abdominal pain, Nausea vomiting and diarrhea Patient Disposition: Home, Self-Care Time of Disposition Decision: 22:54 Condition: Good Mode of Transportation: Private Vehicle Prescriptions / Home Meds: New dicyclomine 20 mg tablet 20 mg PO QID PRN (Reason: abdominal pain) Qty: 8 0RF cephalexin 500 mg capsule 500 mg PO BID 5 Days Qty: 10 0RF No Action hydrocodone-acetaminophen 5-325 mg tablet 1 tab PO Q6H PRN (Reason: pain) 2 Days Qty: 8 0RF Rx Instructions: DX: S60.211 Print Language: Spanish Instructions: Abdominal Pain in (ED), Urinary Tract Infection in (ED) Additional Instructions: Call the office of your primary care doctor to arrange for follow-up within the above-stated timeframe. Your ED visit was focused on your acute issue and does not replace primary care. You should review your labs, imaging, and diagnoses from this ED visit with your primary care physician. There may be non-emergent/ incidental findings that need further evaluation. You should review your vital signs including blood pressure with your PCP. If you were prescribed medications you should discuss possible side-effects and drug interactions with your pharmacist. Call 911 or go to the nearest Emergency Department if you develop any new or worsening symptoms. Seek immediate medical attention if you develop: worsening abdominal pain, new or worsening nausea, new or worsening vomiting, new or worsening diarrhea, chest pain, shortness of breath, pain with urination, problems urinating, fever, chills, weakness, or any new or worsening symptoms. Referrals: SHANDA ANTON [Primary Care Provider] - 1 week
[2024-03-08 20:46] LABS: Basophils Percent Auto 0.3 % (0.2-2.0); Eosinophils Absolute Auto 0.1 10^3/uL (0.0-0.7); Eosinophils Percent Auto 0.5 % (0.9-7.0); Hematocrit 38.4 % (36.0-48.0); Hemoglobin 13.3 g/dL (12.0-16.0); Immature Granulocytes Abs Auto 0.04 10^3/uL (0.00-0.03); Immature Granulocytes Pct Auto 0.3 % (0.0-0.5); Lymphocytes Absolute Auto 0.6 10^3/uL (1.2-3.8); Lymphocytes Percent Auto 4.4 % (20.5-60.0); Mean Corpuscular HGB Conc 34.6 g/dL (29.9-35.2); Mean Corpuscular Hemoglobin 31.7 pg (26.7-34.0); Mean Corpuscular Volume 91.6 fL (81.0-99.0); Mean Platelet Volume 9.7 fL (9.5-13.5); Monocytes Absolute Auto 0.8 10^3/uL (0.3-0.8); Monocytes Percent Auto 5.4 % (1.7-12.0); Neutrophils Absolute Auto 13.1 10^3/uL (1.4-6.5); Neutrophils Percent Auto 89.1 % (43.0-75.0); Platelet Count 338 10^3/uL (150-450); Red Blood Count 4.19 10^6/uL (4.20-5.40); Red Cell Distribution Width 13.4 % (11.0-15.0); White Blood Count 14.7 10^3/uL (4.0-11.0)
[2024-03-08 21:08] LABS: Lactate/Lactic Acid 1.3 mmol/L (0.4-2.0)
[2024-03-08 21:18] LABS: Alanine Aminotransferase 13 U/L (14-59); Albumin Globulin Ratio 0.9; Albumin Level 3.6 g/dL (3.4-5.0); Alkaline Phosphatase 43 U/L (46-116); Aspartate Amino Transferase 10 U/L (15-37); BUN Creatinine Ratio 12.3; Bilirubin Total 0.6 mg/dL (0.2-1.0); Carbon Dioxide 21.5 mmol/L (21.0-32.0); Chloride 102 mmol/L (98-107); Estimated GFR (African America >60 (>=60 mL/min/1.73m^2); Estimated GFR (Non-African Ame >60 (>=60 mL/min/1.73m^2); Glucose 97 mg/dL (74-106); Potassium 3.5 mmol/L (3.5-5.1); Sodium 138 mmol/L (136-145); Total Protein 7.6 g/dL (6.4-8.2)
[2024-03-08] MEDS: 0.9 % SODIUM CHLORIDE 1,000 ML 999 ML IV (21:49)
[2024-03-08] MEDS: DICYCLOMINE HCL 10 MG CAPSULE 20 MG PO ×2 (21:49→23:21)
[2024-03-08] MEDS: ONDANSETRON PF 4 MG/2 ML VIAL IV (21:50)
--- NOTE | 2024-03-08 21:50 | PC.NURSE ---
[facility] just walked out of the room and this patient complete with her iv fluids
[2024-03-08 22:38] LABS: Bilirubin Urine NEGATIVE (NEGATIVE); Blood Urine NEGATIVE (NEGATIVE); Clarity Urine CLEAR (CLEAR); Color Urine LT. YELLOW (YELLOW); Glucose Urine UA NEGATIVE (NEGATIVE); Ketones Urine >=80 mg/dL (NEGATIVE); Leukocyte Esterase Urine TRACE (NEGATIVE); Nitrite Urine NEGATIVE (NEGATIVE); Protein Urine NEGATIVE (NEG/TRACE); Specific Gravity Urine 1.025 (1.005-1.025); Urobilinogen Urine 0.2 EU/dL (0.2-1.0); pH Urine 5.5 (5.0-9.0)
[2024-03-08 22:46] LABS: Bacteria Urine LARGE #/HPF (NONE SEEN); Cast Seen? NONE SEEN #/LPF (NONE SEEN); Crystals Seen? None Seen #/HPF (None Seen); Mucus Urine MODERATE (NONE SEEN); RBC Urine 0-2 #/HPF (0-2); Squamous Epithelial Cell Urine MANY #/LPF (NONE/RARE); Urine Culture Indicated YES
[2024-03-08 23:20] VITALS: BP 102/61; PULSE 83; TEMP 37.3; O2SAT 100
[2024-03-08] MEDS: CEPHALEXIN 500 MG CAPSULE PO (23:21)
--- NOTE | 2024-03-08 23:25 | PC.NURSE ---
i gave this patient verbal and papers discharge orders along with 2 e-scripts and 1 take home medication and this patient voices yes to understanding these. at time of discharge this patient voices no concerns and shows no visible signs of distress
== END 2024-03-08 23:28 | disposition home or self-care (01) ==
PROVIDERS: Physician Assistant; Emergency Provider Student in an Organized Health Care Education/Training Program; PCP Family Medicine
DX: O99.891 Other specified diseases and conditions complicating pregnancy (principal); R10.9 Unspecified abdominal pain; R19.7 Diarrhea, unspecified; O21.9 Vomiting of pregnancy, unspecified; Z3A.16 16 weeks gestation of pregnancy
CPT/HCPCS: 36415; 76705; 76815; 80053; 81001; 83605; 83690; 85025; 87086; 96361; 96374; 99285; J2405

== ENCOUNTER 2024-04-06 10:49 | Outpatient (OUT) | payer BC, SELFPAY ==
--- NOTE | 2024-04-06 10:58 | US_ITS ---
[address] [address] Patient Name: DREW MACIEL MRN: [id number] date: 1995 Sex: F Assigned Patient Location: US Current Patient Location: US Accession/Order Number: [id number] Exam Date: 04/06/2024 11:09 Report Date: 04/06/2024 14:08 At the request of: YARA WILLIAM Procedure: US OB cervical length EXAMINATION: US OB anatomy, US OB cervical length HISTORY: Screening Anatomic Survey COMPARISON: No relevant comparison available. TECHNIQUE: Transabdominal sonographic examination was performed for obstetrical and evaluation. FINDINGS: Number: 1 Heart Rate: 136.36 bpm H.B. /min Amniotic Fluid Volume: Subjectively normal Placental Location: Posterior with lower margin 3.2 cm from os. Cervix Length: 4.31 cm ; closed. ANATOMY: Normal Structures -cerebellum, choroid plexus, cisterna magna, lateral cerebral ventricles, orbits, midline falx, hard palate, four-chamber heart, RVOT, LVOT, stomach, kidneys, bladder, umbilical cord insertion into abdomen, three-vessel cord, cervical spine, thoracic spine, lumbar spine, sacral spine, right upper extremity, left upper extremity, right lower extremity, left lower extremity. SUBOPTIMALLY SEEN: None ABNORMALITIES: None BIOMETRY: BPD: 4.98 cm; 21 weeks 1 day; 80 % HC: 18.17 cm; 20 weeks 4 days; 55.20 % AC: 15.49 cm; 20 weeks 5 days; 57 % FL: 3.34 cm; 20 weeks 3 days; 48.70 % EFW:364.34 g; 63.20 % FL/AC: 21.58 FL/BPD: 67.13 HC/AC: 1.17 GESTATIONAL AGE: Age by EDC: 20 weeks 2 days Age by current US: 20 weeks 5 days DASH by current US: 2024-08-19 DASH by EDC: 2024-08-22 US/US OB cervical length IMPRESSION: 1. Single live intrauterine with growth detailed above. Electronically authenticated by: AIMEE DIEZ Date: 04/06/2024 14:08
--- NOTE | 2024-04-06 10:58 | US_ITS ---
[address] [address] Patient Name: DREW MACIEL MRN: [id number] date: 1995 Sex: F Assigned Patient Location: US Current Patient Location: US Accession/Order Number: [id number] Exam Date: 04/06/2024 11:09 Report Date: 04/06/2024 14:08 At the request of: YARA WILLIAM Procedure: US OB anatomy EXAMINATION: US OB anatomy, US OB cervical length HISTORY: Screening Anatomic Survey COMPARISON: No relevant comparison available. TECHNIQUE: Transabdominal sonographic examination was performed for obstetrical and evaluation. FINDINGS: Number: 1 Heart Rate: 136.36 bpm H.B. /min Amniotic Fluid Volume: Subjectively normal Placental Location: Posterior with lower margin 3.2 cm from os. Cervix Length: 4.31 cm ; closed. ANATOMY: Normal Structures -cerebellum, choroid plexus, cisterna magna, lateral cerebral ventricles, orbits, midline falx, hard palate, four-chamber heart, RVOT, LVOT, stomach, kidneys, bladder, umbilical cord insertion into abdomen, three-vessel cord, cervical spine, thoracic spine, lumbar spine, sacral spine, right upper extremity, left upper extremity, right lower extremity, left lower extremity. SUBOPTIMALLY SEEN: None ABNORMALITIES: None BIOMETRY: BPD: 4.98 cm; 21 weeks 1 day; 80 % HC: 18.17 cm; 20 weeks 4 days; 55.20 % AC: 15.49 cm; 20 weeks 5 days; 57 % FL: 3.34 cm; 20 weeks 3 days; 48.70 % EFW:364.34 g; 63.20 % FL/AC: 21.58 FL/BPD: 67.13 HC/AC: 1.17 GESTATIONAL AGE: Age by EDC: 20 weeks 2 days Age by current US: 20 weeks 5 days DASH by current US: 2024-08-19 DASH by EDC: 2024-08-22 US/US OB anatomy IMPRESSION: 1. Single live intrauterine with growth detailed above. Electronically authenticated by: AIMEE DIEZ Date: 04/06/2024 14:08
--- OUTSIDE RECORDS SUMMARY | 2024-04-06 11:00 | XMS_ITS | CCD ---
Author Organization [facility] CliniSyga Care Team Providers Care Global Supply Chain Director Name Role Phone PHYSICIAN, DEFAULT Unavailable Unavailable [...] Unavailable MD Maggie Anton Primary Care Provider [phone] DO Holger Aquino Attending Provider MD Maggie Anton Primary Care Provider [phone] DO Mario Conley Attending Provider [phone] DO Shirlene Owen Attending Provider [phone] DO Mario Conley Admit Provider MD Maggie Anton Primary Care Provider [phone] DO Holger Aquino Attending Provider Berta Rosales Unavailable MARY BETH Rosales Attending Provider Berta Rosales Attending Unavailable Berta Rosales Admitting Unavailable Maggie Anton MD Primary Care Provider Morena Roman NP Unavailable Maggie Anton MD Unavailable YARA FOY Attending Unavailable MORENA ROMAN Attending Unavailable YARA FOY Attending Unavailable REENA CERVANTES Attending Unavailable YARA FOY Attending Unavailable MAGGIE ANTON Attending Unavailable YARA FOY Attending Unavailable Medications Current Medications Medication Drug Class(es) Dates Sig (Normalized) Sig (Original) [place] (No Known Home Meds) (1 source) Start: 06-14-2023 [place] (No Known Home Meds) Active June 14, [...] Active promethazine hydrochloride 12.5 mg oral tablet (7 sources) Phenothiazine Start: 02-13-2024 take 1 tablet [...] (2 sources) gamma-Aminobutyr ic Acid-ergic Agonist Start: End: 4 take 1 tablet by mouth [...] 4 doses in a 24 hour period magnesium oxide 400 mg oral tablet (6 sources) Start: 4 End: 5 take 1 tablet by mouth once daily magnesium oxide (Mag-Ox) 400 MG tablet Indications: Intractable episodic headache, unspecified headache type Take 1 tablet (400 mg) by mouth Daily 30 tablet 7 02/13/2024 03/14/2024 1 ml medroxyPROGESTERone acetate 150 mg/ml prefilled [...] Problem Date Documented Date Episodic/Chronic Adjustment disorders (13 sources) Adjustment disorder with anxious mood; Translations: [Adjustment disorder with anxiety] Onset: 12-27-2022 12-27-2022 Chronic Anxiety disorders (13 sources) Social phobia; Translations: [Social phobia, unspecified] Onset: 12-27-2022 12-27-2022 Chronic Esophageal disorders (13 sources) Gastroesophageal reflux disease; Translations: [Gastro-esophageal reflux disease without esophagitis] Onset: 12-27-2022 12-27-2022 Chronic Genitourinary symptoms and ill-defined conditions (3 sources) Dysuria; Translations: [Dysuria] Onset: 02-12-2023 Episodic Headache; including migraine (2 sources) Headache; Translations: [Intractable episodic headache, unspecified headache type] 02-13-2024 Episodic Immunizations and screening for infectious disease (3 sources) Encounter for screening for human papillomavirus (HPV); Translations: [Exposure to sexually transmissible disorder] Onset: 01-27-2020 03-13-2024 Episodic Menstrual disorders (1 source) Missed period; Translations: [Irregular menstruation, unspecified] 01-13-2024 Chronic Nausea and vomiting (2 sources) Nausea; Translations: [Nausea] 02-13-2024 Episodic Other female genital disorders (2 sources) Vaginal discharge; Translations: [Other specified noninflammatory disorders of vagina] 03-13-2024 Episodic Other lower respiratory disease (1 source) Shortness of breath; Translations: [SHORTNESS OF BREATH] Onset: 11-26-2020 Episodic Other and delivery including normal (13 sources) ; Translations: [Encounter for supervision of normal , unspecified, unspecified trimester] Onset: 02-13-2024 01-13-2024 Episodic Other screening for suspected conditions (not mental disorders or infectious disease) (6 sources) Encounter for screening for malignant neoplasm of cervix; Translations: [Patient encounter status] Onset: 01-22-2020 Episodic Residual codes; unclassified (1 source) 39 weeks gestation of ; Translations: [ state, incidental] 04-01-2022 Episodic Residual codes; unclassified (9 sources) Gestation period, 12 weeks; Translations: [12 weeks gestation of ] Onset: 02-13-2024 02-13-2024 Episodic Residual codes; unclassified (2 sources) Gestation period, 16 weeks; Translations: [16 weeks gestation of ] 03-13-2024 Episodic Unclassified (2 sources) Unknown / UNK(Unknown) [...] Onset: 01-01-2020 Episodic Blindness and vision defects (13 sources) Bilateral myopia of eyes; Translations: [Myopia, bilateral] Onset: 12-27-2022 12-27-2022 Episodic Cardiac dysrhythmias (13 sources) Palpitations; Translations: [Palpitations] Onset: 12-27-2022 12-27-2022 Episodic Other ear and sense organ disorders (15 sources) Impacted cerumen in right ear; Translations: [Impacted cerumen, right ear] Onset: 10-18-2023 10-18-2023 Episodic Other gastrointestinal disorders (13 sources) Constipation alternates with diarrhea; Translations: [Other specified symptoms and signs involving the digestive system and abdomen] Onset: 12-27-2022 12-27-2022 Episodic Other gastrointestinal disorders (13 sources) Dysphagia; Translations: [Dysphagia, unspecified] Onset: 12-27-2022 12-27-2022 Episodic Other lower respiratory disease (13 sources) Respiratory tract congestion; Translations: [Other specified respiratory disorders] Onset: 12-27-2022 12-27-2022 Episodic Residual codes; unclassified (17 sources) Gestation period, 39 weeks; Translations: [39 weeks gestation of ] Onset: 08-23-2023 03-31-2022 Episodic Residual codes; unclassified (13 sources) Insomnia; Translations: [Insomnia, unspecified] Onset: 12-27-2022 [...] Test Name Value Interpretation Reference Range Facility RECURRENT VAGINITIS (HTRX)on 03-15-2024 ATOPOBIUM VAGINAE 15.949 Abnormal [facility] ATOPOBIUM VAGINAE Detected Abnormal [facility] BVAB 2,3 (BACTERIAL VAGINOSIS ASSOCIATED BACTERIA 2, 3); MOBILUNCUS SPP 26.298 Abnormal [facility] BVAB 2,3 (BACTERIAL VAGINOSIS ASSOCIATED BACTERIA 2, 3); MOBILUNCUS SPP Detected Abnormal [facility] VINAYAK ALBICANS, PARAPSILOSIS, TROPICALIS 0 [facility] VINAYAK ALBICANS, PARAPSILOSIS, TROPICALIS Not detected [facility] V[place] GLABRATA 0 [facility] VINAYAK GLABRATA Not detected [facility] VINAYAK KRUSEI 0 [facility] VINAYAK KRUSEI Not detected [facility] CHLAMYDIA TRACHOMATIS 0 [facility] CHLAMYDIA TRACHOMATIS Not detected [facility] ERMB, C; MEFA 17.339 Abnormal [facility] ERMB, C; MEFA Detected Abnormal [facility] GARDNERELLA VAGINALIS 23.244 Abnormal [facility] GARDNERELLA VAGINALIS Detected Abnormal [facility] Interpretation and review of laboratory results Abnormal [facility] MEGASPHAERA (TYPES 1, 2) [facility] (TYPES 1, 2) Not detected [facility] MYCOPLASMA GENITALIUM 0 [facility] MYCOPLASMA GENITALIUM Not detected [facility] NEISSERIA GONORRHOEAE 0 [facility] NEISSERIA GONORRHOEAE Not detected [facility] TET B, TET M 24.738 Abnormal [facility] TET B, TET M Detected Abnormal [facility] TRICHOMONAS VAGINALIS 0 [facility] TRICHOMONAS VAGINALIS Not detected N [facility] URINE CULTURE, ROUTINEon Bacteria identified Cx Nom (U) Urine Culture, Routine [facility] Bacteria identified Cx Nom (U) Mixed urogenital leon [facility] Bacteria identified Cx Nom (U) Less than 10,000 colonies/mL [facility] Bacteria identified Cx Nom (U) Performed at: [facility] Bacteria identified Cx Nom (U) [address] [place] [address] [phone] [facility] Bacteria identified Cx Nom (U) [employer] System Operator: Anselmo Caldwell PhD, Phone: [phone] [facility] Urinalysis macro (dipstick) panel (U)on 02-13-2024 Bilirubin, UA Negative Negative - 4(70) +++ mg/dL [facility] Blood, UA Negative Negative - 50 Earl/mcL [facility] Clarity, UA Clear [facility] Color, UA Yellow [facility] Glucose, UA Negative Negative - 1999(110) ++++ mg/dL [facility] Interpretation and review of laboratory results Abnormal [facility] Ketones, UA Negative Negative - 160(16) ++++ mg/dL [facility] Leukocytes, UA Positive Negative - 500+++ Federica/mcL [facility] Comment on above: small Nitrite, UA Negative Negative - Positive [facility] pH, UA 5.5 5 - 9 [facility] Protein, UA Negative Negative - 1999(20) ++++ mg/dL [facility] Spec Grav, UA 1.005 1 - 1.03 [facility] Urobilinogen, UA 0.2 0.2 - 12 mg/dL [facility] ALL CBC WITH AUTO DIFFon BASOPHILS ABSOLUTE AUTO 0 N [facility] Basophils/100 WBC (Bld) 0.3 % 0.2 - 2.0 % [facility] Eosinophils/100 WBC (Bld) 2.2 % 0.9 - 7.0 % [facility] Erythrocyte distribution width (RBC) [Ratio] 13.2 % 11.0 - 15.0 % [facility] Hematocrit (Bld) [Volume fraction] 36.6 % 36.0 - 48.0 % [facility] Hemoglobin (Bld) [Mass/Vol] 12.4 g/dL 12.0 - 16.0 g/dL [facility] IMMATURE GRANULOCYTES ABS AUTO 0.03 [facility] Immature granulocytes/100 WBC (Bld) 0.3 % 0.0 - 0.5 % [facility] Interpretation and review of laboratory results Abnormal [facility] LYMPHOCYTES ABSOLUTE AUTO 2.3 [facility] Lymphocytes/100 WBC (Bld) 23.9 % 20.5 - 60.0 % [facility] MCH (RBC) [Entitic mass] 32 pg 26.7 - 34.0 pg [facility] MCHC (RBC) [Mass/Vol] 33.9 g/dL 29.9 - 35.2 g/dL [facility] MCV (RBC) [Entitic vol] 94.3 fL 81.0 - 99.0 fL [facility] MONOCYTES ABSOLUTE AUTO 0.8 [facility] Monocytes/100 WBC (Bld) 7.7 % 1.7 - 12.0 % [facility] NEUTROPHILS ABSOLUTE AUTO 6.4 [facility] Neutrophils/100 WBC (Bld) 65.6 % 43.0 - 75.0 % [facility] Platelet mean volume (Bld) [Entitic vol] 9.9 fL 9.5 - 13.5 fL [facility] TB EO # 0.2 [facility] TB PLT [facility] RBC 3.88 Low [facility] TB WBC 9.8 [facility] HCG ( test) Ql (U)o n 01-13-2024 Interpretation and review of laboratory results Abnormal [facility] Preg Test, Ur Positive Negative [facility] Urinalysis macro (dipstick) panel (U)on 01-13-2024 Bilirubin, UA Negative Negative - 4(70) +++ mg/dL [facility] Blood, UA Negative Negative - 50 Earl/mcL [facility] Clarity, UA Clear [facility] Color, UA Yellow [facility] Glucose, UA Negative Negative - 1999(110) ++++ mg/dL [facility] Interpretation and review of laboratory results Normal [facility] Ketones, UA Negative Negative - 160(16) ++++ mg/dL [facility] Leukocytes, UA Negative Negative - 500+++ Federica/mcL [facility] Nitrite, UA Negative Negative - Positive [facility] pH, UA 6 5 - 9 [facility] Protein, UA Negative Negative - 1999(20) ++++ mg/dL [facility] Spec Grav, UA 1.02 1 - 1.03 [facility] Urobilinogen, UA 1.0 0.2 - 12 mg/dL [facility] TBH PREG QUANT HCGon 024 HCG QUANTITATIVE 75946 mIU/mL [facility] Comment on above: 5-50 0.2-1 WEEK 50-500 1-2 WEEKS 100-5,000 2-3 WEEKS 500-10,000 3-4 WEEKS 1,000-50,000 4-5 WEEKS 10,000-100,000 5-6 WEEKS 15,000-200,000 6-8 WEEKS 10,000-100,000 2-3 MONTHS [facility] No Panel InformationOrdered By: Allyson Cadet on 06-14-2023 Quick Strep (POC) [facility] Urinalysis - AUTOMATEDon Appearance (U) cloudy [employer] Other Bilirubin Ql (U) Negative [facility] Other Color (U) pale yellow [employer] Other Glucose Ql (U) Negative [employer] Other Hemoglobin Ql (U) Negative [employer] Other Ketones Ql (U) Negative [employer] Other Leukocyte esterase Test strip Ql (U) small [employer] Other Nitrite Ql (U) Negative [employer] Other pH (U) 5.5 [pH] [employer] Other Protein Ql (U) Negative [employer] Other Specific gravity (U) [Rel density] >=1.030 [employer] Other Urobilinogen (U) [Mass/Vol] 0.2 mg/dL [employer] Other Urinalysis - AUTOMATED No rt [employer] Other Urine Cultureon 02-12-2023 Bacteria identified Cx Nom (U) Reason for Exam Dysuria Urine 25,000 colonies/ml mixed bacterial skin contaminants 2 Days PERFORMED BY: [place] [address] PATHOLOGIST BUSINESS DIVISION CHAIR JOSEFINA GAMBLE M.D. [facility] Comment on above: Performed By: #### C UU #### [facility] [address] [place] [address] Bacteria identified Cx Nom (U) [employer] Other Basophils Auto (Bld) [#/Vol] Ordered By: Mario Conley on 03-31-2022 Basophils (Bld) [#/Vol] 0.1 10*3/uL 0.0-0.2 [facility] Basophils/100 WBC Auto (Bld) Ordered By: Mario Conley on 03-31-2022 Basophils/100 WBC (Bld) 0.4 % . [facility] Eosinophils Auto (Bld) [#/Vo l]Ordered By: Mario Conley on 03-31-2022 Eosinophils (Bld) [#/Vol] 0.1 10*3/uL 0.0-0.45 [facility] Eosinophils/100 WBC Auto (Bl d)Ordered By: Mario Conley on 03-31-2022 Eosinophils/100 WBC (Bld) 0.4 % . [facility] Erythrocyte distribution wid th Auto (RBC) [Ratio]Ordered By: Mario Conley on 03-31-2022 Erythrocyte distribution width (RBC) [Ratio] 14.6 % 11.9-15.3 [facility] Hematocrit Auto (Bld) [Volum e fraction]Ordered By: Mario Conley on 03-31-2022 Hematocrit (Bld) [Volume fraction] 27.5 % 34.0-46.4 [facility] Hemoglobin [Mass/volume] in BloodOrdered By: Mario Conley on 03-31-2022 Hemoglobin (Bld) [Mass/Vol] 9.1 g/dL 11.8-15.4 [facility] Leukocytes [#/volume] correc edgard for nucleated erythrocytes in Blood by Automated counOrdered By: Mario Conley on 03-31-2022 WBC corrected for nucl RBC Auto (Bld) [#/Vol] 14.2 10*3/uL 3.8-11.6 [facility] Lymphocytes Auto (Bld) [#/Vo l]Ordered By: Mario Conley on 03-31-2022 Lymphocytes (Bld) [#/Vol] 1.9 10*3/uL 1.00-4.8 [facility] Lymphocytes/100 WBC Auto (Bl d)Ordered By: Mario Conley on 03-31-2022 Lymphocytes/100 WBC (Bld) 13.5 % . [facility] MCH Auto (RBC) [Entitic mass ]Ordered By: Mario Conley on 03-31-2022 MCH (RBC) [Entitic mass] 29.6 pg 24.7-34.3 [facility] MCHC Auto (RBC) [Mass/Vol]Or dered By: Mario Conley on 03-31-2022 MCHC (RBC) [Mass/Vol] 32.9 g/dL 32.0-35.0 [facility] MCV Auto (RBC) [Entitic vol] Ordered By: Mario Conley on 03-31-2022 MCV (RBC) [Entitic vol] 90.0 fL 80-100 [facility] Monocytes Auto (Bld) [#/Vol] Ordered By: Mario Conley on 03-31-2022 Monocytes (Bld) [#/Vol] 1.3 10*3/uL 0.0-0.8 [facility] Monocytes/100 WBC Auto (Bld) Ordered By: Mario Conley on 03-31-2022 Monocytes/100 WBC (Bld) 9.0 % . [facility] Neutrophils Auto (Bld) [#/Vo l]Ordered By: Mario Conley on 03-31-2022 Neutrophils (Bld) [#/Vol] 10.9 10*3/uL 1.8-7.7 [facility] Neutrophils/100 WBC Auto (Bl d)Ordered By: Mario Conley on 03-31-2022 Neutrophils/100 WBC (Bld) 76.7 % . [facility] Nucleated erythrocytes [Pres ence] in Blood by Automated countOrdered By: Mario Conley on 03-31-2022 Nucleated RBC Auto Ql (Bld) 0.0 /100{WBC} 0-0.5 [facility] Platelet mean volume Auto (B ld) [Entitic vol]Ordered By: Mario Conley on 03-31-2022 Platelet mean volume (Bld) [Entitic vol] 9.1 fL 6.3-10.7 [facility] Platelets Auto (Bld) [#/Vol] Ordered By: Mario Conley on 03-31-2022 Platelets (Bld) [#/Vol] 274 10*3/uL 150-450 [facility] RBC Auto (Bld) [#/Vol]Ordere d By: Mario Conley on 03-31-2022 RBC (Bld) [#/Vol] 3.06 10*6/uL 3.60-5.00 [facility] WBC Auto (Bld) [#/Vol]Ordere d By: Mario Conley on 03-31-2022 WBC (Bld) [#/Vol] 14.2 10*3/uL 3.8-11.6 [facility] Reagin Ab [Presence] in Seru m by RPROrdered By: Mario Conley on 03-29-2022 Reagin Ab RPR Ql (S) Non-Reactive Non Reactive [facility] Comment on above: Performed at: [address] [id number] Director: Anselmo Caldwell PhD, Phone: [phone] Group B Streptococcus cultur eOrdered By: Mario Conley on 03-10-2022 S. agalactiae Org specific cx Ql (Unsp spec) No Group B Beta Streptococcus Isolated 3 Days [facility] Albumin [Mass/volume] in Ser um or PlasmaOrdered By: Shirlene Owen on 03-08-2022 Albumin [Mass/Vol] 2.6 g/dL 3.2-5.5 [facility] Amphetamine Screen Ql (U)Ord ered By: Shirlene Owen on 03-08-2022 Amphetamines Ql (U) Negative Negative [facility] Automated epithelial cells c ount in urine sediment (number/area)Ordered By: Shirlene Owen on 03-08-2022 Epithelial cells Auto (Urine sed) [#/Area] 1-2 [HPF] 0-2 [facility] Automated erythrocytes count in urine sediment (number/area)Ordered By: Shirlene Owen on 03-08-2022 RBC Auto (Urine sed) [#/Area] 0-1 [HPF] 0-4 [facility] Automated leukocytes count i n urine sediment (number/area)Ordered By: Shirlene Owen on 03-08-2022 WBC Auto (Urine sed) [#/Area] 50-100 [HPF] 0-4 [facility] Automated urine hyaline cast s count (number/volume)Ordered By: Shirlene Owen on 03-08-2022 Hyaline casts Auto (U) [#/Vol] None seen [LPF] 0-1 [facility] Barbiturates [Presence] in U rineOrdered By: Shirlene Owen on 03-08-2022 Barbiturates Ql (U) Negative Negative [facility] Basophils Auto (Bld) [#/Vol] Ordered By: Shirlene Owen on 03-08-2022 Basophils (Bld) [#/Vol] 0.0 10*3/uL 0.0-0.2 [facility] Basophils/100 WBC Auto (Bld) Ordered By: Shirlene Owen on 03-08-2022 Basophils/100 WBC (Bld) 0.2 % . [facility] Benzodiazepines [Presence] i n UrineOrdered By: Shirlene Owen on 03-08-2022 Benzodiazepines Ql (U) Negative [facility] Bilirubin Test strip Ql (U)O rdered By: Shirlene Owen on 03-08-2022 Bilirubin Ql (U) Negative Negative [facility] Color Auto (U)Ordered By: Kingsley freitasmaliabhinav Owen on 03-08-2022 Color (U) Yellow Yellow [facility] Creatinine and Glomerular fi ltration rate.predicted panel (S/P/Bld)Ordered By: Shirlene Owen on 03-08-2022 Creatinine [Mass/Vol] 0.49 mg/dL 0.44-1.03 [facility] Eosinophils Auto (Bld) [#/Vo l]Ordered By: Shirlene Owen on 03-08-2022 Eosinophils (Bld) [#/Vol] 0.0 10*3/uL 0.0-0.45 [facility] Eosinophils/100 WBC Auto (Bl d)Ordered By: Shirlene Owen on 03-08-2022 Eosinophils/100 WBC (Bld) 0.3 % . [facility] Erythrocyte distribution wid th Auto (RBC) [Ratio]Ordered By: Shirlene Owen on 03-08-2022 Erythrocyte distribution width (RBC) [Ratio] 13.9 % 11.9-15.3 [facility] Estimated glomerular filtrat ion rate (GFR) non- AmericanOrdered By: Shirlene Owen on 03-08-2022 GFR/1.73 sq M.predicted among non-blacks MDRD (S/P/Bld) [Vol rate/Area] > 60 mL/Min [facility] Globulin Calc (S) [Mass/Vol] Ordered By: Shirlene Owen on 03-08-2022 Globulin (S) [Mass/Vol] 2.8 g/dL [facility] Hematocrit Auto (Bld) [Volum e fraction]Ordered By: Shirlene Owen on 03-08-2022 Hematocrit (Bld) [Volume fraction] 28.4 % 34.0-46.4 [facility] Hemoglobin [Mass/volume] in BloodOrdered By: Shirlene Owen on 03-08-2022 Hemoglobin (Bld) [Mass/Vol] 9.5 g/dL 11.8-15.4 [facility] Ketones Auto test strip (U) [Mass/Vol]Ordered By: Shirlene Owen on 03-08-2022 Ketones (U) [Mass/Vol] Negative Negative [facility] - Drug toxicology Ordered By: Shirlene Owen on 03-08-2022 Opiates Ql (U) Negative Negative [facility] Leukocytes [#/volume] correc edgard for nucleated erythrocytes in Blood by Automated counOrdered By: Shirlene Owen on 03-08-2022 WBC corrected for nucl RBC Auto (Bld) [#/Vol] 9.7 10*3/uL 3.8-11.6 [facility] Lymphocytes Auto (Bld) [#/Vo l]Ordered By: Shirlene Owen on 03-08-2022 Lymphocytes (Bld) [#/Vol] 1.3 10*3/uL 1.00-4.8 [facility] Lymphocytes/100 WBC Auto (Bl d)Ordered By: Shirlene Owen on 03-08-2022 Lymphocytes/100 WBC (Bld) 13.0 % . [facility] MCH Auto (RBC) [Entitic mass ]Ordered By: Shirlene Owen on 03-08-2022 MCH (RBC) [Entitic mass] 30.7 pg 24.7-34.3 [facility] MCHC Auto (RBC) [Mass/Vol]Or dered By: Shirlene Owen on 03-08-2022 MCHC (RBC) [Mass/Vol] 33.6 g/dL 32.0-35.0 [facility] MCV Auto (RBC) [Entitic vol] Ordered By: Shirlene Owen on 03-08-2022 MCV (RBC) [Entitic vol] 91.6 fL 80-100 [facility] Monocytes Auto (Bld) [#/Vol] Ordered By: Shirlene Owen on 03-08-2022 Monocytes (Bld) [#/Vol] 0.6 10*3/uL 0.0-0.8 [facility] Monocytes/100 WBC Auto (Bld) Ordered By: Shirlene Owen on 03-08-2022 Monocytes/100 WBC (Bld) 6.0 % . [facility] Neutrophils Auto (Bld) [#/Vo l]Ordered By: Shirlene Owen on 03-08-2022 Neutrophils (Bld) [#/Vol] 7.8 10*3/uL 1.8-7.7 [facility] Neutrophils/100 WBC Auto (Bl d)Ordered By: Shirlene Owen on 03-08-2022 Neutrophils/100 WBC (Bld) 80.5 % . [facility] Nitrite Test strip Ql (U)Ord ered By: Shirlene Owen on 03-08-2022 Nitrite Ql (U) Negative Negative [facility] No Panel InformationOrdered By: Shirlene Owen on 03-08-2022 Estimated GFR () > 60 mL/Min [facility] Comment on above: GFR estimated refere nce range: According to KDOQI guidelines, <60 ml/min/1.73m2 is sufficient to diagnose a patient with chronic kidney disease. Pharmacy Creatinine Clearance (Chem 178.59 [facility] Nucleated erythrocytes [Pres ence] in Blood by Automated countOrdered By: Shirlene Owen on 03-08-2022 Nucleated RBC Auto Ql (Bld) 0.1 /100{WBC} 0-0.5 [facility] Phencyclidine Screen Ql (U)O rdered By: Shirlene Owen on 03-08-2022 Phencyclidine Ql (U) Negative Negative [facility] Comment on above: These are unconfirme d results and should not be used for legal purposes. Drug Cut-Off Concentration: AMPH 1000 ng/mL LUCAS 200 ng/mL JUSTIN 200 ng/mL COCM 300 ng/mL OP 300 ng/mL PCP 25 ng/mL Platelet mean volume Auto (B ld) [Entitic vol]Ordered By: Shirlene wOen on 03-08-2022 Platelet mean volume (Bld) [Entitic vol] 8.3 fL 6.3-10.7 [facility] Platelets Auto (Bld) [#/Vol] Ordered By: Shirlene Owen on 03-08-2022 Platelets (Bld) [#/Vol] 290 10*3/uL 150-450 [facility] Protein Auto test strip (U) [Mass/Vol]Ordered By: Shirlene Owen on 03-08-2022 Protein (U) [Mass/Vol] Negative Negative Fi [facility] Protein [Mass/volume] in Ser um or PlasmaOrdered By: Shirlene Owen on 03-08-2022 Protein [Mass/Vol] 5.4 g/dL 6.1-7.9 [facility] RBC Auto (Bld) [#/Vol]Ordere d By: Shirlene Owen on 03-08-2022 RBC (Bld) [#/Vol] 3.10 10*6/uL 3.60-5.00 [facility] Serum or plasma alanine donato otransferase measurement without P-5'-P (enzymatic activiOrdered By: Shirlene Owen on 03-08-2022 ALT No additional P-5'-P [Catalytic activity/Vol] 9 U/L 10-60 [facility] Serum or plasma albumin/glob ulin mass ratioOrdered By: Shirlene Owen on 03-08-2022 Albumin/Globulin [Mass ratio] 0.9 {ratio} [facility] Serum or plasma alkaline lamin sphatase measurement (enzymatic activity/volume)Ordered By: Shirlene Owen on 03-08-2022 ALP [Catalytic activity/Vol] 113 U/L 32-92 [facility] Serum or plasma anion gap de terminationOrdered By: Shirlene Owen on 03-08-2022 Anion gap [Moles/Vol] 12.1 mmol/L 6.0-15.0 Fi [facility] Serum or plasma aspartate am inotransferase measurement (enzymatic activity/volume)Ordered By: Shirlene Owen on 03-08-2022 AST [Catalytic activity/Vol] 14 U/L 10-42 [facility] Serum or plasma calcium sara urement (mass/volume)Ordered By: Shirlene Owen on 03-08-2022 Calcium [Mass/Vol] 8.5 mg/dL 8.2-10.2 [facility] Serum or plasma chloride rey surement (moles/volume)Ordered By: Shirlene Owen on 03-08-2022 Chloride [Moles/Vol] 108 mmol/L 95-114 [facility] Serum or plasma glucose sara urement (mass/volume)Ordered By: Shirlene Owen on 03-08-2022 Glucose [Mass/Vol] 83 mg/dL 70-100 [facility] Comment on above: ADA recommended refe rence rangeRandom Glucose Reference Range is dependent on time and content of last meal. Glucose of more than 200 mg/dL in a nonstressed, ambulatory subject supports the diagnosis of Diabetes Mellitus. Serum or plasma potassium me asurement (moles/volume)Ordered By: Shirlene Owen on 03-08-2022 Potassium [Moles/Vol] 3.5 mmol/L 3.5-5.1 [facility] Serum or plasma sodium measu rement (moles/volume)Ordered By: Shirlene Owen on 03-08-2022 Sodium [Moles/Vol] 136 mmol/L 136-146 [facility] Serum or plasma total biliru bin measurement (mass/volume)Ordered By: Shirlene Owen on 03-08-2022 Bilirubin [Mass/Vol] 0.3 mg/dL 0.3-1.2 [facility] Serum or plasma total carbon dioxide measurement (moles/volume)Ordered By: Shirlene Owen on 03-08-2022 CO2 [Moles/Vol] 19.4 mmol/L 22.0-30.0 [facility] Serum or plasma urea nitroge n measurement (mass/volume)Ordered By: Shirlene Owen on 03-08-2022 Urea nitrogen [Mass/Vol] 4 mg/dL 9-23 [facility] Specific gravity Auto test s trip (U) [Rel density]Ordered By: Shirlene Owen on 03-08-2022 Specific gravity (U) [Rel density] 1.002 1.001-1.030 [facility] Urine bacteria detection by automated methodOrdered By: Shirlene Owen on 03-08-2022 Bacteria Auto Ql (U) 2+ None Seen [facility] Urine clarity by refractomet ry automatedOrdered By: Shirlene Owen on 03-08-2022 Clarity Refractometry automated (U) Clear Clear [facility] Urine cocaine detectionOrder ed By: Shirlene Owen on 03-08-2022 Cocaine Ql (U) Negative Negative [facility] Urine culture routineOrdered By: Shirlene Owen on 03-08-2022 Bacteria identified Cx Nom (U) 2 Days [facility] Urine glucose measurement by automated test strip (mass/volume)Ordered By: Shirlene Owen on 03-08-2022 Glucose Auto test strip (U) [Mass/Vol] Normal mg/dL Normal [facility] Urine hemoglobin detection b y automated test stripOrdered By: Shirlene Owen on 03-08-2022 Hemoglobin Auto test strip Ql (U) Negative Negative [facility] Urine leukocyte esterase det ection by automated test stripOrdered By: Shirlene Owen on 03-08-2022 Leukocyte esterase Auto test strip Ql (U) 4+ Negative [facility] Urobilinogen Auto test strip (U) [Mass/Vol]Ordered By: Shirlene Owen on 03-08-2022 Urobilinogen (U) [Mass/Vol] Normal mg/dL Normal [facility] WBC Auto (Bld) [#/Vol]Ordere d By: Shirlene Owen on 03-08-2022 WBC (Bld) [#/Vol] 9.7 10*3/uL 3.8-11.6 [facility] pH Auto test strip (U)Ordere d By: Shirlene Owen on 03-08-2022 pH (U) 7.0 [pH] 5.0-9.0 [facility] Hematocrit Auto (Bld) [Volum e fraction]Ordered By: Mario Conley on 02-01-2022 Hematocrit (Bld) [Volume fraction] 33.2 % 34.0-46.4 [facility] Hemoglobin [Mass/volume] in BloodOrdered By: Mario Conley on 02-01-2022 Hemoglobin (Bld) [Mass/Vol] 11.2 g/dL 11.8-15.4 [facility] No Panel InformationOrdered By: Mario Conley on 02-01-2022 Glucose 1 Hour Postprandial (Timed) 82 mg/dL 60-140 [facility] Albumin [Mass/volume] in Ser um or PlasmaOrdered By: Holger Aquino on 10-06-2021 Albumin [Mass/Vol] 3.8 g/dL 3.2-5.5 [facility] Basophils Auto (Bld) [#/Vol] Ordered By: Holger Aquino on 10-06-2021 Basophils (Bld) [#/Vol] 0.0 10*3/uL 0.0-0.2 [facility] Basophils/100 WBC Auto (Bld) Ordered By: Holger Aquino on 10-06-2021 Basophils/100 WBC (Bld) 0.5 % . [facility] Blood hemoglobin measurement (mass/volume)Ordered By: Holger Aquino on 10-06-2021 Hemoglobin (Bld) [Mass/Vol] 12.3 g/dL 11.8-15.4 [facility] Blood leukocytes automated c ount (number/volume)Ordered By: Holger Aquino on 10-06-2021 WBC (Bld) [#/Vol] 7.6 10*3/uL 4.5-11.0 [facility] Cholesterol [Mass/volume] in Serum or PlasmaOrdered By: Holger Aquino on 10-06-2021 Cholesterol [Mass/Vol] 147 mg/dL 140-200 [facility] Comment on above: Chol less than 200 m g/dl low risk Chol 201-239 mg/dl borderline risk Chol 240 mg/dl and greater high risk Cholesterol in LDL Calc [Mas s/Vol]Ordered By: Holger Aquino on 10-06-2021 Cholesterol in LDL [Mass/Vol] 89 mg/dL 0-100 [facility] Comment on above: LDL ATP III CLASSIFI CATION LDL less than 100 mg/dL Optimal LDL 100-129 mg/dL Near or above optimal LDL 130-159 mg/dL Borderline high LDL 160-189 mg/dL High LDL greater than 189 mg/dL Very high Cholesterol in VLDL Calc [Ma ss/Vol]Ordered By: Holger Aquino on 10-06-2021 Cholesterol in VLDL [Mass/Vol] 12 mg/dL [facility] Creatinine and Glomerular fi ltration rate.predicted panel (S/P/Bld)Ordered By: Holger Aquino on 10-06-2021 Creatinine [Mass/Vol] 0.54 mg/dL 0.44-1.03 [facility] Eosinophils Auto (Bld) [#/Vo l]Ordered By: Holger Aquino on 10-06-2021 Eosinophils (Bld) [#/Vol] 0.1 10*3/uL 0.0-0.45 [facility] Eosinophils/100 WBC Auto (Bl d)Ordered By: Holger Aquino on 10-06-2021 Eosinophils/100 WBC (Bld) 1.5 % . [facility] Erythrocyte distribution wid th Auto (RBC) [Ratio]Ordered By: Holger Aquino on 10-06-2021 Erythrocyte distribution width (RBC) [Ratio] 13.3 % 11.9-15.3 [facility] Estimated glomerular filtrat ion rate (GFR) non- AmericanOrdered By: Holger Aquino on 10-06-2021 GFR/1.73 sq M.predicted among non-blacks MDRD (S/P/Bld) [Vol rate/Area] > 60 mL/Min [facility] Globulin Calc (S) [Mass/Vol] Ordered By: Holger Aquino on 10-06-2021 Globulin (S) [Mass/Vol] 2.6 g/dL [facility] Hematocrit Auto (Bld) [Volum e fraction]Ordered By: Holger Aquino on 10-06-2021 Hematocrit (Bld) [Volume fraction] 36.2 % 34.0-46.4 [facility] Laboratory - Chemistry and C hemistry - challengeOrdered By: Holger Aquino on 10-06-2021 Glucose [Mass/Vol] 77 mg/dL 70-100 [facility] - Hematology and Cell countsOrdered By: Holger Aquino on 10-06-2021 Nucleated RBC/100 WBC (Bld) [Ratio] 0.0 % 0-0.5 [facility] Lymphocytes Auto (Bld) [#/Vo l]Ordered By: Holger Aquino on 10-06-2021 Lymphocytes (Bld) [#/Vol] 1.6 10*3/uL 1.00-4.8 [facility] Lymphocytes/100 WBC Auto (Bl d)Ordered By: Holger Aquino on 10-06-2021 Lymphocytes/100 WBC (Bld) 21.1 % . [facility] MCH Auto (RBC) [Entitic mass ]Ordered By: Holger Aquino on 10-06-2021 MCH (RBC) [Entitic mass] 32.1 pg 24.7-34.3 [facility] MCHC Auto (RBC) [Mass/Vol]Or dered By: Holger Aquino on 10-06-2021 MCHC (RBC) [Mass/Vol] 33.9 g/dL 32.0-35.0 [facility] MCV Auto (RBC) [Entitic vol] Ordered By: Holger Aquino on 10-06-2021 MCV (RBC) [Entitic vol] 94.8 fL 80-100 [facility] Monocyte %Ordered By: Holger Aquino on 10-06-2021 Monocyte % 62 mg/dL 35-149 [facility] Comment on above: TRIG ATP III CLASSIF ICATION TRIG less than 150 mg/dL Normal TRIG 150-199 mg/dL Borderline high TRIG 200-500 mg/dL High TRIG greater than 500 mg/dL Very high Standard traceable to the Center for Disease Conrtrol and Prevention (CDC) test method. Monocytes Auto (Bld) [#/Vol] Ordered By: Holger Aquino on 10-06-2021 Monocytes (Bld) [#/Vol] 0.6 10*3/uL 0.0-0.8 [facility] Monocytes/100 WBC Auto (Bld) Ordered By: Holger Aquino on 10-06-2021 Monocytes/100 WBC (Bld) 7.6 % . [facility] Neutrophils Auto (Bld) [#/Vo l]Ordered By: Holger Aquino on 10-06-2021 Neutrophils (Bld) [#/Vol] 5.3 10*3/uL 1.8-7.7 [facility] Neutrophils/100 WBC Auto (Bl d)Ordered By: Holger Aquino on 10-06-2021 Neutrophils/100 WBC (Bld) 69.3 % . [facility] No Panel InformationOrdered By: Holger Aquino on 10-06-2021 Estimated GFR () > 60 mL/Min [facility] Comment on above: GFR estimated refere nce range: According to KDOQI guidelines, <60 ml/min/1.73m2 is sufficient to diagnose a patient with chronic kidney disease. Nicotine Metabolite Negative Cutoff=25 [facility] Comment on above: Performed at: [address] [id number] [employer] Operator: Viktoriya Smith MD, Phone: [phone] Pharmacy Creatinine Clearance (Chem N/A [facility] Platelet mean volume Auto (B ld) [Entitic vol]Ordered By: Holger Aquino on 10-06-2021 Platelet mean volume (Bld) [Entitic vol] 8.4 fL 6.3-10.7 [facility] Platelets Auto (Bld) [#/Vol] Ordered By: Holger Aquino on 10-06-2021 Platelets (Bld) [#/Vol] 348 10*3/uL 150-450 [facility] Protein [Mass/volume] in Ser um or PlasmaOrdered By: Holger Aquino on 10-06-2021 Protein [Mass/Vol] 6.4 g/dL 6.1-7.9 [facility] RBC Auto (Bld) [#/Vol]Ordere d By: Holger Aquino on 10-06-2021 RBC (Bld) [#/Vol] 3.82 10*6/uL 3.60-5.00 [facility] Serum or plasma alanine donato otransferase measurement without P-5'-P (enzymatic activiOrdered By: Holger Aquino on 10-06-2021 ALT No additional P-5'-P [Catalytic activity/Vol] 11 U/L 10-60 [facility] Serum or plasma albumin/glob ulin mass ratioOrdered By: Holger Aquino on 10-06-2021 Albumin/Globulin [Mass ratio] 1.5 {ratio} [facility] Serum or plasma alkaline lamin sphatase measurement (enzymatic activity/volume)Ordered By: Holger Aquino on 10-06-2021 ALP [Catalytic activity/Vol] 35 U/L 32-92 [facility] Serum or plasma aspartate am inotransferase measurement (enzymatic activity/volume)Ordered By: Holger Aquino on 10-06-2021 AST [Catalytic activity/Vol] 13 U/L 10-42 [facility] Serum or plasma calcium sara urement (mass/volume)Ordered By: Holger Aquino on 10-06-2021 Calcium [Mass/Vol] 9.5 mg/dL 8.2-10.2 [facility] Serum or plasma chloride rey surement (moles/volume)Ordered By: Holger Aquino on 10-06-2021 Chloride [Moles/Vol] 103 mmol/L 95-114 [facility] Serum or plasma high density lipoprotein (HDL) cholesterol measurementOrdered By: Holger Aquino on 10-06-2021 Cholesterol in HDL [Mass/Vol] 46 mg/dL 35-85 [facility] Comment on above: HDL CHOL ATP-III CLA SSIFICATION Cardiovascular Risk HDL > or equal to 60 mg/dL LOW HDL < 40 mg/dL HIGH Serum or plasma potassium me asurement (moles/volume)Ordered By: Holger Aquino on 10-06-2021 Potassium [Moles/Vol] 4.5 mmol/L 3.5-5.1 [facility] Serum or plasma sodium measu rement (moles/volume)Ordered By: Holger Aquino on 10-06-2021 Sodium [Moles/Vol] 134 mmol/L 136-146 [facility] Serum or plasma total biliru bin measurement (mass/volume)Ordered By: Holger Aquino on 10-06-2021 Bilirubin [Mass/Vol] 0.6 mg/dL 0.3-1.2 [facility] Serum or plasma total carbon dioxide measurement (moles/volume)Ordered By: Holger Aquino on 10-06-2021 CO2 [Moles/Vol] 24.2 mmol/L 22.0-30.0 [facility] Serum or plasma total choles terol/high density lipoprotein (HDL) cholesterol mass ratOrdered By: Holger Aquino on 10-06-2021 Cholesterol.total/Tessa sterol in HDL [Mass ratio] 3.2 {ratio} <5.0 [facility] Serum or plasma urea nitroge n measurement (mass/volume)Ordered By: Holger Aquino on 10-06-2021 Urea nitrogen [Mass/Vol] 7 mg/dL 9-23 [facility] TSH DL <= 0.005 mIU/L QnOrde red By: Holger Aquino on 10-06-2021 TSH Qn 1.55 m[IU]/L 0.45-5.33 [facility] RESPIRATORY PANEL PLUSon Adenovirus Not detected Normal NOT DETECTED [facility] Comment on above: Performed By: #### R SPLUS #### [facility] [address] [place] [address] Dr. Roberto Carlos Ortiz Parapertusis Not detected Normal NOT DETECTED [facility] Comment on above: Performed By: #### R SPLUS #### [facility] [address] [place] [address] Dr. Roberto Carlos Ortiz Pertussis Not detected Normal NOT DETECTED [facility] Comment on above: Performed By: #### R SPLUS #### [facility] [address] [place] [address] Dr. Roberto Carlos Colmenares Chlamydia Pneumoniae Not detected Normal NOT DETECTED [facility] Comment on above: Performed By: #### R SPLUS #### [facility] [address] [place] [address] Dr. Roberto Carlos Colmenares Coronavirus 229E Not detected Normal NOT DETECTED [facility] Comment on above: Performed By: #### R SPLUS #### [facility] [address] [place] [address] Dr. Roberto Carlos Colmenares Coronavirus HKU1 Not detected Normal NOT DETECTED [facility] Comment on above: Performed By: #### R SPLUS #### [facility] [address] [place] [address] Dr. Roberto Carlos Colmenares Coronavirus NL63 Not detected Normal NOT DETECTED [facility] Comment on above: Performed By: #### R SPLUS #### [facility] [address] [place] [address] Dr. Roberto Carlos Colmenares Coronavirus OC43 Not detected Normal NOT DETECTED [facility] Comment on above: Performed By: #### R SPLUS #### [facility] [address] [place] [address] Dr. Roberto Carlos Colmenares Influenza A H1 2009 Not detected Normal NOT DETECTED [facility] Comment on above: Performed By: #### R SPLUS #### [facility] [address] [address] [address] Roberto Carlos Colmenares Influenza B Not detected Normal NOT DETECTED [facility] Comment on above: Performed By: #### R SPLUS #### [facility] [address] [place] [address] Dr. Roberto Carlos Colmenares Metapneumovirus Not detected Normal NOT DETECTED [facility] Comment on above: Performed By: #### R SPLUS #### [facility] [address] [place] [address] Dr. Roberto Carlos Colmenares Mycoplas. Pneumoniae Not detected Normal NOT DETECTED [facility] Comment on above: Performed By: #### R SPLUS #### [facility] [address] [place] [address] Dr. Roberto Carlos Colmenares Parainfluenza 1 Not detected Normal NOT DETECTED [facility] Comment on above: Performed By: #### R SPLUS #### [facility] [address] [place] [address] Dr. Roberto Carlos Colmenares Parainfluenza 2 Not detected Normal NOT DETECTED [facility] Comment on above: Performed By: #### R SPLUS #### [facility] [address] [place] [address] Dr. Roberto Carlos Colmenares Parainfluenza 3 Not detected Normal NOT DETECTED [facility] Comment on above: Performed By: #### R SPLUS #### [facility] [address] [place] [address] Dr. Roberto Carlos Colmenares Parainfluenza 4 Not detected Normal NOT DETECTED [facility] Comment on above: Performed By: #### R SPLUS #### [facility] [address] [place] [address] Dr. Roberto Carlos Colmenares Rhino/Enterovirus Not detected Normal NOT DETECTED [facility] Comment on above: Performed By: #### R SPLUS #### [facility] [address] [place] [address] Dr. Roberto Carlos Colmenares RP2 Header 1 RESPIRATORY PANEL: VIRUSES Normal [facility] Comment on above: Performed By: #### R SPLUS #### [facility] [address] [place] [address] Dr. Roberto Carlos Colmenares RP2 Header 2 RESPIRATORY PANEL: BACTERIA Normal [facility] Comment on above: Performed By: #### R SPLUS #### [facility] [address] [place] [address] Dr. Roberto Carlos Colmenares RP2 Header 4 EUA SEE BELOW Normal [facility] Comment on above: Result Comment: This test is not yet approved or cleared by the [place] FDA. When there are no FDA-approved or cleared tests available, and other criteria are met, FDA can make tests available under an emergency access mechanism called an Emergency Use Authorization (EUA). The EUA for this test is supported by the [place] of Health and Human Service?s (HHS?s) declaration [...] used). Performed By: #### R SPLUS #### [facility] [address] [place] [address] Dr. Roberto Carlos Colmenares RSV Detected Critically abnormal NOT DETECTED [facility] Comment on above: Performed By: #### R SPLUS #### [facility] [address] [place] [address] Dr. Roberto Carlos Colmenares SARS-CoV-2 (COVID-19) RNA ADALGISA+probe Ql (Unsp spec) Not detected Normal NOT DETECTED [facility] Comment on above: Performed By: #### R SPLUS #### [facility] [address] [place] [address] Dr. Roberto Carlos Colmenares PAP ACOG PANEL 2: 21 to 29on 01-28-2020 . . Normal [facility] Comment on above: Performed By: #### [id number] #### [facility] [address] [place] [address] Dashawn Valles Age Gdln ACOG Testing 21-29 Normal [facility] Comment on above: Performed By: #### [id number] #### [facility] [address] [place] [address] Dashawn Reena COMMENT Comment Normal [facility] Comment on above: Result Comment: [id number] Performed By: #### [id number] #### [facility] [address] [place] [address] Dashawncaleb Lopezen DIAGNOSIS: Comment Normal [facility] Comment on above: Result Comment: NEGA TIVE FOR INTRAEPITHELIAL LESION OR MALIGNANCY. Performed By: #### [id number] #### [facility] [address] [place] [address] Dashawncaleb Lopezen Methodology: Comment Normal [facility] Comment on above: Result Comment: This liquid based SurePath(R) pap test was screened with the assistance of an image guided system. Performed By: #### [id number] #### [facility] [address] [place] [address] Dashawncaleb Valles Note: Comment Normal [facility] Comment on above: Result Comment: The Pap smear is a screening test designed to aid in the detection of premalignant and malignant conditions of the uterine cervix. It is not a diagnostic procedure and should not be used as the sole means of detecting cervical cancer. Both false-positive and false-negative reports do occur. . Performed By: #### [id number] #### [facility] [address] [place] [address] Dashawn Valles Performed by: Comment Normal [facility] Comment on above: Result Comment: Muriel Madison, Dye Maker (ASCP) Performed By: #### [id number] #### [facility] [address] [place] [address] Dashawn Valles Reflex Criteria: Comment Normal [facility] Comment on above: Result Comment: The HPV DNA reflex criteria were not met with this specimen result therefore, no HPV testing was performed. . Performed By: #### [id number] #### [facility] [address] [place] [address] Dashawncaleb Lopezen Specimen adequacy: Comment [facility] Comment on above: Result Comment: Sati sfactory for evaluation. Endocervical and/or squamous metaplastic cells (endocervical component) are present. Performed By: #### [id number] #### [facility] [address] [place] [address] Dashawn Valles US PELVIS AND TRANSVAGon US [...] AIMEE DIEZ Date: 2020-01-01 14:17 Normal [facility] Vital Signs Date Time Vital Sign Value Performing Clinician Facility 03-13-2024 12:35-0500 Body mass index (BMI) [Ratio] 21.46 kg/m2 [employer] Work Phone: [facility] 03-13-2024 12:35-0500 Body weight 64.01 kg [employer] DO Work Phone: [facility] 03-13-2024 12:35-0500 Diastolic blood pressure 58 mm[Hg] Yara Law DO Work Phone: [facility] 03-13-2024 12:35-0500 Systolic blood pressure 94 mm[Hg] Yara Law DO Work Phone: [facility] 02-13-2024 13:21-0500 Body mass index (BMI) [Ratio] 21.26 kg/m2 Yara Law DO Work Phone: [facility] 02-13-2024 13:21-0500 Body weight 63.41 kg [employer] DO Work Phone: [facility] 02-13-2024 13:21-0500 Diastolic blood pressure 58 mm[Hg] Yara Law DO Work Phone: [facility] 02-13-2024 13:21-0500 Systolic blood pressure 98 mm[Hg] Yara Law DO Work Phone: [facility] 10-18-2023 16:26-0400 Body height 172.7 cm Maggie Anton MD Work Phone: [facility] 10-18-2023 16:26-0400 Body mass index (BMI) [Ratio] 22.2 kg/m2 Maggie Anton MD Work Phone: [facility] 10-18-2023 16:26-0400 Body weight 66.22 kg Maggie Anton MD Work Phone: [facility] 10-18-2023 16:26-0400 Diastolic blood pressure 68 mm[Hg] Maggie Anton MD Work Phone: [facility] 10-18-2023 16:26-0400 Heart rate 74 /min Maggie Anton MD Work Phone: [facility] 10-18-2023 16:26-0400 SaO2% (BldA) [Mass fraction] 99 % Maggie Anton MD Work Phone: [facility] 10-18-2023 16:26-0400 Systolic blood pressure 104 mm[Hg] Maggie Anton MD Work Phone: [facility] 06-14-2023 11:28-0400 Body height 175.26 cm [facility] 06-14-2023 11:28-0400 Body mass index (BMI) [Ratio] 20.7 kg/m2 [facility] 06-14-2023 11:28-0400 Body temperature 99.8 [degF] [facility] 06-14-2023 11:28-0400 Body weight 63.5 kg [facility] 06-14-2023 11:28-0400 Heart rate 102 /min [facility] 06-14-2023 11:28-0400 Respiratory rate 18 /min [facility] 06-14-2023 11:28-0400 SaO2% (BldA) [Mass fraction] 98 % [facility] 02-12-2023 13:00-0500 Body height 172.72 cm Berta Galanmond Other [employer] Other 02-12-2023 13:00-0500 Body mass index (BMI) [Ratio] 20.77 kg/m2 Berta Connie Other [employer] Other 02-12-2023 13:00-0500 Body temperature 98.2 [degF] Berta Connie Other [employer] Other 02-12-2023 13:00-0500 Body weight 61.96 kg Berta Connie Other [employer] Other 02-12-2023 13:00-0500 Diastolic blood pressure 58 mm[Hg] Berta Connie Other [employer] Other 02-12-2023 13:00-0500 Respiratory rate 18 /min Berta Galanmond Other [employer] Other 02-12-2023 13:00-0500 SaO2% (BldA) [Mass fraction] 99 % Betra Connie Other [employer] Other 02-12-2023 13:00-0500 Systolic blood pressure 102 mm[Hg] Berta Connie Other [employer] Other 04-01-2022 08:47-0500 Body temperature 97.9 [degF] MD Maggie Anton Work Phone: [facility] 04-01-2022 08:47-0500 Diastolic blood pressure 57 mm[Hg] MD Maggie Anton Work Phone: [facility] 04-01-2022 08:47-0500 Heart rate 66 /min MD Maggie Anton Work Phone: [facility] 04-01-2022 08:47-0500 Respiratory rate 16 /min MD Maggie Anton Work Phone: [facility] 04-01-2022 08:47-0500 SaO2% (BldA) [Mass fraction] 98 % MD Maggie Anton Work Phone: [facility] 04-01-2022 08:47-0500 Systolic blood pressure 100 mm[Hg] MD Maggie Anton Work Phone: [facility] 03-29-2022 20:50-0500 Body height 172.72 cm MD Maggie Anton Work Phone: [facility] 03-29-2022 20:50-0500 Body weight 71.66 kg MD Maggie Anton Work Phone: [facility] 03-08-2022 15:40-0500 Respiratory rate 16 /min MD Maggie Anton Work Phone: [facility] 03-08-2022 15:37-0500 SaO2% (BldA) [Mass fraction] 100 % MD Maggie Anton Work Phone: [facility] 03-08-2022 15:31-0500 Diastolic blood pressure 56 mm[Hg] MD Maggie Anton Work Phone: [facility] 03-08-2022 15:31-0500 Heart rate 86 /min MD Maggie Anton Work Phone: [facility] 03-08-2022 15:31-0500 Systolic blood pressure 101 mm[Hg] MD Maggie Anton Work Phone: [facility] 03-08-2022 12:55-0500 Body temperature 98.1 [degF] MD Maggie Anton Work Phone: [facility] 03-08-2022 10:29-0500 Body height 172.72 cm MD Maggie Anton Work Phone: [facility] 03-08-2022 10:29-0500 Body weight 70.3 kg MD Maggie Anton Work Phone: [facility] Encounters Encounter Date Encounter Type Care Provider Facility Start: 03-14-2024 End: 03-15-2024 External Result Encounter Yara Law DO Work Phone: [facility] Unsolicited Start: 03-14-2024 End: 03-15-2024 External Result Encounter Yara Law DO Work Phone: [facility] Unsolicited Start: 03-13-2024 End: 03-13-2024 Bamboo flowsheet Yara Law DO Work Phone: [facility] Start: 03-13-2024 End: 03-13-2024 Bamboo flowsheet Yara Law DO Work Phone: [facility] Start: 03-13-2024 End: 03-13-2024 Patient encounter procedure Yara Law DO Work Phone: [facility] Start: 03-13-2024 End: 03-13-2024 flow sheet Yara Law DO Work Phone: [facility] Comment on above: Screening, , for anatomic survey; Well woman exam with routine gynecological exam; Second trimester ; Vaginal discharge; STD exposure; 16 weeks gestation of Start: 03-13-2024 End: 03-13-2024 ambulatory YARA LAW Not Available Start: 03-08-2024 End: 03-12-2024 Clinisync Result Encounter Generic External Data Provider [facility] Unsolicited Start: 03-08-2024 End: 03-12-2024 Clinisync Result Encounter Generic External Data Provider [facility] Unsolicited Start: 02-13-2024 End: 02-13-2024 Bamboo flowsheet Yara [...] GA: 8w2d Start: 01-13-2024 End: 01-13-2024 ambulatory YARA LAW Not Available Start: 01-10-2024 End: 01-10-2024 Clinisync [...] Start: 06-14-2023 End: 06-14-2023 ambulatory [facility] Work Phone: Start: 06-14-2023 End: 06-14-2023 Patient encounter procedure [facility] Work Phone: Start: 02-12-2023 Office outpatient ne w 20 minutes Berta Rosales [facility] Start: 02-12-2023 End: 02-12-2023 ambulatory Berta Rosales [facility] [employer] Other Start: 02-12-2023 End: 02-12-2023 Departed 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 [employer]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 Berta Rosales Work Phone: [facility] [place] Work Phone: Start: 11-28-2022 End: 11-28-2022 ambulatory MD Maggie Anton Work Phone: [facility] Work Phone: Start: 11-28-2022 End: 11-28-2022 Patient encounter procedure MD Maggie Anton Work Phone: [facility]Flu Vaccine Start: 03-29-2022 End: 04-01-2022 Evaluation and management of inpatient MD Maggie Anton Work Phone: [facility] [place] Work Phone: Start: 03-10-2022 End: 03-10-2022 ambulatory MD Maggie Anton Work Phone: [facility] Work Phone: Start: 03-10-2022 End: 03-10-2022 Departed Referred MD Maggie Anton Work Phone: [facility] [place] Work Phone: Start: 03-08-2022 End: 03-08-2022 ambulatory MD Maggie Anton Work Phone: [facility] Work Phone: Start: 03-08-2022 End: 03-08-2022 Patient encounter procedure MD Maggie Anton Work Phone: [facility] [place] - O/P Start: 02-01-2022 End: 02-01-2022 ambulatory MD Maggie Anton Work Phone: [facility] Work Phone: Start: 02-01-2022 End: 02-01-2022 Patient encounter procedure MD Maggie Anton Work Phone: [facility] [place] Start: 10-06-2021 End: 10-06-2021 Departed Referred MD Maggie Anton Work Phone: [facility]Employee Benefit Screening Start: 11-21-2020 [...] Date Procedure Procedure Detail Performing Clinician Start: 03-14-2024 RECURRENT VAGINITIS (HTRX) Yara Law DO Work Phone: Start: 03-08-2024 Bacteria identified in Urine by Culture Generic External Data Provider Start: 02-13-2024 Urnls dip stick/tabl et rgnt non-auto w/o micrscp Yara Law DO Work Phone: Start: 02-06-2024 ALL CBC WITH AUTO DIFF Generic External Data Provider Start: 01-13-2024 Urnls dip stick/tabl et rgnt non-auto w/o micrscp Yaraolaf Foy DO Work Phone: Start: 01-10-2024 [facility] PREG QUANT HCG Gene arash External Data Provider Start: 06-14-2023 Quick Strep (POC) Start: 03-10-2022 Streptococcus agalac tiae culture MD Maggie Anton Work Phone: Start: 03-08-2022 Urine culture MD Maggie Anton Work Phone: Start: 03-08-2022 Ultrasonography of b ilateral kidneys MD Maggie Anton Work Phone: Plan of Treatment Date Care Activity Detail Author Start: 03-13-2024 End: 09-10-2024 Alpha fetoprotein, maternal Alpha fetoprotein, maternal Lab Routine Second trimester 16 weeks gestation of Expected: 03/13/2024 (Approximate), Expires: 09/10/2024 [facility] Comment on above: Expected: 03/13/2024 (Approximate), Expires: 09/10/2024 Start: 03-13-2024 End: 03-13-2025 US for US OB 14+ weeks anatomy scan Imaging Routine Screening, , for anatomic survey Expected: 03/13/2024, Expires: 03/13/2025 [facility] Comment on above: Expected: 03/13/2024 , Expires: 03/13/2025 Start: 03-13-2024 End: 03-13-2024 Patient encounter procedure [facility] Comment on above: Arrived Start: 02-13-2024 End: 02-13-2024 Patient encounter procedure [...] gestational age Expected: 01/13/2024 (Approximate), Expires: 01/12/2025 [facility] Work Phone: Comment on above: Expected: 01/13/2024 (Approximate), Expires: 01/12/2025 Start: 01-13-2024 End: 01-12-2025 Drugs of abuse panel - Urine by Screen method Rapid drug screen, urine Lab Routine , unspecified gestational age Encounter for supervision of normal first in first trimester Expected: 01/13/2024 (Approximate), Expires: 01/12/2025 [facility] Comment on above: Expected: 01/13/2024 (Approximate), Expires: 01/12/2025 Start: 01-13-2024 End: 01-12-2025 US Pelvis transvaginal US OB transvaginal Imaging Routine Missed menses Expected: 01/13/2024 (Approximate), Expires: 01/12/2025 [facility] Comment on above: Expected: 01/13/2024 (Approximate), Expires: 01/12/2025 Start: 01-13-2024 End: 01-13-2024 ambulatory 01/13/2024 10:30 AM EST Initial [facility] [address] [place] [id number] [facility] Start: 01-13-2024 End: 01-13-2024 Professional / ancillary services management 01/13/2024 10:00 AM EST Ancillary Procedure [facility] [address] [address] [facility] Start: 10-23-2023 Influenza vaccination Influenza Vacc ine (#1) [facility] Start: 02-12-2023 Bacteria identified in Urine by Culture [facility] Start: 04-01-2022 [facility] Start: 03-30-2022 Hospital admission [facility] Start: 03-10-2022 Group B Streptococcu s Culture Group B Streptococcus Culture [facility] Start: 03-08-2022 [facility] Start: 03-08-2022 Bacteria identified in Urine by Culture Urine Culture [facility] Start: 03-08-2022 Hospital admission [facility] Start: 03-08-2022 [facility] Bacteria identified in Urine by Culture Urine culture Microbiology Routine Missed menses Ordered: 01/13/2024 [facility] Comment on above: Ordered: 01/13/2024 CBC W Auto Different ial panel - Blood CBC and differential Lab Routine Missed menses , unspecified gestational age Ordered: 01/13/2024 [facility] Comment on above: Ordered: 01/13/2024 CHLAMYDIA TRACHOMATI S (GENITO/STI) CHLAMYDIA TRACHOMATIS (GENITO/STI) Lab Routine STD exposure Ordered: 03/13/2024 [facility] Comment on above: Ordered: 03/13/2024 Hemoglobin A1c/Hemoglobin.total in Blood Hemoglobin A1c Lab Routine Missed menses , unspecified gestational age Ordered: 01/13/2024 [facility] Comment on above: Ordered: 01/13/2024 Hepatitis B virus surface Ag [Presence] in Serum or Plasma by Immunoassay Hepatitis B surface antigen Lab Routine Missed menses , unspecified gestational age Ordered: 01/13/2024 [facility] Comment on above: Ordered: 01/13/2024 Hepatitis C virus Ab [Presence] in Serum or Plasma by Immunoassay Hepatitis C antibody Lab Routine Missed menses , unspecified gestational age Ordered: 01/13/2024 [facility] Comment on above: Ordered: 01/13/2024 HIV-1/HIV-2 antigen/antibody combination immunoassay HIV-1 and HIV-2 antibodies Lab Routine Missed menses , unspecified gestational age Ordered: 01/13/2024 [facility] Comment on above: Ordered: 01/13/2024 Neisseria gonorrhoea e DNA [Presence] in Unspecified specimen by ADALGISA with probe detection Neisseria gonorrhea DNA probe, direct Lab Routine STD exposure Ordered: 03/13/2024 [facility] Comment on above: Ordered: 03/13/2024 Patient Education [facility] Work Phone: Patient referral [facility] Work Phone: Reagin Ab [Presence] in Serum by RPR RPR Lab Routine Missed menses , unspecified gestational age Ordered: 01/13/2024 [facility] Comment on above: Ordered: 01/13/2024 Rubella antibody, IgG Rubella an tibody, IgG Lab Routine Missed menses , unspecified gestational age Ordered: 01/13/2024 [facility] Comment on above: Ordered: 01/13/2024 Streptococcus agalac tiae [Presence] in Unspecified specimen by Organism specific culture [facility] SURESWAB(R) ADVANCED VAGINITIS PLUS, TMA SURESWAB(R) ADVANCED VAGINITIS PLUS, TMA Pathology and Cytology Routine Vaginal discharge Ordered: 03/13/2024 [facility] Work Phone: Comment on above: Ordered: 03/13/2024 Immunizations Immunization Date Immunization Notes Care Provider Fa lillian 01-21-2024 influenza virus vacc ine, unspecified formulation Yara Foy DO Work Phone: [facility] 11-28-2022 influenza, injectabl e, quadrivalent, preservative free Maggie Anton MD Work Phone: [facility] 11-28-2022 influenza virus vacc ine, unspecified formulation Maggie Anton MD Work Phone: [facility] 03-31-2022 tetanus toxoid, redu elle diphtheria toxoid, and acellular pertussis vaccine, adsorbed MD Maggie Anton Work Phone: [facility] 12-11-2020 influenza, injectabl e, quadrivalent, preservative free Maggie Anton MD Work Phone: [facility] 11-27-2019 influenza, injectabl e, quadrivalent, preservative free Maggie Anton MD Work Phone: [facility] 02-23-2019 varicella virus vaccine Dipika Anton MD Work Phone: [facility] 12-14-2018 influenza, injectabl e, [place] canine kidney, preservative free Maggie Anton MD Work Phone: [facility] 12-14-2018 tetanus toxoid, redu elle diphtheria toxoid, and acellular pertussis vaccine, adsorbed Maggie Anton MD Work Phone: [facility] 12-19-2015 meningococcal oligosaccharide (groups A, C, Y and W-135) diphtheria toxoid conjugate vaccine (MCV4O) Maggie Anton MD Work Phone: [facility] 11-16-2010 tetanus toxoid, redu elle diphtheria toxoid, and acellular pertussis vaccine, adsorbed Maggie Anton MD Work Phone: [facility] 09-26-2002 diphtheria, tetanus toxoids and acellular pertussis vaccine, unspecified formulation Maggie Anton MD Work Phone: [facility] 09-26-2002 measles, mumps and rubella virus vaccine Maggie Anton MD Work Phone: [facility] 09-26-2002 poliovirus vaccine, inactivated Maggie Anton MD Work Phone: [facility] 04-29-2000 diphtheria, tetanus toxoids and acellular pertussis vaccine, unspecified formulation Maggie Anton MD Work Phone: [facility] 04-29-2000 haemophilus influenz ae type b vaccine, HbOC conjugate Maggie Anton MD Work Phone: [facility] 09-15-1998 measles, mumps and rubella virus vaccine Maggie Anton MD Work Phone: [facility] 09-15-1998 varicella virus vaccine Dipika Anton MD Work Phone: [facility] 05-09-1998 diphtheria, tetanus toxoids and acellular pertussis vaccine, unspecified formulation Maggie Anton MD Work Phone: [facility] 05-09-1998 haemophilus influenz ae type b conjugate and Hepatitis B vaccine Maggie Anton MD Work Phone: [facility] 05-09-1998 trivalent poliovirus vaccine, live, oral Maggie Anton MD Work Phone: [facility] 01-15-1998 diphtheria, tetanus toxoids and acellular pertussis vaccine, unspecified formulation Maggie Anton MD Work Phone: [facility] 01-15-1998 haemophilus influenz ae type b vaccine, PRP-OMP conjugate Maggie Anton MD Work Phone: [facility] 01-15-1998 trivalent poliovirus vaccine, live, oral Maggie Anton MD Work Phone: [facility] 1997 diphtheria, tetanus toxoids and acellular pertussis vaccine, unspecified formulation Maggie Anton MD Work Phone: [facility] 1997 haemophilus influenz ae type b conjugate and Hepatitis B vaccine Maggie Anton MD Work Phone: [facility] 1997 trivalent poliovirus vaccine, live, oral Maggie Anton MD Work Phone: [facility] 1997 hepatitis B vaccine, pediatric or pediatric/adolescent dosage Maggie Anton MD Work Phone: [facility] Payers Date Payer Category Payer [facility] er [id number] 2023 Unknown 2023 Unknown [id number] 2023 Self-pay [id number] 2023 Unknown [id number] 1997 Unknown [id number]. 593 1997 Unknown [id number] [id number]. 593 1997 Unknown [id number] [id number]. 593 1997 Unknown [id number] [id number]. 593 1997 Unknown [id number] 2.16.840.1.524626.3.579.2. 9 1997 Unknown [id number] 2.16.840.1.220970.3.579.2. 9 1997 Unknown [id number] 2.16.840.1.982703.3.579.2. 1258 1997 Unknown [id number] 2.16.840.1.265175.3.579.2. 9 1997 Unknown [id number] 2.16.840.1.234486.3.579.2. 1258 1997 Unknown [id number] 2.16.840.1.256136.3.579.2. 9 1997 Unknown [id number] 2.16.840.1.731172.3.579.2. 1258 1997 Unknown [id number] [id number]. 1259 1959 Unknown [id number] Unknown [id number] [id number]. 531 Worker's Compensation [id number] Social History Date Type Detail Facility Tobacco smoking status SCIS Unknown if ever smoked [facility] Work Phone: Start: 1995 Sex Assigned At Female F [facility] Start: 03-30-2022 End: 03-30-2022 Tobacco smoking status NHIS Never smoked tobacco (finding) [facility] Start: 10-18-2023 Sex Assigned At N orth [employer] Other Start: 08-23-2023 Tobacco smoking status NHIS Ex-smoker [facility] End: 02-22-2012 History of tobacco use Current smoker [facility] End: 02-22-2012 History of tobacco use Cigarette Smoker [facility] Start: 08-23-2023 Tobacco use and exposure Smokeless tobacco non-user [facility] Start: 10-18-2023 History of Social function [facility] Start: 1995 Sex assigned at Not on file [facility] Start: 11-30-2023 [facility] Goals Date Patient Goal Desired Activity /State Functional Status Date Assessment Result Facility 04-01-2022 Functional status Patient at Baseline [facility] Work Phone: Mental Status Date Assessment Result Facility 04-01-2022 Cognitive function Cognitive Sta tus Patient at Baseline [facility] Work Phone: Clinical Notes 06-01-2021 to 03-13-2024 Reena Tolbert, INSPECTOR AND UNLOADER - 03/13/2024 11:40 AM Roldan Ng, INSPECTOR AND UNLOADER - 02/13/2024 1:10 PM Christopher Luo, INSPECTOR AND UNLOADER - 01/13/2024 10:30 AM Jeri Anton MD - 10/18/2023 4:33 PM EDT Note Date & Type Note Facility 03-13-2024 History of Presen t illness Narrative Reason for Appointment: Patient ID: Sheeba Adhikari is a 28 y.o. female who presents for No chief complaint on file. Patient presents today for Return OB appointment. MEDICATIONS Current Outpatient Medications Medication Instructions magnesium oxide (MAG-OX) 400 mg, Oral, Daily promethazine (PHENERGAN) 12.5 mg, Oral, Every 6 hours PRN, Take 1 tablet by mouth every 6 hours as needed for nausea. ALLERGIES No Known Allergies PROBLEMS Active Ambulatory Problems Diagnosis Date Noted Adjustment disorder with anxiety (CMS/HCC) 12/27/2022 Alternating constipation and diarrhea 12/27/2022 Congestion of respiratory tract 12/27/2022 Dysphagia 12/27/2022 Gastroesophageal reflux disease 12/27/2022 Insomnia 12/27/2022 Myopia, bilateral 12/27/2022 Palpitations 12/27/2022 Social anxiety disorder (CMS/HCC) 12/27/2022 39 weeks gestation of 08/23/2023 Impacted [...] Types: Cigarettes Quit date: 02/22/2012 Years since quittin.0 Smokeless tobacco: Never Vaping Use Vaping status: Never Used Substance Use Topics Alcohol use: Not on file Drug use: Not on file FAMILY HISTORY No family history on file. SURGICAL HISTORY Past Surgical History: Procedure Laterality Date WISDOM TOOTH EXTRACTION REVIEW OF SYSTEMS Review of Systems: Review of Systems Constitutional: Negative. HENT: Negative. Eyes: Negative. Respiratory: Negative. Cardiovascular: Negative. Gastrointestinal: Negative. Genitourinary: Negative. Musculoskeletal: Negative. Skin: Negative. Neurological: Negative. All other systems reviewed and are negative. Hematological: Negative. Endocrine: Negative. Allergic/Immunologic: Negative. OBJECTIVE Objective: Physical Exam Constitutional: Appearance: Normal appearance. She is well-developed. Genitourinary: Vulva normal. Cardiovascular: Rate and Rhythm: Normal rate and regular rhythm. Pulmonary: Effort: Pulmonary effort is normal. Breath sounds: Normal breath sounds. Abdominal: General: Bowel sounds are normal. There is no distension. Palpations: Abdomen is soft. Tenderness: There is no abdominal tenderness. There is no guarding or rebound. Musculoskeletal: General: No swelling. Normal range of motion. Right lower leg: No edema. Left lower leg: No edema. Neurological: Mental Status: She is alert and oriented to person, place, and time. Skin: General: Skin is warm and dry. Psychiatric: Mood and Affect: Mood normal. Behavior: Behavior normal. Vitals and nursing note reviewed. Exam conducted with a wholesale and retail merchant present. Vitals: Estimated body mass index is 21.46 kg/m as calculated from the following: Height as of 10/18/23: 5' 8 . Weight as of this encounter: 141 lb 1.9 oz. BP: 94/58 Patient's last menstrual period was 11/16/2023. ASSESSMENT & PLAN ICD-10-CM 1. Screening, , for anatomic survey Z36.89 US OB 14+ weeks anatomy scan US OB 14+ weeks anatomy scan 2. Well woman exam with routine gynecological exam Z01.419 CANCELED: Pap Smear 3. Second trimester Z34.92 Alpha fetoprotein, maternal Alpha fetoprotein, maternal CANCELED: POCT urinalysis dipstick manually resulted 4. Vaginal discharge N89.8 SURESWAB(R) ADVANCED VAGINITIS PLUS, TMA 5. STD exposure Z20.2 CHLAMYDIA TRACHOMATIS (GENITO/STI) Neisseria gonorrhea DNA probe, direct 6. 16 weeks gestation of Z3A.16 Alpha fetoprotein, maternal Alpha fetoprotein, maternal CANCELED: POCT urinalysis dipstick manually resulted Return OB/Annual Exam: Patient presents today for cultures/routine obstetrics appointment. Patient is currently 16w6d . Patient states she is doing well. Cultures were obtained without difficulty and patient was given orders for anatomy scan and msAFP to be obtained. Orders Placed This Encounter Procedures US OB 14+ weeks anatomy scan CHLAMYDIA TRACHOMATIS (GENITO/STI) Neisseria gonorrhea DNA probe, direct Alpha fetoprotein, maternal Follow Up: Patient is to schedule annual exam for next year and return to office in 4 weeks for OB appointment. Documented by Reena Tolbert LPN on behalf of: Yara Foy DO documented in this encounter [facility] 02-13-2024 History of Presen t illness Narrative Reason for Appointment: Patient ID: hSeeba Adhikari is a 28 y.o. female who [...] bilateral 12/27/2022 Palpitations 12/27/2022 Social anxiety disorder (CMS/HCC) 12/27/2022 39 weeks gestation of 08/23/2023 Impacted [...] or undercooked meat, and stay away from [facility]. Patient has been consulted regarding any [...] Yara Foy DO documented in this encounter [facility] 01-13-2024 History of Presen t illness [...] Diagnosis Date Noted Adjustment disorder with anxiety ([facility]) 12/27/2022 Alternating constipation and diarrhea 12/27/2022 Congestion of respiratory tract 12/27/2022 Dysphagia 12/27/2022 Gastroesophageal reflux disease 12/27/2022 Insomnia 12/27/2022 Myopia, bilateral 12/27/2022 Palpitations 12/27/2022 Social anxiety disorder ([facility]) 12/27/2022 39 weeks gestation of [...] or undercooked meat, and stay away from [facility]. Patient has also been advised to [...] Alexsandra Luo LPN documented in this encounter [facility] 10-18-2023 History of Presen t illness [...] follow-ups on file. documented in this encounter [facility] 02-12-2023 Evaluation note Encounter Date Diagnosis [...] without sciatica, unspecified chronicity (ICD-10 - M54.50) [employer] Other 02-08-2023 Progress note Author CHAITANYA RAMIREZ [facility] March 31, 2022 7:09pm Note Date/Time March 31, 2022 7 :09pm [facility] [address] [place] [address] CLINICAL SERVICES DIRECTOR Progress Note Signed Patient: Sheeba Adhikari MR#: [id number] : 1995 Acct:[id number] Age/Sex: 26 / F Adm Date: 3 Loc: 3S Room: [address] [place] [address] Type: ADM IN Attending Dr: Mario Conley [...] % (Auto) 76.7, Lymph % (Auto) 13.5, Osborne % (Auto) 9.0, Eos % (Auto) 0.4, Baso % (Auto) 0.4, Nucleat RBC Rel Count 0.0, Neut# (Auto) 10.9 H, Lymph # (Auto) 1.9, Osborne # (Auto) 1.3 H, Eos # (Auto) [...] <Electronically signed by MD CHAITANYA RAMIREZ> 03/31/22 [id number] [facility] Work Phone: [phone] 595-985502-07-2023 [facility] NoteHISTORY: Right lower quadrant pain, rule out appendicitis PROCEDURE: Mismi VCT 64. Without intravenous or oral contrast [...] and signed by Shalom Mcneill on 06/01/2021 1540[facility] SpecialistEvaluation noteNo assessment information availableM[facility] Work Phone: Evaluation note* Diagnosis Onset Date Resolution Status 39 weeks gestation of acute [facility] Work Phone: Evaluation note* Diagnosis Impacted cerumen, right ear- Primary Missed menses , unspecified gestational age Encounter for supervision of normal first in first trimester documented in this encounter [facility] HealthcareEvaluation note* Diagnosis Impacted cerumen, right ear- Primary documented in this encounter [facility] HealthcareEvaluation note* Diagnosis Impacted cerumen, right ear- Primary 12 weeks gestation of Second trimester state, incidental Nausea Nausea alone Intractable episodic headache, unspecified headache type documented in this encounter [facility] HealthcareEvaluation note* Diagnosis Impacted cerumen, right ear- Primary Screening, , for anatomic survey Encounter for anatomic survey Well woman exam with routine gynecological exam Routine gynecological examination Second trimester state, incidental Vaginal discharge Leukorrhea, not specified as infective STD exposure 16 weeks gestation of documented in this encounter [facility] HealthcareProgress note Author VONDA MILLS [facility] April 01, 2022 10:58am Note Date/Time April 01, 2022 1 0:58am [facility] [address] [place] [address] CLINICAL SERVICES DIRECTOR Progress Note Signed Patient: Sheeba Adhikari MR#: [id number] : 1995 Acct:[id number] Age/Sex: 26 / F Adm Date: 3 Loc: Room: 1I5773-9 Type: ADM IN Attending Dr: Mario Conley [...] <Electronically signed by VONDA MILLS DO> 04/01/22 1056 [facility] Work Phone: Summary Purpose Family History Relationship Condition Age at Onset Recorded Date/T carlos Not Specified No pertinent family history Unknown Advance Directives Advance Directive Response Recorded Date/ Time Advance [...] section and content) DATE CREATED AUTHOR 08/17/[address] [facility] DATE CREATED AUTHOR AUTHOR'S ORGANIZ ATION 11/27/2020 [facility] pital DATE CREATED AUTHOR AUTHOR'S ORGANIZ ATION 06/02/2021 [facility] Me dical Specialist DATE CREATED AUTHOR AUTHOR'S ORGANIZ ATION 04/21/2023 [facility] DATE CREATED AUTHOR AUTHOR'S ORGANIZ ATION 03/15/2024 [facility] dical Specialists EPIC Care Teams (unrecognized sec tion and content) Team Status: Inactive Member Role Status Dates Maggie Anton MD Primary Care Provider Active Holger Aquino DO [facility] Attending Provider Active Team Status: Active Member [...] June 14, 2023 End: June 14, 2023 Global Supply Chain Director Relationship Specialty Start Date End Date Maggie Anton MD [address] [place] [address] [address] [place] [address] PCP - General Family Medicine 06/29/22 Morena Roman, INSIDE SALES ACCOUNT REPRESENTATIVE [address] [place] [address] [place] [address] PCP - [employer] 07/23/23 Global Supply Chain Director Relationship Specialty Start Date End Date Maggie Anton MD [address] [place] [address] PCP - General Family Medicine 06/29/22 Morena Roman, INSIDE SALES ACCOUNT REPRESENTATIVE [address] [place] [address] PCP - [employer] 07/23/23 Global Supply Chain Director Relationship Specialty Start Date End Date Maggie Anton MD [address] [place] [address] PCP - General Family Medicine 06/29/22 Maggie Anton MD [address] [place] [place] [address] PCP - [employer] 12/23/23 Global Supply Chain Director Relationship Specialty Start Date End Date Maggie Anton MD [address] [place] [place] [address] PCP - General Family Medicine 06/29/22 Morena Roman, INSIDE SALES ACCOUNT REPRESENTATIVE [address] [place] [place] [address] PCP - [employer] 07/23/23 Global Supply Chain Director Relationship Specialty Start Date End Date Maggie Anton MD [address] [place] [address] [place] [address] PCP - General Family Medicine 06/29/22 Maggie Anton MD [address] [place] [place] [address] PCP - [employer] 12/23/23 Global Supply Chain Director Relationship Specialty Start Date End Date Maggie Anton MD [address] [place] [place] [address] PCP - General Family Medicine 06/29/22 Maggie Anton MD [address] [place] [address] PCP - [employer] 12/23/23 Global Supply Chain Director Relationship Specialty Start Date End Date Maggie Anton MD [address] [place] [place] [address] PCP - General Family Medicine 06/29/22 Maggie Anton MD [address] [facility] [address] [place] [address] [facility] Global Supply Chain Director Relationship Specialty Start Date End Date Maggie Anton MD [address] [facility] [address] [place] [address] PCP - General Family Medicine 06/29/22 Maggie Anton MD [address] [place] [address] [place] [address] PCP - [employer] 12/23/23 Goals (unrecognized section and content) [...] BE BASED ON THE PRIMARY CLINICAL RECORDS. [facility] [employer] [facility] provides no warranty or guarantee of the accuracy or completeness of information in this document.
== END 2024-04-06 10:50 | disposition home or self-care (01) ==
LOC: US 10:50
PROVIDERS: PCP Family Medicine; Visit Provider Obstetrics & Gynecology
DX: Z36.89 Encounter for other specified antenatal screening (principal); Z3A.20 20 weeks gestation of pregnancy
CPT/HCPCS: 76805; 76817

== ENCOUNTER 2024-05-14 11:23 | Outpatient (OUT) | payer BC, SELFPAY ==
[2024-05-14 12:32] LABS: Basophils Absolute Auto 0.1 10^3/uL (0.0-0.1); Basophils Percent Auto 0.5 % (0.2-2.0); Eosinophils Absolute Auto 0.3 10^3/uL (0.0-0.7); Eosinophils Percent Auto 2.5 % (0.9-7.0); Hematocrit 34.8 % (36.0-48.0); Hemoglobin 11.9 g/dL (12.0-16.0); Immature Granulocytes Abs Auto 0.07 10^3/uL (0.00-0.03); Immature Granulocytes Pct Auto 0.6 % (0.0-0.5); Lymphocytes Absolute Auto 1.6 10^3/uL (1.2-3.8); Lymphocytes Percent Auto 14.2 % (20.5-60.0); Mean Corpuscular HGB Conc 34.2 g/dL (29.9-35.2); Mean Corpuscular Hemoglobin 32.2 pg (26.7-34.0); Mean Corpuscular Volume 94.1 fL (81.0-99.0); Mean Platelet Volume 9.8 fL (9.5-13.5); Monocytes Absolute Auto 0.9 10^3/uL (0.3-0.8); Monocytes Percent Auto 7.9 % (1.7-12.0); Neutrophils Absolute Auto 8.3 10^3/uL (1.4-6.5); Neutrophils Percent Auto 74.3 % (43.0-75.0); Platelet Count 328 10^3/uL (150-450); White Blood Count 11.2 10^3/uL (4.0-11.0)
[2024-05-14 12:54] LABS: Glucose 1 Hour 95 mg/dL (<130)
== END 2024-05-14 11:24 | disposition home or self-care (01) ==
LOC: LAB 11:24
PROVIDERS: PCP Family Medicine; Visit Provider Obstetrics & Gynecology
DX: Z13.1 Encounter for screening for diabetes mellitus (principal)
CPT/HCPCS: 36415; 82950; 85025

== ENCOUNTER 2024-06-21 02:35 | Observation (INO) | payer BC, SELFPAY ==
[2024-06-21] VITALS (10 sets, daily range): BP systolic 102–118; BP diastolic 53–65; PULSE 84–103; TEMP 36.8
[2024-06-21 03:01] LABS: Bilirubin Urine NEGATIVE (NEGATIVE); Blood Urine NEGATIVE (NEGATIVE); Clarity Urine CLEAR (CLEAR); Color Urine LT. YELLOW (YELLOW); Glucose Urine UA NEGATIVE (NEGATIVE); Ketones Urine NEGATIVE (NEGATIVE); Leukocyte Esterase Urine NEGATIVE (NEGATIVE); Nitrite Urine NEGATIVE (NEGATIVE); Protein Urine NEGATIVE (NEG/TRACE); Specific Gravity Urine 1.015 (1.005-1.025); Urobilinogen Urine 0.2 EU/dL (0.2-1.0)
[2024-06-21 03:05] LABS: Amnisure POSITIVE (NEGATIVE); Internal Control Within Normal Limits
[2024-06-21 03:05] LABS: Urine Microscopic Indicated NO
[2024-06-21] MEDS: BETAMETHASONE ACE/BETAMETHASONE SOD PHOS 30 MG/5 ML 12 MG IM (03:35)
--- NOTE | 2024-06-21 03:44 | P.OBHP_ITS ---
OB - H&P: HPI History of Present Illness Chief complaint: POSS WATER BREAK : 2 Para: 1 Gestational age based on last menstrual period: 02/27 Narrative: 28 yo at 31 02/27wks presents with complaints of leakage of fluid, positive amnisure, positive pooling at bedside, pt has occ ctxns, sve //high History of Present Dating criteria: LMP confirmed by 1st trimester US care: good care Ultrasounds: normal 1st trimester US and normal mid trimester US Medical complications OB: none Labs Blood type: A (+) positive Rubella: immune RPR/VDLR: nonreactive GBS status: unknown HBsAG: negative Review of Systems ROS Status of ROS: 10 or more systems reviewed and unremarkable except as noted in history and below PFSH PFSH Social History Little interest or pleasure in doing things: not at all Feeling down, depressed, or hopeless: not at all Meds Home Medications and Allergies Home Medications ?Medication ?Instructions ?Recorded ?Confirmed ?Type hydrocodone 5 mg-acetaminophen 325 1 tab PO Q6H PRN pa in 2 days #8 04/01/23 Rx mg tablet tabs cephalexin 500 mg capsule 500 mg PO BID 5 days #10 cap s 03/08/24 Rx dicyclomine 20 mg tablet 20 mg PO QID PRN abdominal p ain #8 03/08/24 Rx tabs Allergies Allergy/AdvReac Type Severity Reaction Status Date / Time No Known Drug Allergies Allergy Verified 03/08/24 20:03 Exam Constitutional Vital Signs, click to edit/add: Last Vital Signs Temp 98.2 F 06/21/24 03:07 Pulse 84 06/21/24 02:57 Resp 18 06/21/24 03:07 BP 111/65 06/21/24 02:57 Documenting provider has reviewed patient's vital signs: yes Common normals: no apparent distress Respiratory Common normals: normal respiratory effort and clear to auscultation bilaterally Cardio Common normals: regular rate and regular rhythm GI Common normals: Normal to inspection, nondistended, normoactive bowel sounds present Extremity Common normals: no clubbing, cyanosis or edema and no calf tenderness Results Labs Labs: Urine 06/21/24 Range/Units 02:45 Urine Color Lt. yellow (YELLOW) Urine Clarity Clear (CLEAR) Urine pH 7.0 (5.0-9.0) Ur Specific [place] 1.015 (1.005-1.025) Urine Protein Negative (NEG/TRACE) mg/dL Urine Glucose (UA) Negative (NEGATIVE) mg/dL OB - A/P Assessment and Plan (1) Intrauterine : (2) premature rupture of membranes: Assessment and Plan: iv, routine labs, celestone given, iv abx, magnesium 4g then 2g/hr, amnisure performed, discussed with mfm agreed with transport
[2024-06-21 03:46] LABS: Amphetamine Screen Urine NEGATIVE (NEGATIVE); Barbiturates Screen Urine NEGATIVE (NEGATIVE); Benzodiazepines Screen Urine NEGATIVE (NEGATIVE); Buprenorphine Screen Urine NEGATIVE (NEGATIVE); Cannabinoid Screen Urine NEGATIVE (NEGATIVE); Cocaine Screen Urine NEGATIVE (NEGATIVE); Methadone Screen Urine NEGATIVE (NEGATIVE); Methamphetamines Screen Urine NEGATIVE (NEGATIVE); Opiate Screen Urine NEGATIVE (NEGATIVE); Oxycodone Screen Urine NEGATIVE (NEGATIVE); Phencyclidine Screen Urine NEGATIVE (NEGATIVE); Tricyclic Antidepressant Urine NEGATIVE (NEGATIVE)
[2024-06-21] MEDS: 0.9 % SODIUM CHLORIDE 1,000 ML 75 ML IV (04:00)
[2024-06-21] MEDS: MAGNESIUM-BOLUS FROM THE BAG- 40 GM/1,000 ML IV.SOLN IV (04:00)
[2024-06-21 04:02] LABS: Hemoglobin 11.9 g/dL (12.0-16.0); Mean Corpuscular HGB Conc 33.1 g/dL (29.9-35.2); Mean Corpuscular Hemoglobin 30.8 pg (26.7-34.0); Mean Corpuscular Volume 93.3 fL (81.0-99.0); Mean Platelet Volume 10.1 fL (9.5-13.5); Platelet Count 376 10^3/uL (150-450); Red Blood Count 3.86 10^6/uL (4.20-5.40); Red Cell Distribution Width 13.3 % (11.0-15.0); White Blood Count 11.5 10^3/uL (4.0-11.0)
[2024-06-21] MEDS: AMPICILLIN SODIUM 2,000 MG in 0.9 % SODIUM CHLORIDE 100 ML 200 MG IV (04:08)
[2024-06-21] MEDS: MAGNESIUM SULFATE IN WATER 40 GM/1,000 ML IV.SOLN IV (04:20)
== END 2024-06-21 05:40 | disposition short-term general hospital (02) ==
LOC: FBC 02:37
PROVIDERS: Admitting Provider Obstetrics & Gynecology; PCP Family Medicine; Visit Provider Obstetrics & Gynecology
DX: O42.913 Preterm premature rupture of membranes, unspecified as to length of time between rupture and onset of labor, third trimester (principal); Z3A.31 31 weeks gestation of pregnancy
CPT/HCPCS: 36415; 51702; 59025; 80307; 81003; 84112; 85027; 86850; 86900; 86901; 96365; 96366; 96368; 96372; 96376; G0378; G0379; J0290; J0702; J3475

== ENCOUNTER 2024-06-29 18:41 | Emergency (ER) | payer BC, SELFPAY ==
--- OUTSIDE RECORDS SUMMARY | 2024-06-29 18:46 | XMS_ITS | CCD ---
Author Organization [facility] CliniSypr Care Team Providers Care Custom Van Converter Name Role Phone PHYSICIAN, DEFAULT Unavailable Unavailable PHYSICIAN, DEFAULT Unavailable Unavailable AILEEN SABILLON Unavailable Unavailable KOSINSKI, AILEEN Parekh Unavailable Unavailable DESEAN, SHANDA Unavailable Unavailable DESEAN, SHANDA Unavailable Unavailable KARASIK, DR DYER Attending Unavailable KARASIK, DR DYER Consulting Unavailable KARASIK, DR DEYR Admitting Unavailable DESEAN, DR LAND Consulting Unavailable [...] DESEAN, DR LAND Primary Care Unavailable MD Shanda Anton Primary Care Provider DO Holger Aquino Attending Provider [phone] MD Shanda Anton Primary Care Provider DO Mario Conley Attending Provider DO Shirlene Owen Attending Provider [phone] DO Mario Conley Admit Provider MD Shanda Anton Primary Care Provider DO Holger Aquino Attending Provider Berta Rosales Unavailable MARY BETH Rosales Attending Provider Berta Rosales Attending Unavailable Berta Rosales Admitting Unavailable Shanda Anton MD Primary Care Provider [phone] Mike HYDRAULICS ENGINEER, Morena Red Unavailable Shanda Anton MD Unavailable MATHIEU GUTIERREZ Admitting Unavailable MATHIEU GUTIERREZ Attending Unavailable JERE FOY Referring Unavailable SHANDA ANTON Primary Care Unavailable CLAUS SAMPSON Consulting Unavailable [facility] Consulti ng Unavailable ANUJ MONTERROSO Attending Unavailable SHANDA ANTON Primary Care Unavailable JARED OCASIO Referring Unavailable DESEANSHANDA Cordova Primary Care Unavailable DESEANSHANDA Cordova Referring Unavailable DESEANSHANDA Cordova Primary Care Unavailable DESEAN, SHANDA Daugherty Primary Care Unavailable LAW, JERE R Referring Unavailable LAW, JERE Attending Unavailable LAW, JERE Attending Unavailable LAW, JERE Attending Unavailable LAW, JERE Attending Unavailable LAW, JERE Referring Unavailable ARABELLA GOLDEN Attending Unavailable REENA CERVANTES Attending Unavailable LAW, JERE Attending Unavailable SHANDA ANTON Attending Unavailable LAW, JERE Attending Unavailable Shanda Anton MD Primary Care Provider Medications Current Medications Medication Drug Class(es) Dates Sig (Normalized) Sig (Original) acetaminophen 500 mg oral tablet (1 source) Start: 06-25-2024 take 2 tablets by mouth every eight hours acetaminophen (TYLENOL EXTRA STRENGTH) 500 mg tablet Take 2 tablets (1,000 mg total) by mouth every 8 (eight) hours. 30 tablet 06/25/2024 Active docusate sodium 100 mg oral capsule (1 source) Start: 06-25-2024 take 1 capsule by mouth in the morning, then take 1 capsule by mouth at bedtime docusate sodium (COLACE) 100 mg capsule Take 1 capsule (100 mg total) by mouth in the morning and 1 capsule (100 mg total) before bedtime. 60 capsule 06/25/2024 Active ibuprofen 800 mg oral tablet (5 sources) Nonsteroidal Anti-inflammatory Drug Start: 06-25-2024 take 1 tablet by mouth every eight hours ibuprofen (MOTRIN) 800 mg tablet Take 1 tablet (800 mg total) by mouth every 8 (eight) hours. 30 tablet 06/25/2024 Active Start: 03-30-2022 End: 06-14-2023 Ibuprofen Discontinued 600 M G PO Every 6 hours March 30, 2022 1:00am June 14, 2023 11:29am do not exceed 4 doses in a 24 hour period metroNIDAZOLE 500 mg oral tablet (1 source) Nitroimidazole Antimicrobial Start: 06-25-2024 End: 06-29-2024 take 1 tablet by mouth once metroNIDAZOLE (FLAGYL) 500 mg tablet Take 1 tablet (500 mg total) by mouth every 12 (twelve) hours for 4 days. 8 tablet 06/25/2024 06/29/2024 Active naloxone (NARCAN) 4 mg/actuation spray,non-aerosol nasal spray (1 source) Start: 06-25-2024 naloxone (NARCAN) 4 mg/actuation spray,non-aerosol nasal spray Administer 1 spray (4 mg total) into alternating nostrils as needed for opioid reversal. 1 each 06/25/2024 Active Silver Peak (No Known Home Meds) (1 source) Start: 06-14-2023 Silver Peak (No Known Home Meds) Active June 14, [...] vomiting 30 tablet 2 01/06/2024 02/05/2024 Active oxyCODONE hydrochloride 5 mg oral tablet (1 source) Opioid Agonist Start: 06-25-2024 End: 06-30-2024 take 1 tablet by mouth every six hours as needed for pain oxyCODONE (ROXICODONE) 5 mg immediate release tablet Indications: Post-op pain Take 1 tablet (5 mg total) by mouth every 6 (six) hours as needed for pain for up to 5 days. Max Daily Amount: 20 mg 20 tablet 06/25/2024 06/30/2024 Active 25/iron fum/folic/dha (-1 ORAL) (1 source) 25/iron fum/folic/dha (-1 ORAL) Take by mouth. Active promethazine hydrochloride 12.5 mg oral tablet (20 sources) Phenothiazine Start: 02-13-2024 take 1 tablet [...] Ferrous Sulfate Discontinued 325 MG PO Daily 30 30 March 30, 2022 1:00am June 14, 2023 11:29am magnesium oxide 400 mg oral tablet (6 [...] Problem Date Documented Date Episodic/Chronic Adjustment disorders (20 sources) Adjustment disorder with anxious mood; Translations: [Adjustment disorder with anxiety] Onset: 12-27-2022 12-27-2022 Chronic Anxiety disorders (20 sources) Social phobia; Translations: [Social phobia, unspecified] Onset: 12-27-2022 12-27-2022 Chronic Esophageal disorders (20 sources) Gastroesophageal reflux disease; Translations: [Gastro-esophageal reflux [...] sources) Nausea; Translations: [Nausea] 02-13-2024 Episodic Other complications of (2 sources) size does not accord with dates; Translations: [Uterine size-date discrepancy, unspecified trimester] 06-04-2024 Episodic Other female genital disorders (2 sources) Vaginal discharge; Translations: [Other specified noninflammatory disorders of vagina] 03-13-2024 Episodic Other lower respiratory disease (1 source) Shortness of breath; Translations: [SHORTNESS OF BREATH] Onset: 11-26-2020 Episodic Other nervous system disorders (1 source) Other acute postprocedural pain; Translations: [Other acute postprocedural pain] Onset: 06-21-2024 Episodic Other screening for suspected conditions (not mental disorders or infectious disease) (8 sources) Encounter for screening for malignant neoplasm of cervix; Translations: [Patient encounter status] Onset: 01-22-2020 Episodic Polyhydramnios and other problems of amniotic cavity (4 sources) Premature rupture of membranes, unspecified as to length of time between rupture and onset of labor, unspecified weeks of gestation; Translations: [ premature rupture of membranes ] Onset: 06-21-2024 06-21-2024 Episodic Residual codes; unclassified (1 source) 39 weeks gestation of ; Translations: [ state, incidental] 04-01-2022 Episodic Residual codes; unclassified (2 sources) Gestation period, 16 weeks; Translations: [16 weeks gestation of ] 03-13-2024 Episodic Residual codes; unclassified (2 sources) Gestation period, 21 weeks; Translations: [21 weeks gestation of ] 04-12-2024 Episodic Residual codes; unclassified (2 sources) Gestation period, 27 weeks; Translations: [27 weeks gestation of ] 05-24-2024 Episodic Residual codes; unclassified (2 sources) Gestation period, 28 weeks; Translations: [28 weeks gestation of ] 06-04-2024 Episodic Residual codes; unclassified (2 sources) Gestation period, 31 weeks; Translations: [31 weeks gestation of ] 06-20-2024 Episodic Unclassified (2 sources) Unknown / UNK(Unknown) [...] Onset: 01-01-2020 Episodic Blindness and vision defects (20 sources) Bilateral myopia of eyes; Translations: [Myopia, bilateral] Onset: 12-27-2022 12-27-2022 Episodic Cardiac dysrhythmias (20 sources) Palpitations; Translations: [Palpitations] Onset: 12-27-2022 12-27-2022 Episodic Other ear and sense organ disorders (20 sources) Impacted cerumen in right ear; Translations: [Impacted cerumen, right ear] Onset: 10-18-2023 10-18-2023 Episodic Other gastrointestinal disorders (20 sources) Constipation alternates with diarrhea; Translations: [Other specified symptoms and signs involving the digestive system and abdomen] Onset: 12-27-2022 12-27-2022 Episodic Other gastrointestinal disorders (20 sources) Dysphagia; Translations: [Dysphagia, unspecified] Onset: 12-27-2022 12-27-2022 Episodic Other lower respiratory disease (20 sources) Respiratory tract congestion; Translations: [Other specified respiratory disorders] Onset: 12-27-2022 12-27-2022 Episodic Other and delivery including normal (20 sources) ; Translations: [Encounter for supervision of normal , unspecified, unspecified trimester] Onset: 02-13-2024 01-13-2024 Episodic Residual codes; unclassified (20 sources) Gestation period, 39 weeks; Translations: [39 weeks gestation of ] Onset: 08-23-2023 03-31-2022 Episodic Residual codes; unclassified (20 sources) Insomnia; Translations: [Insomnia, unspecified] Onset: 12-27-2022 12-27-2022 Episodic Residual codes; unclassified (20 sources) Gestation period, 12 weeks; Translations: [12 weeks gestation of ] Onset: 02-13-2024 02-13-2024 Episodic Skin and subcutaneous tissue infections (1 [...] Test Name Value Interpretation Reference Range Facility CBC WITH AUTO DIFFERENTIALon 06-24-2024 CELLAVISION DIFFERENTIAL TYPE MANUAL DIFFERENTIAL Normal [facility] Comment on above: Result Comment: This is an appended report. These results have been appended to a previously preliminary verified report. Performed By: #### C MP #### [facility] ([facility]) [address] [place] [address] VIR CELLAVISION LYMPHOCYTES ABSOLUTE COUNT (10*3/UL) BY MANUAL COUNT 1.3 10*3/uL Normal [facility] Comment on above: Result Comment: This is an appended report. These results have been appended to a previously preliminary verified report. Performed By: #### C MP #### [facility] ([facility]) [address] [place] [address] VIR CELLAVISION LYMPHOCYTES RELATIVE PERCENT BY MANUAL COUNT 6 % Normal [facility] Comment on above: Result Comment: This is an appended report. These results have been appended to a previously preliminary verified report. Performed By: #### C MP #### [facility] ([facility]) [address] [place] [address] VIR CELLAVISION MONOCYTES ABSOLUTE COUNT (10*3/UL) IN BLOOD BY MANUAL COUNT 2.5 10*3/uL Normal [facility] Comment on above: Result Comment: This is an appended report. These results have been appended to a previously preliminary verified report. Performed By: #### C MP #### [facility] ([facility]) [address] [place] [address] VIR CELLAVISION MONOCYTES RELATIVE PERCENT BY MANUAL COUNT 11 % Normal [facility] Comment on above: Result Comment: This is an appended report. These results have been appended to a previously preliminary verified report. Performed By: #### C MP #### [facility] ([facility]) [address] [place] [address] VIR CELLAVISION MYELOCYTE RELATIVE PERCENT BY MANUAL COUNT 1 % Normal [facility] Comment on above: Result Comment: This is an appended report. These results have been appended to a previously preliminary verified report. Performed By: #### C MP #### [facility] ([facility]) [address] [place] [address] VIR CELLAVISION NEUTROPHILS ABSOLUTE COUNT BY MANUAL COUNT 18.5 10*3/uL Normal [facility] Comment on above: Result Comment: This is an appended report. These results have been appended to a previously preliminary verified report. Performed By: #### C MP #### [facility] ([facility]) [address] [place] [address] VIR CELLAVISION NEUTROPHILS RELATIVE PERCENT BY MANUAL COUNT 82 % Normal [facility] Comment on above: Result Comment: This is an appended report. These results have been appended to a previously preliminary verified report. Performed By: #### C MP #### [facility] ([facility]) [address] [place] [address] VIR Erythrocyte distribution width (RBC) [Ratio] 14.0 % Normal 11.5-15 [facility] Comment on above: Performed By: #### C MP #### [facility] ([facility]) [address] [place] [address] VIR Hematocrit (Bld) [Volume fraction] 31.4 % Low 35-47 [facility] Comment on above: Performed By: #### C MP #### [facility] ([facility]) [address] [place] [address] VIR Hemoglobin (Bld) [Mass/Vol] 10.5 g/dL Low 11.7-15.5 [facility] Comment on above: Performed By: #### C MP #### [facility] ([facility]) [address] [place] [address] VIR MCH (RBC) [Entitic mass] 30.8 pg Normal 27-34 [facility] Comment on above: Performed By: #### C MP #### [facility] ([facility]) [address] [place] [address] VIR MCHC (RBC) [Mass/Vol] 33.5 g/dL Normal 32-36 [facility] Comment on above: Performed By: #### C MP #### [facility] ([facility]) [address] [place] [address] VIR MCV (RBC) [Entitic vol] 92 fL Normal 80-100 [facility] Comment on above: Performed By: #### C MP #### [facility] ([facility]) [address] [place] [address] VIR Platelet mean volume (Bld) [Entitic vol] 8.1 fL Normal 7-12 [facility] Comment on above: Performed By: #### C MP #### [facility] ([facility]) [address] [place] [address] VIR Platelets (Bld) [#/Vol] 397 10*3/uL Normal 150-450 [facility] Comment on above: Performed By: #### C MP #### [facility] ([facility]) [address] [place] [address] VIR RBC COUNT 3.41 X10E12/L Low 3.8-5.2 [facility] Comment on above: Performed By: #### C MP #### [facility] ([facility]) [address] [place] [address] VIR WBC (Bld) [#/Vol] 22.5 10*3/uL High 4-11 [facility] Comment on above: Performed By: #### C MP #### [facility] ([facility]) [address] [place] [address] VIR BLOOD GAS, VENOUS, CORDon BASE,DEFICIT -4.0 mmol/L Low 0.0-2.0 [facility] Comment on above: Performed By: #### C MP #### [facility] ([facility]) [address] [place] [address] VIR HCO3 CORD VENOUS 21 mmol/L Normal [facility] Comment on above: Performed By: #### C MP #### [facility] ([facility]) [address] [place] [address] VIR Oxygen saturation in Blood 47.0 % Normal [facility] Comment on above: Performed By: #### C MP #### [facility] ([facility]) [address] [place] [address] VIR PCO2 CORD VENOUS 34.5 Normal [facility] Comment on above: Performed By: #### C MP #### [facility] ([facility]) [address] [place] [address] VIR PH CORD VENOUS 7.384 Normal [facility] Comment on above: Performed By: #### C MP #### [facility] ([facility]) [address] [place] [address] VIR PO2 CORD VENOUS 26 Normal 22-35 [facility] Comment on above: Performed By: #### C MP #### [facility] ([facility]) [address] [place] [address] VIR POC TRACI'S TEST N/A Normal [facility] Comment on above: Performed By: #### C MP #### [facility] ([facility]) [address] [place] [address] VIR SAMPLE SITE Heber Cord Normal [facility] Comment on above: Performed By: #### C MP #### [facility] ([facility]) [address] [place] [address] VIR SAMPLE TYPE UMBILICAL CORD Normal [facility] Comment on above: Performed By: #### C MP #### [facility] ([facility]) [address] [place] [address] VIR SOURCE OF OXYGEN [facility] Comment on above: Performed By: #### C MP #### [facility] ([facility]) [address] [place] [address] VIR CBC WITH AUTO DIFFERENTIALon 06-23-2024 BASOPHILS ABSOLUTE COUNT (10*3/UL) BY AUTOMATED COUNT 0.1 10*3/uL [facility] Comment on above: Performed By: #### C MP #### [facility] ([facility]) [address] [place] [address] VIR BASOPHILS RELATIVE PERCENT BY AUTOMATED COUNT 0.4 % Normal [facility] Comment on above: Performed By: #### C MP #### [facility] ([facility]) [address] [place] [address] VIR CELLAVISION DIFFERENTIAL TYPE AUTOMATED DIFFERENTIAL [facility] Comment on above: Performed By: #### C MP #### [facility] ([facility]) [address] [place] [address] VIR Eosinophils (Bld) [#/Vol] 0.0 10*3/uL Normal [facility] Comment on above: Performed By: #### C MP #### [facility] ([facility]) [address] [place] [address] VIR EOSINOPHILS RELATIVE PERCENT BY AUTOMATED COUNT 0.0 % Normal [facility] Comment on above: Performed By: #### C MP #### [facility] ([facility]) [address] [place] [address] VIR Erythrocyte distribution width (RBC) [Ratio] 14.3 % Normal 11.5-15 [facility] Comment on above: Performed By: #### C MP #### [facility] ([facility]) [address] [place] [address] VIR Hematocrit (Bld) [Volume fraction] 32.3 % Low 35-47 [facility] Comment on above: Performed By: #### C MP #### [facility] ([facility]) [address] [place] [address] VIR Hemoglobin (Bld) [Mass/Vol] 11.0 g/dL Low 11.7-15.5 [facility] Comment on above: Performed By: #### C MP #### [facility] ([facility]) [address] [place] [address] VIR LYMPHOCYTES ABSOLUTE COUNT (10*3/UL) BY AUTOMATED COUNT 0.9 10*3/uL Normal [facility] Comment on above: Performed By: #### C MP #### [facility] ([facility]) [address] [place] [address] VIR LYMPHOCYTES RELATIVE PERCENT BY AUTOMATED COUNT 5.0 % Normal [facility] Comment on above: Performed By: #### C MP #### [facility] ([facility]) [address] [place] [address] VIR MCH (RBC) [Entitic mass] 31.4 pg Normal 27-34 [facility] Comment on above: Performed By: #### C MP #### [facility] ([facility]) [address] [place] [address] VIR MCHC (RBC) [Mass/Vol] 33.9 g/dL Normal 32-36 [facility] Comment on above: Performed By: #### C MP #### [facility] ([facility]) [address] [place] [address] VIR MCV (RBC) [Entitic vol] 93 fL Normal 80-100 [facility] Comment on above: Performed By: #### C MP #### [facility] ([facility]) [address] [place] [address] VIR MONOCYTES ABSOLUTE COUNT (10*3/UL) BY AUTOMATED COUNT 0.8 10*3/uL Normal [facility] Comment on above: Performed By: #### C MP #### [facility] ([facility]) [address] [place] [address] VIR MONOCYTES RELATIVE PERCENT BY AUTOMATED COUNT 4.4 % Normal [facility] Comment on above: Performed By: #### C MP #### [facility] ([facility]) [address] [place] [address] VIR NEUTROPHILS ABSOLUTE COUNT BY AUTOMATED COUNT 16.8 10*3/uL Normal [facility] Comment on above: Performed By: #### C MP #### [facility] ([facility]) [address] [place] [address] VIR NEUTROPHILS RELATIVE PERCENT BY AUTOMATED COUNT 90.2 % Normal [facility] Comment on above: Performed By: #### C MP #### [facility] ([facility]) [address] [place] [address] VIR Platelet mean volume (Bld) [Entitic vol] 8.4 fL Normal 7-12 [facility] Comment on above: Performed By: #### C MP #### [facility] ([facility]) [address] [place] [address] VIR Platelets (Bld) [#/Vol] 373 10*3/uL Normal 150-450 [facility] Comment on above: Performed By: #### C MP #### [facility] ([facility]) [address] [place] [address] VIR RBC COUNT 3.49 X10E12/L Low 3.8-5.2 [facility] Comment on above: Performed By: #### C MP #### [facility] ([facility]) [address] [place] [address] VIR WBC (Bld) [#/Vol] 18.7 10*3/uL High 4-11 [facility] Comment on above: Performed By: #### C MP #### [facility] ([facility]) [address] [place] [address] VIR COMPREHENSIVE METABOLIC PANE Aman 06-23-2024 Albumin [Mass/Vol] 3.6 g/dL Normal 3.2-5.3 [facility] Comment on above: Performed By: #### C MP #### [facility] ([facility]) [address] [place] [address] VIR ALP [Catalytic activity/Vol] 59 U/L Normal 39-130 [facility] Comment on above: Performed By: #### C MP #### [facility] ([facility]) [address] [place] [address] VIR ALT [Catalytic activity/Vol] 6 U/L Normal <=31 [facility] Comment on above: Performed By: #### C MP #### [facility] ([facility]) [address] [place] [address] VIR Anion gap [Moles/Vol] 10 mmol/L Normal 5-15 [facility] Comment on above: Performed By: #### C MP #### [facility] ([facility]) [address] [place] [address] VIR AST [Catalytic activity/Vol] 11 U/L Normal <=41 [facility] Comment on above: Performed By: #### C MP #### [facility] ([facility]) [address] [place] [address] VIR Bilirubin [Mass/Vol] 0.4 mg/dL Normal 0.3-1.2 [facility] Comment on above: Performed By: #### C MP #### [facility] ([facility]) [address] [place] [address] VIR Calcium [Mass/Vol] 8.8 mg/dL Normal 8.5-10.5 [facility] [facility] Comment on above: Performed By: #### C MP #### [facility] ([facility]) [address] [place] [address] VIR Chloride [Moles/Vol] 107 mmol/L Normal 98-109 [facility] Comment on above: Performed By: #### C MP #### [facility] ([facility]) [address] [place] [address] VIR CO2 [Moles/Vol] 21 mmol/L Low 22-32 [facility] Comment on above: Performed By: #### C MP #### [facility] ([facility]) [address] [place] [address] VIR Creatinine [Mass/Vol] 0.49 mg/dL Normal 0.40-1.00 [facility] Comment on above: Result Comment: METH OD TRACEABLE TO IDMS STANDARD Performed By: #### C MP #### [facility] ([facility]) [address] [place] [address] VIR EGFR (CKD-EPI) NON-RACE DEPENDENT >^90 Normal >=60 [facility] Comment on above: Result Comment: Repo rted eGFR is based on the CKD-EPI 2020 equation that does not use a race coefficient. Performed By: #### C MP #### [facility] ([facility]) [address] [place] [address] VIR Glucose [Mass/Vol] 88 mg/dL Normal 65-99 [facility] Comment on above: Performed By: #### C MP #### [facility] ([facility]) [address] [place] [address] VIR Potassium [Moles/Vol] 4.1 mmol/L Normal 3.5-5.0 [facility] Comment on above: Performed By: #### C MP #### [facility] ([facility]) [address] [place] [address] VIR Protein [Mass/Vol] 6.6 g/dL Normal 6.0-8.0 [facility] Comment on above: Performed By: #### C MP #### [facility] ([facility]) [address] [place] [address] VIR Sodium [Moles/Vol] 138 mmol/L Normal 134-146 [facility] Comment on above: Performed By: #### C MP #### [facility] ([facility]) [address] [place] [address] VIR Urea nitrogen [Mass/Vol] 8 mg/dL Normal 5-23 [facility] Comment on above: Performed By: #### C MP #### [facility] ([facility]) [address] [place] [address] VIR AMNISUREon 06-21-2024 Interpretation and review of laboratory results Abnormal [facility] AMNISURE Positive Abnormal NEGATIVE [facility] CBC WITH AUTO DIFFERENTIALon 06-21-2024 BASOPHILS ABSOLUTE COUNT (10*3/UL) BY AUTOMATED COUNT 0.0 10*3/uL Normal [facility] Comment on above: Performed By: #### C BCA #### [facility] ([facility]) [address] [place] [address] VIR BASOPHILS RELATIVE PERCENT BY AUTOMATED COUNT 0.2 % Normal [facility] Comment on above: Performed By: #### C BCA #### [facility] ([facility]) [address] [place] [address] VIR CELLAVISION DIFFERENTIAL TYPE AUTOMATED DIFFERENTIAL Normal [facility] Comment on above: Performed By: #### C BCA #### [facility] ([facility]) [address] [place] [address] VIR Eosinophils (Bld) [#/Vol] 0.0 10*3/uL Normal [facility] Comment on above: Performed By: #### C BCA #### [facility] ([facility]) [address] [place] [address] VIR EOSINOPHILS RELATIVE PERCENT BY AUTOMATED COUNT 0.0 % Normal [facility] Comment on above: Performed By: #### C BCA #### [facility] ([facility]) [address] [place] [address] VIR Erythrocyte distribution width (RBC) [Ratio] 13.5 % Normal 11.5-15 [facility] Comment on above: Performed By: #### C BCA #### [facility] ([facility]) [address] [place] [address] VIR Hematocrit (Bld) [Volume fraction] 34.8 % Low 35-47 [facility] Comment on above: Performed By: #### C BCA #### [facility] ([facility]) [address] [place] [address] VIR Hemoglobin (Bld) [Mass/Vol] 11.4 g/dL Low 11.7-15.5 [facility] Comment on above: Performed By: #### C BCA #### [facility] ([facility]) [address] [place] [address] VIR LYMPHOCYTES ABSOLUTE COUNT (10*3/UL) BY AUTOMATED COUNT 0.8 10*3/uL Normal [facility] Comment on above: Performed By: #### C BCA #### [facility] ([facility]) [address] [place] [address] VIR LYMPHOCYTES RELATIVE PERCENT BY AUTOMATED COUNT 6.4 % Normal [facility] Comment on above: Performed By: #### C BCA #### [facility] ([facility]) [address] [place] [address] VIR MCH (RBC) [Entitic mass] 30.3 pg Normal 27-34 [facility] Comment on above: Performed By: #### C BCA #### [facility] ([facility]) [address] [place] [address] VIR MCHC (RBC) [Mass/Vol] 32.9 g/dL Normal 32-[address] [facility] Comment on above: Performed By: #### C BCA #### [facility] ([facility]) [address] [place] [address] VIR MCV (RBC) [Entitic vol] 92 fL Normal 80-100 [facility] Comment on above: Performed By: #### C BCA #### [facility] ([facility]) [address] [place] [address] VIR MONOCYTES ABSOLUTE COUNT (10*3/UL) BY AUTOMATED COUNT 0.1 10*3/uL Normal [facility] Comment on above: Performed By: #### C BCA #### [facility] ([facility]) [address] [place] [address] VIR MONOCYTES RELATIVE PERCENT BY AUTOMATED COUNT 0.8 % Normal [facility] Comment on above: Performed By: #### C BCA #### [facility] ([facility]) [address] [place] [address] VIR NEUTROPHILS ABSOLUTE COUNT BY AUTOMATED COUNT 11.7 10*3/uL Normal [facility] Comment on above: Performed By: #### C BCA #### [facility] ([facility]) [address] [place] [address] VIR NEUTROPHILS RELATIVE PERCENT BY AUTOMATED COUNT 92.6 % Normal [facility] Comment on above: Performed By: #### C BCA #### [facility] ([facility]) [address] [place] [address] VIR Platelet mean volume (Bld) [Entitic vol] 8.3 fL Normal 7-12 [facility] Comment on above: Performed By: #### C BCA #### [facility] ([facility]) [address] [place] [address] VIR Platelets (Bld) [#/Vol] 386 10*3/uL Normal 150-450 [facility] Comment on above: Performed By: #### C BCA #### [facility] ([facility]) [address] [place] [address] VIR RBC COUNT 3.77 X10E12/L Low 3.8-5.2 [facility] Comment on above: Performed By: #### C BCA #### [facility] ([facility]) [address] [place] [address] VIR WBC (Bld) [#/Vol] 12.6 10*3/uL High 4-11 [facility] Comment on above: Performed By: #### C BCA #### [facility] ([facility]) [address] [place] [address] VIR CHLAMYDIA/GC BY PCR MISHA SW ABon 06-21-2024 CHLAMYDIA/GC BY PCR MISHA SWAB CHLAMYDIA DNA(PCR) Negative Chlamydia trachomatis not detected by nucleic acid amplification. This does not exclude the possibility of infection because results are dependent on adequate specimen collection. GONORRHOEAE DNA(PCR) Negative Neisseria gonorrhoeae not detected by nucleic acid amplification. This does not exclude the possibility of infection because results are dependent on adequate specimen collection. Normal [facility] Comment on above: Performed By: #### C MP #### [facility] ([facility]) [address] [place] [address] VIR COMPREHENSIVE METABOLIC PANE Aman 06-21-2024 Albumin [Mass/Vol] 3.6 g/dL Normal 3.2-5.3 [facility] Comment on above: Performed By: #### C MP #### [facility] ([facility]) [address] [place] [address] VIR ALP [Catalytic activity/Vol] 73 U/L Normal 39-130 [facility] Comment on above: Performed By: #### C MP #### [facility] ([facility]) [address] [place] [address] VIR ALT [Catalytic activity/Vol] 7 U/L Normal <=31 [facility] Comment on above: Performed By: #### C MP #### [facility] ([facility]) [address] [place] [address] VIR Anion gap [Moles/Vol] 10 mmol/L Normal 5-15 [facility] Comment on above: Performed By: #### C MP #### [facility] ([facility]) [address] [place] [address] VIR AST [Catalytic activity/Vol] 11 U/L Normal <=41 [facility] Comment on above: Performed By: #### C MP #### [facility] ([facility]) [address] [place] [address] VIR Bilirubin [Mass/Vol] 0.2 mg/dL Low 0.3-1.2 [facility] Comment on above: Performed By: #### C MP #### [facility] ([facility]) [address] [place] [address] VIR Calcium [Mass/Vol] 7.8 mg/dL Low 8.5-10.5 [facility] Comment on above: Performed By: #### C MP #### [facility] ([facility]) [address] [place] [address] VIR Chloride [Moles/Vol] 105 mmol/L Normal 98-109 [facility] Comment on above: Performed By: #### C MP #### [facility] ([facility]) [address] [place] [address] VIR CO2 [Moles/Vol] 23 mmol/L Normal 22-32 [facility] Comment on above: Performed By: #### C MP #### [facility] ([facility]) [address] [place] [address] VIR Creatinine [Mass/Vol] 0.49 mg/dL Normal 0.40-1.00 [facility] Comment on above: Result Comment: METH OD TRACEABLE TO IDMS STANDARD Performed By: #### C MP #### [facility] ([facility]) [address] [place] [address] VIR EGFR (CKD-EPI) NON-RACE DEPENDENT >^90 Normal >=60 [facility] Comment on above: Result Comment: Repo rted eGFR is based on the CKD-EPI 2020 equation that does not use a race coefficient. Performed By: #### C MP #### [facility] ([facility]) [address] [place] [address] VIR Glucose [Mass/Vol] 107 mg/dL High 65-99 [facility] Comment on above: Performed By: #### C MP #### [facility] ([facility]) [address] [place] [address] VIR Potassium [Moles/Vol] 4.1 mmol/L Normal 3.5-5.0 [facility] Comment on above: Performed By: #### C MP #### [facility] ([facility]) [address] [place] [address] VIR Protein [Mass/Vol] 6.4 g/dL Normal 6.0-8.0 [facility] Comment on above: Performed By: #### C MP #### [facility] ([facility]) [address] [place] [address] VIR Sodium [Moles/Vol] 138 mmol/L Normal 134-146 [facility] Comment on above: Performed By: #### C MP #### [facility] ([facility]) [address] [place] [address] VIR Urea nitrogen [Mass/Vol] 7 mg/dL Normal 5-23 [facility] Comment on above: Performed By: #### C MP #### [facility] ([facility]) [address] [place] [address] VIR DRUG SCREEN, URINEon 025 AMPHETAMINE/METHAMP Negative Normal Negative [facility] Comment on above: Result Comment: AMPH /METH screening cut off = 1000 ng/mL Performed By: #### D QUINONES #### [facility] ([facility]) [address] [place] [address] VIR BARBITURATES Negative Normal Negative [facility] Comment on above: Result Comment: Yessica iturates screening cut off value = 200 ng/mL Performed By: #### D QUINONES #### [facility] ([facility]) [address] [place] [address] VIR BENZODIAZEPINES Negative Normal Negative [facility] Comment on above: Result Comment: Bakari odiazepines screening cut off value = 200 ng/mL Performed By: #### D QUINONES #### [facility] ([facility]) [address] [place] [address] VIR CANNABINOIDS Negative Normal Negative [facility] Comment on above: Result Comment: Trinity abinoids/THC screening cut off value = 50 ng/mL Performed By: #### D QUINONES #### [facility] ([facility]) [address] [place] [address] VIR COCAINE METABOLITE Negative Normal Negative [facility] Comment on above: Result Comment: Coca ine screening cut off value = 300 ng/mL Performed By: #### D QUINONES #### [facility] ([facility]) [address] [place] [address] VIR ECSTASY Negative Normal Negative [facility] Comment on above: Result Comment: Ecst asy screening cut off value = 500 ng/mL Performed By: #### D QUINONES #### [facility] ([facility]) [address] [place] [address] VIR METHADONE Negative Normal Negative [facility] Comment on above: Result Comment: Meth adone screening cut off value = 300 ng/mL. Performed By: #### D QUINONES #### [facility] ([facility]) [address] [place] [address] VIR OPIATES Negative Normal Negative [facility] Comment on above: Result Comment: Opia alycia screening cut off value = 300 ng/mL This test is used for the detection of codeine, hydrocodone (>1000 ng/mL), morphine and hydromorphone (>900 ng/mL) in urine. Performed By: #### D QUINONES #### [facility] ([facility]) [address] [place] [address] VIR OXYCODONE Negative Normal Negative [facility] Comment on above: Result Comment: Oxyc odone screening cut off value = 300 ng/mL This test is used for the detection of oxycodone and oxymorphone in urine. Performed By: #### D QUINONES #### [facility] ([facility]) [address] [place] [address] VIR PHENCYCLIDINE Negative Normal Negative [facility] Comment on above: Result Comment: Phen cyclidine screening cut off value = 25 ng/mL Performed By: #### D QUINONES #### [facility] ([facility]) [address] [place] [address] VIR No Panel Informationon 06-21 [facility] REPEATED ABORHon 06-21-2024 ABO_INTEP A Normal [facility] Comment on above: Performed By: #### A VIKASH #### [facility] ([facility]) [address] [place] [address] VIR RH_INTEP Positive Normal [facility] Comment on above: Performed By: #### A VIKASH #### [facility] ([facility]) [address] [place] [address] VIR RUPTURE OF MEMBRANE (A LL)on 06-21-2024 RUPTURE OF MEMBRANE Positive Abnormal Negative [facility] Comment on above: Performed By: #### R OMP #### [facility] ([facility]) [address] [place] [address] VIR STREP B SCREENon 06-21-2024 STREP B SCREEN CULTURE RESULTS NEGATIVE FOR GROUP B STREPTOCOCCUS BY NUCLEIC ACID AMPLIFICATION Normal [facility] Comment on above: Performed By: #### C MP #### [facility] ([facility]) [address] [place] [address] VIR SYPHILIS TOTAL(UNKNOWN SYPHI LIS STATUS)on 06-21-2024 SYPHILIS TOTAL <^0.2 Normal <=0.8 [facility] Comment on above: Order Comment: NON R EACTIVE No serologic evidence of infection to Treponema pallidum. Repeat testing may be considered in patients with suspected acute or primary syphilis in 2 to 4 weeks. Performed By: #### S YPHT #### [facility] ([facility]) [address] [place] [address] VIR TBH UA (CLEAN/CATCH) BODY PRESSER/JASON RO IF IND.on 06-21-2024 BILIRUBIN URINE Negative NEGATIVE [facility] BLOOD URINE Negative NEGATIVE [facility] Clarity (U) CLEAR CLEAR [facility] Color (U) LT. YELLOW YELLOW [facility] GLUCOSE URINE UA Negative NEGATIVE mg/dL [facility] Ketones Ql (U) Negative NEGATIVE mg/dL [facility] Leukocyte esterase Test strip Ql (U) Negative NEGATIVE [facility] NITRITE URINE Negative NEGATIVE [facility] pH (U) 7.0 [pH] 5.0 - 9.0 [facility] PROTEIN URINE Negative NEG/TRACE mg/dL [facility] SPECIFIC GRAVITY URINE 1.015 1.005 - 1.025 [facility] URINE MICROSCOPIC INDICATED NO [facility] UROBILINOGEN URINE 0.2 EU/dL 0.2 - 1.0 EU/dL [facility] TYPE AND SCREENon 06-21-2024 ABO_INTEP A Normal [facility] Comment on above: Performed By: #### T SC #### [facility] ([facility]) [address] [place] [address] VIR Performed By: #### A VIKASH #### [facility] ([facility]) [address] [place] [address] VIR RH_INTEP Positive Normal [facility] Comment on above: Performed By: #### T SC #### [facility] ([facility]) [address] [place] [address] VIR Performed By: #### A VIKASH #### [facility] ([facility]) [address] [place] [address] VIR URINALYSISon 06-21-2024 Bilirubin Ql (U) Negative Normal Negative [facility] Comment on above: Order Comment: Urine received without preservative. Delays in transport may affect results. Interpret with caution. A clinical correlation is recommended. Performed By: #### U A #### [facility] ([facility]) [address] [place] [address] VIR BLOOD/HGB Large Abnormal Negative [facility] Comment on above: Order Comment: Urine received without preservative. Delays in transport may affect results. Interpret with caution. A clinical correlation is recommended. Performed By: #### U A #### [facility] ([facility]) [address] [place] [address] VIR Color (U) Yellow Normal Yellow [facility] Comment on above: Order Comment: Urine received without preservative. Delays in transport may affect results. Interpret with caution. A clinical correlation is recommended. Performed By: #### U A #### [facility] ([facility]) [address] [place] [address] VIR Glucose Ql (U) Negative Normal Negative [facility] Comment on above: Order Comment: Urine received without preservative. Delays in transport may affect results. Interpret with caution. A clinical correlation is recommended. Performed By: #### U A #### [facility] ([facility]) [address] [place] [address] VIR Ketones Ql (U) Negative Normal Negative [facility] Comment on above: Order Comment: Urine received without preservative. Delays in transport may affect results. Interpret with caution. A clinical correlation is recommended. Performed By: #### U A #### [facility] ([facility]) [address] [place] [address] VIR Leukocyte esterase Test strip Ql (U) Negative Normal Negative [facility] Comment on above: Order Comment: Urine received without preservative. Delays in transport may affect results. Interpret with caution. A clinical correlation is recommended. Performed By: #### U A #### [facility] ([facility]) [address] [place] [address] VIR MUCOUS Present Abnormal None [facility] Comment on above: Order Comment: Urine received without preservative. Delays in transport may affect results. Interpret with caution. A clinical correlation is recommended. Performed By: #### U A #### [facility] ([facility]) [address] [place] [address] VIR Nitrite Ql (U) Negative Normal Negative [facility] Comment on above: Order Comment: Urine received without preservative. Delays in transport may affect results. Interpret with caution. A clinical correlation is recommended. Performed By: #### U A #### [facility] ([facility]) [address] [place] [address] VIR PH,URINE 8.0 Normal 5.0-8.5 [facility] Comment on above: Order Comment: Urine received without preservative. Delays in transport may affect results. Interpret with caution. A clinical correlation is recommended. Performed By: #### U A #### [facility] ([facility]) [address] [place] [address] VIR Protein Ql (U) Negative Normal Negative [facility] Comment on above: Order Comment: Urine received without preservative. Delays in transport may affect results. Interpret with caution. A clinical correlation is recommended. Performed By: #### U A #### [facility] ([facility]) [address] [place] [address] VIR R.B.CELLS 130 High 0-5 [facility] Comment on above: Order Comment: Urine received without preservative. Delays in transport may affect results. Interpret with caution. A clinical correlation is recommended. Performed By: #### U A #### [facility] ([facility]) [address] [place] [address] VIR Specific gravity (U) [Rel density] 1.012 Normal 1.003-1.035 [facility] Comment on above: Order Comment: Urine received without preservative. Delays in transport may affect results. Interpret with caution. A clinical correlation is recommended. Performed By: #### U A #### [facility] ([facility]) [address] [place] [address] VIR SQUAMOUS EPITHELIUM <^1 Normal 0-5 [facility] Comment on above: Order Comment: Urine received without preservative. Delays in transport may affect results. Interpret with caution. A clinical correlation is recommended. Performed By: #### U A #### [facility] ([facility]) [address] [place] [address] VIR TURBIDITY Clear Normal Clear [facility] Comment on above: Order Comment: Urine received without preservative. Delays in transport may affect results. Interpret with caution. A clinical correlation is recommended. Performed By: #### U A #### [facility] ([facility]) [address] [place] [address] VIR UROBILINOGEN <1.1 eu/dL Normal <1.1 eu/dL [facility] Comment on above: Order Comment: Urine received without preservative. Delays in transport may affect results. Interpret with caution. A clinical correlation is recommended. Performed By: #### U A #### [facility] ([facility]) [address] [place] [address] VIR W.B.CELLS 4 Normal 0-5 [facility] Comment on above: Order Comment: Urine received without preservative. Delays in transport may affect results. Interpret with caution. A clinical correlation is recommended. Performed By: #### U A #### [facility] ([facility]) [address] [place] [address] VIR URINE CULTUREon 06-21-2024 Bacteria identified Cx Nom (U) CULTURE RESULTS NO GROWTH AT <1000 CFU/mL Normal [facility] Comment on above: Performed By: #### C MP #### [facility] ([facility]) [address] [place] [address] VIR VAGINITIS PANEL PCRon 2024 VAGINITIS PANEL PCR BACT. VAGINOSIS DNA Detected Qualitative results are reported based on detection and quantitation of targeted organism markers which include: Lactobacillus spp. (L. crispatus and L. jensenii), Gardnerella vaginalis, Atopobium vaginae, Bacterial Vaginosis Associated Bacteria-2 (BVAB-2) and Megasphaera-1. VINAYAK SPECIES DNA Not Detected Vinayak species not detected include: C. albicans, C. tropicalis, C. parapsilosis or C. dubliniensis. VINAYAK KRUSEI DNA Not Detected No Vinayak krusei detected. VINAYAK GLABRATA DNA Not Detected No Vinayak glabrata detected. TRICHOMONAS VAG DNA Not Detected No Trichomonas vaginalis detected. BD MAX Vaginal Panel has not been evaluated for patients under 18 years old. Results for these patients should be reviewed and assessed in accordance with clinical presentation to determine patient diagnosis. Normal [facility] Comment on above: Performed By: #### V PPCR #### [facility] ([facility]) [address] [place] [address] VIR US OB FOLLOW UP TRANSABDOMIN AL APPROACHon 06-20-2024 US OB FOLLOW UP TRANSABDOMINAL APPROACH EXAM: US OB FOLLOW UP TRANSABDOMINAL APPROACH HISTORY: Inconsistent size. DASH 08/22/2024. . TECHNIQUE: U/S Ob 04/06/2024 report only COMPARISON: None. TECHNIQUE: Two-dimensional transabdominal grayscale ultrasound imaging of the pelvis was performed. FINDINGS: Gestation: Single Presentation: Cephalic Cardiac Activity: 153 beats per minute Placental Location: Posterior with no sonographic abnormalities identified. Distance from Placental Tip to Cervix: Not visualized Cervical Length: Not visualized Amniotic Fluid Index: 10.9 cm; MVP 4.1 cm MEASUREMENTS: BPD: 7.9 cm EGA: 31 weeks 5 days HC: 28.5 cm EGA: 31 weeks 2 days AC: 26.4 cm EGA: 30 weeks 4 days FL: 6.1 cm EGA: 31 weeks 4 days HC/AC Ratio: 1.08 (0.96-1.16) Gestational age by today's ultrasound is 31 weeks 2 days (+/- 15 days gestation). Estimated Weight: 1689 grams, +/- 253 grams ( 3 lb 12 oz). Weight Percentile for gestational age: 39 % IMPRESSION: 1. Single, live intrauterine gestation 31 weeks, 0 days by LMP. Today's ultrasound measurements correlate with a gestational age of 31 weeks 2 days. Fetus is measuring in the 39th weight percentile for gestational age. Interpreted by: Electronically signed by ASHA MOREJON II, MD, PHD at 24-Jun-2024 08:52:45 PM [facility] Normal Not Available Comment on above: Order Comment: US OB SCAN FOR GROWTH Estimated Date of Delivery: 08/22/24 Gestational Age as of 06/04/2024: 28w5d Urinalysis macro (dipstick) panel (U)on 06-04-2024 Bilirubin, UA Negative Negative - 4(70) +++ mg/dL [facility] Blood, UA Negative Negative - 50 Earl/mcL [facility] Clarity, UA Clear [facility] Color, UA Light Yellow [facility] Glucose, UA Negative Negative - 1999(110) ++++ mg/dL [facility] Interpretation and review of laboratory results Abnormal [facility] Ketones, UA Negative Negative - 160(16) ++++ mg/dL [facility] Leukocytes, UA Negative Negative - 500+++ Federica/mcL [facility] Nitrite, UA Negative Negative - Positive [facility] pH, UA 5.5 5 - 9 [facility] Protein, UA Negative Negative - 2000(20) ++++ mg/dL [facility] Spec Grav, UA 1.03 1 - 1.03 [facility] Urobilinogen, UA 1.0 0.2 - 12 mg/dL [facility] Urinalysis macro (dipstick) panel (U)on 05-24-2024 Bilirubin, UA Negative Negative - 4(70) +++ mg/dL [facility] Blood, UA Negative Negative - 50 Earl/mcL [facility] Clarity, UA Clear [facility] Color, UA Yellow [facility] Glucose, UA Negative Negative - 1999(110) ++++ mg/dL [facility] Interpretation and review of laboratory results Normal [facility] Ketones, UA Negative Negative - 160(16) ++++ mg/dL [facility] Leukocytes, UA Negative Negative - 500+++ Federica/mcL [facility] Nitrite, UA Negative Negative - Positive [facility] pH, UA 6 5 - 9 [facility] Protein, UA Negative Negative - 1999(20) ++++ mg/dL [facility] Spec Grav, UA 1.005 1 - 1.03 [facility] Urobilinogen, UA 0.2 0.2 - 12 mg/dL [facility] Urinalysis macro (dipstick) panel (U)on 04-12-2024 Bilirubin, UA Negative Negative - 4(70) +++ mg/dL [facility] Blood, UA Negative Negative - 50 Earl/mcL [facility] Clarity, UA Clear [facility] Color, UA Yellow [facility] Glucose, UA Negative Negative - 1999(110) ++++ mg/dL [facility] Interpretation and review of laboratory results Abnormal [facility] Ketones, UA Negative Negative - 160(16) ++++ mg/dL [facility] Leukocytes, UA Trace Negative - 500+++ Federica/mcL [facility] Nitrite, UA Negative Negative - Positive [facility] pH, UA 6 5 - 9 [facility] Protein, UA Negative Negative - 1999(20) ++++ mg/dL [facility] Spec Grav, UA 1.01 1 - 1.03 [facility] Urobilinogen, UA 0.2 0.2 - 12 mg/dL [facility] No Panel InformationOrdered By: Radiologist Radiology on 04-06-2024 [facility] Work Phone: No Panel Informationon 04-06 Radiology Study observation (narrative) [facility] US OB ANATOMYon 04-06-2024 [place] [address] Ultrasound Report Signed Patient: SHEEBA MACIEL MR#: [id number] : 1995 Acct:[id number] Age/Sex: 28 / F ADM Date: 04/06/24 Loc: US Attending Dr: Jere Foy D.O. Ordering Physician: Jere Foy D.O. Date of Service: 04/06/24 Procedure(s): US OB anatomy Accession Number(s): [id number] cc: SHANDA ANTON ; Jere Foy D.O. The [place] [id number] Patient Name: SHEEBA MACIEL MRN: [id number] date: 1995 Sex: F Assigned Patient Location: US Current Patient Location: US Accession/Order Number: [id number] Exam Date: 04/06/2024 11:09 Report Date: 04/06/2024 14:08 At the request of: JERE FOY Procedure: US OB anatomy EXAMINATION: US OB anatomy, US OB cervical length HISTORY: Screening Anatomic Survey COMPARISON: No relevant comparison available. TECHNIQUE: Transabdominal sonographic examination was performed for obstetrical and evaluation. FINDINGS: Number: 1 Heart Rate: 136.36 bpm H.B. /min Amniotic Fluid Volume: Subjectively normal Placental Location: Posterior with lower margin 3.2 cm from os. Cervix Length: 4.31 cm ; closed. ANATOMY: Normal Structures -cerebellum, choroid plexus, cisterna magna, lateral cerebral ventricles, orbits, midline falx, hard palate, four-chamber heart, RVOT, LVOT, stomach, kidneys, bladder, umbilical cord insertion into abdomen, three-vessel cord, cervical spine, thoracic spine, lumbar spine, sacral spine, right upper extremity, left upper extremity, right lower extremity, left lower extremity. SUBOPTIMALLY SEEN: None ABNORMALITIES: None BIOMETRY: BPD: 4.98 cm; 21 weeks 1 day; 80 % HC: 18.17 cm; 20 weeks 4 days; 55.20 % AC: 15.49 cm; 20 weeks 5 days; 57 % FL: 3.34 cm; 20 weeks 3 days; 48.70 % EFW:364.34 g; 63.20 % FL/AC: 21.58 FL/BPD: 67.13 HC/AC: 1.17 GESTATIONAL AGE: Age by EDC: 20 weeks 2 days Age by current US: 20 weeks 5 days DASH by current US: 2024-08-19 DASH by EDC: 2024-08-22 US/US OB anatomy IMPRESSION: 1. Single live intrauterine with growth detailed above. Electronically authenticated by: AIMEE BERRIOS Date: 04/06/2024 14:08 Dictated By: Aimee Berrios M.D. Signed By: 04/06/24 1411 DD/ 1408 TD/TT: Vocational Instructor: [facility] Radiology, Radiologist, - 04/06/2024 [place] [address] Ultrasound Report Signed Patient: SHEEBA MACIEL MR#: [id number] : 1995 Acct:[id number] Age/Sex: 28 / F ADM Date: 04/06/24 Loc: US Attending Dr: eJre Foy D.O. Ordering Physician: Jere Foy D.O. Date of Service: 04/06/24 Procedure(s): US OB anatomy Accession Number(s): [id number] cc: SHANDA ANTON ; Jere Foy D.O. The [place] [address] Patient Name: SHEEBA MACIEL MRN: [facility]:[id number] date: 1995 Sex: F Assigned Patient Location: US Current Patient Location: US Accession/Order Number: [id number] Exam Date: 04/06/2024 11:09 Report Date: 04/06/2024 14:08 At the request of: JERE FOY Procedure: US OB anatomy EXAMINATION: US OB anatomy, US OB cervical length HISTORY: Screening Anatomic Survey COMPARISON: No relevant comparison available. TECHNIQUE: Transabdominal sonographic examination was performed for obstetrical and evaluation. FINDINGS: Number: 1 Heart Rate: 136.36 bpm H.B. /min Amniotic Fluid Volume: Subjectively normal Placental Location: Posterior with lower margin 3.2 cm from os. Cervix Length: 4.31 cm ; closed. ANATOMY: Normal Structures -cerebellum, choroid plexus, cisterna magna, lateral cerebral ventricles, orbits, midline falx, hard palate, four-chamber heart, RVOT, LVOT, stomach, kidneys, bladder, umbilical cord insertion into abdomen, three-vessel cord, cervical spine, thoracic spine, lumbar spine, sacral spine, right upper extremity, left upper extremity, right lower extremity, left lower extremity. SUBOPTIMALLY SEEN: None ABNORMALITIES: None BIOMETRY: BPD: 4.98 cm; 21 weeks 1 day; 80 % HC: 18.17 cm; 20 weeks 4 days; 55.20 % AC: 15.49 cm; 20 weeks 5 days; 57 % FL: 3.34 cm; 20 weeks 3 days; 48.70 % EFW:364.34 g; 63.20 % FL/AC: 21.58 FL/BPD: 67.13 HC/AC: 1.17 GESTATIONAL AGE: Age by EDC: 20 weeks 2 days Age by current US: 20 weeks 5 days DASH by current US: 2024-08-19 DASH by EDC: 2024-08-22 US/US OB anatomy IMPRESSION: 1. Single live intrauterine with growth detailed above. Electronically authenticated by: AIMEE BERRIOS Date: 04/06/2024 14:08 Dictated By: Aimee Berrios M.D. Signed By: 04/06/24 1411 DD/ 1408 TD/TT: Vocational Instructor: [facility] OB CERVICAL LENGTHon 03-24 [place] [address] Ultrasound Report Signed Patient: SHEEBA MACIEL MR#: [id number] : 1995 Acct:[id number] Age/Sex: 28 / F ADM Date: 04/06/24 Loc: US Attending Dr: Jere Foy D.O. Ordering Physician: Jree Foy D.O. Date of Service: 04/06/24 Procedure(s): US OB cervical length Accession Number(s): [id number] cc: SHANDA ANTON ; Jere Foy D.O. [place] [id number] Patient Name: SHEEBA MACIEL MRN: [id number] date: 1995 Sex: F Assigned Patient Location: US Current Patient Location: US Accession/Order Number: [id number] Exam Date: 04/06/2024 11:09 Report Date: 04/06/2024 14:08 At the request of: JERE FOY Procedure: US OB cervical length EXAMINATION: US OB anatomy, US OB cervical length HISTORY: Screening Anatomic Survey COMPARISON: No relevant comparison available. TECHNIQUE: Transabdominal sonographic examination was performed for obstetrical and evaluation. FINDINGS: Number: 1 Heart Rate: 136.36 bpm H.B. /min Amniotic Fluid Volume: Subjectively normal Placental Location: Posterior with lower margin 3.2 cm from os. Cervix Length: 4.31 cm ; closed. ANATOMY: Normal Structures -cerebellum, choroid plexus, cisterna magna, lateral cerebral ventricles, orbits, midline falx, hard palate, four-chamber heart, RVOT, LVOT, stomach, kidneys, bladder, umbilical cord insertion into abdomen, three-vessel cord, cervical spine, thoracic spine, lumbar spine, sacral spine, right upper extremity, left upper extremity, right lower extremity, left lower extremity. SUBOPTIMALLY SEEN: None ABNORMALITIES: None BIOMETRY: BPD: 4.98 cm; 21 weeks 1 day; 80 % HC: 18.17 cm; 20 weeks 4 days; 55.20 % AC: 15.49 cm; 20 weeks 5 days; 57 % FL: 3.34 cm; 20 weeks 3 days; 48.70 % EFW:364.34 g; 63.20 % FL/AC: 21.58 FL/BPD: 67.13 HC/AC: 1.17 GESTATIONAL AGE: Age by EDC: 20 weeks 2 days Age by current US: 20 weeks 5 days DASH by current US: 2024-08-19 DASH by EDC: 2024-08-22 US/US OB cervical length IMPRESSION: 1. Single live intrauterine with growth detailed above. Electronically authenticated by: AIMEE BERRIOS Date: 04/06/2024 14:08 Dictated By: Aimee Berrios M.D. Signed By: 04/06/24 1411 DD/ 1408 TD/TT: Vocational Instructor: [facility] Radiology, Radiologist, - 04/06/2024 [place] [address] Ultrasound Report Signed Patient: SHEEBA MACIEL MR#: [id number] : 1995 Acct:[id number] Age/Sex: 28 / F ADM Date: 04/06/24 Loc: US Attending Dr: Jere Foy D.O. Ordering Physician: Jere Foy D.O. Date of Service: 04/06/24 Procedure(s): US OB cervical length Accession Number(s): [id number] cc: SHANDA ANTON ; Jere Foy D.O. [place] [address] Patient Name: SHEEBA MACIEL MRN: [id number] date: 1995 Sex: F Assigned Patient Location: US Current Patient Location: US Accession/Order Number: [id number] Exam Date: 04/06/2024 11:09 Report Date: 04/06/2024 14:08 At the request of: JERE FOY Procedure: US OB cervical length EXAMINATION: US OB anatomy, US OB cervical length HISTORY: Screening Anatomic Survey COMPARISON: No relevant comparison available. TECHNIQUE: Transabdominal sonographic examination was performed for obstetrical and evaluation. FINDINGS: Number: 1 Heart Rate: 136.36 bpm H.B. /min Amniotic Fluid Volume: Subjectively normal Placental Location: Posterior with lower margin 3.2 cm from os. Cervix Length: 4.31 cm ; closed. ANATOMY: Normal Structures -cerebellum, choroid plexus, cisterna magna, lateral cerebral ventricles, orbits, midline falx, hard palate, four-chamber heart, RVOT, LVOT, stomach, kidneys, bladder, umbilical cord insertion into abdomen, three-vessel cord, cervical spine, thoracic spine, lumbar spine, sacral spine, right upper extremity, left upper extremity, right lower extremity, left lower extremity. SUBOPTIMALLY SEEN: None ABNORMALITIES: None BIOMETRY: BPD: 4.98 cm; 21 weeks 1 day; 80 % HC: 18.17 cm; 20 weeks 4 days; 55.20 % AC: 15.49 cm; 20 weeks 5 days; 57 % FL: 3.34 cm; 20 weeks 3 days; 48.70 % EFW:364.34 g; 63.20 % FL/AC: 21.58 FL/BPD: 67.13 HC/AC: 1.17 GESTATIONAL AGE: Age by EDC: 20 weeks 2 days Age by current US: 20 weeks 5 days DASH by current US: 2024-08-19 DASH by EDC: 2024-08-22 US/US OB cervical length IMPRESSION: 1. Single live intrauterine with growth detailed above. Electronically authenticated by: AIMEE BERRIOS Date: 04/06/2024 14:08 Dictated By: Aimee Berrios M.D. Signed By: 04/06/24 1411 DD/ 1408 TD/TT: Vocational Instructor: [facility] RECURRENT VAGINITIS (HTRX)on 03-15-2024 ATOPOBIUM VAGINAE 15.949 Abnormal [facility] ATOPOBIUM VAGINAE Detected Abnormal [facility] BVAB 2,3 (BACTERIAL VAGINOSIS ASSOCIATED BACTERIA 2, 3); MOBILUNCUS SPP 26.298 Abnormal [facility] BVAB 2,3 (BACTERIAL VAGINOSIS ASSOCIATED BACTERIA 2, 3); MOBILUNCUS SPP Detected Abnormal [facility] VINAYAK ALBICANS, PARAPSILOSIS, TROPICALIS 0 [facility] [...] Abnormal [facility] GARDNERELLA VAGINALIS 23.244 Abnormal [facility] GARDNERELLA VAGINALIS Detected Abnormal [facility] Interpretation and review of laboratory results Abnormal [facility] MEGASPHAERA (TYPES 1, 2) 0 [facility] MEGASPHAERA (TYPES 1, 2) Not detected [facility] MYCOPLASMA GENITALIUM 0 [facility] MYCOPLASMA GENITALIUM Not detected [facility] NEISSERIA GONORRHOEAE 0 [facility] NEISSERIA GONORRHOEAE Not detected [facility] TET B, TET M 24.738 Abnormal [facility] TET B, TET M Detected Abnormal [facility] TRICHOMONAS VAGINALIS 0 [facility] TRICHOMONAS VAGINALIS Not detected [facility] URINE CULTURE, ROUTINEon Bacteria identified Cx Nom (U) Urine Culture, Routine [facility] Bacteria identified Cx Nom (U) Mixed urogenital leon [facility] Bacteria identified Cx Nom (U) Less than 10,000 colonies/mL [facility] Bacteria identified Cx Nom (U) Performed at: - [facility] Bacteria identified Cx Nom (U) [address] [place], [place] [id number] [facility] Bacteria identified Cx Nom (U) Foreign Law Consultant: Anselmo Caldwell PhD, Phone: [phone] [facility] Urinalysis macro (dipstick) panel (U)on 02-13-2024 Bilirubin, UA Negative Negative - 4(70) +++ mg/dL [facility] Blood, UA Negative Negative - 50 Earl/mcL [facility] Clarity, UA Clear [facility] Color, UA Yellow [facility] Glucose, UA Negative Negative - 2000(110) ++++ mg/dL [facility] Interpretation and review of laboratory results Abnormal [facility] Ketones, UA Negative Negative - 160(16) ++++ mg/dL [facility] Leukocytes, UA Positive Negative - 500+++ Federica/mcL [facility] Comment on above: small Nitrite, UA Negative Negative - Positive [facility] pH, UA 5.5 5 - 9 [facility] Protein, UA Negative Negative - 2000(20) ++++ mg/dL [facility] Spec Grav, UA 1.005 1 - 1.03 [facility] Urobilinogen, UA 0.2 0.2 - 12 mg/dL [facility] ALL CBC WITH AUTO DIFFon BASOPHILS ABSOLUTE AUTO 0 N [facility] Basophils/100 WBC (Bld) 0.3 % 0.2 - 2.0 % [facility] Eosinophils/100 WBC (Bld) 2.2 % 0.9 - 7.0 % [facility] Erythrocyte distribution width (RBC) [Ratio] 13.2 % 11.0 - 15.0 % [facility] Hematocrit (Bld) [Volume fraction] 36.6 % 36.0 - 48.0 % [facility] Hemoglobin (Bld) [Mass/Vol] 12.4 g/dL 12.0 - 16.0 g/dL [facility] IMMATURE GRANULOCYTES ABS AUTO 0.03 [facility] Immature granulocytes/100 WBC (Bld) 0.3 % 0.0 - 0.5 % [facility] Interpretation and review of laboratory results Abnormal [facility] LYMPHOCYTES ABSOLUTE AUTO 2.3 [facility] Lymphocytes/100 WBC (Bld) 23.9 % 20.5 - 60.0 % [facility] MCH (RBC) [Entitic mass] 32 pg 26.7 - 34.[address] [facility] MCHC (RBC) [Mass/Vol] 33.9 g/dL 29.9 - 35.2 g/dL [facility] MCV (RBC) [Entitic vol] 94.3 fL 81.0 - 99.[address] [facility] MONOCYTES ABSOLUTE AUTO 0.8 N [facility] Monocytes/100 WBC (Bld) 7.7 % 1.7 - 12.0 % [facility] NEUTROPHILS ABSOLUTE AUTO 6.4 [facility] Neutrophils/100 WBC (Bld) 65.6 % 43.0 - 75.0 % [facility] Platelet mean volume (Bld) [Entitic vol] 9.9 fL 9.5 - 13.[address] [facility] TBH EO # 0.2 [facility] TB PLT 354 [facility] RBC 3.88 Low [facility] WBC 9.8 [facility] HCG ( test) Ql (U)o n 01-13-2024 Interpretation and review of laboratory results Abnormal [facility] Preg Test, Ur Positive Negative [facility] Urinalysis macro (dipstick) panel (U)on 01-13-2024 Bilirubin, UA Negative Negative - 4(70) +++ mg/dL [facility] Blood, UA Negative Negative - 50 Earl/mcL [facility] Clarity, UA Clear [facility] Color, UA Yellow [facility] Glucose, UA Negative Negative - 1999(110) ++++ mg/dL [facility] Interpretation and review of laboratory results Normal [facility] Ketones, UA Negative Negative - 160(16) ++++ mg/dL [facility] Leukocytes, UA Negative Negative - 500+++ Federica/mcL [facility] Nitrite, UA Negative Negative - Positive [facility] pH, UA 6 5 - 9 [facility] Protein, UA Negative Negative - 1999(20) ++++ mg/dL [facility] Spec Grav, UA 1.02 1 - 1.03 [facility] Urobilinogen, UA 1.0 0.2 - 12 mg/dL [facility] TBH PREG QUANT HCGon 01-09- 024 HCG QUANTITATIVE 15392 mIU/mL [facility] Comment on above: 5-50 0.2-1 WEEK 50-500 1-2 WEEKS 100-5,000 2-3 WEEKS 500-10,000 3-4 WEEKS 1,000-50,000 4-5 WEEKS 10,000-100,000 5-6 WEEKS 15,000-200,000 6-8 WEEKS 10,000-100,000 2-[address] [facility] No Panel InformationOrdered By: Allyson Cadet on 06-14-2023 Quick Strep (POC) [facility] Urinalysis - AUTOMATEDon Appearance (U) cloudy [employer] Other Bilirubin Ql (U) Negative [employer] Other Color (U) pale yellow [employer] Other Glucose Ql (U) Negative [employer] Other Hemoglobin Ql (U) Negative [employer] Other Ketones Ql (U) Negative [employer] Other Leukocyte esterase Test strip Ql (U) small [employer] Other Nitrite Ql (U) Negative [employer] Other pH (U) 5.5 [pH] [employer] Other Protein Ql (U) Negative [employer] Other Specific gravity (U) [Rel density] >=1.030 [employer] Other Urobilinogen (U) [Mass/Vol] 0.2 mg/dL [employer] Other Urinalysis - AUTOMATED No rt [employer] Other Urine Cultureon 02-12-2023 Bacteria identified Cx Nom (U) Reason for Exam Dysuria Urine 25,000 colonies/ml mixed bacterial skin contaminants 2 Days PERFORMED BY: 63 [address] [place] [id number] PATHOLOGIST STUDIO MANAGER JOSEFINA GAMBLE M.D. Normal [facility] Comment on above: Performed By: #### C UU #### [facility] [address] Bacteria identified Cx Nom (U) [employer] Other Basophils Auto (Bld) [#/Vol] Ordered By: Mario Conley on 03-31-2022 Basophils (Bld) [#/Vol] 0.1 10*3/uL 0.0-0.2 [facility] Basophils/100 WBC Auto (Bld) Ordered By: Mario Conley on 03-31-2022 Basophils/100 WBC (Bld) 0.4 % . [facility] Eosinophils Auto (Bld) [#/Vo l]Ordered By: Mario Conley on 03-31-2022 Eosinophils (Bld) [#/Vol] 0.1 10*3/uL 0.0-0.45 [facility] Eosinophils/100 WBC Auto (Bl d)Ordered By: Mario Conley on 03-31-2022 Eosinophils/100 WBC (Bld) 0.4 % . [facility] Erythrocyte distribution wid th Auto (RBC) [Ratio]Ordered By: Mario Conley on 03-31-2022 Erythrocyte distribution width (RBC) [Ratio] 14.6 % 11.9-15.3 [facility] Hematocrit Auto (Bld) [Volum e fraction]Ordered By: Mario Conley on 03-31-2022 Hematocrit (Bld) [Volume fraction] 27.5 % 34.0-46.4 [facility] Hemoglobin [Mass/volume] in BloodOrdered By: Mario Conley on 03-31-2022 Hemoglobin (Bld) [Mass/Vol] 9.1 g/dL 11.8-15.4 [facility] Leukocytes [#/volume] correc edgard for nucleated erythrocytes in Blood by Automated counOrdered By: Mario Conley on 03-31-2022 WBC corrected for nucl RBC Auto (Bld) [#/Vol] 14.2 10*3/uL 3.8-11.6 [facility] Lymphocytes Auto (Bld) [#/Vo l]Ordered By: Mario Conley on 03-31-2022 Lymphocytes (Bld) [#/Vol] 1.9 10*3/uL 1.00-4.8 [facility] Lymphocytes/100 WBC Auto (Bl d)Ordered By: Mario Conley on 03-31-2022 Lymphocytes/100 WBC (Bld) 13.5 % . [facility] MCH Auto (RBC) [Entitic mass ]Ordered By: Mario Conley on 03-31-2022 MCH (RBC) [Entitic mass] 29.6 pg 24.7-34.3 [facility] MCHC Auto (RBC) [Mass/Vol]Or dered By: Mario Conley on 03-31-2022 MCHC (RBC) [Mass/Vol] 32.9 g/dL 32.0-35.[address] [facility] MCV Auto (RBC) [Entitic vol] Ordered By: Mario Conley on 03-31-2022 MCV (RBC) [Entitic vol] 90.0 fL 80-100 [facility] Monocytes Auto (Bld) [#/Vol] Ordered By: Mario Conley on 03-31-2022 Monocytes (Bld) [#/Vol] 1.3 10*3/uL 0.0-0.8 [facility] Monocytes/100 WBC Auto (Bld) Ordered By: Mario Conley on 03-31-2022 Monocytes/100 WBC (Bld) 9.0 % . [facility] Neutrophils Auto (Bld) [#/Vo l]Ordered By: Mario Conley on 03-31-2022 Neutrophils (Bld) [#/Vol] 10.9 10*3/uL 1.8-7.7 [facility] Neutrophils/100 WBC Auto (Bl d)Ordered By: Mario Conley on 03-31-2022 Neutrophils/100 WBC (Bld) 76.7 % . [facility] Nucleated erythrocytes [Pres ence] in Blood by Automated countOrdered By: Mario Conley on 03-31-2022 Nucleated RBC Auto Ql (Bld) 0.0 /100{WBC} 0-0.5 [facility] Platelet mean volume Auto (B ld) [Entitic vol]Ordered By: Mario Conley on 03-31-2022 Platelet mean volume (Bld) [Entitic vol] 9.1 fL 6.3-10.7 [facility] Platelets Auto (Bld) [#/Vol] Ordered By: Mario Conley on 03-31-2022 Platelets (Bld) [#/Vol] 274 10*3/uL 150-450 [facility] RBC Auto (Bld) [#/Vol]Ordere d By: Mario Conley on 03-31-2022 RBC (Bld) [#/Vol] 3.06 10*6/uL 3.60-5.00 [facility] WBC Auto (Bld) [#/Vol]Ordere d By: Mario Conley on 03-31-2022 WBC (Bld) [#/Vol] 14.2 10*3/uL 3.8-11.6 [facility] Reagin Ab [Presence] in Seru m by RPROrdered By: Mario Conley on 03-29-2022 Reagin Ab RPR Ql (S) Non-Reactive Non Reactive [facility] Comment on above: Performed at: [place] [id number] Director: Anselmo Caldwell PhD, Phone: [phone] Group B Streptococcus cultur eOrdered By: Mario Conley on 03-10-2022 S. agalactiae Org specific cx Ql (Unsp spec) No Group B Beta Streptococcus Isolated 3 Days [facility] Albumin [Mass/volume] in Ser um or PlasmaOrdered By: Shirlene Owen on 03-08-2022 Albumin [Mass/Vol] 2.6 g/dL 3.2-5.5 [facility] Amphetamine Screen Ql (U)Ord ered By: Shirlene Owen on 03-08-2022 Amphetamines Ql (U) Negative Negative [facility] Automated epithelial cells c ount in urine sediment (number/area)Ordered By: Shirlene Owen on 03-08-2022 Epithelial cells Auto (Urine sed) [#/Area] 1-2 [HPF] 0-2 [facility] Automated erythrocytes count in urine sediment (number/area)Ordered By: Shirlene Owen on 03-08-2022 RBC Auto (Urine sed) [#/Area] 0-1 [HPF] 0-4 [facility] Automated leukocytes count i n urine sediment (number/area)Ordered By: Shirlene Owen on 03-08-2022 WBC Auto (Urine sed) [#/Area] 50-100 [HPF] 0-4 [facility] Automated urine hyaline cast s count (number/volume)Ordered By: Shirlene Owen on 03-08-2022 Hyaline casts Auto (U) [#/Vol] None seen [LPF] 0-1 [facility] Barbiturates [Presence] in U rineOrdered By: Shirlene Owen on 03-08-2022 Barbiturates Ql (U) Negative Negative [facility] Basophils Auto (Bld) [#/Vol] Ordered By: Shirlene Owen on 03-08-2022 Basophils (Bld) [#/Vol] 0.0 10*3/uL 0.0-0.2 [facility] Basophils/100 WBC Auto (Bld) Ordered By: Shirlene Owen on 03-08-2022 Basophils/100 WBC (Bld) 0.2 % . [facility] Benzodiazepines [Presence] i n UrineOrdered By: Shirlene Owen on 03-08-2022 Benzodiazepines Ql (U) Negative Negative [facility] Bilirubin Test strip Ql (U)O rdered By: Shirlene Owen on 03-08-2022 Bilirubin Ql (U) Negative Negative [facility] Color Auto (U)Ordered By: Kingsley Owen on 03-08-2022 Color (U) Yellow Yellow [facility] Creatinine and Glomerular fi ltration rate.predicted panel (S/P/Bld)Ordered By: Shirlene Owen on 03-08-2022 Creatinine [Mass/Vol] 0.49 mg/dL 0.44-1.03 [facility] Eosinophils Auto (Bld) [#/Vo l]Ordered By: Shirlene Owen on 03-08-2022 Eosinophils (Bld) [#/Vol] 0.0 10*3/uL 0.0-0.45 [facility] Eosinophils/100 WBC Auto (Bl d)Ordered By: Shirlene Owen on 03-08-2022 Eosinophils/100 WBC (Bld) 0.3 % . [facility] Erythrocyte distribution wid th Auto (RBC) [Ratio]Ordered By: Shirlene Owen on 03-08-2022 Erythrocyte distribution width (RBC) [Ratio] 13.9 % 11.9-15.3 [facility] Estimated glomerular filtrat ion rate (GFR) non- AmericanOrdered By: Shirlene Owen on 03-08-2022 GFR/1.73 sq M.predicted among non-blacks MDRD (S/P/Bld) [Vol rate/Area] > 60 mL/Min [facility] Globulin Calc (S) [Mass/Vol] Ordered By: Shirlene Owen on 03-08-2022 Globulin (S) [Mass/Vol] 2.8 g/dL [facility] Hematocrit Auto (Bld) [Volum e fraction]Ordered By: Shirlene Owen on 03-08-2022 Hematocrit (Bld) [Volume fraction] 28.4 % 34.0-46.4 [facility] Hemoglobin [Mass/volume] in BloodOrdered By: Shirlene Owen on 03-08-2022 Hemoglobin (Bld) [Mass/Vol] 9.5 g/dL 11.8-15.4 [facility] Ketones Auto test strip (U) [Mass/Vol]Ordered By: Shirlene Owen on 03-08-2022 Ketones (U) [Mass/Vol] Negative Negative [facility] Laboratory - Drug toxicology Ordered By: Shirlene Owen on 03-08-2022 Opiates Ql (U) Negative Negative [facility] Leukocytes [#/volume] correc edgard for nucleated erythrocytes in Blood by Automated counOrdered By: Shirlene Owen on 03-08-2022 WBC corrected for nucl RBC Auto (Bld) [#/Vol] 9.7 10*3/uL 3.8-11.6 [facility] Lymphocytes Auto (Bld) [#/Vo l]Ordered By: Shirlene Owen on 03-08-2022 Lymphocytes (Bld) [#/Vol] 1.3 10*3/uL 1.00-4.8 [facility] Lymphocytes/100 WBC Auto (Bl d)Ordered By: Shirlene Owen on 03-08-2022 Lymphocytes/100 WBC (Bld) 13.0 % . [facility] MCH Auto (RBC) [Entitic mass ]Ordered By: Shirlene Owen on 03-08-2022 MCH (RBC) [Entitic mass] 30.7 pg 24.7-34.3 [facility] MCHC Auto (RBC) [Mass/Vol]Or dered By: Shirlene Owen on 03-08-2022 MCHC (RBC) [Mass/Vol] 33.6 g/dL 32.0-35.[address] [facility] MCV Auto (RBC) [Entitic vol] Ordered By: Shirlene Owen on 03-08-2022 MCV (RBC) [Entitic vol] 91.6 fL 80-100 [facility] Monocytes Auto (Bld) [#/Vol] Ordered By: Shirlene Owen on 03-08-2022 Monocytes (Bld) [#/Vol] 0.6 10*3/uL 0.0-0.8 [facility] Monocytes/100 WBC Auto (Bld) Ordered By: Shirlene Owen on 03-08-2022 Monocytes/100 WBC (Bld) 6.0 % . [facility] Neutrophils Auto (Bld) [#/Vo l]Ordered By: Shirlene Owen on 03-08-2022 Neutrophils (Bld) [#/Vol] 7.8 10*3/uL 1.8-7.7 [facility] Neutrophils/100 WBC Auto (Bl d)Ordered By: Shirlene Owen on 03-08-2022 Neutrophils/100 WBC (Bld) 80.5 % . [facility] Nitrite Test strip Ql (U)Ord ered By: Shirlene Owen on 03-08-2022 Nitrite Ql (U) Negative Negative [facility] No Panel InformationOrdered By: Shirlene Owen on 03-08-2022 Estimated GFR () > 60 mL/Min [facility] Comment on above: GFR estimated refere nce range: According to KDOQI guidelines, <60 ml/min/1.73m2 is sufficient to diagnose a patient with chronic kidney disease. Pharmacy Creatinine Clearance (Chem 178.59 [facility] Nucleated erythrocytes [Pres ence] in Blood by Automated countOrdered By: Shirlene Owen on 03-08-2022 Nucleated RBC Auto Ql (Bld) 0.1 /100{WBC} 0-0.5 [facility] Phencyclidine Screen Ql (U)O rdered By: Shirlene Owen on 03-08-2022 Phencyclidine Ql (U) Negative Negative [facility] Comment on above: These are unconfirme d results and should not be used for legal purposes. Drug Cut-Off Concentration: AMPH 1000 ng/mL YESSICA 200 ng/mL BAKARI 200 ng/mL COCM 300 ng/mL OP 300 ng/mL PCP 25 ng/mL Platelet mean volume Auto (B ld) [Entitic vol]Ordered By: Shirlene Owen on 03-08-2022 Platelet mean volume (Bld) [Entitic vol] 8.3 fL 6.3-10.7 [facility] Platelets Auto (Bld) [#/Vol] Ordered By: Shirlene Owen on 03-08-2022 Platelets (Bld) [#/Vol] 290 10*3/uL 150-450 [facility] Protein Auto test strip (U) [Mass/Vol]Ordered By: Shirlene Owen on 03-08-2022 Protein (U) [Mass/Vol] Negative Negative [facility] Protein [Mass/volume] in Ser um or PlasmaOrdered By: Shirlene Owen on 03-08-2022 Protein [Mass/Vol] 5.4 g/dL 6.1-7.9 [facility] RBC Auto (Bld) [#/Vol]Ordere d By: Shirlene Owen on 03-08-2022 RBC (Bld) [#/Vol] 3.10 10*6/uL 3.60-5.00 [facility] Serum or plasma alanine donato otransferase measurement without P-5'-P (enzymatic activiOrdered By: Shirlene Owen on 03-08-2022 ALT No additional P-5'-P [Catalytic activity/Vol] 9 U/L 10-60 [facility] Serum or plasma albumin/glob ulin mass ratioOrdered By: Shirlene Owen on 03-08-2022 Albumin/Globulin [Mass ratio] 0.9 {ratio} [facility] Serum or plasma alkaline lamin sphatase measurement (enzymatic activity/volume)Ordered By: Shirlene Owen on 03-08-2022 ALP [Catalytic activity/Vol] 113 U/L 32-92 [facility] Serum or plasma anion gap de terminationOrdered By: Shirlene Owen on 03-08-2022 Anion gap [Moles/Vol] 12.1 mmol/L 6.0-15.0 [facility] Serum or plasma aspartate am inotransferase measurement (enzymatic activity/volume)Ordered By: Shirlene Owen on 03-08-2022 AST [Catalytic activity/Vol] 14 U/L 10-42 [facility] Serum or plasma calcium sara urement (mass/volume)Ordered By: Shirlene Owen on 03-08-2022 Calcium [Mass/Vol] 8.5 mg/dL 8.2-10.2 [facility] Serum or plasma chloride rey surement (moles/volume)Ordered By: Shirlene Owen on 03-08-2022 Chloride [Moles/Vol] 108 mmol/L 95-114 [facility] Serum or plasma glucose sara urement (mass/volume)Ordered By: Shirlene Owen on 03-08-2022 Glucose [Mass/Vol] 83 mg/dL 70-100 [facility] Comment on above: ADA recommended refe rence rangeRandom Glucose Reference Range is dependent on time and content of last meal. Glucose of more than 200 mg/dL in a nonstressed, ambulatory subject supports the diagnosis of Diabetes Mellitus. Serum or plasma potassium me asurement (moles/volume)Ordered By: Shirlene Owen on 03-08-2022 Potassium [Moles/Vol] 3.5 mmol/L 3.5-5.1 [facility] Serum or plasma sodium measu rement (moles/volume)Ordered By: Shirlene Owen on 03-08-2022 Sodium [Moles/Vol] 136 mmol/L 136-146 [facility] Serum or plasma total biliru bin measurement (mass/volume)Ordered By: Shirlene Owen on 03-08-2022 Bilirubin [Mass/Vol] 0.3 mg/dL 0.3-1.2 [facility] Serum or plasma total carbon dioxide measurement (moles/volume)Ordered By: Shirlene Owen on 03-08-2022 CO2 [Moles/Vol] 19.4 mmol/L 22.0-30.0 [facility] Serum or plasma urea nitroge n measurement (mass/volume)Ordered By: Shirlene Owen on 03-08-2022 Urea nitrogen [Mass/Vol] 4 mg/dL 9-23 [facility] Specific gravity Auto test s trip (U) [Rel density]Ordered By: Shirlene Owen on 03-08-2022 Specific gravity (U) [Rel density] 1.002 1.001-1.030 [facility] Urine bacteria detection by automated methodOrdered By: Shirlene Owen on 03-08-2022 Bacteria Auto Ql (U) 2+ None Seen [facility] Urine clarity by refractomet ry automatedOrdered By: Shirlene Owen on 03-08-2022 Clarity Refractometry automated (U) Clear Clear [facility] Urine cocaine detectionOrder ed By: Shirlene Owen on 03-08-2022 Cocaine Ql (U) Negative Negative [facility] Urine culture routineOrdered By: Shirlene Owen on 03-08-2022 Bacteria identified Cx Nom (U) 2 Days [facility] Urine glucose measurement by automated test strip (mass/volume)Ordered By: Shirlene Owen on 03-08-2022 Glucose Auto test strip (U) [Mass/Vol] Normal mg/dL Normal [facility] Urine hemoglobin detection b y automated test stripOrdered By: Shirlene Owen on 03-08-2022 Hemoglobin Auto test strip Ql (U) Negative Negative [facility] Urine leukocyte esterase det ection by automated test stripOrdered By: Shirlene Owen on 03-08-2022 Leukocyte esterase Auto test strip Ql (U) 4+ Negative [facility] Urobilinogen Auto test strip (U) [Mass/Vol]Ordered By: Sihrlene Owen on 03-08-2022 Urobilinogen (U) [Mass/Vol] Normal mg/dL Normal [facility] WBC Auto (Bld) [#/Vol]Ordere d By: Shirlene Owen on 03-08-2022 WBC (Bld) [#/Vol] 9.7 10*3/uL 3.8-11.6 [facility] pH Auto test strip (U)Ordere d By: Shirlene Owen on 03-08-2022 pH (U) 7.0 [pH] 5.0-9.0 [facility] Hematocrit Auto (Bld) [Volum e fraction]Ordered By: Mario Conley on 02-01-2022 Hematocrit (Bld) [Volume fraction] 33.2 % 34.0-46.4 [facility] Hemoglobin [Mass/volume] in BloodOrdered By: Mario Conley on 02-01-2022 Hemoglobin (Bld) [Mass/Vol] 11.2 g/dL 11.8-15.4 [facility] No Panel InformationOrdered By: Mario Conley on 02-01-2022 Glucose 1 Hour Postprandial (Timed) 82 mg/dL 60-140 [facility] Albumin [Mass/volume] in Ser um or PlasmaOrdered By: Holger Aquino on 10-06-2021 Albumin [Mass/Vol] 3.8 g/dL 3.2-5.5 [facility] Basophils Auto (Bld) [#/Vol] Ordered By: Holger Aquino on 10-06-2021 Basophils (Bld) [#/Vol] 0.0 10*3/uL 0.0-0.2 [facility] Basophils/100 WBC Auto (Bld) Ordered By: Holger Aquino on 10-06-2021 Basophils/100 WBC (Bld) 0.5 % . [facility] Blood hemoglobin measurement (mass/volume)Ordered By: Holger Aquino on 10-06-2021 Hemoglobin (Bld) [Mass/Vol] 12.3 g/dL 11.8-15.4 [facility] Blood leukocytes automated c ount (number/volume)Ordered By: Holger Aquino on 10-06-2021 WBC (Bld) [#/Vol] 7.6 10*3/uL 4.5-11.0 [facility] Cholesterol [Mass/volume] in Serum or PlasmaOrdered By: Holger Aquino on 10-06-2021 Cholesterol [Mass/Vol] 147 mg/dL 140-200 [facility] Comment on above: Chol less than 200 m g/dl low risk Chol 201-239 mg/dl borderline risk Chol 240 mg/dl and greater high risk Cholesterol in LDL Calc [Mas s/Vol]Ordered By: Holger Aquino on 10-06-2021 Cholesterol in LDL [Mass/Vol] 89 mg/dL 0-100 [facility] Comment on above: LDL ATP III CLASSIFI CATION LDL less than 100 mg/dL Optimal LDL 100-129 mg/dL Near or above optimal LDL 130-159 mg/dL Borderline high LDL 160-189 mg/dL High LDL greater than 189 mg/dL Very high Cholesterol in VLDL Calc [Ma ss/Vol]Ordered By: Holger Aquino on 10-06-2021 Cholesterol in VLDL [Mass/Vol] 12 mg/dL [facility] Creatinine and Glomerular fi ltration rate.predicted panel (S/P/Bld)Ordered By: Holger Aquino on 10-06-2021 Creatinine [Mass/Vol] 0.54 mg/dL 0.44-1.03 [facility] Eosinophils Auto (Bld) [#/Vo l]Ordered By: Holger Aquino on 10-06-2021 Eosinophils (Bld) [#/Vol] 0.1 10*3/uL 0.0-0.45 [facility] Eosinophils/100 WBC Auto (Bl d)Ordered By: Holger Aquino on 10-06-2021 Eosinophils/100 WBC (Bld) 1.5 % . [facility] Erythrocyte distribution wid th Auto (RBC) [Ratio]Ordered By: Holger Aquino on 10-06-2021 Erythrocyte distribution width (RBC) [Ratio] 13.3 % 11.9-15.3 [facility] Estimated glomerular filtrat ion rate (GFR) non- AmericanOrdered By: Holger Aquino on 10-06-2021 GFR/1.73 sq M.predicted among non-blacks MDRD (S/P/Bld) [Vol rate/Area] > 60 mL/Min [facility] Globulin Calc (S) [Mass/Vol] Ordered By: Holger Aquino on 10-06-2021 Globulin (S) [Mass/Vol] 2.6 g/dL [facility] Hematocrit Auto (Bld) [Volum e fraction]Ordered By: Holger Aquino on 10-06-2021 Hematocrit (Bld) [Volume fraction] 36.2 % 34.0-46.4 [facility] Laboratory - Chemistry and C hemistry - challengeOrdered By: Holger Aquino on 10-06-2021 Glucose [Mass/Vol] 77 mg/dL 70-100 [facility] Laboratory - Hematology and Cell countsOrdered By: Holger Aquino on 10-06-2021 Nucleated RBC/100 WBC (Bld) [Ratio] 0.0 % 0-0.5 [facility] Lymphocytes Auto (Bld) [#/Vo l]Ordered By: Holger Aquino on 10-06-2021 Lymphocytes (Bld) [#/Vol] 1.6 10*3/uL 1.00-4.8 [facility] Lymphocytes/100 WBC Auto (Bl d)Ordered By: Holger Aquino on 10-06-2021 Lymphocytes/100 WBC (Bld) 21.1 % . [facility] MCH Auto (RBC) [Entitic mass ]Ordered By: Holger Aquino on 10-06-2021 MCH (RBC) [Entitic mass] 32.1 pg 24.7-34.3 [facility] MCHC Auto (RBC) [Mass/Vol]Or dered By: Holger Aquino on 10-06-2021 MCHC (RBC) [Mass/Vol] 33.9 g/dL 32.0-35.[address] [facility] MCV Auto (RBC) [Entitic vol] Ordered By: Holger Aquino on 10-06-2021 MCV (RBC) [Entitic vol] 94.8 fL 80-100 [facility] Monocyte %Ordered By: Holger Aquino on 10-06-2021 Monocyte % 62 mg/dL 35-149 [facility] Comment on above: TRIG ATP III CLASSIF ICATION TRIG less than 150 mg/dL Normal TRIG 150-199 mg/dL Borderline high TRIG 200-500 mg/dL High TRIG greater than 500 mg/dL Very high Standard traceable to the Center for Disease Conrtrol and Prevention (CDC) test method. Monocytes Auto (Bld) [#/Vol] Ordered By: Holger Aquino on 10-06-2021 Monocytes (Bld) [#/Vol] 0.6 10*3/uL 0.0-0.8 [facility] Monocytes/100 WBC Auto (Bld) Ordered By: Holger Aquino on 10-06-2021 Monocytes/100 WBC (Bld) 7.6 % . [facility] Neutrophils Auto (Bld) [#/Vo l]Ordered By: Holger Aquino on 10-06-2021 Neutrophils (Bld) [#/Vol] 5.3 10*3/uL 1.8-7.7 [facility] Neutrophils/100 WBC Auto (Bl d)Ordered By: Holger Aquino on 10-06-2021 Neutrophils/100 WBC (Bld) 69.3 % . [facility] No Panel InformationOrdered By: Holger Aquino on 10-06-2021 Estimated GFR () > 60 mL/Min [facility] Comment on above: GFR estimated refere nce range: According to KDOQI guidelines, <60 ml/min/1.73m2 is sufficient to diagnose a patient with chronic kidney disease. Nicotine Metabolite Negative Cutoff=25 [facility] Comment on above: Performed at: [address] [id number] Foreign [employer] Consultant: Viktoriya Smith MD, Phone: [phone] Pharmacy Creatinine Clearance (Chem N/A [facility] Platelet mean volume Auto (B ld) [Entitic vol]Ordered By: Holger Aquino on 10-06-2021 Platelet mean volume (Bld) [Entitic vol] 8.4 fL 6.3-10.7 [facility] Platelets Auto (Bld) [#/Vol] Ordered By: Holger Aquino on 10-06-2021 Platelets (Bld) [#/Vol] 348 10*3/uL 150-450 [facility] Protein [Mass/volume] in Ser um or PlasmaOrdered By: Holger Aquino on 10-06-2021 Protein [Mass/Vol] 6.4 g/dL 6.1-7.9 [facility] RBC Auto (Bld) [#/Vol]Ordere d By: Holger Aquino on 10-06-2021 RBC (Bld) [#/Vol] 3.82 10*6/uL 3.60-5.00 [facility] Serum or plasma alanine donato otransferase measurement without P-5'-P (enzymatic activiOrdered By: Holger Aquino on 10-06-2021 ALT No additional P-5'-P [Catalytic activity/Vol] 11 U/L 10-60 [facility] Serum or plasma albumin/glob ulin mass ratioOrdered By: Holger Aquino on 10-06-2021 Albumin/Globulin [Mass ratio] 1.5 {ratio} [facility] Serum or plasma alkaline lamin sphatase measurement (enzymatic activity/volume)Ordered By: Holger Aquino on 10-06-2021 ALP [Catalytic activity/Vol] 35 U/L 32-92 [facility] Serum or plasma aspartate am inotransferase measurement (enzymatic activity/volume)Ordered By: Holger Aquino on 10-06-2021 AST [Catalytic activity/Vol] 13 U/L 10-42 [facility] Serum or plasma calcium sara urement (mass/volume)Ordered By: Holger Aquino on 10-06-2021 Calcium [Mass/Vol] 9.5 mg/dL 8.2-10.2 [facility] Serum or plasma chloride rey surement (moles/volume)Ordered By: Holger Aquino on 10-06-2021 Chloride [Moles/Vol] 103 mmol/L 95-114 [facility] Serum or plasma high density lipoprotein (HDL) cholesterol measurementOrdered By: Holger Aquino on 10-06-2021 Cholesterol in HDL [Mass/Vol] 46 mg/dL 35-85 [facility] Comment on above: HDL CHOL ATP-III CLA SSIFICATION Cardiovascular Risk HDL > or equal to 60 mg/dL LOW HDL < 40 mg/dL HIGH Serum or plasma potassium me asurement (moles/volume)Ordered By: Holger Aquino on 10-06-2021 Potassium [Moles/Vol] 4.5 mmol/L 3.5-5.1 [facility] Serum or plasma sodium measu rement (moles/volume)Ordered By: Holgre Aquino on 10-06-2021 Sodium [Moles/Vol] 134 mmol/L 136-146 [facility] Serum or plasma total biliru bin measurement (mass/volume)Ordered By: Holger Aquino on 10-06-2021 Bilirubin [Mass/Vol] 0.6 mg/dL 0.3-1.2 [facility] Serum or plasma total carbon dioxide measurement (moles/volume)Ordered By: Holger Aquino on 10-06-2021 CO2 [Moles/Vol] 24.2 mmol/L 22.0-30.0 [facility] Serum or plasma total choles terol/high density lipoprotein (HDL) cholesterol mass ratOrdered By: Holger Aquino on 10-06-2021 Cholesterol.total/Tessa sterol in HDL [Mass ratio] 3.2 {ratio} <5.0 [facility] Serum or plasma urea nitroge n measurement (mass/volume)Ordered By: Holger Aquino on 10-06-2021 Urea nitrogen [Mass/Vol] 7 mg/dL 9- [facility] TSH DL <= 0.005 mIU/L QnOrde red By: Holger Aquino on 10-06-2021 TSH Qn 1.55 m[IU]/L 0.45-5.33 [facility] RESPIRATORY PANEL PLUSon Adenovirus Not detected Normal NOT DETECTED [facility] Comment on above: Performed By: #### R SPLUS #### [facility] [address] [address] [address] Roberto Carlos Ortiz Parapertusis Not detected Normal NOT DETECTED [facility] Comment on above: Performed By: #### R SPLUS #### [facility] [address] [address] [address] Roberto Carlos Ortiz Pertussis Not detected Normal NOT DETECTED [facility] Comment on above: Performed By: #### R SPLUS #### [facility] [address] [place] [address] Dr. Roberto Carlos Colmenares Chlamydia Pneumoniae Not detected Normal NOT DETECTED [facility] Comment on above: Performed By: #### R SPLUS #### [facility] [address] [place] [address] Dr. Roberto Carlos Colmenares Coronavirus 229E Not detected Normal NOT DETECTED [facility] Comment on above: Performed By: #### R SPLUS #### [facility] [address] [place] [address] Dr. Roberto Carlos Colmenares Coronavirus HKU1 Not detected Normal NOT DETECTED [facility] Comment on above: Performed By: #### R SPLUS #### [facility] [address] [place] [address] Dr. Roberto Carlos Colmenares Coronavirus NL63 Not detected Normal NOT DETECTED [facility] Comment on above: Performed By: #### R SPLUS #### [facility] [address] [place] [address] Dr. Roberto Carlos Colmenares Coronavirus OC43 Not detected Normal NOT DETECTED [facility] Comment on above: Performed By: #### R SPLUS #### [facility] [address] [place] [address] Dr. Roberto Carlos Colmenares Influenza A H1 2008 Not detected Normal NOT DETECTED [facility] Comment on above: Performed By: #### R SPLUS #### [facility] [address] [place] [address] Dr. Roberto Carlos Colmenares Influenza B Not detected Normal NOT DETECTED [facility] Comment on above: Performed By: #### R SPLUS #### [facility] [address] [place] [address] Dr. Roberto Carlos Colmenares Metapneumovirus Not detected Normal NOT DETECTED [facility] Comment on above: Performed By: #### R SPLUS #### [facility] [address] [place] [address] Dr. Roberto Carlos Colmenares Mycoplas. Pneumoniae Not detected Normal NOT DETECTED [facility] Comment on above: Performed By: #### R SPLUS #### [facility] [address] [place] [address] Dr. Roberto Carlos Colmenares Parainfluenza 1 Not detected Normal NOT DETECTED [facility] Comment on above: Performed By: #### R SPLUS #### [facility] [address] [place] [address] Dr. Roberto Carlos Colmenares Parainfluenza 2 Not detected Normal NOT DETECTED [facility] Comment on above: Performed By: #### R SPLUS #### [facility] [address] [place] [address] Dr. Roberto Carlos Colmenares Parainfluenza 3 Not detected Normal NOT DETECTED [facility] Comment on above: Performed By: #### R SPLUS #### [facility] [address] [place] [address] Dr. Roberto Carlos Colmenares Parainfluenza 4 Not detected Normal NOT DETECTED [facility] Comment on above: Performed By: #### R SPLUS #### [facility] [address] [place] [address] Dr. Roberto Carlos Colmenares Rhino/Enterovirus Not detected Normal NOT DETECTED [facility] Comment on above: Performed By: #### R SPLUS #### [facility] [address] [place] [address] Dr. Roberto Carlos Colmenares RP2 Header 1 RESPIRATORY PANEL: VIRUSES Normal [facility] Comment on above: Performed By: #### R SPLUS #### [facility] [address] [place] [address] Dr. Roberto Carlos VIVAS Header 2 RESPIRATORY PANEL: BACTERIA Normal [facility] Comment on above: Performed By: #### R SPLUS #### [facility] [address] [place] [address] Dr. Roberto Carlos Colmenares RP2 Header 4 EUA SEE BELOW Normal [facility] Comment on above: Result Comment: This test is not yet approved or cleared by the [place] FDA. When there are no FDA-approved or cleared tests available, and other criteria are met, FDA can make tests available under an emergency access mechanism called an Emergency Use Authorization (EUA). The EUA for this test is supported by the [place] of Health and Human Service?s (HHS?s) declaration [...] By: #### R SPLUS #### [facility] [address] [place] [address] Dr. Roberto Carlos Colmenares RSV Detected Critically abnormal NOT DETECTED [facility] Comment on above: Performed By: #### R SPLUS #### [facility] [address] [place] [address] Dr. Roberto Carlos Colmenares SARS-CoV-2 (COVID-19) RNA ADALGISA+probe Ql (Unsp spec) Not detected Normal NOT DETECTED [facility] Comment on above: Performed By: #### R SPLUS #### [facility] [address] [place] [address] Dr. Roberto Carlos Colmenares PAP ACOG PANEL 2: 21 to 29on 01-28-2020 . . Normal [facility] Comment on above: Performed By: #### [id number] #### [facility] [address] [place] [address] Dashawn Valles Age Gdln ACOG Testing - [facility] Comment on above: Performed By: #### [id number] #### [facility] [address] [place] [address] Dashawn Valles COMMENT Comment Normal [facility] Comment on above: Result Comment: Z01. [id number] Performed By: #### [id number] #### [facility] [address] [place] [address] Dashawn Valles DIAGNOSIS: Comment [facility] Comment on above: Result Comment: NEGA TIVE FOR INTRAEPITHELIAL LESION OR MALIGNANCY. Performed By: #### [id number] #### [facility] [address] [place] [address] Dashawn Valles Methodology: Comment [facility] Comment on above: Result Comment: This liquid based SurePath(R) pap test was screened with the assistance of an image guided system. Performed By: #### [id number] #### [facility] [address] [place] [address] Dashawn Valles Note: Comment Normal [facility] Comment on above: Result Comment: The Pap smear is a screening test designed to aid in the detection of premalignant and malignant conditions of the uterine cervix. It is not a diagnostic procedure and should not be used as the sole means of detecting cervical cancer. Both false-positive and false-negative reports do occur. . Performed By: #### [id number] #### [facility] [address] [place] [address] Dashawn Valles Performed by: Comment Normal [facility] Comment on above: Result Comment: Muriel Madison, Tape Control Skin Or Spar Mill Operator (ASCP) Performed By: #### [id number] #### [facility] [address] [place] [address] Dashawn Valles Reflex Criteria: Comment Normal [facility] Comment on above: Result Comment: The HPV DNA reflex criteria were not met with this specimen result therefore, no HPV testing was performed. . Performed By: #### [id number] #### [facility] [address] [place] [address] Dashawn Valles Specimen adequacy: Comment Normal [place] Comment on above: Result Comment: Sati sfactory for evaluation. Endocervical and/or squamous metaplastic cells (endocervical component) are present. Performed By: #### [id number] #### [facility] [address] [place] [address] Dashawn Valles US PELVIS AND TRANSVAGon US [...] Normal pelvic ultrasound. Electronically authenticated by: AIMEE BERRIOS Date: 2020-01-01 14:17 Normal [facility] Vital Signs Date Time Vital Sign Value Performing Clinician Facility 06-20-2024 08:33-0400 Body mass index (BMI) [Ratio] 23.49 kg/m2 Arabella Golden HYDRAULICS ENGINEER Work Phone: [facility] 06-20-2024 08:33-0400 Body weight 70.08 kg Arabella Golden HYDRAULICS ENGINEER Work Phone: [facility] 06-20-2024 08:33-0400 Diastolic blood pressure 52 mm[Hg] Arabella Golden HYDRAULICS ENGINEER Work Phone: [facility] 06-20-2024 08:33-0400 Systolic blood pressure 98 mm[Hg] Arabella Golden HYDRAULICS ENGINEER Work Phone: [facility] 06-04-2024 13:07-0400 Body mass index (BMI) [Ratio] 22.83 kg/m2 Jere Law DO Work Phone: [facility] 06-04-2024 13:07-0400 Body weight 68.09 kg Jere Law DO Work Phone: [facility] 06-04-2024 13:07-0400 Diastolic blood pressure 54 mm[Hg] Jere Law DO Work Phone: [facility] 06-04-2024 13:07-0400 Systolic blood pressure 100 mm[Hg] Jere Law DO Work Phone: [facility] 05-24-2024 10:02-0400 Body mass index (BMI) [Ratio] 23.3 kg/m2 Jere Law DO Work Phone: [facility] 05-24-2024 10:02-0400 Body weight 69.51 kg Jere Law DO Work Phone: [facility] 05-24-2024 10:02-0400 Diastolic blood pressure 50 mm[Hg] Jere Law DO Work Phone: [facility] 05-24-2024 10:02-0400 Systolic blood pressure 104 mm[Hg] Jere Law DO Work Phone: [facility] 04-12-2024 11:19-0500 Body mass index (BMI) [Ratio] 22.35 kg/m2 Jere Law DO Work Phone: [facility] 04-12-2024 11:19-0500 Body weight 66.68 kg Jere Law DO Work Phone: [facility] 04-12-2024 11:19-0500 Diastolic blood pressure 62 mm[Hg] Jere Law DO Work Phone: [facility] 04-12-2024 11:19-0500 Systolic blood pressure 102 mm[Hg] Jere Law DO Work Phone: [facility] 03-13-2024 12:35-0500 Body mass index (BMI) [Ratio] 21.46 kg/m2 Jere Law DO Work Phone: [facility] 03-13-2024 12:35-0500 Body weight 64.01 kg Jere Law DO Work Phone: [facility] 03-13-2024 12:35-0500 Diastolic blood pressure 58 mm[Hg] Jere Law DO Work Phone: [facility] 03-13-2024 12:35-0500 Systolic blood pressure 94 mm[Hg] Jere Law DO Work Phone: [facility] 02-13-2024 13:21-0500 Body mass index (BMI) [Ratio] 21.26 kg/m2 Jere Law DO Work Phone: [facility] 02-13-2024 13:21-0500 Body weight 63.41 kg Jere Law DO Work Phone: [facility] 02-13-2024 13:21-0500 Diastolic blood pressure 58 mm[Hg] Jere Law DO Work Phone: [facility] 02-13-2024 13:21-0500 Systolic blood pressure 98 mm[Hg] Jere Law DO Work Phone: [facility] 10-18-2023 16:26-0400 Body height 172.7 cm Shanda Anton MD Work Phone: [facility] 10-18-2023 16:26-0400 Body mass index (BMI) [Ratio] 22.2 kg/m2 Shanda Anton MD Work Phone: [facility] 10-18-2023 16:26-0400 Body weight 66.22 kg Shanda Anton MD Work Phone: [facility] 10-18-2023 16:26-0400 Diastolic blood pressure 68 mm[Hg] Shanda Anton MD Work Phone: [facility] 10-18-2023 16:26-0400 Heart rate 74 /min Shanda Anton MD Work Phone: [facility] 10-18-2023 16:26-0400 SaO2% (BldA) [Mass fraction] 99 % Shanda Anton MD Work Phone: [facility] 10-18-2023 16:26-0400 Systolic blood pressure 104 mm[Hg] Shanda Anton MD Work Phone: [facility] 06-14-2023 11:28-0400 Body height 175.26 cm [facility] 06-14-2023 11:28-0400 Body mass index (BMI) [Ratio] 20.7 kg/m2 [facility] 06-14-2023 11:28-0400 Body temperature 99.8 [degF] [facility] 06-14-2023 11:28-0400 Body weight 63.5 kg [facility] 06-14-2023 11:28-0400 Heart rate 102 /min [facility] 06-14-2023 11:28-0400 Respiratory rate 18 /min [facility] 06-14-2023 11:28-0400 SaO2% (BldA) [Mass fraction] 98 % [facility] 02-12-2023 13:00-0500 Body height 172.72 cm Berta Rosales Other [employer] Other 02-12-2023 13:00-0500 Body mass index (BMI) [Ratio] 20.77 kg/m2 Berta Galanmond Other [employer] Other 02-12-2023 13:00-0500 Body temperature 98.2 [degF] Berta Connie Other [employer] Other 02-12-2023 13:00-0500 Body weight 61.96 kg Berta Galanmond Other [employer] Other 02-12-2023 13:00-0500 Diastolic blood pressure 58 mm[Hg] Berta Connie Other [employer] Other 02-12-2023 13:00-0500 Respiratory rate 18 /min Berta Rosales Other [employer] Other 02-12-2023 13:00-0500 SaO2% (BldA) [Mass fraction] 99 % Berta Connie Other [employer] Other 02-12-2023 13:00-0500 Systolic blood pressure 102 mm[Hg] Berta Connie Other [employer] Other 04-01-2022 08:47-0500 Body temperature 97.9 [degF] MD Shanda Anton Work Phone: [facility] 04-01-2022 08:47-0500 Diastolic blood pressure 57 mm[Hg] MD Shanda Anton Work Phone: [facility] 04-01-2022 08:47-0500 Heart rate 66 /min MD Shanda Anton Work Phone: [facility] 04-01-2022 08:47-0500 Respiratory rate 16 /min MD Shanda Anton Work Phone: [facility] 04-01-2022 08:47-0500 SaO2% (BldA) [Mass fraction] 98 % MD Shanda Anton Work Phone: [facility] 04-01-2022 08:47-0500 Systolic blood pressure 100 mm[Hg] MD Shanda Anton Work Phone: [facility] 03-29-2022 20:50-0500 Body height 172.72 cm MD Shanda Anton Work Phone: [facility] 03-29-2022 20:50-0500 Body weight 71.66 kg MD Shanda Anton Work Phone: [facility] 03-08-2022 15:40-0500 Respiratory rate 16 /min MD Shanda Anton Work Phone: [facility] 03-08-2022 15:37-0500 SaO2% (BldA) [Mass fraction] 100 % MD Shanda Anton Work Phone: [facility] 03-08-2022 15:31-0500 Diastolic blood pressure 56 mm[Hg] MD Shanda Anton Work Phone: [facility] 03-08-2022 15:31-0500 Heart rate 86 /min MD Shanda Anton Work Phone: [facility] 03-08-2022 15:31-0500 Systolic blood pressure 101 mm[Hg] MD Shanda Anton Work Phone: [facility] 03-08-2022 12:55-0500 Body temperature 98.1 [degF] MD Shanda Anton Work Phone: [facility] 03-08-2022 10:29-0500 Body height 172.72 cm MD Shanda Anton Work Phone: [facility] 03-08-2022 10:290500 Body weight 70.3 kg MD Shanda Anton Work Phone: [facility] Encounters Encounter Date Encounter Type Care Provider Facility Start: 06-28-2024 End: 06-28-2024 Encounter Shanda Anton MD Work Phone: [facility] - [facility] 3W NICU Start: 06-23-2024 End: 06-23-2024 Evaluation and management of inpatient JARED OCASIO [facility] Start: 06-23-2024 End: 06-25-2024 Evaluation and management of inpatient ANUJ MONTERROSO [facility] Start: 06-21-2024 End: 06-21-2024 Clinisync Result Encounter Jere Foy DO Work Phone: [facility] Unsolicited Start: 06-21-2024 End: 06-21-2024 Clinisync Result Encounter Jere Foy DO Work Phone: [facility] Unsolicited Start: 06-21-2024 End: 06-21-2024 ambulatory [facility] Start: 06-21-2024 End: 06-21-2024 Evaluation and management of inpatient [facility] Start: 06-21-2024 End: 06-25-2024 Evaluation and management of inpatient MATHIEU GUTIERREZ [facility] Start: 06-20-2024 End: 06-20-2024 flow sheet Arabella Golden NP Work Phone: [facility] Comment on above: Third trimester preg kristine; 31 weeks gestation of Start: 06-20-2024 End: 06-20-2024 ambulatory ARABELLA GOLDEN Not Available Start: 06-04-2024 End: 06-04-2024 Bamboo flowsheet Jere Law DO Work Phone: [facility] Start: 06-04-2024 End: 06-04-2024 Bamboo flowsheet Jere Law DO Work Phone: [facility] Start: 06-04-2024 End: 06-04-2024 flow sheet Jere Law DO Work Phone: [facility] Comment on above: Third trimester preg kristine; 28 weeks gestation of ; size inconsistent with dates Start: 06-04-2024 End: 06-04-2024 ambulatory JERE LAW Not Available Start: 05-24-2024 End: 05-24-2024 Bamboo flowsheet Jere Law DO Work Phone: [facility] Start: 05-24-2024 End: 05-24-2024 Bamboo flowsheet Jere Law DO Work Phone: [facility] Start: 05-24-2024 End: 05-24-2024 flow sheet Jere Law DO Work Phone: [facility] Comment on above: Second trimester pre gnancy; 27 weeks gestation of Start: 05-24-2024 End: 05-24-2024 ambulatory JERE LAW Not Available Start: 04-12-2024 End: 04-12-2024 Bamboo flowsheet Jere Law DO Work Phone: [facility] Start: 04-12-2024 End: 04-12-2024 Bamboo flowsheet Jere Law DO Work Phone: [facility] Start: 04-12-2024 End: 04-12-2024 flow sheet Jere Law DO Work Phone: [facility] Comment on above: Second trimester pre gnancy; 21 weeks gestation of ; Diabetes mellitus screening Start: 04-12-2024 End: 04-12-2024 ambulatory JERE LAW Not Available Start: 04-06-2024 End: 04-06-2024 Clinisync Result Encounter Generic External Data Provider [facility] Unsolicited Start: 04-06-2024 End: 04-06-2024 Clinisync Result Encounter Generic External Data Provider [facility] Unsolicited Start: 03-14-2024 End: 03-15-2024 External Result Encounter Jere Law DO Work Phone: [facility] Unsolicited Start: 03-14-2024 End: 03-15-2024 External Result Encounter Jere Law DO Work Phone: [facility] Unsolicited Start: 03-13-2024 End: 03-13-2024 Bamboo flowsheet Jere Law DO Work Phone: [facility] Start: 03-13-2024 End: 03-13-2024 Bamboo flowsheet Jere Law DO Work Phone: [facility] Start: 03-13-2024 End: 03-13-2024 Patient encounter procedure Jere Law DO Work Phone: [facility] Start: 03-13-2024 End: 03-13-2024 flow sheet Jere Law DO Work Phone: [facility] Comment on above: Screening, , for anatomic survey; Well woman exam with routine gynecological exam; Second trimester ; Vaginal discharge; STD exposure; 16 weeks gestation of Start: 03-13-2024 End: 03-13-2024 ambulatory JERE LAW Not Available Start: 03-08-2024 End: 03-12-2024 Clinisync Result Encounter Generic External Data Provider [facility] Unsolicited Start: 03-08-2024 End: 03-12-2024 Clinisync Result Encounter Generic External Data Provider [facility] Unsolicited Start: 02-13-2024 End: 02-13-2024 Bamboo flowsheet Jere Law DO Work Phone: [facility] Start: 02-13-2024 End: 02-13-2024 Bamboo flowsheet Jere Law DO Work Phone: [facility] Start: 02-13-2024 End: 02-13-2024 flow sheet Jere Law DO Work Phone: [facility] Comment on above: 12 weeks gestation o f ; Second trimester ; Nausea; Intractable episodic headache, unspecified headache type Start: 02-13-2024 End: 02-13-2024 ambulatory JERE LAW Not Available Start: 02-06-2024 End: 02-06-2024 Clinisync Result Encounter Generic External Data Provider [facility] Unsolicited Start: 02-06-2024 End: 02-06-2024 Clinisync Result Encounter Generic External Data Provider [facility] Unsolicited Start: 01-13-2024 End: 01-13-2024 Office outpatient visit 5 minutes [facility] Law Nurse [facility] Comment on above: GA: 8w2d Start: 01-13-2024 End: 01-13-2024 ambulatory JERE LAW Not Available Start: 01-10-2024 End: 01-10-2024 Clinisync Result Encounter Jere Law DO Work Phone: [facility] Unsolicited Start: 01-10-2024 End: 01-10-2024 Clinisync Result Encounter Jere Law DO Work Phone: [facility] Unsolicited Start: 10-18-2023 End: 10-18-2023 Office outpatient visit 15 minutes Shanda Anton MD Work Phone: [facility] Comment on above: Impacted cerumen, ri ght ear (Primary Dx) Start: 10-18-2023 End: 10-18-2023 ambulatory SHANDA ANTON Not Available Start: 09-27-2023 End: 09-27-2023 ambulatory JERE LAW Not Available Start: 08-23-2023 End: 08-23-2023 ambulatory REENA CERVANTES Not Available Start: 06-14-2023 End: 06-14-2023 ambulatory [facility] Work Phone: Start: 06-14-2023 End: 06-14-2023 Patient encounter procedure [facility] Work Phone: Start: 02-12-2023 Office outpatient ne w 20 minutes Berta Rosales [facility] Start: 02-12-2023 End: 02-12-2023 ambulatory Berta Rosales [facility] [employer] Other Start: 02-12-2023 End: 02-12-2023 Departed Referred HYDRAULICS ENGINEER-C Berta Rosales Work Phone: [facility] [place] Work Phone: Start: 11-28-2022 End: 11-28-2022 ambulatory MD Shanda Anton Work Phone: [facility] Work Phone: Start: 11-28-2022 End: 11-28-2022 Patient encounter procedure MD Shanda Anton Work Phone: [facility]Flu Vaccine Start: 03-29-2022 End: 04-01-2022 Evaluation and management of inpatient MD Shanda Anton Work Phone: [facility] [place] Work Phone: Start: 03-10-2022 End: 03-10-2022 ambulatory MD Shanda Anton Work Phone: [facility] Work Phone: Start: 03-10-2022 End: 03-10-2022 Departed Referred MD Shanda Anton Work Phone: [facility] [place] Work Phone: Start: 03-08-2022 End: 03-08-2022 ambulatory MD Shanda Anton Work Phone: [facility] Work Phone: Start: 03-08-2022 End: 03-08-2022 Patient encounter procedure MD Shanda Anton Work Phone: [facility] [place] [facility] - O/P Start: 02-01-2022 End: 02-01-2022 ambulatory MD Shanda Anton Work Phone: [facility] Work Phone: Start: 02-01-2022 End: 02-01-2022 Patient encounter procedure MD Shanda Anton Work Phone: [facility] [place] Start: 10-06-2021 End: 10-06-2021 Departed Referred MD Shanda Anton Work Phone: [facility]-Employee Benefit Screening Start: 11-21-2020 End: 11-21-[address] REENA CERVANTES Facility:[facility] Start: 02-08-2020 End: 02-08-[address] MYLES PETER Facility:[facility] Start: 01-22-2020 End: 01-22-[address] MANISHA HANSEN Facility:[facility] Start: 01-01-2020 End: 01-02-[address] SHANDA ANTON Facility:[facility] Start: 09-21-2016 End: 09-22-2016 Ambulatory AILEEN SABILLON Facility:[facility] Start: 08-20-2016 End: 08-21-2016 Ambulatory DEFAULT PHYSICIAN Facility:[facility] Procedures Date Procedure Procedure Detail Performing Clinician Start: 06-21-2024 Antibody screen MATHIEU PRO Comment on above: Performed By: #### T SC #### [facility] ([facility]) [address] [place] [address] VIR Start: 06-21-2024 AMNISURE Jere Fazi o DO Work Phone: Start: 06-21-2024 TB UA (CLEAN/CATCH) BODY PRESSER/MICRO IF IND. Jere Law DO Work Phone: Start: 06-04-2024 Urnls dip stick/tabl et rgnt non-auto w/o micrscp Jere Law DO Work Phone: Start: 05-24-2024 Urnls dip stick/tabl et rgnt non-auto w/o micrscp Jere Law DO Work Phone: Start: 04-12-2024 Urnls dip stick/tabl et rgnt non-auto w/o micrscp Jere Law DO Work Phone: Start: 04-06-2024 US OB ANATOMY Generic E xternal Data Provider Start: 04-06-2024 US OB CERVICAL LENGTH G eneric External Data Provider Start: 03-14-2024 RECURRENT VAGINITIS (HTRX) Jere Law DO Work Phone: Start: 03-08-2024 Bacteria identified in Urine by Culture Generic External Data Provider Start: 02-13-2024 Urnls dip stick/tabl et rgnt non-auto w/o micrscp Jere Law DO Work Phone: Start: 02-06-2024 ALL CBC WITH AUTO DIFF Generic External Data Provider Start: 01-13-2024 Urnls dip stick/tabl et rgnt non-auto w/o micrscp Jere Law DO Work Phone: Start: 01-10-2024 [facility] PREG QUANT HCG Gene arash External Data Provider Start: 06-14-2023 Quick Strep (POC) Start: 03-10-2022 Streptococcus agalac tiae culture MD Shanda Anton Work Phone: Start: 03-08-2022 Urine culture MD Shanda Anton Work Phone: Start: 03-08-2022 Ultrasonography of b ilateral kidneys MD Shanda Anton Work Phone: Plan of Treatment Date Care Activity Detail Author Start: 03-31-2032 DTaP,Tdap and Td Vaccines (9 - Td or Tdap) DTaP,Tdap and Td Vaccines (9 - Td or Tdap) [facility] Start: 06-25-2025 Tobacco Screening Tobacco Screening [facility] Start: 06-21-2025 Adult BMI Screening Adult BMI Screen ing [facility] Start: 10-22-2024 Influenza vaccination Influenza Vacc ine [facility] Start: 06-20-2024 End: 06-20-2024 Patient encounter procedure 06/20/2024 8:30 AM EDT Routine [facility] [address] [place] [id number] Barbie Chin PA [address] [address] [facility] Start: 06-20-2024 End: 06-20-2024 Professional / ancillary services management 06/20/2024 8:00 AM EDT Ancillary Procedure [facility] [address] [phone] [facility] Start: 06-04-2024 End: 10-04-2024 US for US OB follow up transabdominal approach Imaging Routine Third trimester size inconsistent with dates Expected: 06/04/2024, Expires: 10/04/2024 [facility] Work Phone: Comment on above: Expected: 06/04/2024 , Expires: 10/04/2024 Start: 06-04-2024 End: 06-04-2024 Patient encounter procedure [facility] Comment on above: Arrived Start: 05-24-2024 End: 05-24-2024 Patient encounter procedure 05/24/2024 9:30 AM EDT Routine [facility] [address] [id number] Jere Foy DO [address] [place] [place] [address] Arrived [facility] Comment on above: Arrived Start: 04-12-2024 End: 04-12-2025 CBC panel - Blood by Automated count CBC Lab Routine Second trimester Diabetes mellitus screening Expected: 04/12/2024 (Approximate), Expires: 04/12/2025 [facility] Work Phone: Comment on above: Expected: 04/12/2024 (Approximate), Expires: 04/12/2025 Start: 04-12-2024 End: 04-12-2025 Measurement of glucose 1 hour after glucose challenge for glucose tolerance test Glucose tolerance, 1 hour Lab Routine Second trimester Diabetes mellitus screening Expected: 04/12/2024 (Approximate), Expires: 04/12/2025 [facility] Comment on above: Expected: 04/12/2024 (Approximate), Expires: 04/12/2025 Start: 04-12-2024 End: 04-12-2024 Patient encounter procedure [facility] Comment on above: Arrived Start: 03-13-2024 End: 09-10-2024 Alpha fetoprotein, maternal [...] first trimester Expected: 01/13/2024 (Approximate), Expires: 01/12/2025 [facility] Comment on above: Expected: 01/13/2024 (Approximate), Expires: 01/12/2025 Start: 01-13-2024 End: 01-12-2025 US Pelvis transvaginal US OB transvaginal Imaging Routine Missed menses Expected: 01/13/2024 (Approximate), Expires: 01/12/2025 [facility] Comment on above: Expected: 01/13/2024 (Approximate), Expires: 01/12/2025 Start: 01-13-2024 End: 01-13-2024 ambulatory 01/13/2024 10:30 AM EST Initial [facility] [address] [address] [facility] Start: 01-13-2024 End: 01-13-2024 Professional / ancillary services management 01/13/2024 10:00 AM EST Ancillary Procedure [facility] [address] [phone] [facility] Start: 10-23-2023 COVID-19 Vaccine ( season) COVID-19 Vaccine ( season) [facility] Start: 10-23-2023 Influenza vaccination Influenza Vacc ine (#1) [facility] Start: 02-12-2023 Bacteria identified in Urine by Culture [facility] Start: 04-01-2022 [facility] Start: 03-30-2022 Hospital admission [facility] Start: 03-10-2022 Group B Streptococcu s Culture Group B Streptococcus Culture [facility] Start: 03-08-2022 [facility] Start: 03-08-2022 Bacteria identified in Urine by Culture Urine Culture [facility] Start: 03-08-2022 Hospital admission [facility] Start: 03-08-2022 [facility] Start: 2018 Screening for malign ant neoplasm of cervix Pap Smear [facility] Start: 2009 Depression Screening [facility] Bacteria identified in Urine by Culture Urine culture Microbiology Routine Missed menses Ordered: 01/13/2024 [facility] Comment on above: Ordered: 01/13/2024 CBC W Auto Different ial panel - Blood CBC and differential Lab Routine Missed menses , unspecified gestational age Ordered: 01/13/2024 [facility] Comment on above: Ordered: 01/13/2024 CHLAMYDIA TRACHOMATI S (GENITO/STI) CHLAMYDIA TRACHOMATIS (GENITO/STI) Lab Routine STD exposure Ordered: 03/13/2024 [facility] Comment on above: Ordered: 03/13/2024 Hemoglobin A1c/Hemoglobin.total in Blood Hemoglobin A1c Lab Routine Missed menses , unspecified gestational age Ordered: 01/13/2024 [facility] Comment on above: Ordered: 01/13/2024 Hepatitis B virus surface Ag [Presence] in Serum or Plasma by Immunoassay Hepatitis B surface antigen Lab Routine Missed menses , unspecified gestational age Ordered: 01/13/2024 [facility] Comment on above: Ordered: 01/13/2024 Hepatitis C virus Ab [Presence] in Serum or Plasma by Immunoassay Hepatitis C antibody Lab Routine Missed menses , unspecified gestational age Ordered: 01/13/2024 [facility] Comment on above: Ordered: 01/13/2024 HIV-1/HIV-2 antigen/antibody combination immunoassay HIV-1 and HIV-2 antibodies Lab Routine Missed menses , unspecified gestational age Ordered: 01/13/2024 [facility] Comment on above: Ordered: 01/13/2024 Neisseria gonorrhoea e DNA [Presence] in Unspecified specimen by ADALGISA with probe detection Neisseria gonorrhea DNA probe, direct Lab Routine STD exposure Ordered: 03/13/2024 [facility] Comment on above: Ordered: 03/13/2024 Patient Education [facility] Work Phone: Patient referral [facility] Work Phone: Reagin Ab [Presence] in Serum by RPR RPR Lab Routine Missed menses , unspecified gestational age Ordered: 01/13/2024 [facility] Comment on above: Ordered: 01/13/2024 Rubella antibody, IgG Rubella an tibody, IgG Lab Routine Missed menses , unspecified gestational age Ordered: 01/13/2024 [facility] Comment on above: Ordered: 01/13/2024 Streptococcus agalactiae [Presence] in Unspecified specimen by Organism specific culture [facility] SURESWAB(R) ADVANCED VAGINITIS PLUS, TMA SURESWAB(R) ADVANCED VAGINITIS PLUS, TMA Pathology and Cytology Routine Vaginal discharge Ordered: 03/13/2024 [facility] Work Phone: Comment on above: Ordered: 03/13/2024 Immunizations Immunization Date Immunization Notes Care Provider Fa lillian 01-21-2024 influenza virus vacc ine, unspecified formulation Jere Lawmike CAMARILLO Work Phone: [facility] 11-28-2022 influenza, injectabl e, quadrivalent, preservative free Shanda Anton MD Work Phone: [facility] 11-28-2022 influenza virus vacc ine, unspecified formulation Shanda Anton MD Work Phone: [facility] 03-31-2022 tetanus toxoid, redu elle diphtheria toxoid, and acellular pertussis vaccine, adsorbed MD Shanda Anton Work Phone: [facility] 12-11-2020 influenza, injectabl e, quadrivalent, preservative free Shanda Anton MD Work Phone: [facility] 11-27-2019 influenza, injectabl e, quadrivalent, preservative free Shanda Anton MD Work Phone: [facility] 02-23-2019 varicella virus vaccine Dipika Anton MD Work Phone: [facility] 12-14-2018 influenza, injectabl e, [place] canine kidney, preservative free Shanda Anton MD Work Phone: [facility] 12-14-2018 tetanus toxoid, redu elle diphtheria toxoid, and acellular pertussis vaccine, adsorbed Shanda Anton MD Work Phone: [facility] 12-19-2015 meningococcal oligosaccharide (groups A, C, Y and W-135) diphtheria toxoid conjugate vaccine (MCV4O) Shanda Anton MD Work Phone: [facility] 11-16-2010 tetanus toxoid, redu elle diphtheria toxoid, and acellular pertussis vaccine, adsorbed Shanda Anton MD Work Phone: [facility] 09-26-2002 diphtheria, tetanus toxoids and acellular pertussis vaccine, unspecified formulation Shanda Anton MD Work Phone: [facility] 09-26-2002 measles, mumps and rubella virus vaccine Shanda Anton MD Work Phone: [facility] 09-26-2002 poliovirus vaccine, inactivated Shanda Anton MD Work Phone: [facility] 04-29-2000 diphtheria, tetanus toxoids and acellular pertussis vaccine, unspecified formulation Shanda Anton MD Work Phone: [facility] 04-29-2000 haemophilus influenz ae type b vaccine, HbOC conjugate Shanda Anton MD Work Phone: [facility] 09-15-1998 measles, mumps and rubella virus vaccine Shanda Anton MD Work Phone: [facility] 09-15-1998 varicella virus vaccine Dipika Anton MD Work Phone: [facility] 05-09-1998 diphtheria, tetanus toxoids and acellular pertussis vaccine, unspecified formulation Shanda Anton MD Work Phone: [facility] 05-09-1998 haemophilus influenz ae type b conjugate and Hepatitis B vaccine Shanda Anton MD Work Phone: [facility] 05-09-1998 trivalent poliovirus vaccine, live, oral Shanda Anton MD Work Phone: [facility] 01-15-1998 diphtheria, tetanus toxoids and acellular pertussis vaccine, unspecified formulation Shanda Anton MD Work Phone: [facility] 01-15-1998 haemophilus influenz ae type b vaccine, PRP-OMP conjugate Shanda Anton MD Work Phone: [facility] 01-15-1998 trivalent poliovirus vaccine, live, oral Shanda Anton MD Work Phone: [facility] 1997 diphtheria, tetanus toxoids and acellular pertussis vaccine, unspecified formulation Shanda Anton MD Work Phone: [facility] 1997 haemophilus influenz ae type b conjugate and Hepatitis B vaccine Shanda Anton MD Work Phone: [facility] 1997 trivalent poliovirus vaccine, live, oral Shanda Anton MD Work Phone: [facility] 1997 hepatitis B vaccine, pediatric or pediatric/adolescent dosage Shanda Anton MD Work Phone: [facility] NEGATED: Highlighted row has not occurred!06-25-2024 tetanus toxoid, reduced diphtheria toxoid, and acellular pertussis vaccine, adsorbed Shanda Anton MD Work Phone: [facility] Payers Date Payer Category Payer [facility] Memb er Subscriber Plan / Payer (Effective 2023-Present) Name: Sheeba Maciel Member ID: [id number] Relation to Subscriber: Self Name: Sheeba Maciel Subscriber ID: [id number] Payer ID: Not on file Type: Not on file Address: [place] [id number] 2023 [facility] Managed Care - PPO ANTHEM [id number] 2023 Unknown 2023 Unknown [id number] 2023 Self-pay [id number] 2023 Unknown [id number] 1997 Unknown [id number] .593 1997 Unknown [id number] 2.16.840.1.744777.3.579.2 .593 1997 Unknown [id number] 2.16840.1.892671.3.579.2 .593 1997 Unknown [id number] 2.16.840.1.546424.3.579.2 .593 1997 Unknown [id number] 2.16.840.1.346242.3.579.2 .1286 1997 Unknown [id number] 2.16840.1.711390.3.579.2 .1286 1997 Unknown [id number] 2.16840.1.589314.3.579.2 .1286 1997 Unknown [id number] 2.16.840.1.034996.3.579.2 .1286 1997 Unknown [id number] 2.16.840.1.787467.3.579.2 .1286 1997 Unknown [id number] 2.16.840.1.484778.3.579.2 .1259 1997 Unknown [id number] 2.16.840.1.310066.3.579.2 .1259 1997 Unknown [id number] 2.16.840.1.039458.3.579.2 .1258 1997 Unknown [id number] 2.16.840.1.049284.3.579.2 .1258 1997 Unknown [id number] 2.16.840.1.658932.3.579.2 .1258 1997 Unknown [id number] 2.16.840.1.180178.3.579.2 .1258 1997 Unknown [id number] 2.16.840.1.474805.3.579.2 .1258 1997 Unknown [id number] 2.16.840.1.767745.3.579.2 .1258 1997 Unknown [id number] 2.16.840.1.216839.3.579.2 .1258 1997 Unknown [id number] 2.16.840.1.177958.3.579.2 .1258 1997 Unknown [id number] 2.16.840.1.214395.3.579.2 .9 1959 Unknown [id number] Unknown [id number] 2.16.840.1.167368.3.579.2 .531 Worker's Compensation [id number] Social History Date Type Detail Facility Tobacco smoking stat [facility] Unknown if ever smoked [facility] Work Phone: Start: 1995 Sex Assigned At Female F [facility] Start: 01-07-2022 End: 03-30-2022 Tobacco smoking status COIS Never smoked tobacco (finding) [facility] Start: 04-03-2020 End: 10-18-2023 Sex Assigned At [facility] Start: 08-23-2023 Tobacco smoking stat [facility] Ex-smoker [facility] End: 02-22-2012 History of tobacco use Current smoker [facility] End: 02-22-2012 History of tobacco use Cigarette Smoker [facility] Start: 01-07-2022 End: 08-23-2023 Tobacco use and exposure Smokeless tobacco non-user [facility] Start: 04-03-2020 End: 10-18-2023 History of Social function [facility] Start: 1995 Sex assigned at Not on file [facility] Start: 11-30-2023 [facility] Start: 06-25-2024 Alcoholic beverage intake Ex-drinker (finding) [facility] Start: 09-26-2014 Sex Female (finding) [facility] Goals Date Patient Goal Desired Activity /State Functional Status Date Assessment Result Facility 04-01-2022 Functional status Patient at Baseline [facility] Work Phone: Mental Status Date Assessment Result Facility 04-01-2022 Cognitive function Cognitive Sta tus Patient at Baseline [facility] Work Phone: Clinical Notes 06-01-2021 to 06-28-2024 Note - Preethi Small RN - 06/28/2024 2:05 PM EDTLactation Note - Preethi Small RN - 06/28/2024 2:05 PM MARSHATArabella Golden NP - 06/20/2024 8:30 AM EDT Note Date & Type Note Facility 06-28-2024 Miscellaneous Notes Formattin g of this note might be different from the original. This note was copied from a baby's chart. Met with mom at 's bedside. States pumping continues to go well with increasing supply, she just pumped 3oz breast milk. Denies any complaints of pain or breakdown. has reached 32 weeks gestation and is tolerating gavage feeds, discussed offering an empty breast for non nutritive sucking as desired. Step Card 2 provided and encouraged calling out for help with positioning and latch when ready. No further questions or concerns, encouraged to call out for any other assistance. Step 2: Non-nutritive will be initiated Xymc-qj-Yogu will continue Indications Infant tolerates Jglk-jr-Giyf displays interest/movement to breast (rooting, suckling, licking) 32 weeks gestation Baby should be: Active, alert state Stable with care or during Bmxu-ft-Ulrr care Mother will: Pump to an empty breast just prior to non-nutritive If infant becomes too sleepy, revert to Wgmy-sr-Mcsb placed at breast to smell, lick, suckle and latch as able documented in this encounter [facility] 06-28-2024 Obstetrics Note This note was copied from a baby's chart. Met with mom at 's bedside. States pumping continues to go well with increasing supply, she just pumped 3oz breast milk. Denies any complaints of pain or breakdown. Infant has reached 32 weeks gestation and is tolerating gavage feeds, discussed offering an empty breast for non nutritive sucking as desired. Step Card 2 provided and encouraged calling out for help with positioning and latch when ready. No further questions or concerns, encouraged to call out for any other assistance. Step 2: Non-nutritive will be initiated Ahfx-oo-Ovlc will continue Indications tolerates Chyn-fx-Gosp displays interest/movement to breast (rooting, suckling, licking) 32 weeks gestation Baby should be: Active, alert state Stable with care or during Hryc-po-Xfji care Mother will: Pump to an empty breast just prior to non-nutritive If infant becomes too sleepy, revert to Mhql-qd-Qfii Infant placed at breast to smell, lick, suckle and latch as able [facility] 06-20-2024 History of Presen t illness Narrative Reason for Appointment: Patient ID: Sheeba Maciel is a 28 y.o. female who presents for Routine Visit Patient presents today for Return OB appointment. MEDICATIONS Current Outpatient Medications Medication Instructions promethazine (PHENERGAN) 12.5 mg, Oral, Every 6 hours PRN, Take 1 tablet by mouth every 6 hours as needed for nausea. ALLERGIES No Known Allergies PROBLEMS Active Ambulatory Problems Diagnosis Date Noted Adjustment disorder with anxiety ([facility]) 12/27/2022 Alternating constipation and diarrhea 12/27/2022 Congestion [...] Types: Cigarettes Quit date: 02/22/2012 Years since quittin.3 Smokeless tobacco: Never Vaping Use Vaping status: [...] Constitutional: Appearance: Normal appearance. She is well-developed. Cardiovascular: Rate and Rhythm: Normal rate and [...] nursing note reviewed. Exam conducted with a ultrasound spec present. Vitals: Estimated body mass index is 23.49 kg/m as calculated from the following: Height as of 10/18/23: 5' 8 . Weight as of this encounter: 154 lb 8 oz. BP: 98/52 Patient's last menstrual period was 11/16/2023. ASSESSMENT & PLAN ICD-10-CM 1. Third trimester Z34.93 2. 31 weeks gestation of Z3A.31 Return OB: Patient presents today for a routine obstetrics appointment. Patient is currently 31w0d . Patient states she is doing well but has complaints of being tired due to current . Patient has verbalizes frequent movement. labor precautions was discussed/given and patient was instructed to perform kick counts three times a day. No orders of the defined types were placed in this encounter. Follow Up: Patient is to return to office in 2 week for routine OB appointment. Documented by Arabella Golden NP on behalf of: Arabella Golden NP documented in this encounter [facility] 06-04-2024 History of Presen t illness Narrative Reason for Appointment: Patient ID: Sheeba Maciel is a 28 y.o. female who presents for Routine Visit Patient presents today for Return OB appointment. MEDICATIONS Current Outpatient Medications Medication Instructions promethazine (PHENERGAN) 12.5 mg, Oral, Every 6 hours PRN, Take 1 tablet by mouth every 6 hours as needed for nausea. ALLERGIES No Known Allergies PROBLEMS Active Ambulatory Problems Diagnosis Date Noted Adjustment disorder with anxiety ([facility]) 12/27/2022 Alternating constipation and diarrhea 12/27/2022 Congestion of respiratory tract 12/27/2022 Dysphagia 12/27/2022 Gastroesophageal reflux disease 12/27/2022 Insomnia 12/27/2022 Myopia, bilateral 12/27/2022 Palpitations 12/27/2022 Social anxiety disorder ([facility]) 12/27/2022 39 weeks gestation of 08/23/2023 Impacted [...] Types: Cigarettes Quit date: 02/22/2012 Years since quittin.2 Smokeless tobacco: Never Vaping Use Vaping status: [...] Constitutional: Appearance: Normal appearance. She is well-developed. Cardiovascular: Rate and Rhythm: Normal rate and [...] nursing note reviewed. Exam conducted with a ultrasound spec present. Vitals: Estimated body mass index is 22.83 kg/m as calculated from the following: Height as of 10/18/23: 5' 8 . Weight as of this encounter: 150 lb 1.9 oz. BP: 100/54 Patient's last menstrual period was 11/16/2023. ASSESSMENT & PLAN ICD-10-CM 1. Third trimester Z34.93 POCT urinalysis dipstick manually resulted 2. 28 weeks gestation of Z3A.28 POCT urinalysis dipstick manually resulted Patient presents today for a routine obstetrics appointment. Patient is currently 28w5d with a Estimated Date of Delivery: 08/22/24. Patient is measuring slightly ahead and will be given US for growth to have scheduled prior to next appointment. Patient to RTC in 2 weeks. Documented by Frida Ng LPN on behalf of: Jere Foy DO documented in this encounter [facility] 05-24-2024 History of Presen t illness Narrative Reason for Appointment: Patient ID: Sheeba Maciel is a 28 y.o. female who presents for Routine Visit Patient presents today for Return OB appointment. MEDICATIONS Current Outpatient Medications Medication Instructions promethazine (PHENERGAN) 12.5 mg, Oral, Every 6 hours PRN, Take 1 tablet by mouth every 6 hours as needed for nausea. ALLERGIES No Known Allergies PROBLEMS Active Ambulatory Problems Diagnosis Date Noted Adjustment disorder with anxiety ([facility]) 12/27/2022 Alternating constipation and diarrhea 12/27/2022 Congestion of respiratory tract 12/27/2022 Dysphagia 12/27/2022 Gastroesophageal reflux disease 12/27/2022 Insomnia 12/27/2022 Myopia, bilateral 12/27/2022 Palpitations 12/27/2022 Social anxiety disorder ([facility]) 12/27/2022 39 weeks gestation of 08/23/2023 Impacted [...] Types: Cigarettes Quit date: 02/22/2012 Years since quittin.2 Smokeless tobacco: Never Vaping Use Vaping status: Never Used Substance Use Topics Alcohol use: Not on file Drug use: Not on file FAMILY HISTORY No family history on file. SURGICAL HISTORY Past Surgical History: Procedure Laterality Date WISDOM TOOTH EXTRACTION REVIEW OF SYSTEMS Review of Systems: Review of Systems All other systems reviewed and are negative. OBJECTIVE Objective: Physical Exam Constitutional: Appearance: Normal appearance. She is well-developed. Cardiovascular: Rate and Rhythm: Normal rate and [...] nursing note reviewed. Exam conducted with a ultrasound spec present. Vitals: Estimated body mass index is 23.3 kg/m as calculated from the following: Height as of 10/18/23: 5' 8 . Weight as of this encounter: 153 lb 4 oz. BP: 104/50 Patient's last menstrual period was 11/16/2023. ASSESSMENT & PLAN ICD-10-CM 1. Second trimester Z34.92 POCT urinalysis dipstick manually resulted 2. 27 weeks gestation of Z3A.27 Patient presents today for a routine obstetrics appointment. Patient is currently 27w1d with a Estimated Date of Delivery: 08/22/24. Patient to RTC in 2-3 weeks for routine OB appointment. Patient complaints of lower back pain & urine will be sent out for culture. Documented by Frdia Ng LPN on behalf of: Jere Foy DO documented in this encounter [facility] 04-12-2024 History of Presen t illness Narrative Reason for Appointment: Patient ID: Sheeba Maciel is a 28 y.o. female who presents for Routine Visit Patient presents today for Return OB appointment. MEDICATIONS Current Outpatient Medications Medication Instructions promethazine (PHENERGAN) 12.5 mg, Oral, Every 6 hours PRN, Take 1 tablet by mouth every 6 hours as needed for nausea. ALLERGIES No Known Allergies PROBLEMS Active Ambulatory Problems Diagnosis Date Noted Adjustment disorder with anxiety ([facility]) 12/27/2022 Alternating constipation and diarrhea 12/27/2022 Congestion [...] Types: Cigarettes Quit date: 02/22/2012 Years since quittin.1 Smokeless tobacco: Never Vaping Use Vaping status: Never Used Substance Use Topics Alcohol use: Not on file Drug use: Not on file FAMILY HISTORY No family history on file. SURGICAL HISTORY Past Surgical History: Procedure Laterality Date WISDOM TOOTH EXTRACTION REVIEW OF SYSTEMS Review of Systems: Review of Systems All other systems reviewed and are negative. OBJECTIVE Objective: Physical Exam Constitutional: Appearance: Normal appearance. She is well-developed. Cardiovascular: Rate and Rhythm: Normal rate and [...] nursing note reviewed. Exam conducted with a ultrasound spec present. Vitals: Estimated body mass index is 22.35 kg/m as calculated from the following: Height as of 10/18/23: 5' 8 . Weight as of this encounter: 147 lb. BP: 102/62 Patient's last menstrual period was 11/16/2023. ASSESSMENT & PLAN ICD-10-CM 1. Second trimester Z34.92 POCT urinalysis dipstick manually resulted CBC Glucose tolerance, 1 hour CBC Glucose tolerance, 1 hour 2. 21 weeks gestation of Z3A.21 3. Diabetes mellitus screening Z13.1 CBC Glucose tolerance, 1 hour CBC Glucose tolerance, 1 hour Patient presents today for a routine obstetrics appointment. Patient is currently 21w1d with a Estimated Date of Delivery: 08/22/24. Patient has no complaints at this time. Patient was given order for 1 hour gtt and CBC to be completed prior to next appointment. Patient to return to clinic in 4 weeks. Documented by Frida Ng LPN on behalf of: Jere Foy DO documented in this encounter [facility] 03-13-2024 History of Presen t illness Narrative Reason for Appointment: Patient ID: Sheeba Maciel is a 28 y.o. female who presents [...] Diagnosis Date Noted Adjustment disorder with anxiety ([facility]) 12/27/2022 Alternating constipation and diarrhea 12/27/2022 Congestion of respiratory tract 12/27/2022 Dysphagia 12/27/2022 Gastroesophageal reflux disease 12/27/2022 Insomnia 12/27/2022 Myopia, bilateral 12/27/2022 Palpitations 12/27/2022 Social anxiety disorder ([facility]) 12/27/2022 39 weeks gestation of 08/23/2023 Impacted [...] nursing note reviewed. Exam conducted with a ultrasound spec present. Vitals: Estimated body mass index is [...] by Reena Tolbert LPN on behalf of: Jere Foy DO documented in this encounter [facility] 02-13-2024 History of Presen t illness Narrative Reason for Appointment: Patient ID: Sheeba Maciel is a 28 y.o. female who presents for No chief complaint on file. Patient presents today for Return OB appointment. MEDICATIONS No current outpatient medications ALLERGIES No Known Allergies PROBLEMS Active Ambulatory Problems Diagnosis Date Noted Adjustment disorder with anxiety ([facility]) 12/27/2022 Alternating constipation and diarrhea 12/27/2022 Congestion [...] or undercooked meat, and stay away from [facility]. Patient has been consulted regarding any further do's and don'ts of . Patient voiced understanding and all questions and concerns were answered. Sent patient magnesium and phenergan. Orders Placed This Encounter Procedures POCT urinalysis dipstick manually resulted Follow Up: Patient is to return in 4 weeks for routine OB appointment. Documented by Frida Ng LPN on behalf of: Jere Foy DO documented in this encounter [facility] 01-13-2024 History of Presen t illness Narrative Reason for Appointment: Patient ID: Sheeba Maciel is a 28 y.o. female who presents [...] bilateral 12/27/2022 Palpitations 12/27/2022 Social anxiety disorder ([facility]) 12/27/2022 39 weeks gestation of 08/23/2023 Impacted [...] or undercooked meat, and stay away from [facility]. Patient has also been advised to [...] Alexsandra Luo LPN documented in this encounter [facility] 10-18-2023 History of Presen t illness Narrative Associated Problem(s): Impacted cerumen, right ear After patient's verbal consent Right ear was flushed with warm water and hydrogen Peroxide Cerumen was removed after irrigation and patient felt relieved. Images from the original note were not included. Subjective Patient ID: Sheeba Maciel is a 28 y.o. female who presents [...] follow-ups on file. documented in this encounter [facility] 02-12-2023 Evaluation note Encounter Date Diagnosis [...] without sciatica, unspecified chronicity (ICD-10 - M54.50) [employer] Other 02-08-2023 Progress note Author CHAITANYA RAMIREZ [facility] March 31, 2022 7:09pm Note Date/Time March 31, 2022 7 :09pm [facility] [address] [place] [address] DIAMOND GRINDER Progress Note Signed Patient: Sheeba Maciel MR#: [id number] : 1995 Acct:[id number] Age/Sex: 26 / F Adm Date: 3 Loc: Room: [address] [place] [address] Type: ADM IN Attending Dr: Mario Conely [...] % (Auto) 76.7, Lymph % (Auto) 13.5, [place] % (Auto) 9.0, Eos % (Auto) 0.4, Baso % (Auto) 0.4, Nucleat RBC Rel Count 0.0, Neut# (Auto) 10.9 H, Lymph # (Auto) 1.9, [place] # (Auto) 1.3 H, Eos # (Auto) [...] signed by MD CHAITANYA RAMIREZ> 03/31/22 1909 [facility] Work Phone: [phone]) 771-850502-07-2023 [facility]22 NoteHISTORY: Right lower quadrant pain, rule out appendicitis PROCEDURE: Abiquo VCT 64. Without intravenous or oral contrast [...] and signed by Shalom Mcneill on 06/01/2021 1540[facility] SpecialistEvaluation noteNo assessment information availableC[facility] Work Phone: Evaluation note* Diagnosis Onset Date Resolution Status 39 weeks gestation of acute [facility] Work Phone: Evaluation note* Diagnosis Impacted cerumen, right ear- Primary Missed menses , unspecified gestational age Encounter for supervision of normal first in first trimester [facility] Diagnosis Impacted cerumen, right ear- Primary [facility]* Diagnosis Impacted cerumen, right ear- Primary 12 weeks gestation of Second trimester state, incidental Nausea Nausea alone Intractable episodic headache, unspecified headache type [facility] Diagnosis Impacted cerumen, right ear- Primary Screening, , for anatomic survey Encounter for anatomic survey Well woman exam with routine gynecological exam Routine gynecological examination Second trimester state, incidental Vaginal discharge Leukorrhea, not specified as infective STD exposure 16 weeks gestation of [facility]* Diagnosis Impacted cerumen, right ear- Primary Second trimester state, incidental 21 weeks gestation of Diabetes mellitus screening Screening for diabetes mellitus [facility]* Diagnosis Impacted cerumen, right ear- Primary Second trimester state, incidental 27 weeks gestation of [facility]* Diagnosis Impacted cerumen, right ear- Primary Third trimester state, incidental 28 weeks gestation of size inconsistent with dates documented in this encounter [facility] HealthcareEvaluation note* Diagnosis Impacted cerumen, right ear- Primary Third trimester state, incidental 31 weeks gestation of documented in this encounter [facility] HealthcareInstructionsNot on filedocumented in this encounterGerman Hospital SystemProgress note Author VONDA LANDERSSELECT [facility] April 01, 2022 10:58am Note Date/Time April 01, 2022 1 0:58am [facility] [address] [place] [address] DIAMOND GRINDER Progress Note Signed Patient: Sheeba Maciel MR#: [id number] : 1995 Acct:[id number] Age/Sex: 26 / F Adm Date: 3 Loc: Room: 0T8687-4 Type: ADM IN Attending Dr: Mario Conley [...] signed by VONDA MILLS DO> 04/01/22 1058 [facility] Work Phone: Summary Purpose Family History Relationship Condition Age at Onset Recorded Date/T carlos Not Specified No pertinent family history Unknown Advance Directives Advance Directive Response Recorded Date/ Time Advance Directives No October 8:29pm Advance Directive Response Recorded Date/ Time Advance Directives No October 7:29pm Date Activated Date Inactivated Comments 06/21/2024 7:12 AM 06/25/2024 7:28 PM Chief Complaint and Reason for Visit Chief Complaint Pillars Chief Complaint Chief Complaint 36 weeks contrations Chief Complaint 36 weeks contrations Z3A.36 INDUCTION Reason for Visit 39 weeks gestation o f Chief Complaint Flu Vaccine Chief Complaint Dysuria Chief Complaint Sore throat Additional Source Comments INFORMATION SOURCE (unrecogn ized section and content) DATE CREATED AUTHOR 08/17/2017 [facility] DATE CREATED AUTHOR AUTHOR'S ORGANIZ ATION 11/27/2020 [facility] DATE CREATED AUTHOR AUTHOR'S ORGANIZ ATION 06/02/2021 [facility] dical Specialist DATE CREATED AUTHOR AUTHOR'S ORGANIZ ATION 04/21/2023 [facility] DATE CREATED AUTHOR AUTHOR'S ORGANIZ ATION 06/25/2024 [facility] DATE CREATED AUTHOR AUTHOR'S ORGANIZ ATION 06/28/2024 [facility] dical Specialists EPIC Care Teams (unrecognized sec tion and content) Team Status: Inactive Member Role Status Dates Shanda Anton MD Primary Care Provider Active Holger Aquino DO [facility] Attending Provider Active Team Status: Active Member Role Status Dates Shanda Anton MD Primary Care Provider Active Team Status: Inactive Member Role Status Dates Shanda Anton MD Primary Care Provider Active Mario Conley DO Attending Provider Active Team Status: Inactive Member Role Status Dates Shanda Anton MD Primary Care Provider Active Shirlene Owen DO Attending Provider Active Team Status: Inactive Member Role Status Dates Shanda Anton MD Primary Care Provider Active Mario Conley DO Admit Provider, Attending Provider Active Team Status: Inactive Member Role Status Dates MARY BETH Palacios Attending Provider Active Team Status: Inactive Member Role Status Dates Shanda Anton MD Primary Care Provider Active S tart: June 14, 2023 End: June 14, 2023 Allyson Cadet APRN Attending Provider Active Start: June 14, 2023 End: June 14, 2023 Custom [employer] Converter Relationship Specialty Start Date End Date Shanda Anton MD [address] [place] [id number] PCP - General Family Medicine 06/29/22 Morena Mckeon, HYDRAULICS ENGINEER [address] [place] [address] PCP - [employer] 07/23/23 [employer] Converter Relationship Specialty Start Date End Date Shanda Anton MD [address] [place] [address] PCP - General Family Medicine 06/29/22 Morena Mckeon, HYDRAULICS ENGINEER [address] [place] [address] PCP - [employer] 07/23/23 Custom Van Converter Relationship Specialty Start Date End Date Shanda Anton MD [address] [place] [address] PCP - General Family Medicine 06/29/22 Shanda Anton MD [address] [place] [address] PCP - [employer] 12/23/23 Custom Van Converter Relationship Specialty Start Date End Date Shanda Anton MD [address] [place] [address] PCP - General Family Medicine 06/29/22 Morena Mckeon, HYDRAULICS ENGINEER [address] [place] [address] PCP - [employer] 07/23/23 Custom [employer] Converter Relationship Specialty Start Date End Date Shanda Anton MD [address] [place] [address] PCP - General Family Medicine 06/29/22 Shanda Anton MD [address] [place] [address] PCP - [employer] 12/23/23 Custom Van Converter Relationship Specialty Start Date End Date Shanda Anton MD [address] [place] [address] PCP - General Family Medicine 06/29/22 Shanda Anton MD [address] [place] [address] PCP - [employer] 12/23/23 Custom Van Converter Relationship Specialty Start Date End Date Shanda Anton MD [address] [place] [address] PCP - General Family Medicine 06/29/22 Shanda Anton MD [address] [place] [address] PCP - [employer] 12/23/23 Custom Van Converter Relationship Specialty Start Date End Date Shanda Anton MD [address] [place] [address] PCP - General Family Medicine 06/29/22 Shanda Anton MD [address] [place] [address] PCP - [employer] 12/23/23 Custom Van Converter Relationship Specialty Start Date End Date Shanda Anton MD [address] [place] [address] PCP - General Family Medicine 06/29/22 Shanda Anton MD [address] [place] [address] PCP - [employer] 12/23/23 Custom Van Converter Relationship Specialty Start Date End Date Shanda Anton MD [address] [facility] [address] [place] [address] PCP - General Family Medicine 06/29/22 Shanda Anton MD [address] [place] [address] PCP - [employer] 12/23/23 Custom Van Converter Relationship Specialty Start Date End Date Shanda Anton MD [address] [facility] [address] [place] [address] PCP - General Family Medicine 06/29/22 Shanda Anton MD [address] [facility] [address] [place] [address] PCP - [employer] 12/23/23 Custom Van Converter Relationship Specialty Start Date End Date Shanda Anton MD [address] [facility] [address] [place] [address] PCP - General Family Medicine 06/29/22 Shanda Anton MD [address] [facility] [address] [place] [address] PCP - [employer] 12/23/23 Custom Van Converter Relationship Specialty Start Date End Date Shanda Anton MD [facility] [place] [place] [address] PCP - General Family Medicine 07/22/18 Goals (unrecognized section and content) Goals may be documented in a n alternate sectionGoals may be documented in an alternate sectionGoals may be documented in an alternate sectionGoals may be documented in an alternate sectionGoals may be documented in an alternate sectionNo InformationGoals may be documented in an alternate sectionNo InformationGoals may be documented in an alternate sectionNot on filedocumented as of this encounter REASON FOR VISIT (unrecogniz ed section and content) Reason Comments Amenorrhea Reason Comments Earache Reason Comments Routine Visit FOR RECORDS PERTAINING TO PATIENTS WHO ARE [...] BE BASED ON THE PRIMARY CLINICAL RECORDS. [employer] provides no warranty or guarantee of the accuracy or completeness of information in this document.
[2024-06-29 18:48] VITALS: BP 116/73; PULSE 89; TEMP 36.8; O2SAT 98; BMI 22.8
--- NOTE | 2024-06-29 18:56 | ECG_ITS ---
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 Measurements Intervals [place] Rate: 86 P: 80 IA: 156 QRS: 76 QRSD: 78 T: 67 QT: 342 QTc: 385 Interpretive Statements 1100 Sinus rhythm 9110 normal ECG No previous ECG available for comparison Electronically Signed On 07-01-2024 12:33:44 EDT by SIMRAN CASSIDY M.D.
--- NOTE | 2024-06-29 19:19 | ED_ITS ---
Documented by User: Abimael Ramos MD 06/30/24 21:20 HPI - Abdominal Pain General Chief Complaint: Abdominal Pain Stated Complaint: ABDOMINAL PAIN Time Seen by Provider: 06/29/24 19:13 Source: patient Mode of arrival: walk-in Limitations: no limitations History of Present Illness HPI narrative: C/S delivery 6 days ago. No complications. Jackson well yesterday. This AM developed continued epigastric pain and nausea. Not relieved with TUMS or zofran. No back pain or dyspnea. Lower abdominal C/S incision healing well. Tried to eat soup 3 hours ago and vomited Related Data Home Medications ?Medication ?Instructions ?Recorded ?Confirmed docusate sodium 100 mg capsule 100 mg PO DAILY 5 06/29/24 Previous Rx's ?Medication ?Instructions ?Recorded hydrocodone 5 mg-acetaminophen 325 1 tab PO Q6H PRN pa in 2 days #8 04/01/23 mg tablet tabs Allergies Allergy/AdvReac Type Severity Reaction Status Date / Time No Known Drug Allergies Allergy Verified 06/21/24 06:29 Review of Systems ROS Status of ROS 10 or more systems reviewed and unremark able except as noted in history and below [facility] Social History Little interest or pleasure in doing things: not at all Feeling down, depressed, or hopeless: not at all Exam Constitutional Vital Signs, click to edit/add: Last Vital Signs Temp 98.2 F 06/29/24 18:48 Pulse 106 H 06/29/24 22:08 Resp 16 06/29/24 22:08 BP 101/61 06/29/24 22:08 Pulse Ox 99 06/29/24 22:08 O2 Del Method Room Air 06/29/24 22:08 Common normals: no apparent distress, average body habitus, oriented x3, no limitations, healthy appearing, alert and well nourished [facility] Common normals: normocephalic and head/scalp atraumatic Respiratory Common normals: normal respiratory effort, no retractions, no use of accessory muscles and clear to auscultation bilaterally Cardio Common normals: regular rate, regular rhythm, S1 normal heart sound and S2 normal heart sound GI Common normals: soft to palpation Other: RUQ and epigastric tenderness. lower C/S incision looks good. Is dry. No erythema or swelling Extremity Common normals: normal to inspection and full ROM Neuro Common normals: oriented x3, CN's II-XII intact bilaterally, moves all extremities and no focal motor deficits Psych Appearance: grossly normal Course Vital Signs Vital signs: Vital Signs Temperature 98.2 F 06/29/24 18:48 Pulse Rate 89 06/29/24 18:48 Respiratory Rate 18 06/29/24 18:48 Blood Pressure 116/73 06/29/24 18:48 Pulse Oximetry 98 06/29/24 18:48 Oxygen Delivery Method Room Air 06/29/24 18:48 Temperature 98.2 F 06/29/24 18:48 Pulse Rate 106 H 06/29/24 22:08 Respiratory Rate 16 06/29/24 22:08 Blood Pressure 101/61 06/29/24 22:08 Pulse Oximetry 99 06/29/24 22:08 Oxygen Delivery Method Room Air 06/29/24 22:08 MDM - Abdominal Pain MDM Narrative Medical decision making narrative: recent C/S delivery without complications. Now has RUQ and epigastric pain. Pain improved after Reglan and protonix. Labs unremarkable. GB US pending. Patient is feeling better and requesting to go home. ask that we call her if GB US is abnormal. Discharged with reglan and Protonx Lab Data Labs: Lab Results 06/29/24 Range/Units 19:05 WBC 11.4 H (4.0-11.0) 10^3/uL RBC 3.50 L (4.20-5.40) 10^6/uL Hgb 10.9 L (12.0-16.0) g/dL Hct 33.5 L (36.0-48.0) % MCV 95.7 (81.0-99.0) fL MCH 31.1 (26.7-34.0) pg MCHC 32.5 (29.9-35.2) g/dL RDW 13.5 (11.0-15.0) % Plt Count 430 (150-450) 10^3/uL MPV 9.5 (9.5-13.5) fL Neut % (Auto) 70.1 (43.0-75.0) % Lymph % (Auto) 20.6 (20.5-60.0) % [place] % (Auto) 6.5 (1.7-12.0) % Eos % (Auto) 1.3 (0.9-7.0) % Baso % (Auto) 0.4 (0.2-2.0) % Neut # (Auto) 8.0 H (1.4-6.5) 10^3/uL Lymph # (Auto) 2.3 (1.2-3.8) 10^3/uL [place] # (Auto) 0.7 (0.3-0.8) 10^3/uL Eos # (Auto) 0.2 (0.0-0.7) 10^3/uL Baso # (Auto) 0.1 (0.0-0.1) 10^3/uL Abs Immat Gran (auto) 0.13 H (0.00-0.03) 10^3/uL Imm/Tot Granulo (auto) 1.1 H (0.0-0.5) % Sodium 135 L (136-145) mmol/L Potassium 3.9 (3.5-5.1) mmol/L Chloride 100 (98-107) mmol/L Carbon Dioxide 28.1 (21.0-32.0) mmol/L Anion Gap 10.8 BUN 11.0 (7.0-18.0) mg/dL Creatinine 0.64 (0.55-1.02) mg/dL Est GFR ( Amer) >60 (>=60 mL/min/1.73m^2) Est GFR (Non-Af Amer) >60 (>=60 mL/min/1.73m^2) BUN/Creatinine Ratio 17.2 Glucose 91 (74-106) mg/dL Lactate 0.6 (0.4-2.0) mmol/L Calcium 9.0 (8.5-10.1) mg/dL Total Bilirubin 0.3 (0.2-1.0) mg/dL AST 10 L (15-37) U/L ALT 25 (14-59) U/L Alkaline Phosphatase 72 (46-116) U/L Total Protein 6.8 (6.4-8.2) g/dL Albumin 2.8 L (3.4-5.0) g/dL Globulin 4.0 g/dL Albumin/Globulin Ratio 0.7 Lipase 32.0 (16.0-77.0) U/L Discharge Plan Discharge Chief Complaint: Abdominal Pain Clinical Impression: Abdominal pain Patient Disposition: Home, Self-Care Condition: Good Mode of Transportation: Private Vehicle Prescriptions / Home Meds: No Action hydrocodone-acetaminophen 5-325 mg tablet 1 tab PO Q6H PRN (Reason: pain) 2 Days Qty: 8 0RF Rx Instructions: DX: S60.211 docusate sodium 100 mg capsule 100 mg PO DAILY Print Language: Mongolian Instructions: Abdominal Pain (ED) Additional Instructions: follow up with your doctor later this week for recheck Referrals: SHANDA ANTON [Primary Care Provider, Family Practice] - 1 week Discharge Date/Time: 06/29/24 22:08 Documented by User: Jayant Rodriguez MD 07/06/24 07:34 HPI - Abdominal Pain General Chief Complaint: Abdominal Pain Stated Complaint: ABDOMINAL PAIN Time Seen by Provider: 06/29/24 19:13 Related Data Home Medications ?Medication ?Instructions ?Recorded ?Confirmed docusate sodium 100 mg capsule 100 mg PO DAILY 5 06/29/24 Previous Rx's ?Medication ?Instructions ?Recorded hydrocodone 5 mg-acetaminophen 325 1 tab PO Q6H PRN pa in 2 days #8 04/01/23 mg tablet tabs Allergies Allergy/AdvReac Type Severity Reaction Status Date / Time No Known Drug Allergies Allergy Verified 06/21/24 06:29 [facility] Social History Little interest or pleasure in doing things: not at all Feeling down, depressed, or hopeless: not at all Exam Constitutional Vital Signs, click to edit/add: Last Vital Signs Temp 98.2 F 06/29/24 18:48 Pulse 106 H 06/29/24 22:08 Resp 16 06/29/24 22:08 BP 101/61 06/29/24 22:08 Pulse Ox 99 06/29/24 22:08 O2 Del Method Room Air 06/29/24 22:08 Course Vital Signs Vital signs: Vital Signs Temperature 98.2 F 06/29/24 18:48 Pulse Rate 89 06/29/24 18:48 Respiratory Rate 18 06/29/24 18:48 Blood Pressure 116/73 06/29/24 18:48 Pulse Oximetry 98 06/29/24 18:48 Oxygen Delivery Method Room Air 06/29/24 18:48 Temperature 98.2 F 06/29/24 18:48 Pulse Rate 106 H 06/29/24 22:08 Respiratory Rate 16 06/29/24 22:08 Blood Pressure 101/61 06/29/24 22:08 Pulse Oximetry 99 06/29/24 22:08 Oxygen Delivery Method Room Air 06/29/24 22:08 MDM - Abdominal Pain MDM Narrative Medical decision making narrative: recent C/S delivery without complications. Now has RUQ and epigastric pain. Pain improved after Reglan and protonix. Labs unremarkable. GB US pending. Patient is feeling better and requesting to go home. ask that we call her if GB US is abnormal. Discharged with reglan and Protonx Dr RODRIGUEZ signed out to Dr RAMOS at 1900. Lab Data Labs: Lab Results 06/29/24 Range/Units 19:05 WBC 11.4 H (4.0-11.0) 10^3/uL RBC 3.50 L (4.20-5.40) 10^6/uL Hgb 10.9 L (12.0-16.0) g/dL Hct 33.5 L (36.0-48.0) % MCV 95.7 (81.0-99.0) fL MCH 31.1 (26.7-34.0) pg MCHC 32.5 (29.9-35.2) g/dL RDW 13.5 (11.0-15.0) % Plt Count 430 (150-450) 10^3/uL MPV 9.5 (9.5-13.5) fL Neut % (Auto) 70.1 (43.0-75.0) % Lymph % (Auto) 20.6 (20.5-60.0) % [place] % (Auto) 6.5 (1.7-12.0) % Eos % (Auto) 1.3 (0.9-7.0) % Baso % (Auto) 0.4 (0.2-2.0) % Neut # (Auto) 8.0 H (1.4-6.5) 10^3/uL Lymph # (Auto) 2.3 (1.2-3.8) 10^3/uL [place] # (Auto) 0.7 (0.3-0.8) 10^3/uL Eos # (Auto) 0.2 (0.0-0.7) 10^3/uL Baso # (Auto) 0.1 (0.0-0.1) 10^3/uL Abs Immat Gran (auto) 0.13 H (0.00-0.03) 10^3/uL Imm/Tot Granulo (auto) 1.1 H (0.0-0.5) % Sodium 135 L (136-145) mmol/L Potassium 3.9 (3.5-5.1) mmol/L Chloride 100 (98-107) mmol/L Carbon Dioxide 28.1 (21.0-32.0) mmol/L Anion Gap 10.8 BUN 11.0 (7.0-18.0) mg/dL Creatinine 0.64 (0.55-1.02) mg/dL Est GFR ( Amer) >60 (>=60 mL/min/1.73m^2) Est GFR (Non-Af Amer) >60 (>=60 mL/min/1.73m^2) BUN/Creatinine Ratio 17.2 Glucose 91 (74-106) mg/dL Lactate 0.6 (0.4-2.0) mmol/L Calcium 9.0 (8.5-10.1) mg/dL Total Bilirubin 0.3 (0.2-1.0) mg/dL AST 10 L (15-37) U/L ALT 25 (14-59) U/L Alkaline Phosphatase 72 (46-116) U/L Total Protein 6.8 (6.4-8.2) g/dL Albumin 2.8 L (3.4-5.0) g/dL Globulin 4.0 g/dL Albumin/Globulin Ratio 0.7 Lipase 32.0 (16.0-77.0) U/L Discharge Plan Discharge Chief Complaint: Abdominal Pain Clinical Impression: Abdominal pain Patient Disposition: Home, Self-Care Condition: Good Mode of Transportation: Private Vehicle Prescriptions / Home Meds: No Action hydrocodone-acetaminophen 5-325 mg tablet 1 tab PO Q6H PRN (Reason: pain) 2 Days Qty: 8 0RF Rx Instructions: DX: S60.211 docusate sodium 100 mg capsule 100 mg PO DAILY Print Language: Mongolian Instructions: Abdominal Pain (ED) Additional Instructions: follow up with your doctor later this week for recheck Referrals: SHANDA ANTON [Primary Care Provider, Family Practice] - 1 week Discharge Date/Time: 06/29/24 22:08
[2024-06-29 19:25] LABS: Basophils Absolute Auto 0.1 10^3/uL (0.0-0.1); Basophils Percent Auto 0.4 % (0.2-2.0); Eosinophils Absolute Auto 0.2 10^3/uL (0.0-0.7); Eosinophils Percent Auto 1.3 % (0.9-7.0); Hematocrit 33.5 % (36.0-48.0); Hemoglobin 10.9 g/dL (12.0-16.0); Immature Granulocytes Abs Auto 0.13 10^3/uL (0.00-0.03); Immature Granulocytes Pct Auto 1.1 % (0.0-0.5); Lymphocytes Absolute Auto 2.3 10^3/uL (1.2-3.8); Lymphocytes Percent Auto 20.6 % (20.5-60.0); Mean Corpuscular HGB Conc 32.5 g/dL (29.9-35.2); Mean Corpuscular Hemoglobin 31.1 pg (26.7-34.0); Mean Corpuscular Volume 95.7 fL (81.0-99.0); Mean Platelet Volume 9.5 fL (9.5-13.5); Monocytes Absolute Auto 0.7 10^3/uL (0.3-0.8); Monocytes Percent Auto 6.5 % (1.7-12.0); Neutrophils Percent Auto 70.1 % (43.0-75.0); Platelet Count 430 10^3/uL (150-450); Red Cell Distribution Width 13.5 % (11.0-15.0); White Blood Count 11.4 10^3/uL (4.0-11.0)
[2024-06-29 19:39] LABS: Alanine Aminotransferase 25 U/L (14-59); Albumin Globulin Ratio 0.7; Albumin Level 2.8 g/dL (3.4-5.0); Alkaline Phosphatase 72 U/L (46-116); Anion Gap 10.8; Aspartate Amino Transferase 10 U/L (15-37); BUN Creatinine Ratio 17.2; Bilirubin Total 0.3 mg/dL (0.2-1.0); Carbon Dioxide 28.1 mmol/L (21.0-32.0); Chloride 100 mmol/L (98-107); Estimated GFR (African America >60 (>=60 mL/min/1.73m^2); Estimated GFR (Non-African Ame >60 (>=60 mL/min/1.73m^2); Glucose 91 mg/dL (74-106); Potassium 3.9 mmol/L (3.5-5.1); Sodium 135 mmol/L (136-145); Total Protein 6.8 g/dL (6.4-8.2)
[2024-06-29 19:42] LABS: Lactate/Lactic Acid 0.6 mmol/L (0.4-2.0)
[2024-06-29] MEDS: METOCLOPRAMIDE HCL 10 MG/2 ML VIAL IVP (20:08)
[2024-06-29] MEDS: 0.9 % SODIUM CHLORIDE 1,000 ML 999 ML IV (20:08)
[2024-06-29] MEDS: PANTOPRAZOLE SODIUM 40 MG VIAL IV (20:09)
[2024-06-29 20:27] VITALS: BP 106/67; PULSE 95; O2SAT 100
[2024-06-29 22:08] VITALS: BP 101/61; PULSE 106; O2SAT 99
[2024-06-29] MEDS: METOCLOPRAMIDE HCL 10 MG TABLET PO (22:08)
== END 2024-06-29 22:08 | disposition home or self-care (01) ==
PROVIDERS: Emergency Provider Internal Medicine; PCP Family Medicine
DX: O90.89 Other complications of the puerperium, not elsewhere classified (principal); R10.9 Unspecified abdominal pain
CPT/HCPCS: 36415; 76705; 80053; 83605; 83690; 85025; 93005; 96361; 96374; 96375; 99285; J2765